=== PATIENT | female | born 1960 | race American Indian/Alaskan Native ===

== ENCOUNTER 2017-03-21 20:40 | Observation (INO) | payer MEDICAID ==
[2017-03-21 20:46] VITALS: BMI 30.7
[2017-03-21] MEDS ORDERED: Sodium Chloride 0.9% 1,000 ML IV STA (21:05)
--- NOTE | 2017-03-21 21:19 | ED PDOC ---
Arrival/HPI - General Chief Complaint: High Blood Sugar Time Seen by Provider: 03/21/17 20:42 Historian: Patient - History of Present Illness Narrative History of Present Illness (Text): 03/21/17 21:13 Tracey Krishnan is a 56 year old female, whose past medical history includes hypertension, diabetes, hyperlipidemia, and anxiety, presents to the emergency department for elevated blood glucose level. Patient had blood work done at 's office yesterday which showed a blood glucose level of 589. Patient was evaluated by again today after the results were available and advised the patient to present to ed for further evaluation. Patient takes Januvia, Metfromin and, Pioglitazone for diabetes, but states she stopped taking Januvia recently due to insurance issues. Denies any fever, chills, headache, dizziness, chest pain, difficulty breathing, nausea, vomiting, diarrhea, abdominal pain, urinary symptoms, or any other complaints at this time. PMD:Dr. Armstrong. Symptom Onset: Gradual Severity Level: Mild Activities at Onset: Light Past Medical History - Provider Review Nursing Documentation Reviewed: Yes - Infectious Disease Hx of Infectious Diseases: None - Tetanus Immunization Tetanus Immunization: Up to Date - Cardiac Hx Hypertension: Yes - Pulmonary Hx Respiratory Disorders: No - Neurological Hx Neurological Disorder: No - HEENT Hx HEENT Disorder: No - Renal Hx Renal Disorder: No - Endocrine/Metabolic Hx Diabetes Mellitus Type 2: Yes Hx Hyperthyroidism: Yes - Hematological/Oncological Hx Blood Disorders: No - Integumentary Hx Dermatological Disorder: No - Musculoskeletal/Rheumatological Hx Musculoskeletal Disorders: No Hx Falls: No - Gastrointestinal Hx Gastroesophageal Reflux: Yes - Genitourinary/Gynecological Hx Genitourinary Disorders: No - Psychiatric Hx Anxiety: Yes Hx Substance Use: No - Past Surgical History Past Surgical History: Non-Contributing - Anesthesia Hx Anesthesia: No - Suicidal Assessment Feels Threatened In Home Enviroment: No Family/Social History - Physician Review Nursing Documentation Reviewed: Yes Family/Social History: No Known Family HX Smoking Status: Former Smoker Hx Alcohol Use: No Hx Substance Use: No Hx Substance Use Treatment: No Allergies/Home Meds Allergies/Adverse Reactions: Allergies Penicillins Allergy (Verified 12/08/16 18:55) RASH Home Medications: Home Meds Medication Instructions Recorded Confirmed RX: Enalapril Maleate 20 mg PO DAILY 08/02/12 03/21/17 RX: Metformin HCl 1,000 mg PO BID 08/02/12 03/21/17 RX: Aspirin [Aspirin EC] 81 mg PO DAILY 11/06/14 03/21/17 RX: Omeprazole [Prilosec] 40 mg PO DAILY 12/10/15 03/21/17 Hctz 25mg 25 mg PO DAILY 12/08/16 03/21/17 Metoprolol Tartrate [Lopressor] 50 mg PO DAILY 12/08/16 03/21/17 Simvastatin [Zocor] 40 mg PO DAILY 12/08/16 03/21/17 amLODIPine [Norvasc] 5 mg PO DAILY 12/08/16 03/21/17 Review of Systems - Physician Review All systems were reviewed & negative as marked: Yes - Review of Systems Constitutional: Other (elevated blood glucose level. ). absent: Fatigue, Fevers Respiratory: Normal. absent: SOB, Cough, Sputum Cardiovascular: Normal. absent: Chest Pain Gastrointestinal: Normal. absent: Abdominal Pain, Diarrhea, Nausea, Vomiting Neurological: Normal. absent: Headache, Dizziness Psychiatric: Normal Physical Exam Vital Signs Reviewed: Yes Vital Signs Temp Pulse Resp BP Pulse Ox 03/22/17 00:36 84 18 113/55 L 98 03/21/17 20:46 98.6 F 88 18 122/70 99 Temperature: Afebrile Blood Pressure: Normal Pulse: Regular Respiratory Rate: Normal Appearance: Positive for: Well-Appearing, Non-Toxic, Comfortable Pain Distress: None Mental Status: Positive for: Alert and Oriented X 3 - Systems Exam Head: Present: Atraumatic, Normocephalic Pupils: Present: PERRL Conjunctiva: Present: Normal Mouth: Present: Moist Mucous Membranes Respiratory/Chest: Present: Clear to Auscultation, Good Air Exchange. No: Respiratory Distress, Accessory Muscle Use Cardiovascular: Present: Regular Rate and Rhythm, Normal S1, S2. No: Murmurs Abdomen: Present: Normal Bowel Sounds. No: Tenderness, Distention, Peritoneal Signs, Rebound, Guarding Upper Extremity: Present: Normal Inspection. No: Cyanosis, Edema Lower Extremity: Present: Normal Inspection. No: Edema Neurological: Present: GCS=15, CN II-XII Intact, Speech Normal, Motor Func Grossly Intact, Normal Sensory Function Skin: Present: Warm, Dry, Normal Color. No: Rashes Psychiatric: Present: Alert, Oriented x 3, Normal Insight, Normal Concentration Medical Decision Making ED Course and Treatment: 03/21/17 21:21 Impression: A 56 year old female sent to emergency department by PMD for evaluation of elevated blood glucose level. Plan: -- Labs -- Chest X-ray -- IV fluids -- Urine culture -- Urinalysis -- Reassess and disposition Progress Notes: 03/22/17 00:21 Case discussed with who is aware and agrees with the plan to observe patient at med/surg for hyperglycemia. Accepts patient under his service. - Lab Interpretations Lab Results: 03/21/17 22:15 03/21/17 22:15 Lab Results 03/21/17 23:59: POC Glucose (mg/dL) 389 H 03/21/17 22:15: Sodium 130 L, Potassium 3.9, Chloride 90 L, Carbon Dioxide 25, Anion Gap 19, BUN 30 H, Creatinine 1.3, Est GFR ( Amer) 52, Est GFR (Non- Af Amer) 43, Random Glucose 501 H* D, Calcium 9.8, Total Bilirubin 1.3, AST 36, ALT 27, Alkaline Phosphatase 78, Total Protein 7.5, Albumin 3.9, Globulin 3.6, Albumin/Globulin Ratio 1.1 03/21/17 22:15: pO2 72 H, VBG pH 7.36, VBG pCO2 50.0, VBG HCO3 28.2 H, VBG O2 Sat (Calc) 97.4 H, VBG Base Excess 1.9 03/21/17 22:15: WBC 7.1, RBC 4.81, Hgb 13.4, Hct 37.5, MCV 78.0 L, MCH 27.9, MCHC 35.7, RDW 13.2, Plt Count 213, MPV 12.2 H, Gran % 70.0 H, Lymph % (Auto) 21.7 L, [place] % (Auto) 7.3 H, Eos % (Auto) 0.7 L, Baso % (Auto) 0.3, Gran # 5.00 , Lymph # 1.6, [place] # 0.5, Eos # 0.1, Baso # 0.02 03/21/17 22:06: Urine Color Yellow, Urine Appearance Clear, Urine pH 6.0, Ur Specific [place] 1.010, Urine Protein Negative, Urine Glucose (UA) >=1000, Urine Ketones Negative, Urine Blood Negative, Urine Nitrate Negative, Urine Bilirubin Negative, Urine Urobilinogen 0.2, Ur Leukocyte Esterase Negative I have reviewed the lab results: Yes - RAD Interpretation Radiology Orders: 03/21/17 21:05 CHEST PORTABLE [RAD] Stat - Medication Orders Current Medication Orders: Discontinued Medications Sodium Chloride (Sodium Chloride 0.9%) 1,000 mls @ 999 mls/hr IV .Q1H1M STA Stop: 03/21/17 22:05 Last Admin: 03/21/17 22:14 Dose: 999 mls/hr Insulin Human Regular (Humulin R) 4 units IV STAT STA Stop: 03/21/17 21:42 Last Admin: 03/21/17 22:43 Dose: 4 units - Scribe Statement The provider has reviewed the documentation as recorded by the Lala Bedolla Provider Attestation: All medical record entries made by the Nusratiblucila were at my direction and personally dictated by me. I have reviewed the chart and agree that the record accurately reflects my personal performance of the history, physical exam, medical decision making, and the department course for this patient. I have also personally directed, reviewed, and agree with the discharge instructions and disposition. Disposition/Present on Arrival - Present on Arrival Any Indicators Present on Arrival: No History of DVT/PE: No History of Uncontrolled Diabetes: No Urinary Catheter: No History of Decub. Ulcer: No History Surgical Site Infection Following: None - Disposition Have Diagnosis and Disposition been Completed?: Yes Diagnosis: Hyperglycemia due to type 2 diabetes mellitus Disposition: HOSPITALIZED Disposition Time: 00:00 Patient Plan: Admission Condition: STABLE
[2017-03-21] MEDS ORDERED: Insulin Regular 1 UNITS/0.01 ML ML IV STA (21:41)
[2017-03-21 22:19] LABS: ADD MANUAL DIFF? NO
[2017-03-21 22:34] LABS: VENOUS BLOOD GAS BASE EXCESS 1.9 mmol/L (0.0-2.0); VENOUS BLOOD PH 7.36 (7.32-7.43)
[2017-03-21 22:43] LABS: BASO # 0.02 K/mm3 (0.0-2.0); BASO % 0.3 % (0.0-3.0); EOS # 0.1 (0.0-0.7); EOS % 0.7 % (1.5-5.0); HEMATOCRIT 37.5 % (36.0-48.0); LYMPH # 1.6 (1.2-3.4); LYMPH % 21.7 % (22.0-35.0); MEAN CORPUSCULAR HEMOGLOBIN 27.9 pg (25.0-35.0); MEAN CORPUSCULAR HGB CONC 35.7 g/dl (31.0-37.0); MEAN PLATELET VOLUME 12.2 fl (7.0-11.0); MONO # 0.5 (0.1-0.6); MONO % 7.3 % (1.0-6.0); PLATELET COUNT 213 10^3/uL (120.0-450.0); RED CELL DISTRIBUTION WIDTH 13.2 % (11.5-14.5); WHITE BLOOD COUNT 7.1 10^3/ul (4.5-11.0)
[2017-03-21 22:47] LABS: ALB/GLOB RATIO 1.1 (1.1-1.8); BILIRUBIN,TOTAL 1.3 mg/dL (0.2-1.3); CALCIUM 9.8 mg/dL (8.4-10.5); POTASSIUM 3.9 mmol/L (3.6-5.0); TOTAL PROTEIN 7.5 g/dL (5.8-8.3)
[2017-03-21 23:25] LABS: URINE BILIRUBIN NEGATIVE (NEGATIVE); URINE BLOOD NEGATIVE (NEGATIVE); URINE GLUCOSE (UA) >=1000 mg/dL (NEGATIVE); URINE KETONE NEGATIVE (NEGATIVE); URINE LEUKOCYTE ESTERASE NEGATIVE Leu/uL (NEGATIVE); URINE PROTEIN NEGATIVE mg/dL (<30 mg/dL); URINE UROBILINOGEN 0.2 E.U./dL (<1 E.U./dL)
[2017-03-21 23:28] LABS: URINE APPEARANCE CLEAR (CLEAR); URINE COLOR YELLOW (YELLOW)
[2017-03-22 04:01] VITALS: RESP 20
[2017-03-22] MEDS ORDERED: Insulin Lispro (humaLOG) LOW Coverage SC SCH (07:30)
[2017-03-22 08:08] LABS: BLOOD UREA NITROGEN 24 mg/dL (7-21); CALCIUM 9.3 mg/dL (8.4-10.5); CARBON DIOXIDE 26 mmol/L (21-33); CHLORIDE 96 mmol/L (98-107); GFR AFRICAN-AMERICAN > 60; POTASSIUM 3.4 mmol/L (3.6-5.0); SODIUM 132 mmol/L (132-148)
[2017-03-22 08:32] LABS: GLUCOSE,RANDOM 436 mg/dL (70-110)
--- NOTE | 2017-03-22 09:23 | RAD ---
HISTORY: r/o infiltrate COMPARISON: 12/08/2016 FINDINGS: LUNGS: No active pulmonary disease. PLEURA: No significant pleural effusion identified, no pneumothorax apparent. CARDIOVASCULAR: Normal. OSSEOUS STRUCTURES: No significant abnormalities. VISUALIZED UPPER ABDOMEN: Normal. OTHER FINDINGS: None. IMPRESSION: No active disease.
[2017-03-22] MEDS: Pantoprazole 40 mg EC Tab PO SCH (09:46)
[2017-03-22] MEDS ORDERED: Insulin Detemir 100 units/ml Vial (Levemir) SC SCH ×3 (10:00→22:00)
[2017-03-22] MEDS: Insulin Lispro (HUMAlog) HIGH Coverage SC SCH ×3 (11:49→22:51)
[2017-03-22] MEDS: Sodium Chloride 0.9% 1,000 ML IV SCH (16:00)
[2017-03-22] MEDS: Insulin Detemir 100 units/ml Vial (Levemir) SC SCH (23:04)
[2017-03-23] MEDS: Insulin Lispro (HUMAlog) HIGH Coverage SC SCH ×3 (08:26→17:26)
[2017-03-23] MEDS ORDERED: Potassium Chloride 10 mEq ER Tab PO SCH (08:45)
[2017-03-23] MEDS: Pantoprazole 40 mg EC Tab PO SCH (09:10)
[2017-03-23] MEDS: Insulin Detemir 100 units/ml Vial (Levemir) SC SCH (09:10)
[2017-03-23 09:40] VITALS: TEMP 98.1; O2SAT 100
[2017-03-23] MEDS: Sodium Chloride 0.9% 1,000 ML IV SCH (12:17)
[2017-03-23 17:27] VITALS: BP 121/65; PULSE 85
--- NOTE | 2017-03-24 09:40 | HP ---
The patient's history and physical was done on 03/19/2017. A 56-year-old female who came in because o f blood sugar 550 and above with uncontrolled diabetes. HISTORY OF PRESENT ILLNESS: This is a 56-year-old female, diabetic, seems noncompliant, came into th e ER because was seen in the office, blood sugar 550. There are no electrolyte abnormalities, but monique vargas has problem controlling her sugar, giving herself insulin and advised to go to the hospital for controlling her high sugar and diabetic education and see how she does. She feels weak, no energy. She is not nauseous. No vomiting, no fever, no dysuria, no cough. The patient otherwise stable. PAST MEDICAL HISTORY: As I mentioned before, she did have a history of diabetes type 2, which has be en taking the medicine for years. She also has a history of a stroke in the past that resolved, hype rtension, hypercholesterolemia. ALLERGIES: PENICILLIN. SOCIAL HISTORY: She has no smoking, no drinking. REVIEW OF SYSTEMS: She does have facial asymmetry. She also has some chronic arthritis, back pain, knee pain on and off. She does feel fatigued. Otherwise negative. PHYSICAL EXAMINATION: VITAL SIGNS: Temperature 98.2, heart rate 74, blood pressure 128/74, respirations 20, saturation 96% . HEAD AND NECK: Normal, except facial asymmetry. No JVD, no thyromegaly. CHEST: Clear, good air entry. CARDIAC: First sound, second sound normal. ABDOMEN: Soft, obese, nontender. EXTREMITIES: No edema. NEUROLOGIC: Normal, except the facial asymmetry. LABORATORY DATA: White count 7.1, hemoglobin 13.4, hematocrit 37.5, platelets 213. Chemistry shows sodium 130, potassium 3.9, chloride 90, BUN 30, creatinine 1.3, blood sugar is 501. Liver enzymes ar e normal. ABG shows pO2 72, pH 7.36, pCO2 50. UA was negative. Also patient did have, when she cam e in, she had a chest x-ray, which shows no active disease. IMPRESSION AND PLAN: This is a 56-year-old female with uncontrolled diabetes, poor compliance. We w ill admit the patient for IV hydration. She does have mild renal insufficiency in the office labs, w hich seems better now. Continue IV fluid, insulin. Going to give 20 units of insulin. Continue hig h scale insulin coverage. Probably, will give Lantus long-acting and follow up the patient clinicall y. Diabetic education. Resume all blood pressure and cholesterol medications. Continue aspirin. F annelow up clinically, see her in the morning. Jose Antonio Armstrong MD cc: [phone] TT: 03/24/2017 09:39:23 en
--- NOTE | 2017-03-24 15:39 | DS ---
A 56-year-old female, came in with uncontrolled diabetes. The patient was given insulin sliding scal e, high scale coverage, which then required long acting insulin, which added insulin, was close to 35 units or 40 units. The patient also seems doing well and no other complaint. No dysuria, no fever. The patient hemodynamically stable and will be discharged home. VITAL SIGNS: Temperature 98, heart rate 57, blood pressure 115/58, respirations 20, saturating 100%. Her UA showed gram-positive cocci on the urine culture. The patient asymptomatic. A chest x-ray, no active disease. The patient will be discharged home. PHYSICAL EXAMINATION: HEAD AND NECK: Normal, except for facial asymmetry. CHEST: Clear, good air entry. CARDIAC: First sound, second sound normal. ABDOMEN: Obese, nontender. EXTREMITIES: No edema. NEUROLOGIC: Normal. DISCHARGE DIAGNOSES: 1. Uncontrolled diabetes. 2. Acute renal insufficiency, resolved. 3. Urinary tract infection, gram-positive cocci, given doxycycline for 7 days. PLAN: Discharge home. We will give the patient Lantus, will go on the low side, 30 units for now be cause patient is new for her sugar and will resume her metformin to 1000 mg b.i.d. Hopefully, betwee n the combination of these drugs, her sugar will improve. I will see her Saturday or Saturday for stalin nuation of therapy. Diet control should be explained to the patient and frequent monitor blood sugar and hypoglycemia. The symptoms of awareness of hypoglycemia has been explained to the patient. Dinah betic education also was recommended to the patient. Continue current therapy. Jose Antonio Armstrong MD cc: [phone] TT: 03/24/2017 15:38:40 en
== END 2017-03-23 19:25 | disposition home or self-care (01) ==
LOC: ED 20:40 → ERH 03-22 → 5RSO 03-22 02:37
PROVIDERS: ADMIT Internal Medicine; ATTEND Internal Medicine
DX: E11.65 Type 2 diabetes mellitus with hyperglycemia (principal); N28.9 Disorder of kidney and ureter, unspecified; N39.0 Urinary tract infection, site not specified; B95.1 Streptococcus, group B, as the cause of diseases classified elsewhere; I10 Essential (primary) hypertension; E78.00 Pure hypercholesterolemia, unspecified; Z88.0 Allergy status to penicillin; Z79.84 Long term (current) use of oral hypoglycemic drugs; Z79.82 Long term (current) use of aspirin; Z86.73 Personal history of transient ischemic attack (TIA), and cerebral infarction without residual deficits; Z91.19 Patient's noncompliance with other medical treatment and regimen
CPT/HCPCS: 36415; 71010; 80048; 80053; 81003; 82803; 82948; 85025; 87086; 87181; 99285; G0378; J7040

== ENCOUNTER 2018-05-21 18:09 | Emergency (ER) | payer MEDICAID, OTHER ==
[2018-05-21 18:33] VITALS: BMI 33.0
[2018-05-21 18:47] VITALS: RESP 18
[2018-05-21 19:29] LABS: BASO # 0.02 K/mm3 (0.0-2.0); BASO % 0.2 % (0.0-3.0); EOS # 0.1 (0.0-0.7); EOS % 1.3 % (1.5-5.0); GRAN # 6.88 (1.4-6.5); GRAN % 67.1 % (50.0-68.0); LYMPH # 2.2 (1.2-3.4); LYMPH % 21.5 % (22.0-35.0); MEAN CELL VOLUME 79.1 fl (80.0-105.0); MEAN CORPUSCULAR HEMOGLOBIN 26.9 pg (25.0-35.0); MEAN CORPUSCULAR HGB CONC 33.9 g/dl (31.0-37.0); MEAN PLATELET VOLUME 10.9 fl (7.0-11.0); MONO % 9.9 % (1.0-6.0); RBC 4.84 10^6/uL (3.5-6.1); RED CELL DISTRIBUTION WIDTH 14.1 % (11.5-14.5); WHITE BLOOD COUNT 10.3 10^3/ul (4.5-11.0)
[2018-05-21 19:35] LABS: ALB/GLOB RATIO 1.1 (1.1-1.8); ALT/SGPT 19 U/L (7-56); AST/SGOT 26 U/L (14-36); BLOOD UREA NITROGEN 19 mg/dL (7-21); CALCIUM 9.2 mg/dL (8.4-10.5); GFR AFRICAN-AMERICAN > 60; GFR NON-AFRICAN AMERICAN 52
[2018-05-21 19:46] LABS: TROPONIN I 0.01 ng/mL
[2018-05-21 20:35] VITALS: BP 143/70; PULSE 65; TEMP 98.4; O2SAT 100
[2018-05-21 20:39] LABS: URINE BILIRUBIN NEGATIVE (NEGATIVE); URINE BLOOD NEGATIVE (NEGATIVE); URINE GLUCOSE (UA) NEGATIVE (NEGATIVE); URINE LEUKOCYTE ESTERASE TRACE Leu/uL (NEGATIVE); URINE PROTEIN NEGATIVE mg/dL (<30 mg/dL); URINE UROBILINOGEN 0.2 E.U./dL (<1 E.U./dL)
[2018-05-21 20:46] LABS: URINE COLOR YELLOW (YELLOW)
[2018-05-21 20:47] LABS: URINE APPEARANCE CLEAR (CLEAR)
--- NOTE | 2018-05-21 20:50 | ED PDOC ---
Arrival/HPI - General Chief Complaint: Shortness Of Breath Time Seen by Provider: 05/21/18 18:37 Past Medical History - Infectious Disease Hx of Infectious Diseases: None - Tetanus Immunization Tetanus Immunization: Up to Date - Reproductive Menopause: Yes - Cardiac Hx Cardiac Disorders: Yes Hx Hypertension: Yes - Pulmonary Hx Respiratory Disorders: Yes Hx Bronchitis: Yes - Neurological Hx Neurological Disorder: Yes Other/Comment: Lovell's Palsy - HEENT Hx HEENT Disorder: No - Renal Hx Renal Disorder: No - Endocrine/Metabolic Hx Endocrine Disorders: Yes Hx Diabetes Mellitus Type 2: Yes Hx Hyperthyroidism: Yes - Hematological/Oncological Hx Blood Disorders: No - Integumentary Hx Dermatological Disorder: No - Musculoskeletal/Rheumatological Hx Musculoskeletal Disorders: No Hx Falls: No - Gastrointestinal Hx Gastrointestinal Disorders: Yes Hx Gastroesophageal Reflux: Yes - Genitourinary/Gynecological Hx Genitourinary Disorders: No - Psychiatric Hx Psychophysiologic Disorder: Yes Hx Anxiety: Yes Hx Substance Use: No - Past Surgical History Past Surgical History: Non-Contributing - Anesthesia Hx Anesthesia: No - Suicidal Assessment Feels Threatened In Home Enviroment: No Family/Social History Smoking Status: Never Smoked Hx Alcohol Use: No Hx Substance Use: No Hx Substance Use Treatment: No Allergies/Home Meds Allergies/Adverse Reactions: Allergies Penicillins Allergy (Verified 05/21/18 18:34) RASH Home Medications: Home Meds Medication Instructions Recorded Confirmed Enalapril Maleate 20 mg PO BID 08/02/12 05/21/18 Aspirin [Aspirin EC] 81 mg PO DAILY 11/06/14 05/21/18 Metoprolol Tartrate [Lopressor] 50 mg PO DAILY 12/08/16 05/21/18 amLODIPine [Norvasc] 5 mg PO DAILY 12/08/16 05/21/18 Simvastatin [Zocor] 40 mg PO DAILY 02/06/18 05/21/18 Famotidine [Pepcid] 40 mg PO DAILY 05/21/18 05/21/18 Physical Exam Vital Signs Temp Pulse Resp BP Pulse Ox 05/21/18 20:33 98.4 F 65 18 143/70 100 05/21/18 18:46 18 96 05/21/18 18:25 98.2 F 73 20 93 L Medical Decision Making ED Course and Treatment: 05/21/18 Patient Seen With Resident: In agreement with resident note which contains more details about the patient. Patient was seen and evaluated with resident. Came up with plan and treatment together. 05/21/18 20:00 Discussed case with , who is aware of the patient. Patient is stable for discharge and will follow-up with him tomorrow. - Lab Interpretations Lab Results: 05/21/18 19:00 05/21/18 19:00 Lab Results 05/21/18 20:20: Urine Color Yellow, Urine Appearance Clear, Urine pH 6.0, Ur Specific [place] 1.015, Urine Protein Negative, Urine Glucose (UA) Negative, Urine Ketones Negative, Urine Blood Negative, Urine Nitrate Negative, Urine Bilirubin Negative, Urine Urobilinogen 0.2, Ur Leukocyte Esterase Trace H, Urine RBC Pending, Urine WBC Pending 05/21/18 19:00: Sodium 140, Potassium 3.4 L, Chloride 104, Carbon Dioxide 23, Anion Gap 16, BUN 19, Creatinine 1.1, Est GFR ( Amer) > 60, Est GFR (Non- Af Amer) 52, Random Glucose 195 H, Calcium 9.2, Magnesium 1.9, Total Bilirubin 0.8, AST 26, ALT 19, Alkaline Phosphatase 84, Lactate Dehydrogenase 493, Total Creatine Kinase 161, Troponin I 0.01, Total Protein 7.5, Albumin 4.0, Globulin 3.5, Albumin/Globulin Ratio 1.1 05/21/18 19:00: WBC 10.3 D, RBC 4.84, Hgb 13.0, Hct 38.3, MCV 79.1 L, MCH 26.9 , MCHC 33.9, RDW 14.1, Plt Count 280, MPV 10.9, Gran % 67.1, Lymph % (Auto) 21.5 L, [place] % (Auto) 9.9 H, Eos % (Auto) 1.3 L, Baso % (Auto) 0.2, Gran # 6.88 H, Lymph # (Auto) 2.2, [place] # (Auto) 1.0 H, Eos # (Auto) 0.1, Baso # (Auto) 0.02 - RAD Interpretation Radiology Orders: 05/21/18 18:43 CHEST PORTABLE [RAD] Stat - Medication Orders Current Medication Orders: Discontinued Medications Aspirin (Aspirin) 325 mg PO STAT STA Stop: 05/21/18 18:42 Last Admin: 05/21/18 18:52 Dose: 325 mg Disposition/Present on Arrival - Present on Arrival History of DVT/PE: No History of Uncontrolled Diabetes: No Urinary Catheter: No History of Decub. Ulcer: No History Surgical Site Infection Following: None - Disposition Diagnosis: Non-cardiac chest pain Disposition: HOME/ ROUTINE Condition: GOOD Discharge Instructions (ExitCare): Chest Pain (ED) Additional Instructions: EHSAN DEJESUS, thank you for letting us take care of you today. The emergency medical care you received today was directed at your acute symptoms. If you were prescribed any medication, please fill it and take as directed. It may take several days for your symptoms to resolve. Return to the Emergency Department if your symptoms worsen, do not improve, or if you have any other problems. Please contact your doctor or call one of the physicians/clinics you have been referred to that are listed on the Patient Visit Information form that is included in your discharge packet. Bring any paperwork you were given at discharge with you along with any medications you are taking to your follow up visit. Our treatment cannot replace ongoing medical care by a primary care provider outside of the emergency department. Thank you for allowing the [facility] team to be part of your care today. Follow up with your primary care doctor in 1-2 days for re-evaluation and further management. Referrals: Jose Antonio Armstrong MD [Primary Care Provider] - Follow up with primary Forms: [facility] ([place]ian)
--- NOTE | 2018-05-21 20:50 | ED PDOC ---
Arrival/HPI - General Historian: Patient - History of Present Illness Time/Duration: 24 hours Symptom Course: Intermittent Activities at Onset: Light Context: Exertion <Ryan Damian - Last Filed: 05/21/18 22:05> <Brigida Ignacio - Last Filed: 05/21/18 22:24> - General Chief Complaint: Shortness Of Breath Time Seen by Provider: 05/21/18 18:37 - History of Present Illness Narrative History of Present Illness (Text): 05/21/18 20:33 This is a 57 year old female with PMH of HT, DM2, stroke and anxiety presenting to the ED for SOB earlier today. Patient states she was exercising this morning by walking around a track for an hour and subsequently felt short of breath. Later in the afternoon she also felt SOB upon returning home from grocery shopping. She has no associated symptoms and currently is asymptomatic. She denies CP, nausea, vomiting, headaches, fevers, chills, abdominal pain, diarrhea , melena, leg swelling, urinary symptoms, recent travel and recent sickness. She had a myocardial stress test done on 02/06/18 which showed normal findings and LVEF of 68%. PCP is Dr. Armstrong (Ryan Damian) Past Medical History - Provider Review Nursing Documentation Reviewed: Yes - Infectious Disease Hx of Infectious Diseases: None - Tetanus Immunization Tetanus Immunization: Up to Date - Reproductive Menopause: Yes - Cardiac Hx Cardiac Disorders: Yes Hx Hypertension: Yes - Pulmonary Hx Respiratory Disorders: Yes Hx Bronchitis: Yes - Neurological Hx Neurological Disorder: Yes Other/Comment: Lovell's Palsy - HEENT Hx HEENT Disorder: No - Renal Hx Renal Disorder: No - Endocrine/Metabolic Hx Endocrine Disorders: Yes Hx Diabetes Mellitus Type 2: Yes Hx Hyperthyroidism: Yes - Hematological/Oncological Hx Blood Disorders: No - Integumentary Hx Dermatological Disorder: No - Musculoskeletal/Rheumatological Hx Musculoskeletal Disorders: No Hx Falls: No - Gastrointestinal Hx Gastrointestinal Disorders: Yes Hx Gastroesophageal Reflux: Yes - Genitourinary/Gynecological Hx Genitourinary Disorders: No - Psychiatric Hx Psychophysiologic Disorder: Yes Hx Anxiety: Yes Hx Substance Use: No - Past Surgical History Past Surgical History: Non-Contributing - Anesthesia Hx Anesthesia: No - Suicidal Assessment Feels Threatened In Home Enviroment: No <Ryan Damian - Last Filed: 05/21/18 22:05> Family/Social History - Physician Review Nursing Documentation Reviewed: Yes Family/Social History: Unknown Family HX Smoking Status: Never Smoked Hx Alcohol Use: No Hx Substance Use: No Hx Substance Use Treatment: No <Ryan Damian - Last Filed: 05/21/18 22:05> Allergies/Home Meds <Ryan Damian - Last Filed: 05/21/18 22:05> <Ignacio Allred DO - Last Filed: 05/21/18 22:24> Allergies/Adverse Reactions: Allergies Penicillins Allergy (Verified 05/21/18 18:34) RASH Home Medications: Home Meds Medication Instructions Recorded Confirmed Enalapril Maleate 20 mg PO BID 08/02/12 05/21/18 Aspirin [Aspirin EC] 81 mg PO DAILY 11/06/14 05/21/18 Metoprolol Tartrate [Lopressor] 50 mg PO DAILY 12/08/16 05/21/18 amLODIPine [Norvasc] 5 mg PO DAILY 12/08/16 05/21/18 Simvastatin [Zocor] 40 mg PO DAILY 02/06/18 05/21/18 Famotidine [Pepcid] 40 mg PO DAILY 05/21/18 05/21/18 Review of Systems - Physician Review All systems were reviewed & negative as marked: Yes - Review of Systems Constitutional: Normal. absent: Fevers Eyes: Normal ENT: Normal Respiratory: SOB. absent: Cough, Wheezing Cardiovascular: Normal. absent: Chest Pain, Palpitations Gastrointestinal: Normal. absent: Abdominal Pain, Nausea, Vomiting Genitourinary Female: Normal. absent: Dysuria, Frequency, Hematuria Musculoskeletal: Normal Skin: Normal Neurological: Normal. absent: Headache Psychiatric: Anxiety <Ryan Damian - Last Filed: 05/21/18 22:05> Physical Exam Vital Signs Reviewed: Yes Temperature: Afebrile Blood Pressure: Normal Pulse: Regular Respiratory Rate: Normal Appearance: Positive for: Well-Appearing, Non-Toxic, Comfortable Pain Distress: None Mental Status: Positive for: Alert and Oriented X 3 - Systems Exam Head: Present: Atraumatic, Normocephalic Pupils: Present: PERRL Extroacular Muscles: Present: EOMI Conjunctiva: Present: Normal Mouth: Present: Moist Mucous Membranes Neck: Present: Normal Range of Motion Respiratory/Chest: Present: Clear to Auscultation, Good Air Exchange. No: Respiratory Distress, Accessory Muscle Use, Wheezes Cardiovascular: Present: Regular Rate and Rhythm, Normal S1, S2. No: Murmurs Abdomen: Present: Normal Bowel Sounds. No: Tenderness, Distention, Peritoneal Signs, Rebound, Guarding, [place]'s [place] Tender Back: Present: Normal Inspection Upper Extremity: Present: Normal Inspection. No: Cyanosis, Edema Lower Extremity: Present: Normal Inspection. No: Edema Neurological: Present: Speech Normal, Motor Func Grossly Intact, Normal Sensory Function Skin: Present: Warm, Dry, Normal Color. 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 Differential not limited to: anxiety vs angina vs dehydration Plan: Blood work ordered. Chest XRAY, troponins, and U/A. Progress: 05/21/18 21:05 Patient is resting comfortably, no acute distress and afebrile, and no complaints at this time. (Ryan Damian) 05/21/18 Patient Seen With Resident: In agreement with resident note which contains more details about the patient. Patient was seen and evaluated with resident. Came up with plan and treatment together. 05/21/18 20:00 Discussed case with , who is aware of the patient. Patient is stable for discharge and will follow-up with him tomorrow. 07/18/18 Chest X-ray shows no acute processes. 05/21/18 EKG shows NSR at 69 BPM with LAFB no change from prior. Interpreted by me. ( Ignacio Allred DO) - Lab Interpretations Lab Results: 05/21/18 19:00 05/21/18 19:00 Lab Results 05/21/18 20:20: Urine Color Yellow, Urine Appearance Clear, Urine pH 6.0, Ur Specific [place] 1.015, Urine Protein Negative, Urine Glucose (UA) Negative, Urine Ketones Negative, Urine Blood Negative, Urine Nitrate Negative, Urine Bilirubin Negative, Urine Urobilinogen 0.2, Ur Leukocyte Esterase Trace H, Urine RBC Negative, Urine WBC 2 - 5, Ur Epithelial Cells 3 - 4, Urine Bacteria Mod 05/21/18 19:00: Sodium 140, Potassium 3.4 L, Chloride 104, Carbon Dioxide 23, Anion Gap 16, BUN 19, Creatinine 1.1, Est GFR ( Amer) > 60, Est GFR (Non- Af Amer) 52, Random Glucose 195 H, Calcium 9.2, Magnesium 1.9, Total Bilirubin 0.8, AST 26, ALT 19, Alkaline Phosphatase 84, Lactate Dehydrogenase 493, Total Creatine Kinase 161, Troponin I 0.01, Total Protein 7.5, Albumin 4.0, Globulin 3.5, Albumin/Globulin Ratio 1.1 05/21/18 19:00: WBC 10.3 D, RBC 4.84, Hgb 13.0, Hct 38.3, MCV 79.1 L, MCH 26.9 , MCHC 33.9, RDW 14.1, Plt Count 280, MPV 10.9, Gran % 67.1, Lymph % (Auto) 21.5 L, Rice % (Auto) 9.9 H, Eos % (Auto) 1.3 L, Baso % (Auto) 0.2, Gran # 6.88 H, Lymph # (Auto) 2.2, Rice # (Auto) 1.0 H, Eos # (Auto) 0.1, Baso # (Auto) 0.02 - RAD Interpretation Radiology Orders: 05/21/18 18:43 CHEST PORTABLE [RAD] Stat - Medication Orders Current Medication Orders: Discontinued Medications Aspirin (Aspirin) 325 mg PO STAT STA Stop: 05/21/18 18:42 Last Admin: 05/21/18 18:52 Dose: 325 mg - PA / CHARTERED ACCOUNTANT / Resident Statement ROSITA has reviewed & agrees with the documentation as recorded. ROSITA has examined the patient and agrees with the treatment plan. <Ryan Damian - Last Filed: 05/21/18 22:05> Disposition/Present on Arrival - Present on Arrival Any Indicators Present on Arrival: No History of DVT/PE: No History of Uncontrolled Diabetes: No Urinary Catheter: No History of Decub. Ulcer: No History Surgical Site Infection Following: None - Disposition Have Diagnosis and Disposition been Completed?: Yes Disposition Time: 21:00 Patient Plan: Discharge <Ryan Damian - Last Filed: 05/21/18 22:05> - Disposition Disposition Time: 20:00 <Ignacio Allred DO - Last Filed: 05/21/18 22:24> - Disposition Diagnosis: Non-cardiac chest pain Disposition: HOME/ ROUTINE Condition: GOOD Discharge Instructions (ExitCare): Chest Pain (ED) Additional Instructions: EHSAN DEJESUS, thank you for letting us take care of you today. The emergency medical care you received today was directed at your acute symptoms. If you were prescribed any medication, please fill it and take as directed. It may take several days for your symptoms to resolve. Return to the Emergency Department if your symptoms worsen, do not improve, or if you have any other problems. Please contact your doctor or call one of the physicians/clinics you have been referred to that are listed on the Patient Visit Information form that is included in your discharge packet. Bring any paperwork you were given at discharge with you along with any medications you are taking to your follow up visit. Our treatment cannot replace ongoing medical care by a primary care provider outside of the emergency department. Thank you for allowing the [facility] team to be part of your care today. Follow up with your primary care doctor in 1-2 days for re-evaluation and further management. Referrals: Jose Antonio Armstrong MD [Primary Care Provider] - Follow up with primary Forms: [employer] ([place]i)
[2018-05-21 20:54] LABS: URINE RBC NEGATIVE /hpf (0-2)
[2018-05-21 20:55] LABS: URINE BACTERIA MOD (NEG)
--- NOTE | 2018-05-22 07:12 | RAD ---
Date of service: 05/21/2018 HISTORY: r/o infiltrate COMPARISON: 03/21/2017 FINDINGS: LUNGS: No active pulmonary disease. PLEURA: No significant pleural effusion identified, no pneumothorax apparent. CARDIOVASCULAR: Normal. OSSEOUS STRUCTURES: No significant abnormalities. VISUALIZED UPPER ABDOMEN: Normal. OTHER FINDINGS: None. IMPRESSION: No active disease.
--- NOTE | 2018-05-22 08:20 | CARD ---
APPROVED REPORT Date of service: 05/21/2018 EKG Measurement Heart [id number] <Conclusion> Normal sinus rhythm Left anterior fascicular block Left ventricular hypertrophy. ST__T Changes. Abnormal ECG
== END 2018-05-21 20:35 | disposition home or self-care (01) ==
LOC: ED 18:09
DX: R07.89 Other chest pain (principal); I10 Essential (primary) hypertension; E11.9 Type 2 diabetes mellitus without complications; Z86.73 Personal history of transient ischemic attack (TIA), and cerebral infarction without residual deficits

== ENCOUNTER 2018-10-15 14:25 | Observation (INO) | payer MEDICAID ==
[2018-10-15 14:34] VITALS: BMI 35.2
--- NOTE | 2018-10-15 15:05 | ED PDOC ---
Arrival/HPI - General Chief Complaint: Chest Pain Time Seen by Provider: 10/15/18 14:30 Historian: Patient - History of Present Illness Narrative History of Present Illness (Text): 10/15/18 14:57 58 year old female, with past medical history of hypertension, diabetes, hyperlipidemia and gastric reflux, presents to the ED complaining of worsening chest pain today. Patient reports chronic chest pain experienced every day, which resolves spontaneously. Patient informs a non-radiating shooting pain to midchest, which did not resolve today, prompting her to present to the ED for medical evaluation. Patient additionally reports chronic left shoulder discomfort since months and does not believe any correlation between the shoulder pain and the chest pain. Patient states similar symptoms in the past for which she was evaluated with no significant findings. Patient informs usual alleviation to symptoms with Tums and warm fluid intake, however states persistent symptoms today. Patient denies any other associated somatic comp laints. Patient denies any fevers, chills, headache, dizziness, shortness of breath, dyspnea on exertion, cough, abdominal pain, nausea, vomiting, diarrhea, back pain, neck pain, or any other complaints. PMD: Dr. Armstrong Radio Aerial Installer: Dr. Cheung Time/Duration: > month Symptom Onset: Gradual Symptom Course: Unchanged Quality: Aching Activities at Onset: Light Context: Home Past Medical History - Provider Review Nursing Documentation Reviewed: Yes - Infectious Disease Hx of Infectious Diseases: None - Tetanus Immunization Tetanus Immunization: Up to Date - Reproductive Menopause: Yes - Cardiac Hx Cardiac Disorders: Yes Hx Hypertension: Yes - Pulmonary Hx Respiratory Disorders: Yes Hx Bronchitis: Yes - Neurological Hx Neurological Disorder: Yes Other/Comment: Lovell's Palsy - HEENT Hx HEENT Disorder: No - Renal Hx Renal Disorder: No - Endocrine/Metabolic Hx Endocrine Disorders: Yes Hx Diabetes Mellitus Type 2: Yes Hx Hyperthyroidism: Yes - Hematological/Oncological Hx Blood Disorders: No - Integumentary Hx Dermatological Disorder: No - Musculoskeletal/Rheumatological Hx Musculoskeletal Disorders: No - Gastrointestinal Hx Gastrointestinal Disorders: Yes Hx Gastroesophageal Reflux: Yes - Genitourinary/Gynecological Hx Genitourinary Disorders: No - Psychiatric Hx Psychophysiologic Disorder: Yes Hx Anxiety: Yes Hx Substance Use: No - Past Surgical History Past Surgical History: Non-Contributing - Anesthesia Hx Anesthesia: No - Suicidal Assessment Feels Threatened In Home Enviroment: No Family/Social History - Physician Review Nursing Documentation Reviewed: Yes Family/Social History: Unknown Family HX Smoking Status: Never Smoked Hx Alcohol Use: No Hx Substance Use: No Hx Substance Use Treatment: No Allergies/Home Meds Allergies/Adverse Reactions: Allergies Penicillins Allergy (Verified 05/21/18 18:34) RASH Home Medications: Home Meds Medication Instructions Recorded Confirmed Enalapril Maleate 20 mg PO BID 08/02/12 05/21/18 Aspirin [Aspirin EC] 81 mg PO DAILY 11/06/14 05/21/18 Metoprolol Tartrate [Lopressor] 50 mg PO DAILY 12/08/16 05/21/18 amLODIPine [Norvasc] 5 mg PO DAILY 12/08/16 05/21/18 Simvastatin [Zocor] 40 mg PO DAILY 02/06/18 05/21/18 Famotidine [Pepcid] 40 mg PO DAILY 05/21/18 05/21/18 Review of Systems - Physician Review All systems were reviewed & negative as marked: Yes - Review of Systems Constitutional: absent: Fevers Respiratory: absent: SOB, Cough Cardiovascular: Chest Pain Gastrointestinal: absent: Abdominal Pain, Diarrhea, Nausea, Vomiting Genitourinary Female: absent: Dysuria, Hematuria Musculoskeletal: absent: Back Pain, Neck Pain Skin: absent: Rash Neurological: absent: Headache, Dizziness Physical Exam Vital Signs Reviewed: Yes Vital Signs Temp Pulse Resp BP Pulse Ox 10/15/18 14:26 98.6 F 68 18 141/69 97 Temperature: Afebrile Blood Pressure: Normal Pulse: Regular Respiratory Rate: Normal Appearance: Positive for: Well-Appearing, Non-Toxic, Comfortable Pain Distress: None Mental Status: Positive for: Alert and Oriented X 3 - Systems Exam Head: Present: Atraumatic, Normocephalic Pupils: Present: PERRL Extroacular Muscles: Present: EOMI Conjunctiva: Present: Normal Mouth: Present: Moist Mucous Membranes Neck: Present: Normal Range of Motion Respiratory/Chest: Present: Clear to Auscultation, Good Air Exchange. No: Respiratory Distress, Accessory Muscle Use Cardiovascular: Present: Regular Rate and Rhythm, Normal S1, S2. No: Murmurs Abdomen: No: Tenderness, Distention, Peritoneal Signs Back: Present: Normal Inspection Upper Extremity: Present: Normal Inspection, Normal ROM, NORMAL PULSES, Te nderness (left shoulder tenderness), Neurovascularly Intact. No: Cyanosis, Edema, Swelling, Erythema Lower Extremity: Present: Normal Inspection, Neurovascularly Intact. No: Edema Neurological: Present: GCS=15, CN II-XII Intact, Speech Normal, Motor Func Grossly Intact, Normal Sensory Function Skin: Present: Warm, Dry, Normal Color. No: Rashes Psychiatric: Present: Alert, Oriented x 3, Normal Insight, Normal Concentration Medical Decision Making ED Course and Treatment: 10/15/18 15:06 Impression: 58 year old female presents to the Emergency department complaining of chest pain. Differential Diagnosis included but are not limited to: Chest pain r/o ACS vs. reflux Plan: -- Labs -- EKG -- Chest X-ray -- Reassess and disposition Prior Visits: Notes and results from previous visits were reviewed. Progress Notes: 10/15/18 15:06 EKG: Ordered, reviewed, and independently interpreted the EKG. Rate : 70 BPM Rhythm : NSR Interpretation : Left anterior fascicular block. Left ventricular hypertrophy with repolarization abnormality. Comparison : Unchanged from EKG performed on 05/21/18. 10/15/18 17:49 Left shoulder xray ordered for chronic shoulder pain. Symptoms improved but still having intermittent nawing discomfort in her mid chest. She has 3 cardiac risk factors and she will be placed on tele obs for Dr. Armstrong. He requests Dr. Edgar for Cardiology. - EKG Interpretation Interpreted by ED Physician: Yes Type: 12 lead EKG - Scribe Statement The provider has reviewed the documentation as recorded by the Scribe Nimisha Pineda. All medical record entries made by the Scribe were at my direction and personally dictated by me. I have reviewed the chart and agree that the record accurately reflects my personal performance of the history, physical exam, medical decision making, and the department course for this patient. I have also personally directed, reviewed, and agree with the discharge instructions and disposition. Disposition/Present on Arrival - Present on Arrival Any Indicators Present on Arrival: No History of DVT/PE: No History of Uncontrolled Diabetes: No Urinary Catheter: No History of Decub. Ulcer: No History Surgical Site Infection Following: None - Disposition Have Diagnosis and Disposition been Completed?: Yes Diagnosis: Chest pain Disposition: HOSPITALIZED Disposition Time: 17:50 Patient Plan: Observation Condition: FAIR Discharge Instructions (ExitCare): Chest Pain (ED) Forms: [employer] ([place])
[2018-10-15] MEDS ORDERED: Famotidine 20mg/50ml 20 MG/50 ML BAG IVPB STA (15:07)
[2018-10-15] MEDS ORDERED: Alum-Mag Hydrox-Simethicone Susp (30 mL) PO STA (15:09)
--- NOTE | 2018-10-15 16:15 | RAD ---
Date of service: 10/15/2018 HISTORY: chest pain COMPARISON: 05/21/2018 FINDINGS: LUNGS: The lungs are well inflated and clear. PLEURA: No pleural effusions or pneumothorax. CARDIOVASCULAR: Persistent moderate cardiomegaly. No aortic atherosclerotic calcification present. OSSEOUS STRUCTURES: Within normal limits for the patient's age. VISUALIZED UPPER ABDOMEN: Normal. OTHER FINDINGS: None. IMPRESSION: No active pulmonary disease.
[2018-10-15 17:10] LABS: BASO # 0.01 K/mm3 (0.0-2.0); BASO % 0.1 % (0.0-3.0); EOS # 0.1 (0.0-0.7); EOS % 0.9 % (1.5-5.0); GRAN # 6.34 (1.4-6.5); GRAN % 72.1 % (50.0-68.0); HEMOGLOBIN 13.3 g/dL (12.0-16.0); LYMPH # 1.9 (1.2-3.4); LYMPH % 21.6 % (22.0-35.0); MEAN CELL VOLUME 81.7 fl (80.0-105.0); MEAN CORPUSCULAR HEMOGLOBIN 27.3 pg (25.0-35.0); MEAN CORPUSCULAR HGB CONC 33.4 g/dl (31.0-37.0); MEAN PLATELET VOLUME 10.8 fl (7.0-11.0); MONO # 0.5 (0.1-0.6); MONO % 5.3 % (1.0-6.0); RBC 4.87 10^6/uL (3.5-6.1); RED CELL DISTRIBUTION WIDTH 13.8 % (11.5-14.5); WHITE BLOOD COUNT 8.8 10^3/uL (4.5-11.0)
[2018-10-15 17:11] LABS: URINE BILIRUBIN NEGATIVE (NEGATIVE); URINE BLOOD NEGATIVE (NEGATIVE); URINE GLUCOSE (UA) NEGATIVE (NEGATIVE); URINE LEUKOCYTE ESTERASE NEGATIVE Leu/uL (NEGATIVE); URINE PROTEIN NEGATIVE mg/dL (<30 mg/dL); URINE UROBILINOGEN 0.2 E.U./dL (<1 E.U./dL)
[2018-10-15 17:15] LABS: URINE APPEARANCE CLEAR (CLEAR); URINE COLOR YELLOW (YELLOW)
[2018-10-15 17:19] LABS: ALBUMIN 3.9 g/dL (3.0-4.8); ALT/SGPT 23 U/L (7-56); AST/SGOT 26 U/L (14-36); BLOOD UREA NITROGEN 16 mg/dL (7-21); CALCIUM 9.3 mg/dL (8.4-10.5); GFR NON-AFRICAN AMERICAN 57
[2018-10-15 17:28] LABS: TROPONIN I 0.02 ng/mL
--- NOTE | 2018-10-15 20:24 | CARD ---
APPROVED REPORT Date of service: 10/15/2018 EKG Measurement Heart [id number] [id number] <Conclusion> Normal sinus rhythm Left anterior fascicular block Left ventricular hypertrophy with repolarization abnormality Prolonged QT Abnormal ECG
--- NOTE | 2018-10-16 07:03 | CP.PCM.PN ---
Subjective - Date & Time of Evaluation Date of Evaluation: 10/16/18 Time of Evaluation: 06:50 - Subjective Subjective: A Objective - Vital Signs/Intake and Output Vital Signs (last 24 hours): Temp Pulse Resp BP Pulse Ox 98.4 F 67 20 137/82 96 10/15/18 22:45 10/16/18 02:00 10/15/18 23:54 10/15/18 22:45 10/15/18 22:45 - Labs Labs: 10/15/18 17:02 10/15/18 17:02
[2018-10-16] MEDS: Insulin Reg-LOW-Coverage SC SCH ×5 (08:31→21:03)
[2018-10-16 09:02] VITALS: RESP 18; O2SAT 100
[2018-10-16] MEDS: Insulin Detemir 100 units/ml Vial (Levemir) SC SCH (09:50)
--- NOTE | 2018-10-16 11:06 | CP.PCM.CON ---
History of Present Illness - History of Present Illness History of Present Illness: Awake, alert, complaining of lower mid chest discomfort, non radiating Reason for consultation: Cardiac evaluation of chronic mid chest pain Brief history of present illness: A 58 year old female obese who came in to the ER due to chronic shooting pain mid chest, non radiating. She claims to experience that everyday but goes away. She usually takes tums and warm fluid and with relief. However this time it did not go away and seems worst thus came to the ER. History of hypertension, diabetes, hyperlipidemia and gastric reflux.Denies shortness of breath. Seen and examined by me and Dr. Cheung Review of Systems - Review of Systems All systems: reviewed and no additional remarkable complaints except Review of Systems: as per HPI Past Patient History - Infectious Disease Hx of Infectious Diseases: None - Tetanus Immunizations Tetanus Immunization: Up to Date - Past Social History Smoking Status: Former Smoker - CARDIAC Hx Cardiac Disorders: Yes Hx Hypercholesterolemia: Yes Hx Hypertension: Yes - PULMONARY Hx Respiratory Disorders: Yes Hx Bronchitis: Yes Hx Pneumonia: Yes - NEUROLOGICAL Hx Neurological Disorder: Yes Hx Dizziness: Yes Hx Migraine: Yes Other/Comment: Lovell's Palsy , memory issues - HEENT Hx HEENT Problems: No - RENAL Hx Chronic Kidney Disease: No - ENDOCRINE/METABOLIC Hx Endocrine Disorders: Yes Hx Diabetes Mellitus Type 2: Yes Hx Hyperthyroidism: Yes (patient not sure) - HEMATOLOGICAL/ONCOLOGICAL Hx Blood Disorders: No - INTEGUMENTARY Hx Dermatological Problems: No - MUSCULOSKELETAL/RHEUMATOLOGICAL Hx Musculoskeletal Disorders: Yes Hx Arthritis: Yes Hx Falls: No - GASTROINTESTINAL Hx Gastrointestinal Disorders: Yes Hx Gastroesophageal Reflux: Yes - GENITOURINARY/GYNECOLOGICAL Hx Genitourinary Disorders: Yes Other/Comment: yeast infections - PSYCHIATRIC Hx Psychophysiologic Disorder: Yes Hx Anxiety: Yes Hx Depression: Yes Hx Substance Use: No - SURGICAL HISTORY Hx Surgeries: Yes Other/Comment: D& C, colonoscopy - ANESTHESIA Hx Anesthesia: No Meds Allergies/Adverse Reactions: Allergies Allergy/AdvReac Type Severity Reaction Status Date / Time Penicillins Allergy RASH Verified 05/21/18 18:34 - Medications Medications: Current Medications Amlodipine Besylate (Norvasc) 5 mg PO DAILY [facility] Last Admin: 10/16/18 09:49 Dose: 5 mg Aspirin (Ecotrin) 81 mg PO DAILY [facility] Last Admin: 10/16/18 09:50 Dose: 81 mg Atorvastatin Calcium (Lipitor) 20 mg PO QOTHERDAY [facility] Last Admin: 10/16/18 09:48 Dose: 20 mg Famotidine (Pepcid) 40 mg PO DAILY [facility] Last Admin: 10/16/18 09:50 Dose: 40 mg Insulin Detemir (Levemir) 30 unit SC DAILY [facility] Last Admin: 10/16/18 09:50 Dose: 30 unit Insulin Human Regular (Humulin R Low) 0 units SC ACHS [facility]; Protocol Last Admin: 10/16/18 08:31 Dose: Not Given Lisinopril (Zestril) 20 mg PO BID [facility] Last Admin: 10/16/18 09:48 Dose: 20 mg Metformin HCl (Glucophage Xr) 1,000 mg PO DAILY [facility] Last Admin: 10/16/18 09:50 Dose: 1,000 mg Metoprolol Tartrate (Lopressor) 50 mg PO DAILY [facility] Last Admin: 10/16/18 09:49 Dose: 50 mg Physical Exam - Constitutional Appears: Non-toxic, No Acute Distress - Head Exam Head Exam: NORMAL INSPECTION, NORMOCEPHALIC - Eye Exam Eye Exam: Normal appearance Pupil Exam: NORMAL ACCOMODATION - ENT Exam ENT Exam: Mucous Membranes Moist, Normal Exam - Respiratory Exam Respiratory Exam: Clear to Auscultation Bilateral, NORMAL BREATHING PATTERN - Cardiovascular Exam Cardiovascular Exam: REGULAR RHYTHM, +S1, +S2 Additional comments: Telemetry NSR 60's shooting mid lower chest pain off and on - GI/Abdominal Exam GI & Abdominal Exam: Normal Bowel Sounds, Soft - Neurological Exam Neurological exam: Alert, Oriented x3 - Psychiatric Exam Psychiatric exam: Normal Affect, Normal Mood - Skin Skin Exam: Dry, Normal Color, Warm Results - Vital Signs Recent Vital Signs: Last Vital Signs Temp 98.1 F 10/16/18 09:01 Pulse 72 10/16/18 09:49 Resp 18 10/16/18 09:01 BP 141/81 10/16/18 09:49 Pulse Ox 100 10/16/18 09:01 - Labs Result Diagrams: 10/15/18 17:02 10/15/18 17:02 Labs: Laboratory Results - last 24 hr 10/15/18 10/15/18 10/15/18 17:02 17:02 17:02 WBC 8.8 RBC 4.87 Hgb 13.3 Hct 39.8 MCV 81.7 MCH 27.3 MCHC 33.4 RDW 13.8 Plt Count 318 MPV 10.8 Gran % 72.1 H Lymph % (Auto) 21.6 L Centre % (Auto) 5.3 Eos % (Auto) 0.9 L Baso % (Auto) 0.1 Gran # 6.34 Lymph # (Auto) 1.9 Centre # (Auto) 0.5 Eos # (Auto) 0.1 Baso # (Auto) 0.01 Sodium 137 Potassium 3.8 Chloride 102 Carbon Dioxide 27 Anion Gap 12 BUN 16 Creatinine 1.0 Est GFR ( Amer) > 60 Est GFR (Non-Af Amer) 57 Random Glucose 148 H Calcium 9.3 Magnesium 2.1 Total Bilirubin 0.5 AST 26 ALT 23 Alkaline Phosphatase 94 Lactate Dehydrogenase 491 Total Creatine Kinase 164 Troponin I 0.02 D Total Protein 7.9 Albumin 3.9 Globulin 4.0 Albumin/Globulin Ratio 1.0 L Urine Color Yellow Urine Appearance Clear Urine pH 6.0 Ur Specific [place] 1.015 Urine Protein Negative Urine Glucose (UA) Negative Urine Ketones Negative Urine Blood Negative Urine Nitrate Negative Urine Bilirubin Negative Urine Urobilinogen 0.2 Ur Leukocyte Esterase Negative 10/16/18 08:15 WBC RBC Hgb Hct MCV MCH MCHC RDW Plt Count MPV Gran % Lymph % (Auto) Centre % (Auto) Eos % (Auto) Baso % (Auto) Gran # Lymph # (Auto) Centre # (Auto) Eos # (Auto) Baso # (Auto) Sodium Potassium Chloride Carbon Dioxide Anion Gap BUN Creatinine Est GFR ( Amer) Est GFR (Non-Af Amer) Random Glucose Calcium Magnesium Total Bilirubin AST ALT Alkaline Phosphatase Lactate Dehydrogenase Total Creatine Kinase Troponin I 0.02 Total Protein Albumin Globulin Albumin/Globulin Ratio Urine Color Urine Appearance Urine pH Ur Specific [place] Urine Protein Urine Glucose (UA) Urine Ketones Urine Blood Urine Nitrate Urine Bilirubin Urine Urobilinogen Ur Leukocyte Esterase Assessment & Plan - Assessment and Plan (Free Text) Assessment: A 58 year old female obese who came in to the ER due to chronic shooting pain mid chest, non radiating. She claims to experience that everyday but goes away. She usually takes tums and warm fluid and with relief. However this time it did not go away and seems worst thus came to the ER. History of hypertension, diabetes, hyperlipidemia and GERD, bronchitis, pneumonia, dizziness, migraine, anxiety, depression, arthritis, urinary yeast infection, D&C, colonoscopy. Denies shortness of breath. Troponin x 2 -0.02. normal. EKG- NSR , no ischemia. Atypical chest pain, some tenderness probably muskuloskeletal, rule out acute myocardial infarction. GERD. Will order echo to evaluate LV function Review [place] cardiac [place] [facility] [place]- Stress test LVEF 68 %, Normal Plan: No distress, lying comfortably, complaints of shooting sharp pain mid chest non radiating, some tenderness Start Naprosyn Heart rate controlled Blood pressure controlled Echo to evaluate LV function Serial troponin so far negative x 2 TSH, Lipid panel and HbgA1C level in AM On Norvasc 5 mg daily,ASa 81 mg daily,Lipitor 40 mg daily, Lisinopril 20 mg BID, Lopressor 50 mg daily Continue current treatment Continue current medications Will follow up Consider GI work up Further recommendation during hospital course Plan and treatment discussed with Dr. Cheung Thank you Dr. Armstrong for the opportunity of taking care of Tracey Krishnan - Date & Time Date: 10/16/18 Time: 07:00
[2018-10-16] MEDS: Naproxen 550 mg Tab PO SCH ×2 (13:28→17:15)
--- NOTE | 2018-10-16 13:58 | RAD ---
Date of service: 10/15/2018 PROCEDURE: Radiographs of the left shoulder joint HISTORY: left shoulder pain COMPARISON: No prior. FINDINGS: BONES: Bone alignment and mineralization are normal. There is no acute displaced fracture or bone destruction. JOINTS: The glenohumeral and acromioclavicular joints are preserved. No significant degenerative osteoarthrosis. SOFT TISSUES: Normal. OTHER FINDINGS: None. IMPRESSION: No acute displaced fracture or dislocation.
--- NOTE | 2018-10-16 18:55 | CARD ---
APPROVED REPORT Date of service: 10/16/2018 EXAM: Two-dimensional and M-mode echocardiogram with Doppler and color Doppler. INDICATION LV Function:SystolicDiastolic 2D DIMENSIONS Left Atrium (2D)3.6 (1.6-4.0cm)IVSd1.9 (0.7-1.1cm) LVDd4.7 (3.9-5.9cm)PWd1.6 (0.7-1.1cm) LVDs3.0 (2.5-4.0cm)FS (%) 36.9 % LVEF (%)66.8 (>50%) M-Mode DIMENSIONS Aortic Root2.80 (2.2-3.7cm)Aortic Cusp Exc.1.80 (1.5-2.0cm) Aortic Valve AoV Peak [id number]/[place] GR.10mmHg Mitral Valve E/A ratio0.0 TDI E/Lateral E'0.0E/Medial E'0.0 Tricuspid Valve TR Peak [id number] [id number] Peak Gr.13mmHg [id number] LEFT VENTRICLE The left ventricle is normal size. There is severe concentric left ventricular hypertrophy. The left ventricular function is normal. The left ventricular ejection fraction is within the normal range. Ej.Fr: 67%. RIGHT VENTRICLE The right ventricle is normal size. The right ventricular systolic function is normal. ATRIA The left atrium size is normal. The right atrium size is normal. AORTIC VALVE The aortic valve is normal in structure. There is trace aortic regurgitation. MITRAL VALVE The mitral valve is normal in structure. Mitral regurgitation is trace. TRICUSPID VALVE The tricuspid valve is normal in structure. There is trace tricuspid regurgitation. PERICARDIAL EFFUSION There is no pericardial effusion. <Conclusion> The left ventricle is normal size. There is severe concentric left ventricular hypertrophy. The left ventricular function is normal. The left ventricular ejection fraction is within the normal range. Ej.Fr: 67%. The right ventricle is normal size. The right ventricular systolic function is normal. The right atrium size is normal. The Left atrium size is normal. The aortic valve is normal in structure. There is trace aortic regurgitation. The mitral valve is normal in structure. Mitral regurgitation is trace. The tricuspid valve is normal in structure. There is trace tricuspid regurgitation. There is no pericardial effusion.
[2018-10-17 00:15] VITALS: TEMP 97.9
--- NOTE | 2018-10-17 07:38 | CP.PCM.PN ---
Subjective - Date & Time of Evaluation Date of Evaluation: 10/17/18 Time of Evaluation: 06:35 - Subjective Subjective: Awake, alert, denies chest pain Reason for consultation: Cardiac evaluation of chronic mid chest pain, History of hypertension, diabetes, hyperlipidemia and gastric reflux Seen and examined by me and Dr. Cheung Objective - Vital Signs/Intake and Output Vital Signs (last 24 hours): Temp Pulse Resp BP Pulse Ox 97.9 F 59 L 18 149/91 H 100 10/17/18 00:00 10/17/18 05:30 10/17/18 00:00 10/17/18 00:00 10/17/18 00:00 Intake and Output: 10/17/18 10/17/18 06:59 18:59 Intake Total 1360 Output Total 2 Balance 1358 - Medications Medications: Current Medications Amlodipine Besylate (Norvasc) 5 mg PO DAILY [facility] Last Admin: 10/16/18 09:49 Dose: 5 mg Aspirin (Ecotrin) 81 mg PO DAILY [facility] Last Admin: 10/16/18 09:50 Dose: 81 mg Atorvastatin Calcium (Lipitor) 20 mg PO QOTHERDAY [facility] Last Admin: 10/16/18 09:48 Dose: 20 mg Famotidine (Pepcid) 40 mg PO DAILY [facility] Last Admin: 10/16/18 09:50 Dose: 40 mg Insulin Detemir (Levemir) 30 unit SC DAILY [facility] Last Admin: 10/16/18 09:50 Dose: 30 unit Insulin Human Regular (Humulin R Low) 0 units SC [facility]; Protocol Last Admin: 10/16/18 21:03 Dose: Not Given Lisinopril (Zestril) 20 mg PO BID [facility] Last Admin: 10/16/18 17:15 Dose: 20 mg Metformin HCl (Glucophage Xr) 1,000 mg PO DAILY [facility] Last Admin: 10/16/18 09:50 Dose: 1,000 mg Metoprolol Tartrate (Lopressor) 50 mg PO DAILY [facility] Last Admin: 10/16/18 09:49 Dose: 50 mg Naproxen (Anaprox Ds) 550 mg PO BID [facility] Last Admin: 10/16/18 17:15 Dose: 550 mg - Labs Labs: 10/15/18 17:02 10/15/18 17:02 - Constitutional Appears: Non-toxic, No Acute Distress - Head Exam Head Exam: NORMAL INSPECTION, NORMOCEPHALIC - Eye Exam Eye Exam: Normal appearance Pupil Exam: NORMAL ACCOMODATION - ENT Exam ENT Exam: Mucous Membranes Moist, Normal Exam - Respiratory Exam Respiratory Exam: Clear to Ausculation Bilateral, NORMAL BREATHING PATTERN - Cardiovascular Exam Cardiovascular Exam: +S1, +S2 - GI/Abdominal Exam GI & Abdominal Exam: Soft, Normal Bowel Sounds - Extremities Exam Extremities Exam: Full ROM, Normal Capillary Refill - Neurological Exam Neurological Exam: Alert, Awake, Oriented x3 - Psychiatric Exam Psychiatric exam: Normal Affect, Normal Mood - Skin Skin Exam: Dry, Normal Color, Warm Assessment and Plan - Assessment and Plan (Free Text) Assessment: A 58 year old female obese who came in to the ER due to chronic shooting pain mid chest, non radiating. She claims to experience that everyday but goes away. She usually takes tums and warm fluid and with relief. However this time it did not go away and seems worst thus came to the ER. History of hypertension, diabetes, hyperlipidemia and GERD, bronchitis, pneumonia, dizziness, migraine, anxiety, depression, arthritis, urinary yeast infection, D&C, colonoscopy. Denies shortness of breath. EKG- NSR , no ischemia. Atypical chest pain, some tenderness probably muskuloskeletal, rule out acute myocardial infarction. GERD. 02/06/18- Stress test LVEF 68 %, Normal result. Echo done.LVEF 67%,trace AR/MR/TR. Denies chest pain today.Troponin x 3 normal. Plan: Echo done. LVEF 67%,trace AR/MR/TR. No distress, denies chest pain Heart rate controlled Blood pressure controlled Serial troponin so far negative x 3 No evidence of myocardial ischemia Echo normal Will discontinue telemetry Started Naprosyn yesterday and seems chest pain relieved. On Norvasc 5 mg daily,ASA 81 mg daily,Lipitor 40 mg daily, Lisinopril 20 mg BID, Lopressor 50 mg daily, Naprosyn 550 mg BID. Continue current treatment Continue current medications Lifestyle modification Weight reduction Will follow up Plan and treatment discussed with Dr. Cheung
[2018-10-17 08:29] LABS: HDL CHOLESTEROL 55 mg/dL (29-60)
[2018-10-17] MEDS: Insulin Reg-LOW-Coverage SC SCH ×2 (08:35→12:54)
[2018-10-17 08:41] LABS: LDL CHOLESTEROL 59 mg/dL (0-129)
[2018-10-17] MEDS: Naproxen 550 mg Tab PO SCH (09:29)
[2018-10-17] MEDS: Insulin Detemir 100 units/ml Vial (Levemir) SC SCH (09:30)
[2018-10-17 09:32] VITALS: BP 129/74; PULSE 62
--- NOTE | 2018-10-17 11:27 | CON ---
DATE: 10/16/2018 LOCATION: The patient is in room 370, bed 1. Detailed consult has been already dictated by Violet Rosenberg. HISTORY OF PRESENT ILLNESS: The patient is known diabetic and hypertensive, admitted with intermittent chest pain, sharp pain, which lasts only few seconds and it is in the midsternal area without any radiation ,no relation to exertion. It lasts only few seconds and it can come in any position, sometime lying down, sometime sitting, sometime when she is upright, and the patient has this pain from many years, but she states it is coming more frequently now. The patient has also slight local tenderness at the site where she is complaining of pain. The patient had a stress test on 02/06/2018, which was normal nuclear stress test with LV ejection fraction of 68%. So my impression is the patient's pain is most likely musculoskeletal, noncardiac and recent stress test was also negative. So, we are going to do an echocardiogram which was last time done on 11/08/2014 and the patient had normal LV size and moderate LV hypertrophy, trace aortic regurgitation, trace mitral regurgitation, trace tricuspid regurgitation, trace pulmonic regurgitation, and I am going to try naproxen b.i.d. to her therapy. She is already on atorvastatin 20, metoprolol 50 daily, amlodipine 5 daily. She is also on insulin along with metformin 1000 mg p.o. daily. Also, she is on lisinopril 20 b.i.d. The patient was also advised to lose weight. She is also on Ecotrin 81 daily. She is already on famotidine 40 mg p.o. daily. We will follow the echo. We will follow with you. Cami Cheung MD
--- NOTE | 2018-10-17 20:03 | HP ---
DATE OF EXAM: 10/16/2018 REASON: chest pain. HISTORY OF PRESENT ILLNESS: A 58-year-old female with history of diabetes, insulin dependent; hypertension; high cholesterol; obesity, came in with left-sided chest pain. The patient has been evaluated in the past for cardiac evaluation by Dr. Cheung. The patient has left side pain with risk factors, left sided shoulder pain. The patient was admitted for observation, to be evaluated by Cardiology. She denied nausea. She denied weakness. No other complaints. PAST MEDICAL HISTORY: As I mentioned, she does have obesity problem, morbid obesity with a BMI of 35.3 obesity, insulin-dependent diabetes, hypercholesterolemia, hypertension. She did have a history of facial . MEDICATIONS AT HOME: She takes Norvasc 5 mg, Levemir 30 units subcu daily, Pepcid 40 mg daily, enalapril 20 b.i.d., aspirin 81, metoprolol 50 mg p.o. daily, and Zocor 40 mg p.o. every day, and metformin 1000 p.o. daily. REVIEW OF SYSTEMS: She is fine. She has negative weakness. She has no chest pain as usual, but she has no dysuria, she has no breathing problem. She does complain of lower back pain, but otherwise negative. She does have facial asymmetry, but otherwise rest of the examination is negative. ALLERGIES: PENICILLIN. PHYSICAL EXAMINATION VITAL SIGNS: When seen on 10/16/2018; her temperature is 98, heart rate is 72, blood pressure 141/81, respiration 18, and saturation 100%. HEAD AND NECK: Normal. No JVD. No thyromegaly. There is a mild facial asymmetry. CARDIAC: First sound and second sound normal. ABDOMEN: Soft, obese, and nontender. EXTREMITIES: No edema. NEUROLOGIC: Normal. LABORATORY DATA: Her EKG, regular sinus rhythm. CBC shows white count 8.8, hemoglobin 16.3, hematocrit 39.8 and platelets are 318. Chemistry showed sodium 137, potassium 3.8, chloride 102, bicarb 27, BUN 16, creatinine 1, blood sugar 148. Liver function test is normal. Urinalysis is negative. The patient also had a shoulder x-ray while in the emergency room which shows no acute displaced fracture or dislocation. She also had chest x-ray which showed cardiomegaly, no active pulmonary disease. IMPRESSION AND PLAN: This is a 58-year-old female with history of insulin-dependent diabetes, hypertension, hypercholesterolemia, morbid obesity, menopause at about 52. We will admit the patient with chest pain, atypical chest pain, possible cardiac. We will admit, get Cardiology consult, Dr. Cheung and we will get cardiac enzymes and troponin and we will follow up his recommendations. We will resume all her medications. We will follow up clinically. Continue insulin coverage and discuss with the as400 developer. Jose Antonio Armstrong MD
--- NOTE | 2018-10-20 08:13 | PN ---
DATE: 10/17/2018 LOCATION: The patient is in room 370, bed 1. The patient was admitted with chest pain, which clinically we have diagnosed, it looks like musculoskeletal pain, so Naprosyn was added to therapy and the patient is feeling much better with addition of Naprosyn. Clinically, cardiac status is stable and no further cardiac workup is needed at this time because the patient had recent stress test, which was negative and we also did echo on this admission, which showed normal ejection fraction, moderate LVH, normal size LV, and trace aortic, mitral, tricuspid, and pulmonic regurgitation. So, the patient was reassured and she will continue antiinflammatory drug for few more days. From cardiac point of view, the patient is stable. We will follow. Cami Cheung MD
== END 2018-10-17 14:09 | disposition home or self-care (01) ==
LOC: ED 14:25 → ERH 19:16 → 3RSO 22:39
PROVIDERS: ADMIT Internal Medicine; ATTEND Internal Medicine
DX: R07.89 Other chest pain (principal); E11.9 Type 2 diabetes mellitus without complications; E78.00 Pure hypercholesterolemia, unspecified; I10 Essential (primary) hypertension; I08.3 Combined rheumatic disorders of mitral, aortic and tricuspid valves; K21.9 Gastro-esophageal reflux disease without esophagitis; I37.1 Nonrheumatic pulmonary valve insufficiency; E66.9 Obesity, unspecified; Z68.35 Body mass index [BMI] 35.0-35.9, adult; Z79.4 Long term (current) use of insulin; Z79.82 Long term (current) use of aspirin; Z87.891 Personal history of nicotine dependence
CPT/HCPCS: 36415; 71045; 73030; 80053; 80061; 81003; 82550; 82948; 83036; 83615; 83735; 84443; 84484; 85025; 93005; 93306; 99284; G0378

== ENCOUNTER 2019-01-04 05:23 | Emergency (ER) | payer MEDICAID ==
[2019-01-04 05:24] VITALS: BMI 35.2
[2019-01-04] MEDS ORDERED: Atrop/Hyosc/Scopal/PB Elixir (120 ml) PO STA (05:38)
[2019-01-04] MEDS ORDERED: Alum-Mag Hydrox-Simethicone Susp (30 mL) PO STA (05:38)
[2019-01-04] MEDS ORDERED: Sodium Chloride 0.9% 1,000 ML IV STA ×2 (05:38→06:55)
--- NOTE | 2019-01-04 05:38 | ED PDOC ---
Arrival/HPI - General Historian: Patient - History of Present Illness Narrative History of Present Illness (Text): 01/04/19 05:37 58 year old female, with past medical history of anxiety, hypertension, hyperlipidemia, type 2 diabetes, gastric reflux, and penicillin allergy, prese nts to emergency department complaining of abdominal pain since 5 pm today with associated nausea, vomiting, diarrhea, chills, and generalized weakness. Patient describes abdominal pain as intermittent and non-radiating and states that it occurred after eating turkey sticks and cheddar crackers. Patient reports bowel movement prior to eating. She also notes taking 40 units of insulin prior to eating. Patient denies any fevers, headache, dizziness, chest pain, shortness of breath, cough, back pain, neck pain, or any other complaints. Patient denies any past surgeries or taking any medications today. Time/Duration: 24 hours (5 pm) Symptom Onset: Gradual Symptom Course: Unchanged Activities at Onset: Light Context: Home <Jones Bond - Last Filed: 01/04/19 06:50> <Castro Crespo - Last Filed: 01/04/19 10:29> - General Chief Complaint: Abdominal Pain Time Seen by Provider: 01/04/19 05:31 Past Medical History - Provider Review Nursing Documentation Reviewed: Yes - Infectious Disease Hx of Infectious Diseases: None - Tetanus Immunization Tetanus Immunization: Up to Date - Cardiac Hx Cardiac Disorders: Yes Hx Hypertension: Yes - Pulmonary Hx Respiratory Disorders: Yes Hx Bronchitis: Yes Hx Pneumonia: Yes - Neurological Hx Neurological Disorder: Yes Hx Dizziness: Yes Hx Migraine: Yes Other/Comment: Lovell's Palsy , memory issues - HEENT Hx HEENT Disorder: No - Renal Hx Renal Disorder: No - Endocrine/Metabolic Hx Endocrine Disorders: Yes Hx Diabetes Mellitus Type 2: Yes Hx Hyperthyroidism: Yes (patient not sure) - Hematological/Oncological Hx Blood Disorders: No - Integumentary Hx Dermatological Disorder: No - Musculoskeletal/Rheumatological Hx Musculoskeletal Disorders: Yes Hx Arthritis: Yes Hx Falls: No - Gastrointestinal Hx Gastrointestinal Disorders: Yes Hx Gastroesophageal Reflux: Yes - Genitourinary/Gynecological Hx Genitourinary Disorders: Yes Other/Comment: yeast infections - Psychiatric Hx Psychophysiologic Disorder: Yes Hx Anxiety: Yes Hx Depression: Yes Hx Substance Use: No - Past Surgical History Past Surgical History: Non-Contributing - Surgical History Other/Comment: D& C, colonoscopy - Anesthesia Hx Anesthesia: No - Suicidal Assessment Feels Threatened In Home Enviroment: No <Jones Bond - Last Filed: 01/04/19 06:50> Family/Social History - Physician Review Nursing Documentation Reviewed: Yes Smoking Status: Former Smoker Hx Alcohol Use: Yes (seldom) Hx Substance Use: No Hx Substance Use Treatment: No <Jones Bond - Last Filed: 01/04/19 06:50> Family/Social History: Unknown Family HX <Mahendra Crespooper - Last Filed: 01/04/19 10:29> Allergies/Home Meds <Jones Bond Last Filed: 01/04/19 06:50> <Castro Crespo - Last Filed: 01/04/19 10:29> Allergies/Adverse Reactions: Allergies Penicillins Allergy (Verified 05/21/18 18:34) RASH Home Medications: Home Meds Medication Instructions Recorded Confirmed Enalapril Maleate 20 mg PO BID 08/02/12 10/16/18 Aspirin [Aspirin EC] 81 mg PO DAILY 11/06/14 10/16/18 Metoprolol Tartrate [Lopressor] 50 mg PO DAILY 12/08/16 10/16/18 amLODIPine [Norvasc] 5 mg PO DAILY 12/08/16 10/16/18 Simvastatin [Zocor] 40 mg PO QOTHERDAY 02/06/18 10/16/18 Famotidine [Pepcid] 40 mg PO DAILY 05/21/18 10/16/18 metFORMIN [glucOPHAGE] 1,000 mg PO DAILY 10/16/18 10/16/18 Review of Systems - Physician Review All systems were reviewed & negative as marked: Yes - Review of Systems Constitutional: Other (chills) Respiratory: absent: SOB, Cough, Wheezing Cardiovascular: absent: Chest Pain Gastrointestinal: Abdominal Pain, Diarrhea, Nausea, Vomiting Genitourinary Female: absent: Frequency, Hematuria, Urine Output Changes Musculoskeletal: absent: Back Pain, Neck Pain Skin: absent: Rash Neurological: absent: Headache, Dizziness <Jones Bond - Last Filed: 01/04/19 06:50> Physical Exam Vital Signs Reviewed: Yes Temperature: Afebrile Blood Pressure: Normal Pulse: Regular Respiratory Rate: Normal Appearance: Positive for: Well-Appearing, Non-Toxic, Comfortable Pain Distress: None Mental Status: Positive for: Alert and Oriented X 3 <Jones Bond - Last Filed: 01/04/19 06:50> Vital Signs Temp Pulse Resp BP Pulse Ox 01/04/19 05:47 98.4 F 91 H 18 141/62 95 <Castro Crespo - Last Filed: 01/04/19 10:29> Medical Decision Making ED Course and Treatment: 01/04/19 05:51 Impression: 58 year old female presents to emergency department for abdominal pain since 5 pm with associated nausea, vomiting, diarrhea, chills, and weakness. Differential Diagnosis included but are not limited to: --Gastritis --SBO --Gastroparesis Plan: -- VBG -- CT Abd/Pelvis -- Labs -- Elixir -- Maalox -- Pepcid -- Reglan -- IV Fluids -- Toradol --Xanax -- Urinalysis -- Reassess and disposition Prior Visits: Notes and results from previous visits were reviewed. Progress Notes: 01/04/19 06:[address] Crespo who will resume the patient's care. - Lab Interpretations Lab Results: 01/04/19 06:10 01/04/19 06:10 Lab Results 01/04/19 06:10: Sodium 138, Potassium 3.8, Chloride 103, Carbon Dioxide 24, Anion Gap 14, BUN 20, Creatinine 1.4 H, Est GFR ( Amer) 47, Est GFR (Non- Af Amer) 39, Random Glucose 221 H, Calcium 9.9, Magnesium 1.9, Total Bilirubin 1.1, AST 34, ALT < 6 L, Alkaline Phosphatase 131 H D, Total Protein 8.5 H, Albumin 4.4, Globulin 4.1, Albumin/Globulin Ratio 1.1, Lipase 280 01/04/19 06:10: PT 12.2, INR 1.08, APTT 23.3 L 01/04/19 06:10: WBC 5.0 D, RBC 5.26, Hgb 14.1, Hct 42.9, MCV 81.6, MCH 26.8, MCHC 32.9, RDW 13.6, Plt Count 233, MPV 11.0, Neut % (Auto) 94.6 H, Lymph % (Auto) 4.6 L, Rowan % (Auto) 0.6 L, Eos % (Auto) 0.2 L, Baso % (Auto) 0.0, Lymph # (Auto) 0.2 L, Rowan # (Auto) 0.0 L, Eos # (Auto) 0.0, Baso # (Auto) 0.00, Absolute Neuts (auto) 4.75, Neutrophils % (Manual) Pending, Lymphocytes % (Manual) Pending, Monocytes % (Manual) Pending I have reviewed the lab results: Yes - EKG Interpretation EKG Interpretation (Text): 01/04/19 06:02 EKG: Ordered, reviewed, and independently interpreted the EKG. Rate : 94 BPM Rhythm : NSR Interpretation : Fusion complexes noted diffusely, prolonged QT interval Interpreted by ED Physician: Yes Type: 12 lead EKG - Medication Orders Current Medication Orders: 01/04/19 06:51 Discontinued Medications Al Hydrox/Mg Hydrox/Simethicone (Maalox Plus 30 Ml) 30 ml PO STAT STA Stop: 01/04/19 05:39 Alprazolam (Xanax) 0.5 mg PO STAT STA; Protocol Stop: 01/04/19 06:31 Belladonna/Phenobarbital ( Elixir) 5 ml PO STAT STA Stop: 01/04/19 05:39 Famotidine (Pepcid) 20 mg IVP STAT STA Stop: 01/04/19 05:39 Sodium Chloride (Sodium Chloride 0.9%) 1,000 mls @ 999 mls/hr IV .Q1H1M STA Stop: 01/04/19 06:38 Ketorolac Tromethamine (Toradol) 30 mg IVP STAT STA Stop: 01/04/19 05:39 <Jones Bond - Last Filed: 01/04/19 06:50> ED Course and Treatment: 01/04/19 07:23 Patient was signed out to me by , waiting for CT scan results. Patient reports that last evening at approximately 5 PM after a meal of turkey cheese and crackers she developed generalized abdominal pain along with nausea vomiting diarrhea generalized weakness and fatigue. She last vomited several hours ago. Her abdomen is soft with mild generalized tenderness. No guarding and no rebound. CT scan is currently pending. 01/04/19 09:55 Symptoms are markedly improved. Her abdominal pain has resolved. Her abdomen is soft and nontender with no guarding and no rebound. Her nausea vomiting and diarrhea have resolved. Her repeat fingerstick is 200. CT scan of the abdomen and pelvis as read by the radiologist shows colitis versus diverticulitis. Radiologist reads the CT scan as diverticulitis being favored. The patient's abdomen is soft and nontender with no fever and no white count. I doubt this is diverticulitis, but rather gastroenteritis. She feels well enough to go home. She will be discharged home accompanied by her friend to follow-up with PMD. - Lab Interpretations Lab Results: PT 12.2 SECONDS (9.4-12.5) 01/04/19 06:10 INR 1.08 01/04/19 06:10 APTT 23.3 Seconds (26.9-38.3) L 01/04/19 06:10 Total Bilirubin 1.1 mg/dL (0.2-1.3) 01/04/19 06:10 AST 34 U/L (14-36) 01/04/19 06:10 ALT < 6 U/L (7-56) L 01/04/19 06:10 Alkaline Phosphatase 131 U/L (38-126) H D 01/04/19 06:10 Total Protein 8.5 g/dL (5.8-8.3) H 01/04/19 06:10 Albumin 4.4 g/dL (3.0-4.8) 01/04/19 06:10 Globulin 4.1 gm/dL 01/04/19 06:10 Albumin/Globulin Ratio 1.1 (1.1-1.8) 01/04/19 06:10 Lipase 280 U/L (23-300) 01/04/19 06:10 - RAD Interpretation Radiology Orders: 01/04/19 06:49 ABD & PELVIS IV CONTRAST ONLY [CT] Stat - Medication Orders Current Medication Orders: Sodium Chloride (Sodium Chloride 0.9%) 1,000 mls @ 999 mls/hr IV .Q1H1M STA Stop: 01/04/19 07:55 Discontinued Medications Al Hydrox/Mg Hydrox/Simethicone (Maalox Plus 30 Ml) 30 ml PO STAT STA Stop: 01/04/19 05:39 Alprazolam (Xanax) 0.5 mg PO STAT STA; Protocol Stop: 01/04/19 06:31 Last Admin: 01/04/19 07:20 Dose: 0.5 mg Belladonna/Phenobarbital ( Elixir) 5 ml PO STAT STA Stop: 01/04/19 05:39 Last Admin: 01/04/19 07:20 Dose: 5 ml Famotidine (Pepcid) 20 mg IVP STAT STA Stop: 01/04/19 05:39 Last Admin: 01/04/19 07:20 Dose: 20 mg IVP Administration Document 01/04/19 07:20 DM (Rec: 01/04/19 07:20 DM [id number]) Charges for Administration # of IVP Administrations 1 Sodium Chloride (Sodium Chloride 0.9%) 1,000 mls @ 999 mls/hr IV .Q1H1M STA Stop: 01/04/19 06:38 Insulin Human Regular (Humulin R) 6 units SC ONCE ONE Stop: 01/04/19 06:57 Ketorolac Tromethamine (Toradol) 30 mg IVP STAT STA Stop: 01/04/19 05:39 Metoclopramide HCl (Reglan) 10 mg IVP STAT STA Stop: 01/04/19 05:39 Last Admin: 01/04/19 07:20 Dose: 10 mg IVP Administration Document 01/04/19 07:20 DM (Rec: 01/04/19 07:20 DM [id number]) Charges for Administration # of IVP Administrations 1 <Castro Crespo - Last Filed: 01/04/19 10:29> - Scribe Statement The provider has reviewed the documentation as recorded by the Scribe Sven Parra All medical record entries made by the Scribe were at my direction and personally dictated by me. I have reviewed the chart and agree that the record accurately reflects my personal performance of the history, physical exam, medical decision making, and the department course for this patient. I have also personally directed, reviewed, and agree with the discharge instructions and disposition. <Jones Bond - Last Filed: 01/04/19 06:50> Disposition/Present on Arrival - Present on Arrival History of DVT/PE: No History of Uncontrolled Diabetes: Yes Urinary Catheter: No History of Decub. Ulcer: No History Surgical Site Infection Following: None <RondaJones - Last Filed: 01/04/19 06:50> - Present on Arrival Any Indicators Present on Arrival: No History of DVT/PE: No History of Uncontrolled Diabetes: Yes Urinary Catheter: No History of Decub. Ulcer: No History Surgical Site Infection Following: None - Disposition Have Diagnosis and Disposition been Completed?: Yes Disposition Time: 09:57 Patient Plan: Discharge <Castro Crespo - Last Filed: 01/04/19 10:29> - Disposition Diagnosis: Abdominal pain, Gastroenteritis, Nausea vomiting and diarrhea, Hyperglycemia Disposition: HOME/ ROUTINE Condition: IMPROVED Discharge Instructions (ExitCare): Diarrhea in Adolescents and Adults, Hyperglycemia, Adult, Acute Abdomen (Belly Pain), Nausea and Vomiting, Adult (DC), Gastritis (DC) Additional Instructions: Clear liquids for today. Monitor your blood sugars. Follow-up with PMD. Follow-up in ER as needed. Prescriptions: Ondansetron ODT [Zofran ODT] 4 mg PO Q6 #20 odt Forms: [facility] (Turkish), WORK NOTE
[2019-01-04 06:38] LABS: ALB/GLOB RATIO 1.1 (1.1-1.8); ALBUMIN 4.4 g/dL (3.0-4.8); AST/SGOT 34 U/L (14-36); BLOOD UREA NITROGEN 20 mg/dL (7-21); CALCIUM 9.9 mg/dL (8.4-10.5); GFR NON-AFRICAN AMERICAN 39; LIPASE 280 U/L (23-300)
[2019-01-04 06:42] LABS: EOS % 0.2 % (1.5-5.0); HEMOGLOBIN 14.1 g/dL (12.0-16.0); LYMPH # 0.2 (1.2-3.4); LYMPH % 4.6 % (22.0-35.0); MEAN CELL VOLUME 81.6 fl (80.0-105.0); MEAN CORPUSCULAR HEMOGLOBIN 26.8 pg (25.0-35.0); MEAN CORPUSCULAR HGB CONC 32.9 g/dl (31.0-37.0); MONO % 0.6 % (1.0-6.0); PLATELET COUNT 233 {null, 10^3/uL} (120.0-450.0); RBC 5.26 {null, 10^6/uL} (3.5-6.1); RED CELL DISTRIBUTION WIDTH 13.6 % (11.5-14.5)
[2019-01-04 06:45] LABS: ALT/SGPT < 6 U/L (7-56); INR 1.08; PARTIAL THROMBOPLASTIN TIME 23.3 Seconds (26.9-38.3); PROTHROMBIN TIME 12.2 SECONDS (9.4-12.5)
[2019-01-04] MEDS ORDERED: Insulin Regular 1 UNITS/0.01 ML ML SC ONE (06:56)
[2019-01-04] MEDS ORDERED: Iohexol 350 MG/100 ML VIAL ONE (07:25)
--- NOTE | 2019-01-04 09:15 | CT ---
Date of service: 01/04/2019 PROCEDURE: CT Abdomen and Pelvis with contrast HISTORY: abdominal pain COMPARISON: None available. TECHNIQUE: Contrast dose: 100 mL Omnipaque 350 IV Radiation dose: Total exam DLP = 1113.94 mGy-cm. This CT exam was performed using one or more of the following dose reduction techniques: Automated exposure control, adjustment of the mA and/or kV according to patient size, and/or use of iterative reconstruction technique. FINDINGS: LOWER THORAX: No visible consolidation, pleural effusion, or pneumothorax. LIVER: Unremarkable. GALLBLADDER AND BILE DUCTS: Unremarkable. PANCREAS: Unremarkable. SPLEEN: Unremarkable. ADRENALS: Unremarkable. KIDNEYS AND URETERS: The kidneys enhance symmetrically. No hydronephrosis or obstructing calculus identified. VASCULATURE: No aortic aneurysm. No atherosclerotic calcification or mural plaque present. BOWEL: Stomach is nondistended. Lack of oral contrast limits evaluation for bowel pathology. Bowel loops appear within normal limits of caliber without evidence of obstruction. Colonic wall thickening with associated the right colon in region of diverticula; correlate clinically for acute diverticulitis versus colitis. APPENDIX: No secondary signs of acute appendicitis. PERITONEUM: No significant free fluid. No definite free air. LYMPH NODES: No bulky adenopathy identified. BLADDER: Unremarkable. REPRODUCTIVE: Unremarkable. BONES: No acute osseous abnormality is detected. OTHER FINDINGS: None. IMPRESSION: Colonic wall thickening with associated the right colon in region of diverticula; correlate clinically for acute diverticulitis (which is favored) versus colitis. Preliminary impression was provided by [employer].
[2019-01-04 09:22] LABS: BAND 6 % (0-2); NEUTROPHIL 86 % (50.0-70.0)
[2019-01-04 09:23] LABS: LYMPHOCYTE 7 % (22.0-35.0); MONOCYTE 1 % (1.0-6.0); PLATELET ESTIMATE NORMAL (NORMAL)
[2019-01-04 10:18] VITALS: BP 129/72; PULSE 85; RESP 17; TEMP 99; O2SAT 99
--- NOTE | 2019-01-04 14:37 | CARD ---
APPROVED REPORT Date of service: 01/04/2019 EKG Measurement Heart [id number] 148P4 [id number] <Conclusion> Sinus rhythm with fusion complexes Left anterior fascicular block Left ventricular hypertrophy with repolarization abnormality Prolonged QT Abnormal ECG
== END 2019-01-04 10:16 | disposition home or self-care (01) ==
LOC: ED 05:23
DX: E11.65 Type 2 diabetes mellitus with hyperglycemia (principal); Z79.4 Long term (current) use of insulin; K52.9 Noninfective gastroenteritis and colitis, unspecified; I10 Essential (primary) hypertension; K21.9 Gastro-esophageal reflux disease without esophagitis; Z87.891 Personal history of nicotine dependence
CPT/HCPCS: 74177; 80053; 82948; 83690; 83735; 85025; 85610; 85730; 93005; 96374; 96375; 99284; J1885; J2765; J7030; Q9967

== ENCOUNTER 2019-01-07 16:13 | Inpatient (IN) | payer MEDICAID ==
[2019-01-07] MEDS ORDERED: Sodium Chloride 0.9% 1,000 ML IV ONE (16:42)
--- NOTE | 2019-01-07 16:46 | ED PDOC ---
Arrival/HPI - General Chief Complaint: Flu-like Symptoms Historian: Patient - History of Present Illness Narrative History of Present Illness (Text): 01/07/19 16:40 58 year old female, with past medical history of anxiety, hypertension, hyperlipidemia, type 2 diabetes, and gastric reflux, presents to the ED for evaluation of chills and generalized weakness since waking up this morning. Patient reports decreased somnolence since past 4 days associated with decreased appetite for which she was evaluated and later discharged from the ED. Patient informs history of diarrhea which reportedly resolved yesterday. Patient denies any other associated somatic complaints. Patient informs dysuria denies any fevers, headache, dizziness, chest pain, shortness of breath, dyspnea on exertion, cough, abdominal pain, nausea, vomiting, diarrhea, back pain, neck pain, or any other complaints. Patient denies any sick contact or recent travel. Patient denies having the flu-shot this season. Time/Duration: < week Symptom Onset: Gradual Symptom Course: Unchanged Activities at Onset: Light Context: Home Past Medical History - Provider Review Nursing Documentation Reviewed: Yes - Infectious Disease Hx of Infectious Diseases: None - Tetanus Immunization Tetanus Immunization: Up to Date - Reproductive Menopause: Yes - Cardiac Hx Cardiac Disorders: Yes Hx Hypertension: Yes - Pulmonary Hx Respiratory Disorders: Yes Hx Bronchitis: Yes Hx Pneumonia: Yes - Neurological Hx Neurological Disorder: Yes Hx Dizziness: Yes Hx Migraine: Yes Other/Comment: Lovell's Palsy , memory issues - HEENT Hx HEENT Disorder: No - Renal Hx Renal Disorder: No - Endocrine/Metabolic Hx Endocrine Disorders: Yes Hx Diabetes Mellitus Type 2: Yes Hx Hyperthyroidism: Yes (patient not sure) - Hematological/Oncological Hx Blood Disorders: No - Integumentary Hx Dermatological Disorder: No - Musculoskeletal/Rheumatological Hx Musculoskeletal Disorders: Yes Hx Arthritis: Yes Hx Falls: No - Gastrointestinal Hx Gastrointestinal Disorders: Yes Hx Gastroesophageal Reflux: Yes - Genitourinary/Gynecological Hx Genitourinary Disorders: Yes Other/Comment: yeast infections - Psychiatric Hx Psychophysiologic Disorder: Yes Hx Anxiety: Yes Hx Depression: Yes Hx Substance Use: No - Past Surgical History Past Surgical History: Non-Contributing - Surgical History Other/Comment: D& C, colonoscopy - Anesthesia Hx Anesthesia: No - Suicidal Assessment Feels Threatened In Home Enviroment: No Family/Social History - Physician Review Nursing Documentation Reviewed: Yes Family/Social History: Unknown Family HX Smoking Status: Former Smoker Hx Alcohol Use: Yes (seldom) Frequency of alcohol use: Socially Hx Substance Use: No Hx Substance Use Treatment: No Allergies/Home Meds Allergies/Adverse Reactions: Allergies Penicillins Allergy (Verified 01/07/19 16:23) RASH Home Medications: Home Meds Medication Instructions Recorded Confirmed Enalapril Maleate 20 mg PO BID 08/02/12 10/16/18 Aspirin [Aspirin EC] 81 mg PO DAILY 11/06/14 10/16/18 Metoprolol Tartrate [Lopressor] 50 mg PO DAILY 12/08/16 10/16/18 amLODIPine [Norvasc] 5 mg PO DAILY 12/08/16 10/16/18 Simvastatin [Zocor] 40 mg PO QOTHERDAY 02/06/18 10/16/18 Famotidine [Pepcid] 40 mg PO DAILY 05/21/18 10/16/18 metFORMIN [glucOPHAGE] 1,000 mg PO DAILY 10/16/18 10/16/18 Review of Systems - Physician Review All systems were reviewed & negative as marked: Yes - Review of Systems Constitutional: Other (Chills). absent: Fevers Respiratory: absent: SOB, Cough Cardiovascular: absent: Chest Pain, [place] Gastrointestinal: absent: Abdominal Pain, Diarrhea, Nausea, Vomiting Genitourinary Female: Dysuria Musculoskeletal: absent: Back Pain, Neck Pain Skin: absent: Rash Neurological: absent: Headache, Dizziness Psychiatric: absent: Anxiety Physical Exam Vital Signs Reviewed: Yes Vital Signs Temp Pulse Resp BP Pulse Ox 01/07/19 16:20 99.5 F 109 H 18 133/82 97 Temperature: Afebrile Blood Pressure: Normal Pulse: Tachycardic Respiratory Rate: Normal Appearance: Positive for: Well-Appearing, Non-Toxic, Comfortable Pain Distress: None Mental Status: Positive for: Alert and Oriented X 3 - Systems Exam Head: Present: Atraumatic, Normocephalic Pupils: Present: PERRL Extroacular Muscles: Present: EOMI Conjunctiva: Present: Normal Mouth: Present: Moist Mucous Membranes Neck: Present: Normal Range of Motion Respiratory/Chest: Present: Clear to Auscultation, Good Air Exchange. No: Respiratory Distress, Accessory Muscle Use Cardiovascular: Present: Regular Rate and Rhythm, Normal S1, S2. No: Murmurs Abdomen: No: Tenderness, Distention, Peritoneal Signs Back: Present: Normal Inspection Upper Extremity: Present: Normal Inspection. No: Cyanosis, Edema Lower Extremity: Present: Normal Inspection. No: Edema Neurological: Present: GCS=15, CN II-XII Intact, Speech Normal Skin: Present: Warm, Dry, Normal Color. No: Rashes Psychiatric: Present: Alert, Oriented x 3, Normal Insight, Normal Concentration Medical Decision Making ED Course and Treatment: 01/07/19 16:42 Impression: 58 year old female presents to the ED for evaluation of chills and generalized weakness since this morning. Plan: -- EKG -- Labs -- CXR -- IV Fluids -- Urine Culture -- Influenza AB -- Urinalysis -- Reassess and disposition Prior Visits: Notes and results from previous visits were reviewed. Progress Notes: 01/07/19 18:[address] Armstrong, who is aware and agrees with ED management plan, accepts patient admission to [facility] under his service. - Scribe Statement The provider has reviewed the documentation as recorded by the Scribe Nimisha Pineda. All medical record entries made by the Scribe were at my direction and personally dictated by me. I have reviewed the chart and agree that the record accurately reflects my personal performance of the history, physical exam, medical decision making, and the department course for this patient. I have also personally directed, reviewed, and agree with the discharge instructions and disposition. Disposition/Present on Arrival - Present on Arrival Any Indicators Present on Arrival: No History of DVT/PE: No History of Uncontrolled Diabetes: Yes Urinary Catheter: No History of Decub. Ulcer: No History Surgical Site Infection Following: None - Disposition Have Diagnosis and Disposition been Completed?: Yes Diagnosis: Acute diverticulitis Disposition: HOSPITALIZED Disposition Time: 18:10 Condition: STABLE
[2019-01-07 17:28] LABS: BASO # 0.02 K/mm3 (0.0-2.0); BASO % 0.1 % (0.0-3.0); EOS % 0.2 % (1.5-5.0); HEMOGLOBIN 12.8 g/dL (12.0-16.0); LYMPH # 0.7 (1.2-3.4); MEAN CELL VOLUME 79.3 fl (80.0-105.0); MEAN CORPUSCULAR HEMOGLOBIN 26.8 pg (25.0-35.0); MEAN CORPUSCULAR HGB CONC 33.8 g/dl (31.0-37.0); MEAN PLATELET VOLUME 11.5 fl (7.0-11.0); MONO # 0.4 (0.1-0.6); MONO % 2.6 % (1.0-6.0); PLATELET COUNT 95 10^3/uL (120.0-450.0); RBC 4.78 10^6/uL (3.5-6.1); RED CELL DISTRIBUTION WIDTH 14.4 % (11.5-14.5); WHITE BLOOD COUNT 13.7 10^3/uL (4.5-11.0)
[2019-01-07 17:42] LABS: TROPONIN I 0.05 ng/mL
[2019-01-07 17:45] LABS: ALB/GLOB RATIO 0.9 (1.1-1.8); ALBUMIN 3.5 g/dL (3.0-4.8)
[2019-01-07 17:48] LABS: BAND 2 % (0-2); LYMPHOCYTE 3 % (22.0-35.0); MONOCYTE 2 % (1.0-6.0); NEUTROPHIL 93 % (50.0-70.0)
[2019-01-07 17:49] LABS: LARGE PLATELETS PRESENT; PLATELET ESTIMATE LOW (NORMAL)
[2019-01-07 18:02] LABS: URINE APPEARANCE CLEAR (CLEAR); URINE BILIRUBIN NEGATIVE (NEGATIVE); URINE BLOOD MODERATE (NEGATIVE); URINE COLOR YELLOW (YELLOW); URINE GLUCOSE (UA) >=1000 mg/dL (NEGATIVE); URINE LEUKOCYTE ESTERASE NEGATIVE Leu/uL (NEGATIVE); URINE PROTEIN 30 mg/dL (<30 mg/dL); URINE UROBILINOGEN 0.2 E.U./dL (<1 E.U./dL)
[2019-01-07 18:07] LABS: URINE EPITHELIAL CELLS 0 - 2 /hpf (0-5)
[2019-01-07] MEDS ORDERED: Ciprofloxacin 400mg/200ml D5W 400 MG/200 ML BAG IVPB STA (18:23)
[2019-01-07] MEDS ORDERED: metroNIDAZOLE IV 500 mg/100 ml 500 MG/100 ML BAG IVPB STA (18:23)
[2019-01-07] MEDS: Insulin Detemir 100 units/ml Vial (Levemir) SC SCH (22:54)
[2019-01-07] MEDS: Insulin Lispro (humaLOG) MEDIUM Coverage SC SCH (22:54)
[2019-01-07] MEDS: MEROPENEM 500 MG in NS 500 MG/50 ML BAG IVPB SCH (22:55)
[2019-01-07] MEDS: Sodium Chloride 0.45% 1,000 ML IV SCH (22:56)
--- NOTE | 2019-01-07 23:10 | CARD ---
APPROVED REPORT Date of service: 01/07/2019 EKG Measurement Heart [id number] MS [id number] [id number] <Conclusion> Sinus tachycardia Left anterior fascicular block Left ventricular hypertrophy with repolarization abnormality Abnormal ECG
[2019-01-07] MEDS ORDERED: DiphenhydrAMINE 50 mg/ml Inj IVP ONE (23:13)
--- NOTE | 2019-01-07 23:16 | CP.PCM.PCO ---
Physician Communication Note - Physician Communication Note Physician Communication Note: Pt requested sleep aid, benadryl given
[2019-01-08] MEDS: metroNIDAZOLE IV 500 mg/100 ml 500 MG/100 ML BAG IVPB SCH ×3 (06:47→22:00)
[2019-01-08] MEDS: MEROPENEM 500 MG in NS 500 MG/50 ML BAG IVPB SCH ×3 (06:47→21:16)
[2019-01-08] MEDS: Insulin Lispro (humaLOG) MEDIUM Coverage SC SCH ×4 (08:00→21:34)
--- NOTE | 2019-01-08 08:09 | RAD ---
Date of service: 01/07/2019 HISTORY: r/o infiltrate COMPARISON: 12/16/2017 FINDINGS: LUNGS: No active pulmonary disease. PLEURA: No significant pleural effusion identified, no pneumothorax apparent. CARDIOVASCULAR: No aortic atherosclerotic calcification present. Mild cardiomegaly no pulmonary vascular congestion. OSSEOUS STRUCTURES: No significant abnormalities. VISUALIZED UPPER ABDOMEN: Normal. OTHER FINDINGS: None. IMPRESSION: No active disease.
[2019-01-08 09:02] VITALS: BMI 34.0
[2019-01-08] MEDS: Sodium Chloride 0.45% 1,000 ML IV SCH (10:45)
[2019-01-08 12:52] LABS: HEMOGLOBIN 12.4 g/dL (12.0-16.0); MEAN CELL VOLUME 78.9 fl (80.0-105.0); MEAN CORPUSCULAR HEMOGLOBIN 26.7 pg (25.0-35.0); MEAN CORPUSCULAR HGB CONC 33.8 g/dl (31.0-37.0); MEAN PLATELET VOLUME 12.5 fl (7.0-11.0); RBC 4.65 10^6/uL (3.5-6.1); RED CELL DISTRIBUTION WIDTH 14.6 % (11.5-14.5); WHITE BLOOD COUNT 19.4 10^3/uL (4.5-11.0)
[2019-01-08 13:07] LABS: ALB/GLOB RATIO 0.8 (1.1-1.8); ALBUMIN 3.4 g/dL (3.0-4.8); CALCIUM 8.8 mg/dL (8.4-10.5)
--- NOTE | 2019-01-08 15:26 | CP.PCM.CON ---
History of Present Illness - History of Present Illness History of Present Illness: Nephrology Consultation Note: Assessment: stable SIRS with acute diverticulitis JAY JAY likely due to pre-renal state ATN contrast exposure Hypokalemia DM, HTN thrombocytopenia and abnormal LFT, hyperbilirubinemia obesity anxiety GERD Plan no need for renal replacement therapy at present Hypertension control with meds as ordered. pt not on RAAS francisco javier, will defer it due to JAY JAY. avoid hypotension Monitor I/O, daily weights and renal function while in hospital continue with IVF but will change to NS supplement lytes as needed hematology eval requested. check haptoglobin in the meantime GI and ID already consulted check urine Na/cr. Dose meds/antibiotics for reduced GFR. Avoid fleets enema/magnesium based laxatives. Avoid nephrotoxins/NSAIDs/ iodinated contrast (unless needed emergently) Glycemic control Further work up for as per primary team. Thanks for allowing me to participate in care of your patient. Will follow with you. Please call if any Qs. had d/w team Dr José Miguel Moss Office: [phone] CC; unable to sleep reason for consult: JAY JAY o HPI: Pt is a 58 F with hx of HTN (years), DM obesity anxiety GERD presented to hospital with complaints of inability to sleep, decreased appetite, feeling cold/chills for last few days. also had diarrhoea and vomitting since sat but last on Saturday and renal consult for JAY JAY management. Denies chest pain, palpitation, no shortness of breath, Denies OTC/herbal meds/NSAIDs Noted recent iodinated contrast exposure. 01/04/19 ROS: denies CP/nausea/vomiting now. no SOB at present. no nausea denies pain abdomen. denies urine complaints rest other negative except as mentioned in HPI. feels sick and tired/fatigue Physical Examination: General Appearance: Comfortable, in no acute respiratory distress, co-operative. obese. Vitals reviewed and noted as below Head; Atraumatic, normocephalic ENT: no ulcers no thrush. Tongue is midline/dry and coated. Oropharynx: no rash or ulcers. EYES: b/l PERRLA. icterus + Neck; supple no lymphadenopathy, no thyromegaly or bruit Lungs: Normal respiratory rate/effort. Breath sounds b/l with equal clear Heart: Normal rate. s1s2 normal. No rub or gallop. Extremities: no edema. No varicose veins. Neurological: Patient is awake alert and follow commands no focal deficit. Skin: dry and warm. Normal turgor. No rash. Palpitation: Normal elasticity for age Abdomen: Abdomen is soft . Bowel sounds +. There is no abdominal tenderness but soreness as per pt, no guarding/rigidity or organomegaly. Psych: normal insight. normal affect/mood MSK: no specific joint tenderness or swelling. Digits and nails normal, no deformity : kidney not palpable. exam limited due to obesity. has umblical hernia Labs/imaging/EKG reviewed. Past medical history, past surgical history, social history, allergy reviewed and noted as below Family hx; no hx of CKD. non contributory renal imaging WNL UA SG 1.010 30 protein 3 + glucose moderate blood but 1-2 RBC/hpf CK 214 Past Patient History - Infectious Disease Hx of Infectious Diseases: None - Tetanus Immunizations Tetanus Immunization: Up to Date - Past Social History Smoking Status: Former Smoker - CARDIAC Hx Cardiac Disorders: Yes Hx Hypertension: Yes - PULMONARY Hx Respiratory Disorders: Yes Hx Bronchitis: Yes Hx Pneumonia: Yes - NEUROLOGICAL Hx Neurological Disorder: Yes Hx Dizziness: Yes Hx Migraine: Yes Other/Comment: Lovell's Palsy , memory issues - HEENT Hx HEENT Problems: No - RENAL Hx Chronic Kidney Disease: No - ENDOCRINE/METABOLIC Hx Endocrine Disorders: Yes Hx Diabetes Mellitus Type 2: Yes Hx Hyperthyroidism: Yes (patient not sure) - HEMATOLOGICAL/ONCOLOGICAL Hx Blood Disorders: No - INTEGUMENTARY Hx Dermatological Problems: No - MUSCULOSKELETAL/RHEUMATOLOGICAL Hx Musculoskeletal Disorders: Yes Hx Arthritis: Yes Hx Falls: No - GASTROINTESTINAL Hx Gastrointestinal Disorders: Yes Hx Gastroesophageal Reflux: Yes - GENITOURINARY/GYNECOLOGICAL Hx Genitourinary Disorders: Yes Other/Comment: yeast infections - PSYCHIATRIC Hx Psychophysiologic Disorder: Yes Hx Anxiety: Yes Hx Depression: Yes Hx Substance Use: No - SURGICAL HISTORY Other/Comment: D& C, colonoscopy - ANESTHESIA Hx Anesthesia: No Meds Allergies/Adverse Reactions: Allergies Allergy/AdvReac Type Severity Reaction Status Date / Time Penicillins Allergy RASH Verified 01/07/19 16:23 - Medications Medications: Current Medications Amlodipine Besylate (Norvasc) 10 mg PO DAILY [facility] Last Admin: 01/08/19 10:38 Dose: 10 mg Aspirin (Aspirin Chewable) 81 mg PO DAILY [facility] Last Admin: 01/08/19 10:37 Dose: 81 mg Atorvastatin Calcium (Lipitor) 20 mg PO DIN LEANDRA Sodium Chloride (Sodium Chloride 0.45%) 1,000 mls @ 125 mls/hr IV .Q8H [facility] Last Admin: 01/08/19 10:45 Dose: 125 mls/hr Meropenem/Sodium Chloride (Merrem Iv 500 Mg/Ns 50 Ml) 500 mg in 50 mls @ 100 mls/hr IVPB Q8 LEANDRA; Protocol Stop: 01/16/19 22:01 Last Admin: 01/08/19 13:01 Dose: 100 mls/hr Metronidazole (Flagyl) 500 mg in 100 mls @ 100 mls/hr IVPB Q8 LEANDRA; Protocol Last Admin: 01/08/19 13:00 Dose: 100 mls/hr Insulin Detemir (Levemir) 15 unit SC HS [facility] Last Admin: 01/07/19 22:54 Dose: Not Given Insulin Human Lispro (Humalog Med) 0 units SC ACHS [facility]; Protocol Last Admin: 01/08/19 12:49 Dose: 3 units Metoprolol Tartrate (Lopressor) 25 mg PO BID [facility] Last Admin: 01/08/19 10:38 Dose: 25 mg Pantoprazole Sodium (Protonix Inj) 40 mg IVP 0600 [facility] Last Admin: 01/08/19 06:47 Dose: 40 mg Results - Vital Signs Recent Vital Signs: Last Vital Signs Temp 98 F 01/08/19 14:00 Pulse 82 01/08/19 14:00 Resp 20 01/08/19 14:00 BP 134/80 01/08/19 14:00 Pulse Ox 97 01/08/19 14:00 - Labs Result Diagrams: 01/08/19 12:27 01/08/19 12:28 Labs: Laboratory Results - last 24 hr 01/07/19 01/07/19 01/07/19 16:50 16:50 16:50 WBC 13.7 H D RBC 4.78 Hgb 12.8 Hct 37.9 MCV 79.3 L MCH 26.8 MCHC 33.8 RDW 14.4 Plt Count 95 L MPV 11.5 H Neut % (Auto) 92.1 H Lymph % (Auto) 5.0 L [place] % (Auto) 2.6 Eos % (Auto) 0.2 L Baso % (Auto) 0.1 Lymph # (Auto) 0.7 L [place] # (Auto) 0.4 Eos # (Auto) 0.0 Baso # (Auto) 0.02 Absolute Neuts (auto) 12.60 H Neutrophils % (Manual) 93 H Band Neutrophils % 2 Lymphocytes % (Manual) 3 L Monocytes % (Manual) 2 Platelet Evaluation Low Large Platelets Present Sodium 136 Potassium 3.6 Chloride 100 Carbon Dioxide 26 Anion Gap 14 BUN 35 H Creatinine 1.7 H Est GFR ( Amer) 38 Est GFR (Non-Af Amer) 31 POC Glucose (mg/dL) Random Glucose 209 H Calcium 9.0 Magnesium 2.5 H Total Bilirubin 1.8 H AST 119 H D ALT 258 H Alkaline Phosphatase 191 H D Lactate Dehydrogenase 677 Total Creatine Kinase 214 Troponin I 0.05 D Total Protein 7.5 Albumin 3.5 Globulin 4.0 Albumin/Globulin Ratio 0.9 L Amylase Lipase Urine Color Urine Appearance Urine pH Ur Specific Brewer Urine Protein Urine Glucose (UA) Urine Ketones Urine Blood Urine Nitrate Urine Bilirubin Urine Urobilinogen Ur Leukocyte Esterase Urine RBC Urine WBC Ur Epithelial Cells Urine Other Influenza Typ A,B (EIA) Negative for flu a/b 01/07/19 01/07/19 01/08/19 17:50 21:09 12:03 WBC RBC Hgb Hct MCV MCH MCHC RDW Plt Count MPV Neut % (Auto) Lymph % (Auto) [place] % (Auto) Eos % (Auto) Baso % (Auto) Lymph # (Auto) [place] # (Auto) Eos # (Auto) Baso # (Auto) Absolute Neuts (auto) Neutrophils % (Manual) Band Neutrophils % Lymphocytes % (Manual) Monocytes % (Manual) Platelet Evaluation Large Platelets Sodium Potassium Chloride Carbon Dioxide Anion Gap BUN Creatinine Est GFR ( Amer) Est GFR (Non-Af Amer) POC Glucose (mg/dL) 154 H 224 H Random Glucose Calcium Magnesium Total Bilirubin AST ALT Alkaline Phosphatase Lactate Dehydrogenase Total Creatine Kinase Troponin I Total Protein Albumin Globulin Albumin/Globulin Ratio Amylase Lipase Urine Color Yellow Urine Appearance Clear Urine pH 6.0 Ur Specific Brewer 1.010 Urine Protein 30 H Urine Glucose (UA) >=1000 Urine Ketones Negative Urine Blood Moderate H Urine Nitrate Negative Urine Bilirubin Negative Urine Urobilinogen 0.2 Ur Leukocyte Esterase Negative Urine RBC 1 - 3 H Urine WBC None Ur Epithelial Cells 0 - 2 Urine Other Utrans Influenza Typ A,B (EIA) 01/08/19 01/08/19 12:27 12:28 WBC 19.4 H D RBC 4.65 Hgb 12.4 Hct 36.7 MCV 78.9 L MCH 26.7 MCHC 33.8 RDW 14.6 H Plt Count 99 L MPV 12.5 H Neut % (Auto) Lymph % (Auto) [place] % (Auto) Eos % (Auto) Baso % (Auto) Lymph # (Auto) [place] # (Auto) Eos # (Auto) Baso # (Auto) Absolute Neuts (auto) Neutrophils % (Manual) Band Neutrophils % Lymphocytes % (Manual) Monocytes % (Manual) Platelet Evaluation Large Platelets Sodium 136 Potassium 3.1 L Chloride 101 Carbon Dioxide 22 Anion Gap 16 BUN 36 H Creatinine 1.6 H Est GFR ( Amer) 40 Est GFR (Non-Af Amer) 33 POC Glucose (mg/dL) Random Glucose 175 H Calcium 8.8 Magnesium Total Bilirubin 2.0 H AST 128 H ALT 234 H Alkaline Phosphatase 205 H Lactate Dehydrogenase Total Creatine Kinase Troponin I Total Protein 7.3 Albumin 3.4 Globulin 4.0 Albumin/Globulin Ratio 0.8 L Amylase 35 Lipase 107 Urine Color Urine Appearance Urine pH Ur Specific Brewer Urine Protein Urine Glucose (UA) Urine Ketones Urine Blood Urine Nitrate Urine Bilirubin Urine Urobilinogen Ur Leukocyte Esterase Urine RBC Urine WBC Ur Epithelial Cells Urine Other Influenza Typ A,B (EIA)
[2019-01-08] MEDS ORDERED: Potassium Chloride 20 mEq ER Tab PO ONE (15:30)
[2019-01-08] MEDS: Sodium Chloride 0.9% 1,000 ML IV SCH (16:18)
--- NOTE | 2019-01-08 19:36 | CON ---
DATE OF CONSULTATION: 01/08/2019 The patient is seen earlier today in room 570. CHIEF COMPLAINT: Chills and abdominal pain times several days. HISTORY OF PRESENT ILLNESS: This is a 58-year-old obese female with a BMI of 34, anxiety, hypertension, hyperlipidemia, diabetes, gastric reflux, bronchitis, migraine, Lovell's palsy, and the dizziness, and was admitted with weakness, poor appetite, and complaining of chills. The patient's abdominal pain is diffuse. No nausea now. Did have some nausea earlier on. No vomiting. REVIEW OF SYSTEMS: Reveals the 12-point review of systems performed. PAST MEDICAL HISTORY: Significant for hypertension, hyperlipemia, diabetes, anxiety, gastric reflux, bronchitis, migraine, and dizziness. PAST SURGICAL HISTORY: Significant for D and C and colonoscopy. ALLERGIES: THE PATIENT IS ALLERGIC TO PENICILLIN, SHE DEVELOPS A RASH. PHYSICAL EXAMINATION: GENERAL: The patient is in bed. VITAL SIGNS: Temperature of 99.7, heart rate of 103, blood pressure is 120/60, respiratory rate of 18. HEENT: Examination of HEENT is unremarkable. NECK: Supple. LUNGS: Have decreased breath sounds. HEART: Normal S1, S2. ABDOMEN: Soft. Minimal tenderness. No rebound. No guarding. No masses. LABORATORY DATA: Laboratory examination reveals a white count of 13,700, hemoglobin of 12, and platelets of 95. Chemistries revealed a BUN of 35, creatinine of 1.7. Urinalysis is noted and serology is noted. Chest x-ray, no active disease. The patient had a CT scan of the abdomen, shows diverticular disease. ASSESSMENT AND PLAN: A 58-year-old female admitted with severe sepsis with acute diverticulitis with acute kidney injury. Creatinine has changed from 1 to 1.4 to 1.7, and THE PATIENT IS ALLERGIC TO PENICILLIN, we will treat the patient with meropenem and we will check on the culture results, and we will make further recommendation upon the availability of response. Campos Riojas MD
[2019-01-08] MEDS: Insulin Detemir 100 units/ml Vial (Levemir) SC SCH (21:34)
--- NOTE | 2019-01-08 22:39 | CON ---
DATE: 01/08/2019 This is [facility] visit on the medical floor. For Dr. Rodrigez. CHIEF COMPLAINT: Diverticulitis and thrombocytopenia. HISTORY OF PRESENT ILLNESS: Patient is a 58-year-old female admitted by the emergency home after originally being discharged home 2 days prior for abdominal pain. At present, the patient has positive findings on her CT scan dated 01/04/2019 for acute diverticulitis versus colitis for which she is now being given antibiotics with good effects. However, her platelet count was noted to be lowered with her white blood cell count increased possibly related to her acute infectious process. At present, she is resting comfortably. Denying any pain of significance at this time. On clear liquid diet which will be modified to a diabetic or carbohydrate restricted diet. Patient also reports that her bed is quite uncomfortable, we willl see if we could change her mattress as the patient was unable to sleep recently she reports. PAST MEDICAL HISTORY: Significant for diabetes mellitus, history of CVA with resultant mild facial asymmetry, was feeling sequelae, hypertension , hyperlipidemia, anxiety, and gastric reflux. ALLERGIES: ALLERGIC TO PENICILLIN. MEDICATIONS AT HOME: Included aspirin, metoprolol, Norvasc, and Protonix. FAMILY HISTORY/SOCIAL HISTORY: Nonsmoker, non-ethanolic, otherwise noncontributory. REVIEW OF SYSTEMS: A 12-point review of systems was done which is negative for questions except what is mentioned in the history of present illness. OBJECTIVE/PHYSICAL EXAMINATION: VITAL SIGNS: Temperature 98, pulse 82, respirations 20, blood pressure 134/80, and pulse ox 97%. HEENT: Unremarkable. NECK: Supple. HEART: Regular rate. LUNGS: Clear. ABDOMEN: Obese, soft with minimal tenderness to the left lower quadrant. EXTREMITIES: Faint 1+ edema. NEUROLOGIC: Awake and alert. SKIN: Warm and dry. LABORATORY DATA: Patient's labs were done. On admission, white blood cell count 13.7 with a white blood cell count today of 19,400, hemoglobin is 12.4, hematocrit of 36.7, and platelet count of 99,000. It should be noted that the patient's platelet count done earlier in the week on 01/04/2019 was 233,000 with a white blood cell count of 5000. Her metabolic panel showed a potassium of 3.1, BUN of 36, creatinine 1.6. Nonfasting glucose of 186 with an ALT today of 234, AST of 128 with a total bili of 2.0. It should be noted that these values were never tested. On 01/07/2019, were within normal range with an AST of 34, ALT of less than 60, bili of 1.1. Her creatinine on that day was 1.4. The patient's testing on admission included a chest x-ray done on 01/07/2019, showing no active disease. Patient also had an EKG done that day showing sinus tachycardia, left anterior fascicular block, left ventricular hypertrophy with repolarization abnormality, abnormal EKG. However, upon finding her previous visits from 01/04/2019, a CT scan of the abdomen and pelvis was done that day which showed colonic wall thickening with associated right colon diverticula correlated clinically with acute diverticulitis which is versus colitis. ASSESSMENT: For this patient is that of acute diverticulitis with thrombocytopenia, abnormal liver function testing, diabetes mellitus, obesity, history of cerebrovascular accident, hyperlipidemia, anxiety, and gastroesophageal reflux disease. PLAN: For this patient, after conversation with Dr. Rodrigez is to continue present medical regimen. We have asked for manual platelet count tomorrow. Monitor clinically. The patient also offered Xanax for her anxiety should it be necessary. Patient also reports suffering from insomnia possibly related to her bed which is quite uncomfortable she reports. We will try to get her a new mattress with Ambien prescribed by her primary doctor. We will continue other medications as indicated. Further testing to be done as indicated. This is a complex patient with comprehensive medically necessary and appropriate visit carried out in excess of 50 minutes with the patient's questions answered to her satisfaction. Jovani Gonsales MD
--- NOTE | 2019-01-09 02:11 | CON ---
DATE: 01/08/2019 REASON FOR CONSULTATION: Abdominal pain, colitis, and sepsis. HISTORY OF PRESENT ILLNESS: This 58-year-old patient with past medical history of diabetes mellitus, status post CVA, hypertension, dyslipidemia, anxiety, usually noticed good onset of , admitted with chills and abdominal pain started on Saturday. The patient was presented to the emergency room the following day. The patient had a CT scan done and the patient was sent home and came back to the emergency room with worsening of the symptoms, weakness, increased abdominal pain and also episode of diarrhea. CT scan done on her initial ER visit on 01/04/2019 was reported as colonic wall thickening associated with right colon in the region of diverticulosis suggestive of possible diverticulitis versus colitis. The patient was found to be having increased white cell count of 13.7 when she came to the emergency room, it went up to 19.4, hemoglobin 12.4, and hematocrit 78.9. The patient did have platelet count which is low 99. The patient was subsequently seen by the mixer [employer]. The patient had LFTs done, which showed significant elevation of the LFTs and total bilirubin is 2 and AST is 128 and ALT is 234. PAST MEDICAL HISTORY: Significant for diabetes mellitus, hypertension, anxiety, and GERD. REVIEW OF SYSTEMS: Positive as above. Other systems reviewed negative. FAMILY HISTORY: Noncontributory. SURGICAL HISTORY: Significant for D and C and colonoscopy done more than [address] Ponce in [facility]. The patient in 09/2018 having had endoscopy done. ALLERGIES: SHE IS ALLERGIC TO PENICILLIN. PHYSICAL EXAMINATION: VITAL SIGNS: Stable. Afebrile, blood pressure 134/80, pulse 82, respirations 20, and O2 saturation 99% on room air. HEENT: Atraumatic and anicteric. NECK: Supple. HEART: S1 and S2 regular. LUNGS: Bilateral air entry present. ABDOMEN: Soft. There is no mass palpable and no tenderness. EXTREMITIES: No edema. No cyanosis. LABORATORY DATA: Hemoglobin 12.4, hematocrit 36.7, WBC count has significantly increased initially on 01/04/2019, it was 5 and 01/07/2019, it was 13.7, now it is 19.4. Platelet count also showed significantly reduced. On 01/04/2019, when the patient came to emergency room initial visit was 233, now it is 99. The patient did have CAT scan done on when she has initial visit which was reviewed and it was reported as colonic wall thickening associated with right colon in the region of diverticulosis diverticulitis versus colitis. IMPRESSION: 1. Sepsis. 2. Right colon diverticulitis versus colitis. 3. Thrombocytopenia. 4. Abnormal liver function tests. RECOMMENDATIONS: We would recommend: 1. Follow up with cultures. 2. Antibiotics as per ID. 3. Hematological followup regarding the thrombocytopenia. 4. Continue the clear liquid diet. Thank you very much for allowing us to participate. I will continue to closely followup care and suggest further recommendation based on the clinical course. Hemalatha Yao MD
[2019-01-09] MEDS: Pantoprazole 40 mg EC Tab PO SCH (05:11)
[2019-01-09] MEDS: MEROPENEM 500 MG in NS 500 MG/50 ML BAG IVPB SCH ×3 (05:11→21:48)
[2019-01-09] MEDS: Sodium Chloride 0.9% 1,000 ML IV SCH ×2 (05:47→18:32)
[2019-01-09] MEDS: metroNIDAZOLE IV 500 mg/100 ml 500 MG/100 ML BAG IVPB SCH (06:23)
[2019-01-09 07:11] LABS: BASO # 0.03 K/mm3 (0.0-2.0); BASO % 0.2 % (0.0-3.0); EOS % 0.2 % (1.5-5.0); HEMOGLOBIN 11.6 g/dL (12.0-16.0); LYMPH # 2.1 (1.2-3.4); LYMPH % 11.9 % (22.0-35.0); MEAN CELL VOLUME 78.1 fl (80.0-105.0); MEAN CORPUSCULAR HEMOGLOBIN 25.9 pg (25.0-35.0); MEAN CORPUSCULAR HGB CONC 33.1 g/dl (31.0-37.0); MEAN PLATELET VOLUME 11.4 fl (7.0-11.0); MONO % 5.9 % (1.0-6.0); RBC 4.48 10^6/uL (3.5-6.1); RED CELL DISTRIBUTION WIDTH 14.5 % (11.5-14.5); WHITE BLOOD COUNT 17.4 10^3/uL (4.5-11.0)
[2019-01-09 08:02] LABS: ALB/GLOB RATIO 0.8 (1.1-1.8); CALCIUM 8.6 mg/dL (8.4-10.5)
[2019-01-09] MEDS: Insulin Lispro (humaLOG) MEDIUM Coverage SC SCH ×4 (08:44→21:41)
[2019-01-09] MEDS: Potassium Chloride 20 mEq ER Tab PO SCH (08:48)
--- NOTE | 2019-01-09 11:08 | US ---
Date of service: 01/09/2019 HISTORY: abnormal lfts COMPARISON: 12/08/2015. TECHNIQUE: Sonographic evaluation of the right upper quadrant of the abdomen. FINDINGS: LIVER: Measures 20.1 cm in length. Patent portal vein. Portal venous flow: Hepatopetal. Unremarkable echogenicity of the liver parenchyma. No mass. No intrahepatic bile duct dilatation. GALLBLADDER: Unremarkable. No gallstones. COMMON BILE DUCT: Measures 5.4 mm. No stones. No dilatation. PANCREAS: Unremarkable as visualized. No mass. No ductal dilatation. RIGHT KIDNEY: Measures 5 x 10.9 cm in length. Normal echogenicity. No calculus, mass, or hydronephrosis.Incidental finding(s): Simple cyst upper pole 1.3 x 1.4 cm AORTA: No aneurysmal dilatation. IVC: Unremarkable. OTHER FINDINGS: None . IMPRESSION: No acute or significant findings related to/ accounting for the clinical presentation. Additional benign and/or incidental findings described above. No significant interval change compared to the prior examination(s).
--- NOTE | 2019-01-09 11:25 | CP.PCM.PN ---
Subjective - Date & Time of Evaluation Date of Evaluation: 01/09/19 Time of Evaluation: 11:23 - Subjective Subjective: Nephrology Consultation Note: Assessment: stable GNR sepsis with acute diverticulitis JAY JAY likely due to pre-renal state ATN contrast exposure, FeNa <1%: IMPROVING Hypokalemia DM, HTN thrombocytopenia and abnormal LFT, hyperbilirubinemia obesity anxiety GERD Plan no need for renal replacement therapy at present Hypertension control with meds as ordered. pt not on RAAS francisco javier, will defer it due to JAY JAY. avoid hypotension Monitor I/O, daily weights and renal function while in hospital continue with IVF as NS supplement lytes as needed hematology GI and ID already following Dose meds/antibiotics for improved GFR. Avoid fleets enema/magnesium based laxatives. Avoid nephrotoxins/NSAIDs/ iodinated contrast (unless needed emergen tly) Glycemic control Further work up for as per primary team. Thanks for allowing me to participate in care of your patient. Will follow with you. Please call if any Qs. had d/w team Dr José Miguel Moss Office: [phone] CC; unable to sleep reason for consult: JAY JAY o HPI: Pt is a 58 F with hx of HTN (years), DM obesity anxiety GERD presented to hospital with complaints of inability to sleep, decreased appetite, feeling cold/chills for last few days. also had diarrhoea and vomitting since sat but last on Saturday and renal consult for JAY JAY management. Denies chest pain, palpitation, no shortness of breath, Denies OTC/herbal meds/NSAIDs Noted recent iodinated contrast exposure. 01/04/19 ROS: denies CP/nausea/vomiting now. no SOB at present. no nausea denies pain abdomen. denies urine complaints rest other negative except as mentioned in HPI. feels sick and tired/fatigue Physical Examination: General Appearance: Comfortable, in no acute respiratory distress, co-operative. obese. Vitals reviewed and noted as below Head; Atraumatic, normocephalic ENT: no ulcers no thrush. Tongue is midline/dry and coated. Oropharynx: no rash or ulcers. EYES: b/l PERRLA. icterus + Neck; supple no lymphadenopathy, no thyromegaly or bruit Lungs: Normal respiratory rate/effort. Breath sounds b/l with equal clear Heart: Normal rate. s1s2 normal. No rub or gallop. Extremities: no edema. No varicose veins. Neurological: Patient is awake alert and follow commands no focal deficit. Skin: dry and warm. Normal turgor. No rash. Palpitation: Normal elasticity for age Abdomen: Abdomen is soft . Bowel sounds +. There is no abdominal tenderness but soreness as per pt, no guarding/rigidity or organomegaly. Psych: normal insight. normal affect/mood MSK: no specific joint tenderness or swelling. Digits and nails normal, no deformity : kidney not palpable. exam limited due to obesity. has umblical hernia Labs/imaging/EKG reviewed. Past medical history, past surgical history, social history, allergy reviewed and noted as below Family hx; no hx of CKD. non contributory renal imaging WNL UA SG 1.010 30 protein 3 + glucose moderate blood but 1-2 RBC/hpf CK 214 Objective - Vital Signs/Intake and Output Vital Signs (last 24 hours): Temp Pulse Resp BP Pulse Ox 98 F 95 H 18 143/82 99 01/09/19 06:00 01/09/19 09:40 01/09/19 06:00 01/09/19 09:40 01/09/19 06:00 Intake and Output: 01/09/19 01/09/19 06:59 18:59 Intake Total 1880 Balance 1880 - Medications Medications: Current Medications Acetaminophen (Tylenol 325mg Tab) 650 mg PO Q6H PRN PRN Reason: Pain, Mild (1-3) Last Admin: 01/09/19 09:37 Dose: 650 mg Alprazolam (Xanax) 0.25 mg PO BID PRN; Protocol PRN Reason: Anxiety Stop: 01/15/19 18:44 Amlodipine Besylate (Norvasc) 10 mg PO DAILY [facility] Last Admin: 01/09/19 09:39 Dose: 10 mg Aspirin (Aspirin Chewable) 81 mg PO DAILY [facility] Last Admin: 01/09/19 09:39 Dose: 81 mg Meropenem/Sodium Chloride (Merrem Iv 500 Mg/Ns 50 Ml) 500 mg in 50 mls @ 100 mls/hr IVPB Q8 [facility]; Protocol Stop: 01/16/19 22:01 Last Admin: 01/09/19 05:11 Dose: 100 mls/hr Sodium Chloride (Sodium Chloride 0.9%) 1,000 mls @ 100 mls/hr IV .Q10H [facility] Last Admin: 01/09/19 05:47 Dose: 100 mls/hr Insulin Detemir (Levemir) 15 unit SC HS [facility] Last Admin: 01/08/19 21:34 Dose: Not Given Insulin Human Lispro (Humalog Med) 0 units SC ACHS [facility]; Protocol Last Admin: 01/09/19 08:44 Dose: 1 units Metoprolol Tartrate (Lopressor) 25 mg PO BID [facility] Last Admin: 01/09/19 09:40 Dose: 25 mg Pantoprazole Sodium (Protonix Ec Tab) 40 mg PO 0600 [facility] Last Admin: 01/09/19 05:11 Dose: 40 mg Potassium Chloride (K-Dur 20 Meq Er Tab) 20 meq PO BRK [facility] Last Admin: 01/09/19 08:48 Dose: 20 meq Zolpidem Tartrate (Ambien) 5 mg PO HS PRN; Protocol PRN Reason: Insomnia Last Admin: 01/08/19 21:15 Dose: 5 mg - Labs Labs: 01/09/19 06:45 01/09/19 06:45
[2019-01-09] MEDS ORDERED: Albuterol-Ipratrop 3 mg / 0.5 (3 ml) UD IH PRN (11:57)
--- NOTE | 2019-01-09 14:58 | CP.PCM.PN ---
<Linden Qiu - Last Filed: 01/09/19 17:54> Subjective - Date & Time of Evaluation Date of Evaluation: 01/09/19 Time of Evaluation: 14:56 - Subjective Subjective: patient is feeling much better today. She has had no episodes of diarrhea today or vomiting. No bleeding, no fevers. Gram-negative rods growing in her blood. She is on IV antibiotics. Objective - Vital Signs/Intake and Output Vital Signs (last 24 hours): Temp Pulse Resp BP Pulse Ox 98 F 95 H 18 143/82 99 01/09/19 06:00 01/09/19 09:40 01/09/19 06:00 01/09/19 09:40 01/09/19 06:00 Intake and Output: 01/09/19 01/09/19 06:59 18:59 Intake Total 1880 600 Balance 1880 600 - Medications Medications: Current Medications Acetaminophen (Tylenol 325mg Tab) 650 mg PO Q6H PRN PRN Reason: Pain, Mild (1-3) Last Admin: 01/09/19 09:37 Dose: 650 mg Albuterol/Ipratropium (Duoneb 3 Mg/0.5 Mg (3 Ml) Ud) 3 ml IH [id number] PRN PRN Reason: Shortness of Breath Alprazolam (Xanax) 0.25 mg PO BID PRN; Protocol PRN Reason: Anxiety Stop: 01/15/19 18:44 Amlodipine Besylate (Norvasc) 10 mg PO DAILY [facility] Last Admin: 01/09/19 09:39 Dose: 10 mg Aspirin (Aspirin Chewable) 81 mg PO DAILY [facility] Last Admin: 01/09/19 09:39 Dose: 81 mg Enoxaparin Sodium (Lovenox) 40 mg SC DAILY [facility]; Protocol Meropenem/Sodium Chloride (Merrem Iv 500 Mg/Ns 50 Ml) 500 mg in 50 mls @ 100 mls/hr IVPB Q8 [facility]; Protocol Stop: 01/16/19 22:01 Last Admin: 01/09/19 14:17 Dose: 100 mls/hr Sodium Chloride (Sodium Chloride 0.9%) 1,000 mls @ 100 mls/hr IV .Q10H [facility] Last Admin: 01/09/19 05:47 Dose: 100 mls/hr Insulin Detemir (Levemir) 15 unit SC HS [facility] Last Admin: 01/08/19 21:34 Dose: Not Given Insulin Human Lispro (Humalog Med) 0 units SC ACHS [facility]; Protocol Last Admin: 01/09/19 11:48 Dose: 1 units Metoprolol Tartrate (Lopressor) 25 mg PO BID [facility] Last Admin: 01/09/19 09:40 Dose: 25 mg Pantoprazole Sodium (Protonix Ec Tab) 40 mg PO 0600 [facility] Last Admin: 01/09/19 05:11 Dose: 40 mg Potassium Chloride (K-Dur 20 Meq Er Tab) 20 meq PO BRK [facility] Last Admin: 01/09/19 08:48 Dose: 20 meq Zolpidem Tartrate (Ambien) 5 mg PO HS PRN; Protocol PRN Reason: Insomnia Last Admin: 01/08/19 21:15 Dose: 5 mg - Labs Labs: 01/09/19 06:45 01/09/19 06:45 - Constitutional Appears: Non-toxic, No Acute Distress - Head Exam Head Exam: ATRAUMATIC, NORMAL INSPECTION - Respiratory Exam Respiratory Exam: Clear to Ausculation Bilateral, NORMAL BREATHING PATTERN - Cardiovascular Exam Cardiovascular Exam: REGULAR RHYTHM, +S1, +S2 - GI/Abdominal Exam GI & Abdominal Exam: Soft, Normal Bowel Sounds. absent: Tenderness - Extremities Exam Extremities Exam: Normal Inspection. absent: Pedal Edema - Neurological Exam Neurological Exam: Alert, Awake, Oriented x3 - Psychiatric Exam Psychiatric exam: Normal Affect, Normal Mood - Skin Skin Exam: Dry, Normal Color Assessment and Plan - Assessment and Plan (Free Text) Assessment: #gastroenteritis, likely bacterial #Gram-negative shaun sepsis #Right-sided colitis #Elevated liver tests #JAY JAY Plan: Continue supportive care Continue to trend liver tests Follow-up microbiology Patient may benefit from colonoscopy in 4-6 weeks as an outpatient for abnormal CT findings of right-sided colitis -clinically improving -DVT prophylaxis Case discussed with Dr. Yao, see attestation <Hemalatha Yao V - Last Filed: 01/09/19 23:27> Objective - Vital Signs/Intake and Output Vital Signs (last 24 hours): Temp Pulse Resp BP Pulse Ox 97.6 F 86 20 134/72 92 L 01/09/19 14:00 01/09/19 17:34 01/09/19 14:00 01/09/19 17:34 01/09/19 14:00 Intake and Output: 01/09/19 01/10/19 18:59 06:59 Intake Total 600 620 Balance 600 620 - Medications Medications: Current Medications Acetaminophen (Tylenol 325mg Tab) 650 mg PO Q6H PRN PRN Reason: Pain, Mild (1-3) Last Admin: 01/09/19 09:37 Dose: 650 mg Albuterol/Ipratropium (Duoneb 3 Mg/0.5 Mg (3 Ml) Ud) 3 ml IH [id number] PRN PRN Reason: Shortness of Breath Alprazolam (Xanax) 0.25 mg PO BID PRN; Protocol PRN Reason: Anxiety Stop: 01/15/19 18:44 Amlodipine Besylate (Norvasc) 10 mg PO DAILY [facility] Last Admin: 01/09/19 09:39 Dose: 10 mg Aspirin (Aspirin Chewable) 81 mg PO DAILY [facility] Last Admin: 01/09/19 09:39 Dose: 81 mg Enoxaparin Sodium (Lovenox) 40 mg SC DAILY [facility]; Protocol Meropenem/Sodium Chloride (Merrem Iv 500 Mg/Ns 50 Ml) 500 mg in 50 mls @ 100 mls/hr IVPB Q8 [facility]; Protocol Stop: 01/16/19 22:01 Last Admin: 01/09/19 21:48 Dose: 100 mls/hr Sodium Chloride (Sodium Chloride 0.9%) 1,000 mls @ 100 mls/hr IV .Q10H [facility] Last Admin: 01/09/19 18:32 Dose: 100 mls/hr Insulin Detemir (Levemir) 15 unit SC HS [facility] Last Admin: 01/09/19 21:49 Dose: 15 units Insulin Human Lispro (Humalog Med) 0 units SC ACHS [facility]; Protocol Last Admin: 01/09/19 21:41 Dose: Not Given Metoprolol Tartrate (Lopressor) 25 mg PO BID [facility] Last Admin: 01/09/19 17:34 Dose: 25 mg Pantoprazole Sodium (Protonix Ec Tab) 40 mg PO 0600 [facility] Last Admin: 01/09/19 05:11 Dose: 40 mg Potassium Chloride (K-Dur 20 Meq Er Tab) 20 meq PO BRK [facility] Last Admin: 01/09/19 08:48 Dose: 20 meq Zolpidem Tartrate (Ambien) 5 mg PO HS PRN; Protocol PRN Reason: Insomnia Last Admin: 01/08/19 21:15 Dose: 5 mg - Labs Labs: 01/09/19 06:45 01/09/19 06:45 Attending/Attestation - Attestation I have personally seen and examined this patient.: Yes I have fully participated in the care of the patient.: Yes I have reviewed all pertinent clinical information, including history, physical exam and plan: Yes Notes (Text): This is an addendum to GI progress report dictated by the GI Fellow. The patient was seen and examined earlier. Medical records, lab studies, imagings were reviewed. Last 24 hours events reviewed. Agreed with the above treatment plan as outlined in GI Fellow 's notes with the addition of the following 01/09/19 23:27
--- NOTE | 2019-01-09 16:59 | PN ---
DATE: 01/09/[address] Rodrigez. SUBJECTIVE: The patient is a 58-year-old female, seen sitting up in bed with the patient reporting that she did not sleep well despite having her room changed, with the patient however appearing being in good sprits with the patient no longer febrile, with her antibiotics continued for her acute diverticulitis. Her thrombocytopenic indices have also significantly improved and the patient is in no acute distress. OBJECTIVE/PHYSICAL EXAMINATION: VITAL SIGNS: Temperature 98, pulse 95, respirations 18, blood pressure 143/82, and pulse ox 99%. HEENT: Unremarkable. NECK: Supple. HEART: Regular rate. LUNGS: Clear. ABDOMEN: Obese, soft with minimal tenderness to the left lower quadrant. EXTREMITIES: +1 edema. SKIN: Warm and dry. NEUROLOGIC: Awake and alert. Questionable facial droop of a chronic nature, history of transient ischemic attack in the past versus cardiovascular accident in the past. LABORATORY DATA: The patient's labs were done. White blood cell count of 17.4, hemoglobin 11.6, hematocrit 35, and platelet count is 150 manual, 127 automated; improved from 99 yesterday. HIV testing was negative. Influenza testing was also negative. The patient had ultrasound of the gallbladder done earlier today. It was read as no acute or significant findings related to or accounting for clinical presentation. No gallstones. With a simple cyst in the upper pole of the right kidney. ASSESSMENT: The assessment for this patient is that of acute diverticulitis with thrombocytopenia, abnormal liver function tests, diabetes mellitus, obesity, history of cerebrovascular accident, hyperlipidemia, anxiety, gastroesophageal reflux disease. PLAN: The plan for this patient, after conversation with Dr. Rodrigez is to continue present medical regimen. We will await further testing as ordered with a potassium value of 3.5 to be corrected as per her primary doctor. We will monitor clinically and with labs, however, thrombocytopenia appears to be resolved at this time. It should be noted that the patient did have positive blood cultures with gram negative rods, which is being treated by Dr. Riojas, Infectious Disease gift consultant with further recommendations as per Dr. Riojas. Jovani Gonsales MD
--- NOTE | 2019-01-09 19:55 | CON ---
DATE: 01/09/2019 PULMONARY CONSULTATION NOTE REFERRING PHYSICIAN: Jose Antonio Armstrong MD REASON FOR CONSULTATION: Sleep apnea. HISTORY OF PRESENT ILLNESS: This is a 58-year-old female with past medical history significant for anxiety, hypertension, hyperlipidemia, diabetes mellitus, gastric reflux who presented to emergency room complaining of chills, generalized weakness. The patient reported having somnolence for about past 4 days associated with decreased appetite. The patient originally was in the emergency room and was discharged 2 days prior. The patient came to the emergency room at that time for complaint of abdominal pain and that time abdominal CT was done which after being reviewed showed colonic wall thickening with associated at the right colon of diverticula correlate clinically for acute diverticulitis versus colitis. At this time, when the patient showed up to emergency room, she reported that diarrhea had reportedly resolved. The patient reports having issues sleeping for years. States that she does have daytime hypersomnia, states that she had home sleep study done, but was never given the results. Reports that she is willing to try CPAP machine while hospitalized. PAST MEDICAL HISTORY: Diabetes mellitus, history of CVA with resulting mild facial asymmetry, hypertension, hyperlipidemia, anxiety and gastric reflux. ALLERGIES: PENICILLIN. FAMILY HISTORY: No significant cardiopulmonary disease reported. SOCIAL HISTORY: The patient reports being a former smoker, quit in 2000. No ETOH abuse. No illicit drug use. MEDICATIONS: Reviewed. Tylenol 650 mg every 6 hours p.r.n., Xanax 0.25 mg twice a day p.r.n., Norvasc 10 mg daily, aspirin 81 mg daily, Levemir 15 units subcutaneously at bedtime, Humalog sliding scale a.c. and at bedtime, meropenem 500 mg every 8 hours, metoprolol tartrate 25 mg twice a day, Protonix 40 mg daily, potassium chloride 20 mEq at breakfast, sodium chloride 1000 mL at 100 mL per hour and Ambien 5 mg p.o. at bedtime p.r.n. REVIEW OF SYSTEMS: No headache, rhinitis, cough, shortness of breath, chest pain, nausea, vomiting, diarrhea, leg pain or leg swelling reported. The patient does report having some abdominal tenderness at this time. PHYSICAL EXAMINATION: GENERAL: In no acute distress. VITAL SIGNS: Blood pressure 143/82, pulse 95, temperature 98, and oxygen saturation 99%. HEENT: Moist mucous membranes. Mallampati score is 4. NECK: Supple. No JVD. RESPIRATORY: Fair airflow bilaterally. CARDIOVASCULAR: S1 and S2. ABDOMEN: Obese, soft and mild tenderness. EXTREMITIES: No bilateral lower extremity edema. NEUROLOGIC: Awake, alert and verbal. Following commands. LABORATORY DATA: Reviewed. WBC 17.4, RBC 4.48, hemoglobin 11.6, hematocrit 35 and platelets 127. Sodium 138, potassium 3.5, chloride 104, carbon dioxide 21, anion gap 16, BUN 29, creatinine 1.3, GFR 51, POC glucose 150, random glucose 168, and calcium 8.6. Total bilirubin 1.6, AST 84, ALT 160, alkaline phosphatase 174, total protein 7.0, albumin 3.0, globulin 3.9, and albumin-globulin ratio 0.9. Influenza type A and B negative. Blood cultures positive Gram-negative rods preliminary. Chest x-ray showed no active disease. EKG shows sinus tachycardia. Gallbladder ultrasound showed no acute or significant findings related to accounting for clinical presentation. ASSESSMENT AND PLAN: Sepsis, acute diverticulitis, diabetes mellitus, obesity, history of cerebrovascular accident, hyperlipidemia, anxiety, gastroesophageal reflux disease, acute kidney injury, obstructive sleep apnea syndrome, and insomnia. The patient states she had a home sleep study done. We will try to get home sleep study results. We will start the patient in the meanwhile on CPAP 7 cm 30% oxygen. Continue Ambien p.r.n. for insomnia. Sleep apnea precaution, head of bed elevated at 45 degrees. Continue gastric prophylaxis. We will add Lovenox for deep venous thrombosis prophylaxis. Continue antibiotic therapy per Infectious Disease. This patient was seen and examined with Dr. Downing. Discussed assessment and plan as described above. This patient was seen and examined by Damian Méndez, nurse practitioner. Discussed assessment and plan as described above. Thank you for this consult, we will follow with you. Damian Méndez APN Cami Downing MD [facility] # [id number]
[2019-01-09] MEDS: Insulin Detemir 100 units/ml Vial (Levemir) SC SCH (21:49)
[2019-01-09 23:03] LABS: URINE BILIRUBIN NEGATIVE (NEGATIVE); URINE BLOOD TRACE-INTACT (NEGATIVE); URINE GLUCOSE (UA) >=1000 mg/dL (NEGATIVE); URINE LEUKOCYTE ESTERASE NEGATIVE Leu/uL (NEGATIVE); URINE PROTEIN TRACE mg/dL (<30 mg/dL)
[2019-01-09 23:04] LABS: URINE APPEARANCE CLEAR (CLEAR); URINE COLOR LIGHT YELLOW (YELLOW)
[2019-01-09 23:08] LABS: URINE EPITHELIAL CELLS 0 - 2 /hpf (0-5); URINE RBC 0 - 2 /hpf (0-2)
--- NOTE | 2019-01-10 00:14 | PN ---
DATE: 01/09/2019 SUBJECTIVE: The patient is in bed in no acute distress, nontoxic. PHYSICAL EXAMINATION: VITAL SIGNS: Temperature is 97, blood pressure is 130/70, respiratory rate of 18. HEENT: Unremarkable. NECK: Supple. LUNGS: Have decreased breath sounds. HEART: Normal S1, S2. ABDOMEN: Soft. LABORATORY DATA: Laboratory examination reveals a white count of 17,400, hemoglobin of 11. Chemistries reveal BUN of 29, creatinine of 1.3. Urinalysis is noted. Serology is noted. Microbiology reveals a gram-negative shaun in the blood. Identification sensitivity is pending. Urine cultures, multiple specimens, probable contamination. The patient had an ultrasound of the gallbladder. No acute findings. . Progress note is reviewed. Dr. Jovani Gonsales's progress note is reviewed. Dr. Moss's note is reviewed. Dr. Yao, ror engineer, consultation notes are reviewed. ASSESSMENT AND PLAN: A 58-year-old female with severe sepsis and acute diverticulitis, acute kidney injury, gram-negative shaun bacteremia, who is allergic to penicillin, currently on meropenem and a CT scan on 01/04/3019 is reviewed. Source of the gram-negative shaun bacteremia, probably GI, should consider reevaluation by GI, and also possible , although urinalysis is unremarkable. May consider repeating the CAT scan of the abdomen and pelvis, and we will repeat the urinalysis and urine culture. The patient is clinically stable as of this morning and waiting for identification sensitivity to gram-negative shaun and concern about the source. GI versus . We will follow with you. Campos Riojas MD
[2019-01-10] MEDS: Sodium Chloride 0.9% 1,000 ML IV SCH (04:24)
[2019-01-10] MEDS: Pantoprazole 40 mg EC Tab PO SCH (05:21)
[2019-01-10] MEDS: MEROPENEM 500 MG in NS 500 MG/50 ML BAG IVPB SCH ×3 (05:21→22:34)
[2019-01-10 07:27] LABS: BASO # 0.04 K/mm3 (0.0-2.0); BASO % 0.2 % (0.0-3.0); EOS % 0.2 % (1.5-5.0); HEMOGLOBIN 12.2 g/dL (12.0-16.0); MEAN CORPUSCULAR HEMOGLOBIN 26.3 pg (25.0-35.0); MEAN CORPUSCULAR HGB CONC 33.7 g/dl (31.0-37.0); MEAN PLATELET VOLUME 11.6 fl (7.0-11.0); MONO % 4.4 % (1.0-6.0); RBC 4.64 10^6/uL (3.5-6.1); RED CELL DISTRIBUTION WIDTH 14.6 % (11.5-14.5); WHITE BLOOD COUNT 21.8 10^3/uL (4.5-11.0)
[2019-01-10 07:55] LABS: ALB/GLOB RATIO 0.8 (1.1-1.8); ALBUMIN 3.1 g/dL (3.0-4.8); ALT/SGPT 120 U/L (7-56); AST/SGOT 60 U/L (14-36); BLOOD UREA NITROGEN 18 mg/dL (7-21); CALCIUM 8.5 mg/dL (8.4-10.5); GFR NON-AFRICAN AMERICAN 51
[2019-01-10 08:03] LABS: LYMPH # 1.8 (1.2-3.4); LYMPH % 8.2 % (22.0-35.0)
[2019-01-10] MEDS: Potassium Chloride 20 mEq ER Tab PO SCH (09:02)
--- NOTE | 2019-01-10 09:44 | PN ---
DATE: 01/10/2019 PULMONARY PROGRESS NOTE REFERRING PHYSICIAN: Jose Antonio Armstrong MD SUBJECTIVE: The patient is seen sitting up in bed. Reports she is not feeling well today. Did not sleep at all last night. Reports she did not request p.r.n. Ambien last night either. No headache, rhinitis, cough, shortness of breath, chest pain, abdominal pain, nausea, vomiting, diarrhea, leg pain, leg swelling reported. OBJECTIVE: GENERAL: No acute distress. VITAL SIGNS: Blood pressure 134/72, pulse 86, temperature 97.6. HEENT: Moist mucous membranes. Mallampati score of 4. NECK: Supple. No JVD. LUNGS: Fair airflow bilaterally. CARDIOVASCULAR: S1 and S2. ABDOMEN: Obese and soft. Nontender. EXTREMITIES: No bilateral lower extremity edema. NEUROLOGIC: Awake, alert, and verbal. Follows commands. MEDICATIONS: Reviewed. Tylenol 650 mg every 6 hours p.r.n. mild pain, DuoNeb 3 mL inhalation every 6 hours p.r.n., Xanax 0.25 mg twice a day p.r.n., Norvasc 10 mg daily, aspirin 81 mg daily, Lovenox 40 mg subcu daily, Levemir 15 units subcu h.s., Humalog sliding scale a.c. and h.s., meropenem 500 mg every 8 hours, metoprolol tartrate 25 mg twice a day, Protonix 40 mg daily, potassium chloride 20 mEq at breakfast, sodium chloride 1000 mL at 100 mL per hour, Ambien 5 mg p.o. h.s. p.r.n. LABORATORY DATA: Reviewed. WBC 21.8, RBC 4.64, hemoglobin 12.2, hematocrit 36.2, platelets 188. Sodium 136, potassium 3.6, chloride 106, carbon dioxide 21, anion gap 13, BUN 18, creatinine 1.1, GFR greater than 60, POC glucose 74, random glucose 78, calcium 8.5, total bilirubin 1, AST 60, ALT 120, alkaline phosphatase 188, total protein 7.3, albumin 3.1, globulin 4.1, albumin globulin ratio 0.8. IMPRESSION AND PLAN: Severe sepsis, acute diverticulitis, acute kidney injury, bacteremia, leukocytosis. Continue antibiotics as per Infectious Disease. We will order followup CBC in the morning. The patient did not wear continuous positive airway pressure machine last night, it was not brought to the patient's room last night. We will encourage continuous positive airway pressure use at bedtime. Sleep apnea precaution, head of bed elevated at 45 degrees. Gastric prophylaxis, deep venous thrombosis prophylaxis. We will need to follow up with the patient's home sleep study as outpatient. This patient was seen and examined with Dr. Downing. Discussed assessment and plan as described above. This patient was seen and examined with Damian Méndez, nurse practitioner. Discussed assessment and plan as described above. Thank you for this consult. We will follow with you. Damian Méndez APN Cami Downing MD
--- NOTE | 2019-01-10 09:51 | PN ---
DATE: 01/10/2019 SUBJECTIVE: The patient is seen earlier this morning in 566, no acute distress, nontoxic. States her abdominal pain is improved. She has no urinary symptoms she states and no burning, no dysuria. However, she does have frequency. PHYSICAL EXAMINATION VITAL SIGNS: On exam, temperature is 97, blood pressure is 130/70 and respiratory of 18. HEENT: Unremarkable. NECK: Supple. LUNGS: Have decreased breath sounds. HEART: Normal S1 and S2. ABDOMEN: Soft, and nontender. No rebound. No guarding. Relatively benign abdominal exam. LABORATORY EXAMINATION: Reveals the patient's white count is up to 21,000 and hemoglobin of 12. BUN of 18 and creatinine of 1.1. LFTs are elevated. Alk phos is elevated. Urinalysis is noted. Serology is noted. The patient has Gram-negative rods in the blood rather in the urine culture as noted. ASSESSMENT AND PLAN: This is a 58-year-old female with severe sepsis with acute diverticulitis, acute kidney injury, Gram-negative shaun bacteremia, , currently on meropenem. I will order a stat HIDA scan with Gram-negative shaun bacteremia and gallbladder as the source with elevated alk phos Gastroenterology for reevaluation and would call surgical consultation, continue the meropenem. Waiting for identification and sensitivity of Gram-negative shaun. We will order a stat HIDA scan and we will follow with you. The patient's white count is improved but is increased and at this point, the patient's alk phos is also elevated, I believe this to be biliary in origin, need a Gastroenterology reevaluation and Surgical evaluation today. Campos Riojas MD
[2019-01-10] MEDS: Insulin Lispro (humaLOG) MEDIUM Coverage SC SCH ×3 (10:02→17:16)
[2019-01-10] MEDS: Enoxaparin 40 mg Syringe SC SCH (10:03)
--- NOTE | 2019-01-10 10:38 | CP.PCM.PN ---
<Valeriano Benitezmitra - Last Filed: 01/10/19 13:01> Subjective - Date & Time of Evaluation Date of Evaluation: 01/10/19 Time of Evaluation: 09:15 - Subjective Subjective: PGY4 GI fellow progress note Patient was lying in bed when seen this morning. She states she is not doing so well because she has been having a hard time sleeping. She also reports at least 5 loose bowel movements over the last 24 hours. No signs of bleeding. five-point review of systems negative other than stated above Objective - Vital Signs/Intake and Output Vital Signs (last 24 hours): Temp Pulse Resp BP Pulse Ox 97.6 F 88 20 141/77 92 L 01/09/19 14:00 01/10/19 10:03 01/09/19 14:00 01/10/19 10:03 01/09/19 14:00 Intake and Output: 01/10/19 01/10/19 06:59 18:59 Intake Total 620 Balance 620 - Medications Medications: Current Medications Acetaminophen (Tylenol 325mg Tab) 650 mg PO Q6H PRN PRN Reason: Pain, Mild (1-3) Last Admin: 01/09/19 09:37 Dose: 650 mg Albuterol/Ipratropium (Duoneb 3 Mg/0.5 Mg (3 Ml) Ud) 3 ml IH [id number] PRN PRN Reason: Shortness of Breath Alprazolam (Xanax) 0.25 mg PO BID PRN; Protocol PRN Reason: Anxiety Stop: 01/15/19 18:44 Amlodipine Besylate (Norvasc) 10 mg PO DAILY [facility] Last Admin: 01/10/19 10:03 Dose: 10 mg Aspirin (Aspirin Chewable) 81 mg PO DAILY [facility] Last Admin: 01/10/19 10:03 Dose: 81 mg Enoxaparin Sodium (Lovenox) 40 mg SC DAILY [facility]; Protocol Last Admin: 01/10/19 10:03 Dose: 40 mg Meropenem/Sodium Chloride (Merrem Iv 500 Mg/Ns 50 Ml) 500 mg in 50 mls @ 100 mls/hr IVPB Q8 [facility]; Protocol Stop: 01/16/19 22:01 Last Admin: 01/10/19 05:21 Dose: 100 mls/hr Sodium Chloride (Sodium Chloride 0.9%) 1,000 mls @ 100 mls/hr IV .Q10H [facility] Last Admin: 01/10/19 04:24 Dose: 100 mls/hr Insulin Detemir (Levemir) 15 unit SC HS [facility] Last Admin: 01/09/19 21:49 Dose: 15 units Insulin Human Lispro (Humalog Med) 0 units SC ACHS [facility]; Protocol Last Admin: 01/10/19 10:02 Dose: Not Given Metoprolol Tartrate (Lopressor) 25 mg PO BID [facility] Last Admin: 01/10/19 10:03 Dose: 25 mg Pantoprazole Sodium (Protonix Ec Tab) 40 mg PO 0600 [facility] Last Admin: 01/10/19 05:21 Dose: 40 mg Potassium Chloride (K-Dur 20 Meq Er Tab) 20 meq PO BRK [facility] Last Admin: 01/10/19 09:02 Dose: 20 meq Zolpidem Tartrate (Ambien) 5 mg PO HS PRN; Protocol PRN Reason: Insomnia Last Admin: 01/08/19 21:15 Dose: 5 mg - Labs Labs: 01/10/19 06:45 01/10/19 06:45 - Constitutional Appears: Non-toxic, No Acute Distress, Other (tired) - Head Exam Head Exam: ATRAUMATIC, NORMAL INSPECTION - Eye Exam Eye Exam: EOMI. absent: Scleral icterus - ENT Exam ENT Exam: Mucous Membranes Moist. absent: Mucous Membranes Dry - Respiratory Exam Respiratory Exam: NORMAL BREATHING PATTERN. absent: Accessory Muscle Use, Respiratory Distress - GI/Abdominal Exam GI & Abdominal Exam: Soft, Tenderness (mildly tender to palpation on right side without guarding.), Normal Bowel Sounds. absent: Bruit, Distended, Firm, Guar ding, Rigid, Mass, Organomegaly Assessment and Plan - Assessment and Plan (Free Text) Assessment: #gastroenteritis, likely bacterial #Gram-negative shaun sepsis #Right-sided colitis #Elevated liver tests #JAY JAY Plan: -Given worsening leukocytosis, obtain CT Abd+Pelvis with PO constrast to evaluate worse colitis complication Continue supportive care Continue to trend liver tests Follow-up microbiology -Check C diff given increased white count and persistent diarrhea Patient may benefit from colonoscopy in 4-6 weeks as an outpatient for abnormal CT findings of right-sided colitis -DVT prophylaxis Case discussed with Dr. Yao, see attestation <Hemalatha Yao V - Last Filed: 01/10/19 22:10> Objective - Vital Signs/Intake and Output Vital Signs (last 24 hours): Temp Pulse Resp BP Pulse Ox 98.6 F 84 20 141/84 100 01/10/19 14:00 01/10/19 17:22 01/10/19 14:00 01/10/19 17:22 01/10/19 14:00 Intake and Output: 01/10/19 01/11/19 18:59 07:59 Intake Total 540 Balance 540 - Medications Medications: Current Medications Acetaminophen (Tylenol 325mg Tab) 650 mg PO Q6H PRN PRN Reason: Pain, Mild (1-3) Last Admin: 01/09/19 09:37 Dose: 650 mg Albuterol/Ipratropium (Duoneb 3 Mg/0.5 Mg (3 Ml) Ud) 3 ml IH [id number] PRN PRN Reason: Shortness of Breath Alprazolam (Xanax) 0.25 mg PO BID PRN; Protocol PRN Reason: Anxiety Stop: 01/15/19 18:44 Amlodipine Besylate (Norvasc) 10 mg PO DAILY [facility] Last Admin: 01/10/19 10:03 Dose: 10 mg Aspirin (Aspirin Chewable) 81 mg PO DAILY [facility] Last Admin: 01/10/19 10:03 Dose: 81 mg Enoxaparin Sodium (Lovenox) 40 mg SC DAILY [facility]; Protocol Last Admin: 01/10/19 10:03 Dose: 40 mg Meropenem/Sodium Chloride (Merrem Iv 500 Mg/Ns 50 Ml) 500 mg in 50 mls @ 100 mls/hr IVPB Q8 [facility]; Protocol Stop: 01/16/19 22:01 Last Admin: 01/10/19 14:30 Dose: 100 mls/hr Sodium Chloride (Sodium Chloride 0.9%) 1,000 mls @ 100 mls/hr IV .Q10H [facility] Last Admin: 01/10/19 04:24 Dose: 100 mls/hr Insulin Detemir (Levemir) 15 unit SC HS [facility] Last Admin: 01/09/19 21:49 Dose: 15 units Insulin Human Lispro (Humalog Med) 0 units SC ACHS [facility]; Protocol Last Admin: 01/10/19 17:16 Dose: Not Given Metoprolol Tartrate (Lopressor) 25 mg PO BID [facility] Last Admin: 01/10/19 17:22 Dose: 25 mg Pantoprazole Sodium (Protonix Ec Tab) 40 mg PO 0600 [facility] Last Admin: 01/10/19 05:21 Dose: 40 mg Potassium Chloride (K-Dur 20 Meq Er Tab) 20 meq PO BRK [facility] Last Admin: 01/10/19 09:02 Dose: 20 meq Zolpidem Tartrate (Ambien) 5 mg PO HS PRN; Protocol PRN Reason: Insomnia Last Admin: 01/08/19 21:15 Dose: 5 mg - Labs Labs: 01/10/19 06:45 01/10/19 06:45 Attending/Attestation - Attestation I have personally seen and examined this patient.: Yes I have fully participated in the care of the patient.: Yes I have reviewed all pertinent clinical information, including history, physical exam and plan: Yes Notes (Text): This is an addendum to GI progress report dictated by the GI Fellow.The patient was seen and examined earlier. Medical records, lab studies, imagings were reviewed. Last 24 hours events reviewed. Agreed with the above treatment plan as outlined in GI Fellow 's notes with the addition of the following 01/10/19 22:10
[2019-01-10] MEDS ORDERED: Iohexol 240 (50 ml) ONE (16:08)
--- NOTE | 2019-01-10 18:04 | NM ---
Date of service: 01/10/2019 PROCEDURE: Nuclear Medicine Hepatobiliary Scan HISTORY: gb ds COMPARISON: Limited abdomen ultrasound 01/09/2019. TECHNIQUE: 0.3 mCi of technetium 99m Mebrofenin was administered intravenously. Planar images of the abdomen were obtained at 5 min intervals to 60 mins. Delayed images were also obtained. FINDINGS: LIVER: Timely and homogenous uptake. COMMON BILE DUCT: identified at 5 mins. GALLBLADDER: identified at 30 mins. SMALL BOWEL: Identified at 15 mins. IMPRESSION: No nuclear evidence of cystic or common bile duct obstruction.
[2019-01-10] MEDS: Insulin Detemir 100 units/ml Vial (Levemir) SC SCH (22:35)
[2019-01-11] MEDS: Pantoprazole 40 mg EC Tab PO SCH (06:21)
[2019-01-11] MEDS: Insulin Lispro (humaLOG) MEDIUM Coverage SC SCH ×5 (08:01→22:31)
[2019-01-11] MEDS: MEROPENEM 500 MG in NS 500 MG/50 ML BAG IVPB SCH ×3 (08:02→22:31)
[2019-01-11] MEDS: Enoxaparin 40 mg Syringe SC SCH (08:59)
[2019-01-11] MEDS: Potassium Chloride 20 mEq ER Tab PO SCH (08:59)
[2019-01-11 10:19] LABS: BASO # 0.04 K/mm3 (0.0-2.0); BASO % 0.2 % (0.0-3.0); EOS # 0.1 (0.0-0.7); EOS % 0.3 % (1.5-5.0); HEMOGLOBIN 11.7 g/dL (12.0-16.0); LYMPH # 2.9 (1.2-3.4); LYMPH % 13.1 % (22.0-35.0); MEAN CORPUSCULAR HEMOGLOBIN 26.7 pg (25.0-35.0); MEAN CORPUSCULAR HGB CONC 33.7 g/dl (31.0-37.0); MEAN PLATELET VOLUME 11.5 fl (7.0-11.0); MONO # 0.7 (0.1-0.6); MONO % 3.3 % (1.0-6.0); RBC 4.39 10^6/uL (3.5-6.1); RED CELL DISTRIBUTION WIDTH 14.6 % (11.5-14.5); WHITE BLOOD COUNT 22.4 10^3/uL (4.5-11.0)
--- NOTE | 2019-01-11 10:39 | CP.PCM.PN ---
<Valeriano Benitezmitra - Last Filed: 01/11/19 13:37> Subjective - Date & Time of Evaluation Date of Evaluation: 01/11/19 Time of Evaluation: 10:05 - Subjective Subjective: PGYfor GI fellow progress note Patient was sitting in bedside chair when seen this a.m. She states she is feeling in general better since getting a better night's sleep. She reports ongoing diarrhea "too many to count." She reports she is tolerating a liquid diet without issues. Five-point review of systems negative other than stated above Objective - Vital Signs/Intake and Output Vital Signs (last 24 hours): Temp Pulse Resp BP Pulse Ox 98 F 90 18 138/77 100 01/11/19 06:00 01/11/19 09:00 01/11/19 06:00 01/11/19 09:00 01/11/19 06:00 Intake and Output: 01/11/19 01/11/19 06:59 18:59 Intake Total Balance - Medications Medications: Current Medications Acetaminophen (Tylenol 325mg Tab) 650 mg PO Q6H PRN PRN Reason: Pain, Mild (1-3) Last Admin: 01/09/19 09:37 Dose: 650 mg Albuterol/Ipratropium (Duoneb 3 Mg/0.5 Mg (3 Ml) Ud) 3 ml IH [id number] PRN PRN Reason: Shortness of Breath Alprazolam (Xanax) 0.25 mg PO BID PRN; Protocol PRN Reason: Anxiety Stop: 01/15/19 18:44 Last Admin: 01/10/19 22:34 Dose: 0.25 mg Amlodipine Besylate (Norvasc) 10 mg PO DAILY [facility] Last Admin: 01/11/19 09:00 Dose: 10 mg Aspirin (Aspirin Chewable) 81 mg PO DAILY [facility] Last Admin: 01/11/19 08:59 Dose: 81 mg Enoxaparin Sodium (Lovenox) 40 mg SC DAILY [facility]; Protocol Last Admin: 01/11/19 08:59 Dose: 40 mg Meropenem/Sodium Chloride (Merrem Iv 500 Mg/Ns 50 Ml) 500 mg in 50 mls @ 100 mls/hr IVPB Q8 [facility]; Protocol Stop: 01/16/19 22:01 Last Admin: 01/11/19 08:02 Dose: 100 mls/hr Sodium Chloride (Sodium Chloride 0.9%) 1,000 mls @ 100 mls/hr IV .Q10H [facility] Last Admin: 01/10/19 04:24 Dose: 100 mls/hr Insulin Detemir (Levemir) 15 unit SC HS [facility] Last Admin: 01/10/19 22:35 Dose: 15 units Insulin Human Lispro (Humalog Med) 0 units SC ACHS [facility]; Protocol Last Admin: 01/11/19 08:01 Dose: Not Given Metoprolol Tartrate (Lopressor) 25 mg PO BID [facility] Last Admin: 01/11/19 09:00 Dose: 25 mg Pantoprazole Sodium (Protonix Ec Tab) 40 mg PO 0600 [facility] Last Admin: 01/11/19 06:21 Dose: 40 mg Potassium Chloride (K-Dur 20 Meq Er Tab) 20 meq PO BRK [facility] Last Admin: 01/11/19 08:59 Dose: 20 meq Zolpidem Tartrate (Ambien) 5 mg PO HS PRN; Protocol PRN Reason: Insomnia Last Admin: 01/11/19 00:48 Dose: 5 mg - Labs Labs: 01/11/19 10:00 01/10/19 06:45 - Constitutional Appears: Well, No Acute Distress - Head Exam Head Exam: ATRAUMATIC, NORMAL INSPECTION - Eye Exam Eye Exam: EOMI. absent: Scleral icterus - ENT Exam ENT Exam: Mucous Membranes Moist. absent: Mucous Membranes Dry - Respiratory Exam Respiratory Exam: NORMAL BREATHING PATTERN. absent: Accessory Muscle Use - GI/Abdominal Exam GI & Abdominal Exam: Distended (mildly), Soft, Normal Bowel Sounds. absent: Bruit, Firm, Guarding, Rigid, Tenderness, Mass Additional comments: exam limited due to body habitus Assessment and Plan - Assessment and Plan (Free Text) Assessment: #Gastroenteritis, likely bacterial #Gram-negative shaun sepsis with Bacteroides fragilis #Right-sided colitis #Elevated liver tests #JAY JAY Plan: CT with persistent colitis without signs of complication -Await Cdiff Continue supportive care Continue to trend liver tests Follow-up microbiology Patient may benefit from colonoscopy in 4-6 weeks as an outpatient for abnormal CT findings of right-sided colitis -DVT prophylaxis Case discussed with Dr. Yao, see attestation <Hemalatha Yao V - Last Filed: 01/11/19 23:26> Objective - Vital Signs/Intake and Output Vital Signs (last 24 hours): Temp Pulse Resp BP Pulse Ox 97.7 F 85 20 137/80 100 01/11/19 14:00 01/11/19 17:11 01/11/19 14:00 01/11/19 17:11 01/11/19 14:00 Intake and Output: 01/11/19 01/12/19 18:59 06:59 Intake Total 620 Output Total 3 Balance 617 - Medications Medications: Current Medications Acetaminophen (Tylenol 325mg Tab) 650 mg PO Q6H PRN PRN Reason: Pain, Mild (1-3) Last Admin: 01/09/19 09:37 Dose: 650 mg Albuterol/Ipratropium (Duoneb 3 Mg/0.5 Mg (3 Ml) Ud) 3 ml IH [id number] PRN PRN Reason: Shortness of Breath Alprazolam (Xanax) 0.25 mg PO BID PRN; Protocol PRN Reason: Anxiety Stop: 01/15/19 18:44 Last Admin: 01/10/19 22:34 Dose: 0.25 mg Amlodipine Besylate (Norvasc) 10 mg PO DAILY [facility] Last Admin: 01/11/19 09:00 Dose: 10 mg Aspirin (Aspirin Chewable) 81 mg PO DAILY [facility] Last Admin: 01/11/19 08:59 Dose: 81 mg Enoxaparin Sodium (Lovenox) 40 mg SC DAILY [facility]; Protocol Last Admin: 01/11/19 08:59 Dose: 40 mg Meropenem/Sodium Chloride (Merrem Iv 500 Mg/Ns 50 Ml) 500 mg in 50 mls @ 100 mls/hr IVPB Q8 [facility]; Protocol Stop: 01/16/19 22:01 Last Admin: 01/11/19 22:31 Dose: 100 mls/hr Sodium Chloride (Sodium Chloride 0.9%) 1,000 mls @ 100 mls/hr IV .Q10H [facility] Last Admin: 01/11/19 19:54 Dose: 100 mls/hr Insulin Detemir (Levemir) 15 unit SC HS [facility] Last Admin: 01/11/19 22:32 Dose: 15 units Insulin Human Lispro (Humalog Med) 0 units SC ACHS [facility]; Protocol Last Admin: 01/11/19 22:31 Dose: Not Given Metoprolol Tartrate (Lopressor) 25 mg PO BID [facility] Last Admin: 01/11/19 17:11 Dose: 25 mg Pantoprazole Sodium (Protonix Ec Tab) 40 mg PO 0600 [facility] Last Admin: 01/11/19 06:21 Dose: 40 mg Potassium Chloride (K-Dur 20 Meq Er Tab) 20 meq PO BRK [facility] Last Admin: 01/11/19 08:59 Dose: 20 meq Zolpidem Tartrate (Ambien) 5 mg PO HS PRN; Protocol PRN Reason: Insomnia Last Admin: 01/11/19 00:48 Dose: 5 mg - Labs Labs: 01/11/19 10:00 01/10/19 06:45 Attending/Attestation - Attestation I have personally seen and examined this patient.: Yes I have fully participated in the care of the patient.: Yes I have reviewed all pertinent clinical information, including history, physical exam and plan: Yes Notes (Text): This is an addendum to GI progress report dictated by the GI Fellow. The patient was seen and examined earlier. Medical records, lab studies, imagings were reviewed. Last 24 hours events reviewed. Agreed with the above treatment plan as outlined in GI Fellow 's notes with the addition of the [id number] 23:26
--- NOTE | 2019-01-11 15:23 | PN ---
DATE: 01/11/2019 SUBJECTIVE: The patient is in bed in no acute distress, nontoxic. PHYSICAL EXAMINATION VITAL SIGNS: On exam, temperature is 98, blood pressure is 130/70 and respiratory rate of 18. HEENT: Unremarkable. NECK: Supple. LUNGS: Have decreased breath sounds. HEART: Normal S1 and S2. ABDOMEN: Soft and nontender. No organomegaly. No rebound or guarding or masses. LABORATORY EXAMINATION: Reveals the patient's white count is up to 22,000 and hemoglobin of 11. Chemistries are noted. LFTs are elevated. Alk phos is elevated. Urinalysis is noted and HIV is negative. Influenza is negative. Microbiology reveals bacteroides fragilis in the blood. The patient is on meropenem which is adequate bacteroides fragilis coverage. The patient for repeat CAT scan of the abdomen and pelvis. The patient had a HIDA scan last night which was negative. The patient's repeat CAT scan results are pending. progress note is appreciated. ASSESSMENT AND PLAN: This is a 58-year-old female with severe sepsis, acute diverticulitis, acute kidney injuries with bacteroides fragilis bacteremia and this organism with bacteremia is commonly because of GI perforation and leaks with persistent and increasing leukocytosis. We will check on the repeat CAT scan of the abdomen. We will discuss with Gastroenterology, should have surgical evaluation also. Continue present course. The antibiotic coverage is more than adequate. The patient is clinically nontoxic and the abdominal exam as of this morning is entirely soft. We will follow with you. Campos Riojas MD
--- NOTE | 2019-01-11 16:07 | PN ---
DATE: 01/11/2019 PULMONARY PROGRESS NOTE REFERRING PHYSICIAN: Jose Antonio Armstrong MD SUBJECTIVE: The patient is seen sitting up in bed. No acute distress. Reports feeling much better this morning. States she got Ambien for sleep and slept well. Received CPAP around 1 o'clock this morning and used CPAP machine, which she tolerated well. No headache, rhinitis, cough, shortness of breath, chest pain, nausea, vomiting, diarrhea, leg pain or leg swelling reported. Reports that she has some mild tenderness to abdomen. PHYSICAL EXAMINATION: GENERAL: No acute distress. VITAL SIGNS: Blood pressure 138/77, pulse 90, temperature 98, oxygen saturation 100% nasal cannula. HEENT: Moist mucous membranes. Mallampati score of 4. NECK: Supple. No JVD. LUNGS: Fair air flow bilaterally. CARDIOVASCULAR: S1 and S2. ABDOMEN: Obese. Soft. Mild tenderness. EXTREMITIES: No bilateral lower extremity edema. NEUROLOGICAL: Awake, alert and verbal. Follows commands. MEDICATIONS: Reviewed. Tylenol 650 mg every 6 hours p.r.n. mild pain, DuoNeb 3 mL inhalation every 6 hours p.r.n., Xanax 0.25 mg twice a day p.r.n., Norvasc 10 mg daily, aspirin 81 mg daily, Lovenox 20 mg daily, Levemir 15 units subcu h.s., Humalog sliding scale a.c. and h.s., meropenem 500 mg every 8 hours, metoprolol tartrate 25 mg twice a day, Protonix 40 mg daily, potassium chloride 20 mEq at breakfast, sodium chloride 1000 mL at 100 mL per hour, Ambien 5 mg h.s. p.r.n. LABORATORY DATA: Reviewed. WBC 32.4, RBC 4.39, hemoglobin 11.7, hematocrit 34.7, and platelets 244. POC glucose 82. Urine culture final no growth. Biliary scan showed no nuclear evidence of cystic or common bile duct obstruction. IMPRESSION AND PLAN: Severe sepsis, acute diverticulitis, acute kidney injury, bacteremia, leukocytosis. The patient wore a continuous positive airway pressure machine last night and tolerated it well. Continued to encourage continuous positive airway pressure use at bedtime. Sleep apnea precaution, head of bed elevated at 45 degrees. Gastric prophylaxis, deep venous thrombosis prophylaxis. Continue antibiotics per Infectious Disease. We recommend the patient have sleep study as outpatient. This patient was seen and examined with Dr. Downing. Discussed assessment and plan as described above. This patient was seen and examined with Damian Méndez, nurse practitioner. Discussed assessment and plan as described above. Thank you for this consult. We will follow with you. Damian Méndez APN Cami Downing MD [facility]
--- NOTE | 2019-01-11 16:08 | CT ---
Date of service: 01/10/2019 PROCEDURE: CT Abdomen and Pelvis with contrast HISTORY: r/o colitis complication, worsening WBCs COMPARISON: Abdomen pelvis CT with contrast 01/04/2019. TECHNIQUE: Helical CT of the abdomen and pelvis was performed following oral contrast administration only. Intravenous contrast was not administered as per referring physician request. Coronal and sagittal reformats were generated. Radiation dose: Total exam DLP = 1184.53 mGy-cm. This CT exam was performed using one or more of the following dose reduction techniques: Automated exposure control, adjustment of the mA and/or kV according to patient size, and/or use of iterative reconstruction technique. FINDINGS: LOWER THORAX: Unremarkable. LIVER: Unremarkable. No gross lesion or ductal dilatation. GALLBLADDER AND BILE DUCTS: Unremarkable. PANCREAS: Unremarkable. No gross lesion or ductal dilatation. SPLEEN: Unremarkable. ADRENALS: Unremarkable. No mass. KIDNEYS AND URETERS: Unremarkable. No hydronephrosis. No solid mass. VASCULATURE: Unremarkable. No aortic aneurysm. No aortic atherosclerotic calcification or mural plaque present. BOWEL: Proximal ascending, almost cecal diverticulitis changes are diminishing rather than increasing if not nearly resolved. No definite new pattern of colitis is appreciated with small bowel appearing grossly nonfocal. Asymmetric retained fecal material is seen at the mid and distal rectum. The stomach is largely decompressed and limited in evaluation. APPENDIX: Normal appendix. PERITONEUM: Unremarkable. No free fluid. No free air. LYMPH NODES: Unremarkable. No enlarged lymph nodes. BLADDER: Unremarkable. REPRODUCTIVE: Unremarkable. BONES: No acute fracture. OTHER FINDINGS: None. IMPRESSION: Improved if not resolved right colonic diverticulitis at the proximal ascending colon/distal cecum. No interval pattern of segmental enteritis or colitis appreciated otherwise. No ascites, free air or abscess identified in this noncontrast CT exam. The gallbladder is collapsed and unremarkable appearing. No obstructive uropathy or interval new perinephric reaction pattern appreciable. Nonspecific perinephric changes are stable.
[2019-01-11] MEDS: Sodium Chloride 0.9% 1,000 ML IV SCH (19:54)
[2019-01-11] MEDS: Insulin Detemir 100 units/ml Vial (Levemir) SC SCH (22:32)
[2019-01-12] MEDS: MEROPENEM 500 MG in NS 500 MG/50 ML BAG IVPB SCH ×3 (05:50→22:12)
[2019-01-12] MEDS: Pantoprazole 40 mg EC Tab PO SCH (05:50)
[2019-01-12] MEDS: Potassium Chloride 20 mEq ER Tab PO SCH (08:43)
[2019-01-12] MEDS: Insulin Lispro (humaLOG) MEDIUM Coverage SC SCH ×4 (08:46→22:09)
[2019-01-12] MEDS: Enoxaparin 40 mg Syringe SC SCH (09:05)
--- NOTE | 2019-01-12 09:56 | CP.PCM.PN ---
<Ck Cortes - Last Filed: 01/12/19 14:25> Subjective - Date & Time of Evaluation Date of Evaluation: 01/12/19 Time of Evaluation: 09:55 - Subjective Subjective: Ck Cortes PGY2 GI Progress Note for Dr. Yao Patient was seen and examined at bedside. She complains of persistent diarrhea but cannot describe if it's bloody or brown or oily. She states that her pain has improved and she is tolerating her diet well. Objective - Vital Signs/Intake and Output Vital Signs (last 24 hours): Temp Pulse Resp BP Pulse Ox 0 F L 95 H 0 L 138/77 0 L 01/12/19 06:00 01/12/19 09:06 01/12/19 06:00 01/12/19 09:06 01/12/19 06:00 Intake and Output: 01/12/19 01/12/19 06:59 18:59 Intake Total 620 Output Total 3 Balance 617 - Medications Medications: Current Medications Acetaminophen (Tylenol 325mg Tab) 650 mg PO Q6H PRN PRN Reason: Pain, Mild (1-3) Last Admin: 01/09/19 09:37 Dose: 650 mg Albuterol/Ipratropium (Duoneb 3 Mg/0.5 Mg (3 Ml) Ud) 3 ml IH [id number] PRN PRN Reason: Shortness of Breath Alprazolam (Xanax) 0.25 mg PO BID PRN; Protocol PRN Reason: Anxiety Stop: 01/15/19 18:44 Last Admin: 01/12/19 00:09 Dose: 0.25 mg Amlodipine Besylate (Norvasc) 10 mg PO DAILY [facility] Last Admin: 01/12/19 09:06 Dose: 10 mg Aspirin (Aspirin Chewable) 81 mg PO DAILY [facility] Last Admin: 01/12/19 09:06 Dose: 81 mg Enoxaparin Sodium (Lovenox) 40 mg SC DAILY [facility]; Protocol Last Admin: 01/12/19 09:05 Dose: 40 mg Meropenem/Sodium Chloride (Merrem Iv 500 Mg/Ns 50 Ml) 500 mg in 50 mls @ 100 mls/hr IVPB Q8 [facility]; Protocol Stop: 01/16/19 22:01 Last Admin: 01/12/19 05:50 Dose: 100 mls/hr Sodium Chloride (Sodium Chloride 0.9%) 1,000 mls @ 100 mls/hr IV .Q10H [facility] Last Admin: 01/11/19 19:54 Dose: 100 mls/hr Insulin Detemir (Levemir) 15 unit SC HS [facility] Last Admin: 01/11/19 22:32 Dose: 15 units Insulin Human Lispro (Humalog Med) 0 units SC ACHS [facility]; Protocol Last Admin: 01/12/19 08:46 Dose: Not Given Metoprolol Tartrate (Lopressor) 25 mg PO BID [facility] Last Admin: 01/12/19 09:06 Dose: 25 mg Pantoprazole Sodium (Protonix Ec Tab) 40 mg PO 0600 [facility] Last Admin: 01/12/19 05:50 Dose: 40 mg Potassium Chloride (K-Dur 20 Meq Er Tab) 20 meq PO BRK [facility] Last Admin: 01/12/19 08:43 Dose: 20 meq Zolpidem Tartrate (Ambien) 5 mg PO HS PRN; Protocol PRN Reason: Insomnia Last Admin: 01/12/19 03:03 Dose: 5 mg - Labs Labs: 01/11/19 10:00 01/10/19 06:45 - Constitutional Appears: Well, Non-toxic, No Acute Distress - Head Exam Head Exam: ATRAUMATIC, NORMAL INSPECTION, NORMOCEPHALIC - Eye Exam Eye Exam: EOMI, Normal appearance, PERRL Pupil Exam: NORMAL ACCOMODATION, PERRL - ENT Exam ENT Exam: Mucous Membranes Moist, Normal Exam - Neck Exam Neck Exam: Full ROM, Normal Inspection. absent: Lymphadenopathy - Respiratory Exam Respiratory Exam: Clear to Ausculation Bilateral, NORMAL BREATHING PATTERN - Cardiovascular Exam Cardiovascular Exam: REGULAR RHYTHM, +S1, +S2. absent: Murmur - GI/Abdominal Exam GI & Abdominal Exam: Soft, Normal Bowel Sounds. absent: Distended, Guarding, Tenderness - Extremities Exam Extremities Exam: Full ROM, Normal Capillary Refill, Normal Inspection. absent: Joint Swelling, Pedal Edema - Back Exam Back Exam: NORMAL INSPECTION - Neurological Exam Neurological Exam: Alert, Awake, CN II-XII Intact, Normal Gait, Oriented x3 - Psychiatric Exam Psychiatric exam: Normal Affect, Normal Mood - Skin Skin Exam: Dry, Intact, Normal Color, Warm Assessment and Plan - Assessment and Plan (Free Text) Assessment: 58 F with hx of HTN (years), DM2, obesity, anxiety, and GERD who is admitted for gastroenteritis. Patient had recent CT which showed right sided colitis, which has improved. Upon presentation, patient met SIRS criteria, and source of sepsis is gram negative bacteremia (Bacteroides fragilis). C.diff is negative. Plan: - Continue supportive care - Continue to trend liver tests - Follow-up microbiology - Patient may benefit from colonoscopy in 4-6 weeks as an outpatient for abnormal CT findings of right-sided colitis - PPI ppx - advance diet as tolerated This note is not finalized until signed <Hemalatha Yao V - Last Filed: 01/12/19 23:50> Objective - Vital Signs/Intake and Output Vital Signs (last 24 hours): Temp Pulse Resp BP Pulse Ox 0 F L 86 0 L 139/72 0 L 01/12/19 06:00 01/12/19 17:49 01/12/19 06:00 01/12/19 17:49 01/12/19 06:00 - Medications Medications: Current Medications Acetaminophen (Tylenol 325mg Tab) 650 mg PO Q6H PRN PRN Reason: Pain, Mild (1-3) Last Admin: 01/09/19 09:37 Dose: 650 mg Albuterol/Ipratropium (Duoneb 3 Mg/0.5 Mg (3 Ml) Ud) 3 ml IH [id number] PRN PRN Reason: Shortness of Breath Alprazolam (Xanax) 0.25 mg PO BID PRN; Protocol PRN Reason: Anxiety Stop: 01/15/19 18:44 Last Admin: 01/12/19 00:09 Dose: 0.25 mg Amlodipine Besylate (Norvasc) 10 mg PO DAILY [facility] Last Admin: 01/12/19 09:06 Dose: 10 mg Aspirin (Aspirin Chewable) 81 mg PO DAILY [facility] Last Admin: 01/12/19 09:06 Dose: 81 mg Enoxaparin Sodium (Lovenox) 40 mg SC DAILY [facility]; Protocol Last Admin: 01/12/19 09:05 Dose: 40 mg Meropenem/Sodium Chloride (Merrem Iv 500 Mg/Ns 50 Ml) 500 mg in 50 mls @ 100 mls/hr IVPB Q8 [facility]; Protocol Stop: 01/16/19 22:01 Last Admin: 01/12/19 22:12 Dose: 100 mls/hr Sodium Chloride (Sodium Chloride 0.9%) 1,000 mls @ 100 mls/hr IV .Q10H [facility] Last Admin: 01/12/19 20:32 Dose: 100 mls/hr Insulin Detemir (Levemir) 15 unit SC HS [facility] Last Admin: 01/12/19 22:12 Dose: 15 units Insulin Human Lispro (Humalog Med) 0 units SC ACHS [facility]; Protocol Last Admin: 01/12/19 22:09 Dose: Not Given Metoprolol Tartrate (Lopressor) 25 mg PO BID [facility] Last Admin: 01/12/19 17:49 Dose: 25 mg Pantoprazole Sodium (Protonix Ec Tab) 40 mg PO 0600 [facility] Last Admin: 01/12/19 05:50 Dose: 40 mg Potassium Chloride (K-Dur 20 Meq Er Tab) 20 meq PO BRK [facility] Last Admin: 01/12/19 08:43 Dose: 20 meq Zolpidem Tartrate (Ambien) 5 mg PO HS PRN; Protocol PRN Reason: Insomnia Last Admin: 01/12/19 03:03 Dose: 5 mg - Labs Labs: 01/12/19 13:30 01/10/19 06:45 Attending/Attestation - Attestation I have personally seen and examined this patient.: Yes I have fully participated in the care of the patient.: Yes I have reviewed all pertinent clinical information, including history, physical exam and plan: Yes Notes (Text): This is an addendum to GI progress report dictated by the resident. The patient was seen and examined earlier. Medical records, lab studies, imagings were reviewed. Last 24 hours events reviewed. Agreed with the above treatment plan as outlined in resident 's notes with the addition of the following Clinically doing better WBC count shows downward trend Elevated LFTs probably secondary to sepsis and drug-induced HIDA scan was negative, sonogram showed no gallstones Follow-up LFTs Continue liquid diet Repeat CT was reviewed Discussed with ID 01/12/19 23:47
--- NOTE | 2019-01-12 13:25 | PN ---
DATE: 01/11/2019 SUBJECTIVE: The patient is a 58-year-old female seen on 01/11/2019. The patient is stable. She is still on IV antibiotic. No chest pain. No short of breath. PHYSICAL EXAMINATION: Noted for, VITAL SIGNS: Temperature is 98, heart rate 85, blood pressure 137/80, respirations 20, saturation 100% on room air. HEAD AND NECK: Normal, no JVD, no thyromegaly. CHEST: Clear bilateral. CARDIAC: First sound and second sound normal. No murmur, rub or gallop. ABDOMEN: Soft, mild tender in the upper abdomen. Otherwise normal. EXTREMITIES: No edema. NEUROLOGIC: Normal. LABORATORY STUDY: White count is still going up 22.4, hemoglobin 11.7, hematocrit 34.7 and platelets 244. Chemistry, blood sugar running 140, sodium 136, potassium 3.6, chloride 106, bicarb 21, BUN 18, creatinine 1.1. Liver enzymes shows bilirubin is normal, AST 60, ALT 120, alkaline phosphatase 188. IMPRESSION AND PLAN: 1. Gram-negative sepsis secondary to colitis. Continue intravenous antibiotics. The patient is getting intravenous Merrem 500 mg every 8 hours. 2. Hypertension, stable. Continue amlodipine 10 mg daily plus metoprolol 25 b.i.d. 3. Chronic insomnia. The patient is stable on Ambien, improving. 4. Morbid obesity, chronic obstructive pulmonary disease. Continue inhaled bronchodilators. Continue gastrointestinal and deep vein thrombosis prophylaxis. She is currently on Protonix 40 and Lovenox 40 subcutaneous daily. 5. For diabetes, the patient is getting her insulin regimen Levemir 15 units subcutaneous at bedtime plus insulin coverage low algorithm. Continue current therapy. Follow up clinically. We will discuss further with Infectious Disease. Jose Antonio Armstrong MD
--- NOTE | 2019-01-12 14:02 | PN ---
DATE: 01/12/2019 PULMONARY PROGRESS NOTE REFERRING PHYSICIAN: Jose Antonio Armstrong MD SUBJECTIVE: The patient is seen sitting in armchair in room. Family at bedside. No acute distress. Reports feeling well this morning. Reports getting sleep last night. She took p.r.n. Ambien and was able to sleep. Says she did not use CPAP machine last night, but feels well tonight. No headache, rhinitis, cough, shortness of breath, chest pain, abdominal pain, nausea, vomiting, diarrhea, leg pain or leg swelling reported. PHYSICAL EXAMINATION: GENERAL: No acute distress. VITAL SIGNS: Blood pressure 138/77, pulse 95, oxygen saturation 100 on room, temperature 97.7. HEENT: Moist mucous membranes. Mallampati score 4. NECK: Supple. No JVD. LUNGS: Fair airflow bilaterally. CARDIOVASCULAR: S1 and S2. ABDOMEN: Obese, soft. No distention. EXTREMITIES: No bilateral lower extremity edema. NEUROLOGICAL: Awake, alert and verbal. Follows commands. MEDICATIONS: Reviewed. Tylenol 650 mg every 6 hours p.r.n. mild pain, DuoNeb 3 mL inhalation every 6 hours p.r.n., Xanax 0.25 mg twice a day p.r.n., Norvasc 10 mg daily, aspirin 81 mg daily, Lovenox 40 mg daily, Levemir 15 units subcu at bedtime, Humalog sliding scale a.c. and at bedtime., meropenem 500 mg every 8 hours, Lopressor 25 mg twice a day, Protonix 40 mg daily, potassium chloride 20 mEq at breakfast, sodium chloride 1000 mL at 100 mL per hour, Ambien 5 mg at bedtime p.r.n. LABORATORY DATA: Reviewed. POC glucose 146, stool for Clostridium difficile negative. IMPRESSION AND PLAN: Severe sepsis, acute diverticulitis, acute kidney injury, bacteremia, leukocytosis. Continue to encourage continuous positive airway pressure use at bedtime,,sleep apnea precaution, head of bed elevated at 45 degrees. Gastric prophylaxis, deep venous thrombosis prophylaxis. Continue antibiotics per Infectious Disease. Discussed with the patient in depth sleep apnea and need for sleep study as outpatient. The patient verbalized understanding. We will recommend the patient to have sleep study as outpatient. This patient was seen and examined with Dr. Downing. Discussed assessment and plan as described above. This patient was seen and examined with Damian Méndez, nurse practitioner. Discussed assessment and plan as described above. Thank you for this consult. We will follow with you. Damian Méndez APN Cami Downing MD
--- NOTE | 2019-01-12 14:03 | CP.PCM.PN ---
Subjective - Date & Time of Evaluation Date of Evaluation: 01/12/19 Time of Evaluation: 14:01 - Subjective Subjective: Nephrology Consultation Note: Assessment: stable GNR sepsis with acute diverticulitis JAY JAY likely due to pre-renal state ATN contrast exposure, FeNa <1%: IMPROVING Hypokalemia DM, HTN thrombocytopenia and abnormal LFT, hyperbilirubinemia obesity anxiety GERD Plan no need for renal replacement therapy at present Hypertension control with meds as ordered. pt not on RAAS francisco javier, will defer it due to JAY JAY. avoid hypotension Monitor I/O, daily weights and renal function while in hospital continue with IVF as NS while has limited oral intake supplement lytes as needed repeat BMP in AM hematology GI and ID already following Dose meds/antibiotics for improved GFR. Avoid fleets enema/magnesium based laxatives. Avoid nephrotoxins/NSAIDs/ iodinated contrast (unless needed emergently) Glycemic control Further work up for as per primary team. Thanks for allowing me to participate in care of your patient. Will follow with you. Please call if any Qs. had d/w team Dr José Miguel Moss Office: [phone] CC; unable to sleep reason for consult: JAY JAY o HPI: Pt is a 58 F with hx of HTN (years), DM obesity anxiety GERD presented to hospital with complaints of inability to sleep, decreased appetite, feeling cold/chills for last few days. also had diarrhoea and vomitting since sat but last on Saturday and renal consult for JAY JAY management. Denies chest pain, palpitation, no shortness of breath, Denies OTC/herbal meds/NSAIDs Noted recent iodinated contrast exposure. 01/04/19 and 01/10/19 ROS: denies CP/nausea/vomiting now. no SOB at present. no nausea denies pain abdomen. denies urine complaints rest other negative except as mentioned in HPI. feels better today as had sleep last night Physical Examination: General Appearance: Comfortable, in no acute respiratory distress, co-operative. obese. Vitals reviewed and noted as below Head; Atraumatic, normocephalic ENT: no ulcers no thrush. Tongue is midline/dry and coated. Oropharynx: no rash or ulcers. EYES: b/l PERRLA. icterus + Neck; supple no lymphadenopathy, no thyromegaly or bruit Lungs: Normal respiratory rate/effort. Breath sounds b/l with equal clear Heart: Normal rate. s1s2 normal. No rub or gallop. Extremities: no edema. No varicose veins. Neurological: Patient is awake alert and follow commands no focal deficit. Skin: dry and warm. Normal turgor. No rash. Palpitation: Normal elasticity for age Abdomen: Abdomen is soft . Bowel sounds +. There is no abdominal tenderness no guarding/rigidity or organomegaly. Psych: normal insight. normal affect/mood MSK: no specific joint tenderness or swelling. Digits and nails normal, no deformity : kidney not palpable. exam limited due to obesity. has umblical hernia Labs/imaging/EKG reviewed. Past medical history, past surgical history, social history, allergy reviewed and noted as below Family hx; no hx of CKD. non contributory renal imaging WNL UA SG 1.010 30 protein 3 + glucose moderate blood but 1-2 RBC/hpf CK 214 Objective - Vital Signs/Intake and Output Vital Signs (last 24 hours): Temp Pulse Resp BP Pulse Ox 0 F L 95 H 0 L 138/77 0 L 01/12/19 06:00 01/12/19 09:06 01/12/19 06:00 01/12/19 09:06 01/12/19 06:00 Intake and Output: 01/12/19 01/12/19 06:59 18:59 Intake Total 620 Output Total 3 Balance 617 - Medications Medications: Current Medications Acetaminophen (Tylenol 325mg Tab) 650 mg PO Q6H PRN PRN Reason: Pain, Mild (1-3) Last Admin: 01/09/19 09:37 Dose: 650 mg Albuterol/Ipratropium (Duoneb 3 Mg/0.5 Mg (3 Ml) Ud) 3 ml IH [id number] PRN PRN Reason: Shortness of Breath Alprazolam (Xanax) 0.25 mg PO BID PRN; Protocol PRN Reason: Anxiety Stop: 01/15/19 18:44 Last Admin: 01/12/19 00:09 Dose: 0.25 mg Amlodipine Besylate (Norvasc) 10 mg PO DAILY [facility] Last Admin: 01/12/19 09:06 Dose: 10 mg Aspirin (Aspirin Chewable) 81 mg PO DAILY [facility] Last Admin: 01/12/19 09:06 Dose: 81 mg Enoxaparin Sodium (Lovenox) 40 mg SC DAILY [facility]; Protocol Last Admin: 01/12/19 09:05 Dose: 40 mg Meropenem/Sodium Chloride (Merrem Iv 500 Mg/Ns 50 Ml) 500 mg in 50 mls @ 100 mls/hr IVPB Q8 [facility]; Protocol Stop: 01/16/19 22:01 Last Admin: 01/12/19 13:57 Dose: 100 mls/hr Sodium Chloride (Sodium Chloride 0.9%) 1,000 mls @ 100 mls/hr IV .Q10H [facility] Last Admin: 01/11/19 19:54 Dose: 100 mls/hr Insulin Detemir (Levemir) 15 unit SC HS [facility] Last Admin: 01/11/19 22:32 Dose: 15 units Insulin Human Lispro (Humalog Med) 0 units SC ACHS [facility]; Protocol Last Admin: 01/12/19 13:02 Dose: Not Given Metoprolol Tartrate (Lopressor) 25 mg PO BID [facility] Last Admin: 01/12/19 09:06 Dose: 25 mg Pantoprazole Sodium (Protonix Ec Tab) 40 mg PO 0600 [facility] Last Admin: 01/12/19 05:50 Dose: 40 mg Potassium Chloride (K-Dur 20 Meq Er Tab) 20 meq PO BRK [facility] Last Admin: 01/12/19 08:43 Dose: 20 meq Zolpidem Tartrate (Ambien) 5 mg PO HS PRN; Protocol PRN Reason: Insomnia Last Admin: 01/12/19 03:03 Dose: 5 mg - Labs Labs: 01/11/19 10:00 01/10/19 06:45
[2019-01-12 14:08] LABS: BASO # 0.02 K/mm3 (0.0-2.0); BASO % 0.1 % (0.0-3.0); EOS # 0.1 (0.0-0.7); EOS % 0.4 % (1.5-5.0); HEMOGLOBIN 10.2 g/dL (12.0-16.0); LYMPH # 1.5 (1.2-3.4); LYMPH % 8.4 % (22.0-35.0); MEAN CELL VOLUME 78.5 fl (80.0-105.0); MEAN CORPUSCULAR HEMOGLOBIN 26.4 pg (25.0-35.0); MEAN CORPUSCULAR HGB CONC 33.7 g/dl (31.0-37.0); MEAN PLATELET VOLUME 10.8 fl (7.0-11.0); MONO # 1.3 (0.1-0.6); MONO % 7.4 % (1.0-6.0); RBC 3.86 10^6/uL (3.5-6.1); RED CELL DISTRIBUTION WIDTH 14.8 % (11.5-14.5); WHITE BLOOD COUNT 17.5 10^3/uL (4.5-11.0)
--- NOTE | 2019-01-12 14:54 | PN ---
DATE: 01/10/2019 SUBJECTIVE: She is comfortable in no distress, intermittent abdominal pain is less, tolerating liquid diet. No other complaints, seen by specialist. PHYSICAL EXAMINATION: VITAL SIGNS: On 01/09/2019, temperature 98, heart rate 95, blood pressure 143/82, respiration 20, saturating 99% on 2 liters. HEAD AND NECK: Normal. No JVD, no thyromegaly. CHEST: Clear bilateral. CARDIAC: First sound, second sound normal. No murmur, rub or gallop. ABDOMEN: Soft, tender in the right side and whole abdomen, mainly right side. EXTREMITIES: No edema. NEUROLOGIC: . LABORATORY DATA: On 01/09/2019, white count is high 21.000 . Also blood culture is showing gram-negative sepsis bacteremia. ASSESSMENT AND PLAN: 1. sepsis grame negative , continue merrem iv 500mg q8h __. 2. diverticulitis.acute renal failure improved, continue intravenous hydration, renal function improved. 3. Hypertension stable, continue low dose. 4. Chronic obstructive pulmonary disease, electrolyte abnormalities, diabetes type 2, continue Levemir, continue replacement potassium and continue DuoNeb. The patient seems to be doing well. We will monitor results to her internet consultant. Jose Antonio Armstrong MD MTDD
--- NOTE | 2019-01-12 14:55 | PN ---
DATE: 01/10/2019 SUBJECTIVE: The patient looks comfortable, lying supine, in no distress, tolerating diet. She was not sleeping last night but otherwise she feels better. The patient reports no nausea or vomiting. PHYSICAL EXAMINATION: VITAL SIGNS: Temperature 98, heart rate 88, blood pressure 129/84, respirations 16, and O2 saturation 100%. HEAD AND NECK: Normal. No JVD. No thyromegaly. CHEST: Clear bilaterally. CARDIAC: Normal. No murmur, rub or gallop. ABDOMEN: Soft, obese, and nontender. Bowel sounds intact. EXTREMITIES: No edema. LABORATORY STUDIES: Sodium 136, potassium 3.6, chloride 106, bicarb 21, BUN 18, creatinine 1.1. The patient has AST 60, ALT 120, alk phos 188. CBC shows white count 21.8, hemoglobin 12.2, hematocrit 36.2, platelets 188. IMPRESSION AND PLAN: 1. Gram-negative sepsis secondary to colitis. Continue intravenous antibiotic Merrem 500 mg every 8 hours. Follow up with infectious disease and gastroenterology consults. 2. Thrombocytopenia, most likely as per Dr. Rodrigez due to sepsis. Continue intravenous antibiotics. 3. Abnormal liver functions tests, possibly related to sepsis of gram-negative infections or due to medications. was negative. Continue intravenous antibiotics. 4. Diabetes. Continue insulin coverage. 5. Hypertension, stable. Continue . Continue current treatment. Follow up clinically. 6. The patient anxiety, on Xanax . We will continue current therapy. Jose Antonio Armstrong MD
[2019-01-12] MEDS: Sodium Chloride 0.9% 1,000 ML IV SCH (20:32)
[2019-01-12] MEDS: Insulin Detemir 100 units/ml Vial (Levemir) SC SCH (22:12)
--- NOTE | 2019-01-12 23:48 | PN ---
DATE: 01/12/2019 SUBJECTIVE: The patient is in bed, in no acute distress, nontoxic. The patient was seen early this morning. PHYSICAL EXAMINATION: VITAL SIGNS: Temperature is 97, blood pressure is 130/70, respiratory rate of 18, heart rate of 95. HEENT: Unremarkable. NECK: Supple. LUNGS: Have decreased breath sounds. HEART: Normal S1 and S2. ABDOMEN: Soft. LABORATORY DATA: Laboratory examination reveals a white count of 17,500, hemoglobin of 10, and BUN of 18, creatinine of 1.1. LFTs are noted. Urinalysis is noted. HIV is negative. Influenza is negative. Microbiology reveals the Bacteroides fragilis in the blood culture. Review of orders reveals the patient is on meropenem, and the patient had a CAT scan of the abdomen and pelvis on the 01/10/[address] Armstrong's note is reviewed from today. ASSESSMENT AND PLAN: A 58-year-old female with severe sepsis, acute diverticulitis, acute kidney injury. The patient has Bacteroides fragilis bacteremia, most likely small gastrointestinal perforation and leak from the gastrointestinal tract was found to have Bacteroides bacteremia. Leukocytosis is persistent. Possible abscess formation not picked up on the CAT scan. I discussed the case with Gastroenterology, Dr. Hemalatha Yao. Perhaps, we need to repeat the CAT scan. Last CAT scan was on the 01/10/2019. We will continue the meropenem. Follow the WBC count, and we will repeat the blood cultures to see if we have cleared the Bacteroides bacteremia, most likely a leak associated from the gastrointestinal tract, possible abscess formation which is not being picked up on CAT scan. Campos Riojas MD
[2019-01-13] MEDS: Pantoprazole 40 mg EC Tab PO SCH (05:33)
[2019-01-13] MEDS: Sodium Chloride 0.9% 1,000 ML IV SCH ×2 (05:42→11:00)
--- NOTE | 2019-01-13 07:03 | CP.PCM.PN ---
<Ck Cortes - Last Filed: 01/13/19 10:56> Subjective - Date & Time of Evaluation Date of Evaluation: 01/13/19 Time of Evaluation: 07:55 - Subjective Subjective: Ck Cortes PGY2 GI Progress Note for Dr. Yao Patient was seen and examined at bedside. She states she had 1 BM that was formed yesterday, otherwise she is doing well and denies any abdominal pain, n/v/d, fevers/chills. Objective - Vital Signs/Intake and Output Vital Signs (last 24 hours): Temp Pulse Resp BP Pulse Ox 0 F L 86 0 L 139/72 0 L 01/12/19 06:00 01/12/19 17:49 01/12/19 06:00 01/12/19 17:49 01/12/19 06:00 - Medications Medications: Current Medications Acetaminophen (Tylenol 325mg Tab) 650 mg PO Q6H PRN PRN Reason: Pain, Mild (1-3) Last Admin: 01/09/19 09:37 Dose: 650 mg Albuterol/Ipratropium (Duoneb 3 Mg/0.5 Mg (3 Ml) Ud) 3 ml IH [id number] PRN PRN Reason: Shortness of Breath Alprazolam (Xanax) 0.25 mg PO BID PRN; Protocol PRN Reason: Anxiety Stop: 01/15/19 18:44 Last Admin: 01/12/19 23:51 Dose: 0.25 mg Amlodipine Besylate (Norvasc) 10 mg PO DAILY [facility] Last Admin: 01/12/19 09:06 Dose: 10 mg Aspirin (Aspirin Chewable) 81 mg PO DAILY [facility] Last Admin: 01/12/19 09:06 Dose: 81 mg Enoxaparin Sodium (Lovenox) 40 mg SC DAILY [facility]; Protocol Last Admin: 01/12/19 09:05 Dose: 40 mg Meropenem/Sodium Chloride (Merrem Iv 500 Mg/Ns 50 Ml) 500 mg in 50 mls @ 100 mls/hr IVPB Q8 [facility]; Protocol Stop: 01/16/19 22:01 Last Admin: 01/12/19 22:12 Dose: 100 mls/hr Sodium Chloride (Sodium Chloride 0.9%) 1,000 mls @ 100 mls/hr IV .Q10H [facility] Last Admin: 01/13/19 05:42 Dose: 100 mls/hr Insulin Detemir (Levemir) 15 unit SC HS [facility] Last Admin: 01/12/19 22:12 Dose: 15 units Insulin Human Lispro (Humalog Med) 0 units SC ACHS [facility]; Protocol Last Admin: 01/12/19 22:09 Dose: Not Given Metoprolol Tartrate (Lopressor) 25 mg PO BID [facility] Last Admin: 01/12/19 17:49 Dose: 25 mg Pantoprazole Sodium (Protonix Ec Tab) 40 mg PO 0600 [facility] Last Admin: 01/13/19 05:33 Dose: 40 mg Potassium Chloride (K-Dur 20 Meq Er Tab) 20 meq PO BRK [facility] Last Admin: 01/12/19 08:43 Dose: 20 meq Zolpidem Tartrate (Ambien) 5 mg PO HS PRN; Protocol PRN Reason: Insomnia Last Admin: 01/13/19 02:00 Dose: 5 mg - Labs Labs: 01/12/19 13:30 01/10/19 06:45 - Constitutional Appears: Well, Non-toxic, No Acute Distress - Head Exam Head Exam: ATRAUMATIC, NORMAL INSPECTION, NORMOCEPHALIC - Eye Exam Eye Exam: EOMI, Normal appearance, PERRL Pupil Exam: NORMAL ACCOMODATION, PERRL - ENT Exam ENT Exam: Mucous Membranes Moist, Normal Exam - Neck Exam Neck Exam: Full ROM, Normal Inspection. absent: Lymphadenopathy - Respiratory Exam Respiratory Exam: Clear to Ausculation Bilateral, NORMAL BREATHING PATTERN - Cardiovascular Exam Cardiovascular Exam: REGULAR RHYTHM, +S1, +S2. absent: Murmur - GI/Abdominal Exam GI & Abdominal Exam: Soft, Normal Bowel Sounds. absent: Distended, Guarding, Tenderness - Extremities Exam Extremities Exam: Full ROM, Normal Capillary Refill, Normal Inspection. absent: Joint Swelling, Pedal Edema - Back Exam Back Exam: NORMAL INSPECTION - Neurological Exam Neurological Exam: Alert, Awake, CN II-XII Intact, Normal Gait, Oriented x3 - Psychiatric Exam Psychiatric exam: Normal Affect, Normal Mood - Skin Skin Exam: Dry, Intact, Normal Color, Warm Assessment and Plan - Assessment and Plan (Free Text) Assessment: 58 F with hx of HTN (years), DM2, obesity, anxiety, and GERD who is admitted for gastroenteritis. Patient had recent CT which showed right sided colitis, which has improved. Upon presentation, patient met SIRS criteria, and source of sepsis is gram negative bacteremia (Bacteroides fragilis). C.diff is negative. Per ID, source of bacteremia could be a possible abscess missed by CT. Plan: - Continue supportive care - Abx per ID - Follow-up microbiology; repeat blood cultures sent yesterday - repeat CT when symptoms resolve - Patient may benefit from colonoscopy in 4-6 weeks as an outpatient for abnormal CT findings of right-sided colitis - PPI for GI ppx - would maintain FLD at this time Case was reviewed and discussed with attending, Dr. Yao <Hemalatha Yao V - Last Filed: 01/14/19 00:04> Objective - Vital Signs/Intake and Output Vital Signs (last 24 hours): Temp Pulse Resp BP Pulse Ox 98.4 F 83 20 149/81 92 L 01/13/19 22:38 01/13/19 22:38 01/13/19 22:38 01/13/19 22:38 01/13/19 22:38 - Medications Medications: Current Medications Acetaminophen (Tylenol 325mg Tab) 650 mg PO Q6H PRN PRN Reason: Pain, Mild (1-3) Last Admin: 01/09/19 09:37 Dose: 650 mg Albuterol/Ipratropium (Duoneb 3 Mg/0.5 Mg (3 Ml) Ud) 3 ml IH [id number] PRN PRN Reason: Shortness of Breath Alprazolam (Xanax) 0.25 mg PO BID PRN; Protocol PRN Reason: Anxiety Stop: 01/15/19 18:44 Last Admin: 01/12/19 23:51 Dose: 0.25 mg Amlodipine Besylate (Norvasc) 10 mg PO DAILY [facility] Last Admin: 01/13/19 10:50 Dose: 10 mg Aspirin (Aspirin Chewable) 81 mg PO DAILY [facility] Last Admin: 01/13/19 10:50 Dose: 81 mg Enoxaparin Sodium (Lovenox) 40 mg SC DAILY [facility]; Protocol Last Admin: 01/13/19 10:50 Dose: 40 mg Sodium Chloride (Sodium Chloride 0.9%) 1,000 mls @ 50 mls/hr IV .Q20H [facility] Stop: 01/14/19 15:31 Last Admin: 01/13/19 11:00 Dose: 50 mls/hr Meropenem (Merrem Iv 1 Gm Premix) 1 gm in 50 mls @ 100 mls/hr IVPB Q8 [facility]; Protocol Stop: 01/22/19 22:01 Last Admin: 01/13/19 22:32 Dose: 100 mls/hr Insulin Detemir (Levemir) 15 unit SC HS [facility] Last Admin: 01/13/19 21:55 Dose: Not Given Insulin Human Lispro (Humalog Med) 0 units SC ACHS [facility]; Protocol Last Admin: 01/13/19 21:54 Dose: Not Given Metoprolol Tartrate (Lopressor) 25 mg PO BID [facility] Last Admin: 01/13/19 18:34 Dose: 25 mg Pantoprazole Sodium (Protonix Ec Tab) 40 mg PO 0600 [facility] Last Admin: 01/13/19 05:33 Dose: 40 mg Potassium Chloride (K-Dur 20 Meq Er Tab) 20 meq PO BRK [facility] Last Admin: 01/13/19 10:49 Dose: 20 meq Zolpidem Tartrate (Ambien) 5 mg PO HS PRN; Protocol PRN Reason: Insomnia Last Admin: 01/13/19 02:00 Dose: 5 mg - Labs Labs: 01/13/19 07:04 01/13/19 07:30 Attending/Attestation - Attestation I have personally seen and examined this patient.: Yes I have fully participated in the care of the patient.: Yes I have reviewed all pertinent clinical information, including history, physical exam and plan: Yes Notes (Text): This is an addendum to GI progress report dictated by the medical record technician. The patient was seen and examined earlier. Medical records, lab studies, imagings were reviewed. Last 24 hours events reviewed. Agreed with the above treatment plan as outlined in resident 's notes with the addition of the following 01/14/19 00:03
[2019-01-13] MEDS: MEROPENEM 500 MG in NS 500 MG/50 ML BAG IVPB SCH ×2 (07:42→18:23)
[2019-01-13] MEDS: Insulin Lispro (humaLOG) MEDIUM Coverage SC SCH ×4 (08:00→21:54)
[2019-01-13 08:09] LABS: BLOOD UREA NITROGEN 6 mg/dL (7-21); CALCIUM 8.2 mg/dL (8.4-10.5); GFR NON-AFRICAN AMERICAN > 60
[2019-01-13 08:36] LABS: BASO # 0.02 K/mm3 (0.0-2.0); BASO % 0.1 % (0.0-3.0); EOS # 0.1 (0.0-0.7); EOS % 0.6 % (1.5-5.0); LYMPH # 1.6 (1.2-3.4); LYMPH % 11.3 % (22.0-35.0); MEAN CELL VOLUME 78.7 fl (80.0-105.0); MEAN CORPUSCULAR HEMOGLOBIN 26.3 pg (25.0-35.0); MEAN CORPUSCULAR HGB CONC 33.4 g/dl (31.0-37.0); MEAN PLATELET VOLUME 10.6 fl (7.0-11.0); MONO # 0.8 (0.1-0.6); MONO % 5.6 % (1.0-6.0); RBC 3.8 10^6/uL (3.5-6.1); RED CELL DISTRIBUTION WIDTH 14.9 % (11.5-14.5); WHITE BLOOD COUNT 14.1 10^3/uL (4.5-11.0)
[2019-01-13] MEDS ORDERED: Potassium Chloride 20 mEq ER Tab PO ONE (09:57)
[2019-01-13] MEDS: Potassium Chloride 20 mEq ER Tab PO SCH (10:49)
[2019-01-13] MEDS: Enoxaparin 40 mg Syringe SC SCH (10:50)
--- NOTE | 2019-01-13 12:15 | PN ---
DATE: 01/13/2019 PULMONARY PROGRESS NOTE REFERRING PHYSICIAN: Jose Antonio Armstrong MD SUBJECTIVE: The patient is seen sitting in armchair in room. No acute distress. Reports she did not use CPAP machine last night. Slept for about 4 hours last night. No headache, rhinitis, cough, shortness of breath, chest pain, nausea, vomiting, diarrhea, leg pain or leg swelling reported. The patient states that she has mild abdominal pain. OBJECTIVE: GENERAL: No acute distress. VITAL SIGNS: Blood pressure 140/82, pulse 90, temperature 98.2 and oxygen saturation 99% on room air. HEENT: Moist mucous membranes. Mallampati score of 4. NECK: Supple. No JVD. LUNGS: Fair air flow bilaterally. CARDIOVASCULAR: S1 and S2. ABDOMEN: Obese. Soft. No distention. Mild tenderness in upper quadrant. EXTREMITIES: No bilateral lower extremity edema. NEUROLOGICAL: Awake, alert and verbal. Follows commands. MEDICATIONS: Reviewed. Tylenol 650 mg every 6 hours p.r.n. mild pain, DuoNeb 3 mL inhalation every 12 hours p.r.n., Xanax 0.25 mg twice a day p.r.n., Norvasc 10 mg daily, aspirin 81 mg daily, Lovenox 40 mg subcutaneously daily, Levemir 15 units subcutaneously at bedtime, Humalog sliding scale a.c. and at bedtime, meropenem 500 mg every 8 hours, metoprolol tartrate 25 mg twice a day, Protonix 40 mg daily, potassium chloride 20 mEq daily, Ambien 5 mg at bedtime p.r.n., and sodium chloride 0.9% a 1000 mL at 50 mL per hour. LABORATORY DATA: Reviewed. WBC 14.1, RBC 3.8, hemoglobin 10, hematocrit 29.9, and platelets 389. Sodium 140, potassium 3.4, chloride 110, carbon dioxide 24, anion gap 10, BUN 6, creatinine 0.8, and GFR greater than 60. POC glucose 101. Random glucose 101. Calcium 8.2. IMPRESSION AND PLAN: Severe sepsis, acute diverticulitis, acute kidney injury, bacteremia, leukocytosis, suspected sleep apnea syndrome, continue to encourage continuous positive airway pressure use at bedtime. Sleep apnea precaution, head of bed elevated at 45 degrees. Deep venous thrombosis prophylaxis and gastric prophylaxis. Continue antibiotics per Infectious Disease. We recommend this patient have sleep study as outpatient. This patient was seen and examined with Dr. Downing. Discussed assessment and plan as described above. This patient was seen and examined with Damian Méndez, nurse practitioner. Discussed assessment and plan as described above. Thank you for this consult. We will follow with you. Damian Méndez APN Cami Downing MD
--- NOTE | 2019-01-13 12:35 | CP.PCM.PN ---
Subjective - Date & Time of Evaluation Date of Evaluation: 01/13/19 Time of Evaluation: 12:33 - Subjective Subjective: Nephrology Consultation Note: Assessment: stable GNR sepsis with acute diverticulitis JAY JAY likely due to pre-renal state ATN contrast exposure, FeNa <1%: IMPROVED Hypokalemia DM, HTN thrombocytopenia and abnormal LFT, hyperbilirubinemia obesity anxiety GERD Plan no need for renal replacement therapy at present Hypertension control with meds as ordered. pt not on RAAS francisco javier, can resume if BP high Monitor I/O, daily weights and renal function while in hospital lower IVF and hope to stop by tomorrow supplement lytes as needed hematology GI and ID already following Dose meds/antibiotics for improved GFR Glycemic control Further work up for as per primary team. Thanks for allowing me to participate in care of your patient. Please call if any Qs. had d/w team Dr José Miguel Moss Office: [phone] CC; unable to sleep reason for consult: JAY JAY HPI: Pt is a 58 F with hx of HTN (years), DM obesity anxiety GERD presented to hospital with complaints of inability to sleep, decreased appetite, feeling cold/chills for last few days. also had diarrhoea and vomitting since sat but last on Saturday and renal consult for JAY JAY management. Denies chest pain, palpitation, no shortness of breath, Denies OTC/herbal meds/NSAIDs Noted recent iodinated contrast exposure. 01/04/19 and 01/10/19 ROS: denies CP/nausea/vomiting now. no SOB at present. no nausea denies pain abdomen. denies urine complaints rest other negative except as mentioned in HPI. feels better today as had sleep last night Physical Examination: General Appearance: Comfortable, in no acute respiratory distress, co-operative. obese. Vitals reviewed and noted as below Head; Atraumatic, normocephalic ENT: no ulcers no thrush. Tongue is midline/dry and coated. Oropharynx: no rash or ulcers. EYES: b/l PERRLA. icterus + Neck; supple no lymphadenopathy, no thyromegaly or bruit Lungs: Normal respiratory rate/effort. Breath sounds b/l with equal clear Heart: Normal rate. s1s2 normal. No rub or gallop. Extremities: no edema. No varicose veins. Neurological: Patient is awake alert and follow commands no focal deficit. Skin: dry and warm. Normal turgor. No rash. Palpitation: Normal elasticity for age Abdomen: Abdomen is soft . Bowel sounds +. There is no abdominal tenderness no guarding/rigidity or organomegaly. Psych: normal insight. normal affect/mood MSK: no specific joint tenderness or swelling. Digits and nails normal, no defor mity : kidney not palpable. exam limited due to obesity. has umblical hernia Labs/imaging/EKG reviewed. Past medical history, past surgical history, social history, allergy reviewed and noted as below Family hx; no hx of CKD. non contributory renal imaging WNL UA SG 1.010 30 protein 3 + glucose moderate blood but 1-2 RBC/hpf CK 214 Objective - Vital Signs/Intake and Output Vital Signs (last 24 hours): Temp Pulse Resp BP Pulse Ox 98.2 F 90 20 126/65 99 01/13/19 06:00 01/13/19 06:00 01/13/19 06:00 01/13/19 10:50 01/13/19 06:00 - Medications Medications: Current Medications Acetaminophen (Tylenol 325mg Tab) 650 mg PO Q6H PRN PRN Reason: Pain, Mild (1-3) Last Admin: 01/09/19 09:37 Dose: 650 mg Albuterol/Ipratropium (Duoneb 3 Mg/0.5 Mg (3 Ml) Ud) 3 ml IH [id number] PRN PRN Reason: Shortness of Breath Alprazolam (Xanax) 0.25 mg PO BID PRN; Protocol PRN Reason: Anxiety Stop: 01/15/19 18:44 Last Admin: 01/12/19 23:51 Dose: 0.25 mg Amlodipine Besylate (Norvasc) 10 mg PO DAILY [facility] Last Admin: 01/13/19 10:50 Dose: 10 mg Aspirin (Aspirin Chewable) 81 mg PO DAILY [facility] Last Admin: 01/13/19 10:50 Dose: 81 mg Enoxaparin Sodium (Lovenox) 40 mg SC DAILY [facility]; Protocol Last Admin: 01/13/19 10:50 Dose: 40 mg Meropenem/Sodium Chloride (Merrem Iv 500 Mg/Ns 50 Ml) 500 mg in 50 mls @ 100 mls/hr IVPB Q8 [facility]; Protocol Stop: 01/16/19 22:01 Last Admin: 01/13/19 07:42 Dose: 100 mls/hr Sodium Chloride (Sodium Chloride 0.9%) 1,000 mls @ 50 mls/hr IV .Q20H [facility] Stop: 01/14/19 15:31 Insulin Detemir (Levemir) 15 unit SC HS [facility] Last Admin: 01/12/19 22:12 Dose: 15 units Insulin Human Lispro (Humalog Med) 0 units SC [facility]; Protocol Last Admin: 01/13/19 08:00 Dose: Not Given Metoprolol Tartrate (Lopressor) 25 mg PO BID [facility] Last Admin: 01/13/19 10:50 Dose: 25 mg Pantoprazole Sodium (Protonix Ec Tab) 40 mg PO 0600 [facility] Last Admin: 01/13/19 05:33 Dose: 40 mg Potassium Chloride (K-Dur 20 Meq Er Tab) 20 meq PO BRK [facility] Last Admin: 01/13/19 10:49 Dose: 20 meq Zolpidem Tartrate (Ambien) 5 mg PO HS PRN; Protocol PRN Reason: Insomnia Last Admin: 01/13/19 02:00 Dose: 5 mg - Labs Labs: 01/13/19 07:04 01/13/19 07:30
--- NOTE | 2019-01-13 13:04 | PN ---
DATE: 01/12/2019 SUBJECTIVE: The patient seen today, on 01/12/2019, comfortable, no distress, on IV antibiotic, getting PICC line put in. She has no other complaints. PHYSICAL EXAMINATION: VITAL SIGNS: Temperature 98.6, heart rate 90, blood pressure 140/82, respirations 20, saturation 99% on room air. HEAD AND NECK: Normal. No JVD, no thyromegaly. CHEST: Clear bilateral. CARDIAC: First sound and second sound normal. No murmur, rub, or gallop. ABDOMEN: Soft, nontender. EXTREMITIES: No edema. NEUROLOGIC: Normal. LABORATORY STUDY: On 01/12/2019, white count 17.5, hemoglobin 10.2, hematocrit 30.3, platelets 325. Chemistry, blood sugar running 140 to 100 range. CURRENT MEDICATIONS: Ambien, aspirin, DuoNeb, insulin, potassium 20, Levemir 15 units subcutaneous at bedtime, Lopressor 25 b.i.d., Lovenox 40 subcu, Merrem 500 IV every 8 hours, Norvasc 10, Protonix 40, Tylenol, and Xanax 0.25 mg b.i.d. IMPRESSION AND PLAN: 1. Gram-negative sepsis with positive blood culture for Escherichia coli. Continue intravenous Merrem, intravenous access has been put in. Continue current therapy. 2. Colitis with right-sided diverticulitis. The patient seems improving. White count is coming down. Continue current therapy. 3. Diabetes, insulin-dependent. Continue Humalog coverage, low algorithm. Continue Levemir 15 units subcutaneous at bedtime. 4. Hypertension, stable. Continue Norvasc 10 mg daily. 5. Insomnia. She is stable on Ambien 5 mg as needed. 6. Chronic obstructive pulmonary disease, stable. Continue DuoNeb. Continue current therapy. Jose Antonio Armstrong MD
[2019-01-13] MEDS: Insulin Detemir 100 units/ml Vial (Levemir) SC SCH (21:55)
[2019-01-13] MEDS: Meropenem IV 1 gm in NS 1 GM/50 ML BAG IVPB SCH (22:32)
--- NOTE | 2019-01-14 00:05 | PN ---
DATE: 01/13/2019 SUBJECTIVE: The patient is in bed, in no acute distress, nontoxic. She is doing better. PHYSICAL EXAMINATION: VITAL SIGNS: Temperature is 98, blood pressure is 120/70, respiratory rate 16. HEENT: Unremarkable. NECK: Supple. LUNGS: Decreased breath sounds. HEART: Normal S1 and S2. ABDOMEN: Soft, nontender. LABORATORY DATA: Laboratory examination reveals a white count of 14,000, hemoglobin of 10. Chemistries are noted. Serology is reviewed. Microbiology reveals repeat blood cultures are negative. Stool for C. difficile antigen and toxin also negative. Review of orders reveals the patient to be on meropenem. The patient's renal function is improved. ALLERGIES: THE PATIENT IS ALLERGIC TO PENICILLIN. ASSESSMENT AND PLAN: This is a 58-year-old female who was admitted with severe sepsis, acute diverticulitis, acute kidney injury with Bacteroides fragilis bacteremia, most likely gastrointestinal perforation and leaks which probably . She appears to be doing well clinically. Her abdomen is completely soft. We will follow the white blood cell counts. We will increase the meropenem now to a full dose since the renal function is improved. We will follow closely with you. Campos Riojas MD
[2019-01-14] MEDS: Meropenem IV 1 gm in NS 1 GM/50 ML BAG IVPB SCH ×3 (05:13→21:54)
[2019-01-14] MEDS: Pantoprazole 40 mg EC Tab PO SCH (05:14)
[2019-01-14] MEDS: Sodium Chloride 0.9% 1,000 ML IV SCH ×2 (05:16→22:27)
[2019-01-14] MEDS ORDERED: Potassium Chloride 20 mEq ER Tab PO ONE (09:41)
[2019-01-14] MEDS: Insulin Lispro (humaLOG) MEDIUM Coverage SC SCH ×4 (09:47→21:57)
[2019-01-14] MEDS: Enoxaparin 40 mg Syringe SC SCH (09:48)
[2019-01-14 11:01] LABS: BASO # 0.02 K/mm3 (0.0-2.0); BASO % 0.2 % (0.0-3.0); EOS # 0.1 (0.0-0.7); EOS % 0.8 % (1.5-5.0); LYMPH # 1.6 (1.2-3.4); LYMPH % 13.7 % (22.0-35.0); MEAN CELL VOLUME 79.1 fl (80.0-105.0); MEAN CORPUSCULAR HEMOGLOBIN 26.1 pg (25.0-35.0); MONO # 0.5 (0.1-0.6); MONO % 4.4 % (1.0-6.0); RBC 3.83 10^6/uL (3.5-6.1); RED CELL DISTRIBUTION WIDTH 14.8 % (11.5-14.5); WHITE BLOOD COUNT 11.7 10^3/uL (4.5-11.0)
[2019-01-14 11:19] LABS: ALB/GLOB RATIO 0.7 (1.1-1.8); ALBUMIN 2.8 g/dL (3.0-4.8); ALT/SGPT 49 U/L (7-56); AST/SGOT 37 U/L (14-36); BLOOD UREA NITROGEN 4 mg/dL (7-21); CALCIUM 8.5 mg/dL (8.4-10.5); GFR NON-AFRICAN AMERICAN > 60
[2019-01-14] MEDS: Potassium Chloride 20 mEq ER Tab PO SCH (12:22)
--- NOTE | 2019-01-14 12:37 | PN ---
DATE: 01/13/2019 SUBJECTIVE: The patient is comfortable, in no distress. Afebrile. Tolerating soft diet. PHYSICAL EXAMINATION: VITAL SIGNS: Temperature 98.4, heart rate 89, blood pressure 123/77, respirations 20, saturating 100%. HEAD AND NECK: Normal. No JVD. No thyromegaly. CHEST: Clear bilateral. CARDIAC: First sound and second sound normal. No murmur, rub, or gallop. ABDOMEN: Soft, nontender. EXTREMITIES: No edema. NEUROLOGIC: The patient has normal exam. She walks around with no problem, with no focal deficits. LABORATORY DATA: White count 14.1, hemoglobin 10, hematocrit 29.9, platelets 389. Chemistry; sodium 140, potassium 3.4, chloride 110, bicarb 24, BUN 6, creatinine 0.8. Calcium level 8.2, blood sugar 101. IMPRESSION AND PLAN: 1. Acute diverticulitis, gram-negative bacteremia; continue intravenous antibiotics. She is still getting Merrem intravenous as per Infectious Disease consult. 2. Chronic anxiety, insomnia. The patient seems to be doing okay with Ambien at night and she seems stable on Xanax twice a day as needed on 0.25 mg. 3. Diabetes, insulin dependent. Continue Levemir every night at bedtime and continue insulin coverage, low algorithm. 4. Hypertension. The patient is stable on metoprolol 25 mg once a day and Norvasc 10 mg once a day. Continue current therapy. 5. The patient does have morbid obesity. She does have also obstructive sleep apnea. Continue continuous positive airway pressure. Continue inhaled bronchodilators. The patient otherwise is stable. For her gram-negative bacteremia, we will continue intravenous antibiotics as recommended by Infectious Disease, Dr. Riojas and we will continue treatment as recommended by Gastroenterology consultation. I will discuss further with him about the recommendation and length of treatment. Jose Antonio Armstrong MD
--- NOTE | 2019-01-14 14:41 | CP.PCM.PN ---
<Linden Qiu - Last Filed: 01/14/19 18:21> Subjective - Date & Time of Evaluation Date of Evaluation: 01/14/19 Time of Evaluation: 14:38 - Subjective Subjective: no acute overnight events. She had one bowel movement that was loose but its small output. Overall improving. Denies fever, abdominal pain, bleeding. Objective - Vital Signs/Intake and Output Vital Signs (last 24 hours): Temp Pulse Resp BP Pulse Ox 98 F 93 H 20 128/87 100 01/14/19 14:00 01/14/19 14:00 01/14/19 14:00 01/14/19 14:00 01/14/19 14:00 Intake and Output: 01/14/19 01/14/19 06:59 18:59 Intake Total 600 Balance 600 - Medications Medications: Current Medications Acetaminophen (Tylenol 325mg Tab) 650 mg PO Q6H PRN PRN Reason: Pain, Mild (1-3) Last Admin: 01/09/19 09:37 Dose: 650 mg Albuterol/Ipratropium (Duoneb 3 Mg/0.5 Mg (3 Ml) Ud) 3 ml IH [id number] PRN PRN Reason: Shortness of Breath Alprazolam (Xanax) 0.25 mg PO BID PRN; Protocol PRN Reason: Anxiety Stop: 01/15/19 18:44 Last Admin: 01/14/19 00:09 Dose: 0.25 mg Amlodipine Besylate (Norvasc) 10 mg PO DAILY [facility] Last Admin: 01/14/19 09:49 Dose: 10 mg Aspirin (Aspirin Chewable) 81 mg PO DAILY [facility] Last Admin: 01/14/19 12:21 Dose: 81 mg Enoxaparin Sodium (Lovenox) 40 mg SC DAILY [facility]; Protocol Last Admin: 01/14/19 09:48 Dose: 40 mg Sodium Chloride (Sodium Chloride 0.9%) 1,000 mls @ 50 mls/hr IV .Q20H [facility] Stop: 01/14/19 15:31 Last Admin: 01/14/19 05:16 Dose: 50 mls/hr Meropenem (Merrem Iv 1 Gm Premix) 1 gm in 50 mls @ 100 mls/hr IVPB Q8 [facility]; Protocol Stop: 01/22/19 22:01 Last Admin: 01/14/19 13:28 Dose: 100 mls/hr Insulin Detemir (Levemir) 15 unit SC HS [facility] Last Admin: 01/13/19 21:55 Dose: Not Given Insulin Human Lispro (Humalog Med) 0 units SC ACHS [facility]; Protocol Last Admin: 01/14/19 12:21 Dose: Not Given Metoprolol Tartrate (Lopressor) 25 mg PO BID [facility] Last Admin: 01/14/19 09:49 Dose: 25 mg Pantoprazole Sodium (Protonix Ec Tab) 40 mg PO 0600 [facility] Last Admin: 01/14/19 05:14 Dose: 40 mg Potassium Chloride (K-Dur 20 Meq Er Tab) 20 meq PO BRK [facility] Last Admin: 01/14/19 12:22 Dose: 20 meq Zolpidem Tartrate (Ambien) 5 mg PO HS PRN; Protocol PRN Reason: Insomnia Last Admin: 01/14/19 02:48 Dose: 5 mg - Labs Labs: 01/14/19 10:10 01/14/19 10:30 - Constitutional Appears: Non-toxic, No Acute Distress - Head Exam Head Exam: ATRAUMATIC, NORMAL INSPECTION - Eye Exam Eye Exam: EOMI, Normal appearance - ENT Exam ENT Exam: Mucous Membranes Moist, Normal Exam - Respiratory Exam Respiratory Exam: Clear to Ausculation Bilateral, NORMAL BREATHING PATTERN - Cardiovascular Exam Cardiovascular Exam: REGULAR RHYTHM, +S1, +S2 - GI/Abdominal Exam GI & Abdominal Exam: Soft, Normal Bowel Sounds. absent: Tenderness - Extremities Exam Extremities Exam: Normal Inspection. absent: Pedal Edema - Neurological Exam Neurological Exam: Alert, Awake, Oriented x3 - Psychiatric Exam Psychiatric exam: Normal Affect, Normal Mood Assessment and Plan - Assessment and Plan (Free Text) Assessment: 58 F with hx of HTN (years), DM2, obesity, anxiety, and GERD who is admitted for gastroenteritis. Patient had recent CT which showed right sided colitis, which has improved. Upon presentation, patient met SIRS criteria, and source of sepsis is gram negative bacteremia (Bacteroides fragilis). C.diff is negative. Per ID, source of bacteremia could be a possible abscess missed by CT. Plan: - white blood cells continue to decline appropriately - Continue supportive care - Abx per ID - Follow-up microbiology; repeat blood cultures sent yesterday - Patient would benefit from colonoscopy in 4-6 weeks as an outpatient for abnormal CT findings of right-sided colitis - PPI for GI ppx - would maintain FLD at this time - C. difficile negative Case was reviewed and discussed with attending, Dr. Yao <Hemalatha Yao V - Last Filed: 01/15/19 00:03> Objective - Vital Signs/Intake and Output Vital Signs (last 24 hours): Temp Pulse Resp BP Pulse Ox 97.5 F L 86 18 148/72 97 01/14/19 23:14 01/14/19 23:14 01/14/19 23:14 01/14/19 23:14 01/14/19 23:14 Intake and Output: 01/14/19 01/15/19 18:59 06:59 Intake Total 720 600 Balance 720 600 - Medications Medications: Current Medications Acetaminophen (Tylenol 325mg Tab) 650 mg PO Q6H PRN PRN Reason: Pain, Mild (1-3) Last Admin: 01/09/19 09:37 Dose: 650 mg Albuterol/Ipratropium (Duoneb 3 Mg/0.5 Mg (3 Ml) Ud) 3 ml IH [id number] PRN PRN Reason: Shortness of Breath Alprazolam (Xanax) 0.25 mg PO BID PRN; Protocol PRN Reason: Anxiety Stop: 01/15/19 18:44 Last Admin: 01/14/19 00:09 Dose: 0.25 mg Amlodipine Besylate (Norvasc) 10 mg PO DAILY [facility] Last Admin: 01/14/19 09:49 Dose: 10 mg Aspirin (Aspirin Chewable) 81 mg PO DAILY [facility] Last Admin: 01/14/19 12:21 Dose: 81 mg Enoxaparin Sodium (Lovenox) 40 mg SC DAILY [facility]; Protocol Last Admin: 01/14/19 09:48 Dose: 40 mg Meropenem (Merrem Iv 1 Gm Premix) 1 gm in 50 mls @ 100 mls/hr IVPB Q8 [facility]; Protocol Stop: 01/22/19 22:01 Last Admin: 01/14/19 21:54 Dose: 100 mls/hr Insulin Detemir (Levemir) 15 unit SC HS [facility] Last Admin: 01/14/19 21:53 Dose: 15 units Insulin Human Lispro (Humalog Med) 0 units SC ACHS [facility]; Protocol Last Admin: 01/14/19 21:57 Dose: Not Given Metoprolol Tartrate (Lopressor) 25 mg PO BID [facility] Last Admin: 01/14/19 17:07 Dose: 25 mg Pantoprazole Sodium (Protonix Ec Tab) 40 mg PO 0600 [facility] Last Admin: 01/14/19 05:14 Dose: 40 mg Potassium Chloride (K-Dur 20 Meq Er Tab) 20 meq PO BRK [facility] Last Admin: 01/14/19 12:22 Dose: 20 meq Zolpidem Tartrate (Ambien) 5 mg PO HS PRN; Protocol PRN Reason: Insomnia Last Admin: 01/14/19 02:48 Dose: 5 mg - Labs Labs: 01/14/19 10:10 01/14/19 10:30 Attending/Attestation - Attestation I have personally seen and examined this patient.: Yes I have fully participated in the care of the patient.: Yes I have reviewed all pertinent clinical information, including history, physical exam and plan: Yes Notes (Text): This is an addendum to GI progress report dictated by the GI Fellow. The patient was seen and examined earlier. Medical records, lab studies, imagings were reviewed. Last 24 hours events reviewed. Agreed with the above treatment plan as outlined in GI Fellow 's notes with the addition of the following Patient was doing much better Tolerating diet Has episodes of loose bowel movements Episodes of loose bowel movements probably related to antibiotics Continue antibiotics as per ID Elective colonoscopy 01/14/19 23:59
--- NOTE | 2019-01-14 15:31 | CP.PCM.PN ---
Subjective - Date & Time of Evaluation Date of Evaluation: 01/14/19 Time of Evaluation: 15:31 - Subjective Subjective: Nephrology Consultation Note: Assessment: stable GNR sepsis with acute diverticulitis JAY JAY likely due to pre-renal state ATN contrast exposure, FeNa <1%: IMPROVED Hypokalemia DM, HTN thrombocytopenia and abnormal LFT, hyperbilirubinemia obesity anxiety GERD Plan no need for renal replacement therapy at present Hypertension control with meds as ordered. pt not on RAAS francisco javier, can resume if BP high Monitor I/O, daily weights and renal function while in hospital d/c ivf today supplement lytes as needed hematology GI and ID already following Dose meds/antibiotics for improved GFR Glycemic control Further work up for as per primary team. Thanks for allowing me to participate in care of your patient. Please call if any Qs. had d/w team Dr José Miguel Moss Office: [phone] CC; unable to sleep reason for consult: JAY JAY HPI: Pt is a 58 F with hx of HTN (years), DM obesity anxiety GERD presented to hospital with complaints of inability to sleep, decreased appetite, feeling cold/chills for last few days. also had diarrhoea and vomitting since sat but last on Saturday and renal consult for JAY JAY management. Denies chest pain, palpitation, no shortness of breath, Denies OTC/herbal meds/NSAIDs Noted recent iodinated contrast exposure. 01/04/19 and 01/10/19 ROS: denies CP/nausea/vomiting now. no SOB at present. no nausea denies pain abdomen. denies urine complaints rest other negative except as mentioned in HPI. has low appetite Physical Examination: General Appearance: Comfortable, in no acute respiratory distress, co-operative. obese. Vitals reviewed and noted as below Head; Atraumatic, normocephalic ENT: no ulcers no thrush. Tongue is midline/dry and coated. Oropharynx: no rash or ulcers. EYES: b/l PERRLA. icterus + Neck; supple no lymphadenopathy, no thyromegaly or bruit Lungs: Normal respiratory rate/effort. Breath sounds b/l with equal clear Heart: Normal rate. s1s2 normal. No rub or gallop. Extremities: no edema. No varicose veins. Neurological: Patient is awake alert and follow commands no focal deficit. Skin: dry and warm. Normal turgor. No rash. Palpitation: Normal elasticity for age Abdomen: Abdomen is soft . Bowel sounds +. There is no abdominal tenderness no guarding/rigidity or organomegaly. Psych: normal insight. normal affect/mood MSK: no specific joint tenderness or swelling. Digits and nails normal, no deformity : kidney not palpable. exam limited due to obesity. has umblical hernia Labs/imaging/EKG reviewed. Past medical history, past surgical history, social history, allergy reviewed and noted as below Family hx; no hx of CKD. non contributory renal imaging WNL UA SG 1.010 30 protein 3 + glucose moderate blood but 1-2 RBC/hpf CK 214 Objective - Vital Signs/Intake and Output Vital Signs (last 24 hours): Temp Pulse Resp BP Pulse Ox 98 F 93 H 20 128/87 100 01/14/19 14:00 01/14/19 14:00 01/14/19 14:00 01/14/19 14:00 01/14/19 14:00 Intake and Output: 01/14/19 01/14/19 06:59 18:59 Intake Total 600 720 Balance 600 720 - Medications Medications: Current Medications Acetaminophen (Tylenol 325mg Tab) 650 mg PO Q6H PRN PRN Reason: Pain, Mild (1-3) Last Admin: 01/09/19 09:37 Dose: 650 mg Albuterol/Ipratropium (Duoneb 3 Mg/0.5 Mg (3 Ml) Ud) 3 ml IH [id number] PRN PRN Reason: Shortness of Breath Alprazolam (Xanax) 0.25 mg PO BID PRN; Protocol PRN Reason: Anxiety Stop: 01/15/19 18:44 Last Admin: 01/14/19 00:09 Dose: 0.25 mg Amlodipine Besylate (Norvasc) 10 mg PO DAILY [facility] Last Admin: 01/14/19 09:49 Dose: 10 mg Aspirin (Aspirin Chewable) 81 mg PO DAILY [facility] Last Admin: 01/14/19 12:21 Dose: 81 mg Enoxaparin Sodium (Lovenox) 40 mg SC DAILY [facility]; Protocol Last Admin: 01/14/19 09:48 Dose: 40 mg Sodium Chloride (Sodium Chloride 0.9%) 1,000 mls @ 50 mls/hr IV .Q20H [facility] Stop: 01/14/19 15:31 Last Admin: 01/14/19 05:16 Dose: 50 mls/hr Meropenem (Merrem Iv 1 Gm Premix) 1 gm in 50 mls @ 100 mls/hr IVPB Q8 [facility]; Protocol Stop: 01/22/19 22:01 Last Admin: 01/14/19 13:28 Dose: 100 mls/hr Insulin Detemir (Levemir) 15 unit SC HS [facility] Last Admin: 01/13/19 21:55 Dose: Not Given Insulin Human Lispro (Humalog Med) 0 units SC ACHS [facility]; Protocol Last Admin: 01/14/19 12:21 Dose: Not Given Metoprolol Tartrate (Lopressor) 25 mg PO BID [facility] Last Admin: 01/14/19 09:49 Dose: 25 mg Pantoprazole Sodium (Protonix Ec Tab) 40 mg PO 0600 [facility] Last Admin: 01/14/19 05:14 Dose: 40 mg Potassium Chloride (K-Dur 20 Meq Er Tab) 20 meq PO BRK [facility] Last Admin: 01/14/19 12:22 Dose: 20 meq Zolpidem Tartrate (Ambien) 5 mg PO HS PRN; Protocol PRN Reason: Insomnia Last Admin: 01/14/19 02:48 Dose: 5 mg - Labs Labs: 01/14/19 10:10 01/14/19 10:30
--- NOTE | 2019-01-14 16:10 | PN ---
DATE: 01/14/2019 PULMONARY PROGRESS NOTE REFERRING PHYSICIAN: Jose Antonio Armstrong MD SUBJECTIVE: The patient is seen sitting in armchair in room. No acute distress. No overnight events reported. Did not wear CPAP machine last night. The patient reports feeling well today. No headache, rhinitis, cough, shortness of breath, chest pain, abdominal pain, nausea, vomiting, diarrhea, leg pain or leg swelling reported. OBJECTIVE: GENERAL: No acute distress. VITAL SIGNS: Blood pressure 138/74, pulse of 89, temperature 97.9, and oxygen saturation 98% on room air. HEENT: Moist mucous membranes. Mallampati score of 4. NECK: Supple. No JVD. LUNGS: Fair air flow bilaterally. CARDIOVASCULAR: S1 and S2. ABDOMEN: Obese and soft. No distention. Nontender. EXTREMITIES: No bilateral lower extremity edema. NEUROLOGIC: Awake, alert, verbal, and follows commands. MEDICATIONS: Reviewed. Tylenol 650 mg every 6 hours p.r.n. for mild pain, DuoNeb 3 mL inhalation every 6 hours p.r.n., Xanax 0.25 mg twice a day p.r.n., Norvasc 10 mg daily, aspirin 81 mg daily, Lovenox 40 mg subcutaneously daily, Levemir 15 units subcutaneously at bedtime, Humalog sliding scale a.c. and at bedtime, meropenem 1 g every 8 hours, metoprolol tartrate 25 mg twice a day, Protonix 40 mg daily, potassium chloride 20 mEq at breakfast, sodium chloride 0.9% a 1000 mL at 50 mL per hour, and Ambien 5 mg at bedtime p.r.n. LABORATORY DATA: Reviewed. WBC 11.7, RBC 3.83, hemoglobin 10, hematocrit 30, and platelets 434. Sodium 137, potassium 4.0, chloride 108, carbon dioxide 23, anion gap 10, BUN 4, creatinine 0.8, and GFR greater than 60, POC glucose 175, random glucose 215, calcium 8.5, total bilirubin 0.6, AST 37, ALT 49, alkaline phosphatase 116, total protein 6.9, albumin 2.8, globulin 4.1, and albumin-globulin ratio 0.7. Blood cultures preliminary, no growth after 24 hours. IMPRESSION AND PLAN: Severe sepsis, acute diverticulitis, acute kidney injury, bacteremia, leukocytosis, and suspected sleep apnea syndrome. The patient with current blood culture showing no growth after 24 hours, we will continue to monitor that. Continue continuous positive airway pressure use at bedtime, sleep apnea precaution, antibiotics per Infectious Disease, deep venous thrombosis prophylaxis, and gastric prophylaxis. The patient has been refusing continuous positive airway pressure use at bedtime. We will continue to educate and encourage the patient. We recommend this patient have sleep study as outpatient. This patient was seen and examined with Dr. Downing. Discussed assessment and plan as described above. This patient was seen and examined with Damian Méndez, nurse practitioner. Discussed assessment and plan as described above. Thank you for this consult. We will follow with you. Damian Méndez APN Cami Downing MD
[2019-01-14] MEDS: Insulin Detemir 100 units/ml Vial (Levemir) SC SCH (21:53)
--- NOTE | 2019-01-14 23:49 | PN ---
DATE: 01/14/2019 SUBJECTIVE: The patient seen early this morning on 566, bed 1. She is doing much better. No fevers. No chills. No nausea. No vomiting. Her abdominal pain is resolved. ALLERGIES: THE PATIENT IS ALLERGIC TO PENICILLIN. PHYSICAL EXAMINATION VITAL SIGNS: Temperature is 98, blood pressure is 128/80, respiratory rate 20, heart rate of 93. HEENT: Unremarkable. NECK: Supple. LUNGS: Decreased breath sounds. HEART: Normal S1 and S2. ABDOMEN: Soft, nontender. No rebound or guarding. LABORATORY EXAMINATION: Reveals white count of 11,000, hemoglobin of 10, platelets of 434. Chemistries reveals BUN of 84, creatinine of 0.8. Urinalysis is noted. Serology is negative. Microbiology reveals repeat blood cultures are negative. Review of orders reveals to be patient on meropenem. Review of EKG reveals the patient's QTc of 461. ASSESSMENT AND PLAN: A 58 year old female was admitted with severe sepsis, acute diverticulitis, acute kidney injury, bacteroides, fragilis bacteremia, most likely gastrointestinal perforation leak, which is sealed off, appears to be improving. If the white count is normal tomorrow morning, we will repeat a CBC. If WBC count is normal, may use p.o. Flagyl and p.o. Cipro to complete therapy, Flagyl 500 mg p.o. every 8 hours and Cipro 500 mg p.o. b.i.d. for 10 days if the white count is normal. Campos Riojas MD
[2019-01-15] MEDS: Pantoprazole 40 mg EC Tab PO SCH (05:52)
[2019-01-15] MEDS: Meropenem IV 1 gm in NS 1 GM/50 ML BAG IVPB SCH ×3 (05:53→21:42)
--- NOTE | 2019-01-15 08:02 | CP.PCM.PN ---
<Ck Cortes - Last Filed: 01/15/19 11:42> Subjective - Date & Time of Evaluation Date of Evaluation: 01/15/19 Time of Evaluation: 06:41 - Subjective Subjective: Ck Cortes PGY2 GI Progress Note for Dr. Yao Patient was seen and examined at bedside. She states she had 1 BM that was not loose yesterday, and nothing overnight. she is doing well and denies any abdominal pain, n/v/d, fevers/chills. Objective - Vital Signs/Intake and Output Vital Signs (last 24 hours): Temp Pulse Resp BP Pulse Ox 97.5 F L 86 18 148/72 97 01/14/19 23:14 01/14/19 23:14 01/14/19 23:14 01/14/19 23:14 01/14/19 23:14 Intake and Output: 01/15/19 01/15/19 06:59 18:59 Intake Total 600 Balance 600 - Medications Medications: Current Medications Acetaminophen (Tylenol 325mg Tab) 650 mg PO Q6H PRN PRN Reason: Pain, Mild (1-3) Last Admin: 01/09/19 09:37 Dose: 650 mg Albuterol/Ipratropium (Duoneb 3 Mg/0.5 Mg (3 Ml) Ud) 3 ml IH [id number] PRN PRN Reason: Shortness of Breath Alprazolam (Xanax) 0.25 mg PO BID PRN; Protocol PRN Reason: Anxiety Stop: 01/15/19 18:44 Last Admin: 01/14/19 00:09 Dose: 0.25 mg Amlodipine Besylate (Norvasc) 10 mg PO DAILY [facility] Last Admin: 01/14/19 09:49 Dose: 10 mg Aspirin (Aspirin Chewable) 81 mg PO DAILY [facility] Last Admin: 01/14/19 12:21 Dose: 81 mg Enoxaparin Sodium (Lovenox) 40 mg SC DAILY [facility]; Protocol Last Admin: 01/14/19 09:48 Dose: 40 mg Meropenem (Merrem Iv 1 Gm Premix) 1 gm in 50 mls @ 100 mls/hr IVPB Q8 [facility]; Protocol Stop: 01/22/19 22:01 Last Admin: 01/15/19 05:53 Dose: 100 mls/hr Insulin Detemir (Levemir) 15 unit SC HS [facility] Last Admin: 01/14/19 21:53 Dose: 15 units Insulin Human Lispro (Humalog Med) 0 units SC ACHS [facility]; Protocol Last Admin: 01/14/19 21:57 Dose: Not Given Metoprolol Tartrate (Lopressor) 25 mg PO BID [facility] Last Admin: 01/14/19 17:07 Dose: 25 mg Pantoprazole Sodium (Protonix Ec Tab) 40 mg PO 0600 [facility] Last Admin: 01/15/19 05:52 Dose: 40 mg Potassium Chloride (K-Dur 20 Meq Er Tab) 20 meq PO BRK [facility] Last Admin: 01/14/19 12:22 Dose: 20 meq Zolpidem Tartrate (Ambien) 5 mg PO HS PRN; Protocol PRN Reason: Insomnia Last Admin: 01/14/19 02:48 Dose: 5 mg - Labs Labs: 01/14/19 10:10 01/14/19 10:30 - Constitutional Appears: Well, Non-toxic, No Acute Distress - Head Exam Head Exam: ATRAUMATIC, NORMAL INSPECTION, NORMOCEPHALIC - Eye Exam Eye Exam: EOMI, Normal appearance, PERRL Pupil Exam: NORMAL ACCOMODATION, PERRL - ENT Exam ENT Exam: Mucous Membranes Moist, Normal Exam - Neck Exam Neck Exam: Full ROM, Normal Inspection. absent: Lymphadenopathy - Respiratory Exam Respiratory Exam: Clear to Ausculation Bilateral, NORMAL BREATHING PATTERN - Cardiovascular Exam Cardiovascular Exam: REGULAR RHYTHM, +S1, +S2. absent: Murmur - GI/Abdominal Exam GI & Abdominal Exam: Soft, Normal Bowel Sounds. absent: Distended, Guarding, Tenderness - Extremities Exam Extremities Exam: Full ROM, Normal Capillary Refill, Normal Inspection. absent: Joint Swelling, Pedal Edema - Back Exam Back Exam: NORMAL INSPECTION - Neurological Exam Neurological Exam: Alert, Awake, CN II-XII Intact, Normal Gait, Oriented x3 - Psychiatric Exam Psychiatric exam: Normal Affect, Normal Mood - Skin Skin Exam: Dry, Intact, Normal Color, Warm Assessment and Plan - Assessment and Plan (Free Text) Assessment: 58 F with hx of HTN (years), DM2, obesity, anxiety, and GERD who is admitted for gastroenteritis. Patient had recent CT which showed right sided colitis, which has improved. Upon presentation, patient met SIRS criteria, and source of sepsis is gram negative bacteremia (Bacteroides fragilis). C.diff is negative. Per ID, source of bacteremia could be of GI source. Clinically, she is improving. Plan: - diet advanced to low fiber; should continue such diet for at least 4 weeks until colitis resolved - Continue supportive care - Abx per ID - Repeat blood cultures showing 1 vial of gram negative rods - repeat CT when symptoms resolve - Patient may benefit from colonoscopy in 3-4 weeks as an outpatient for abnormal CT findings of right-sided colitis - PPI for GI ppx - further recs per Dr. Yao Case was reviewed and discussed with attending, Dr. Yao <Hemalatha Yao V - Last Filed: 01/15/19 22:22> Objective - Vital Signs/Intake and Output Vital Signs (last 24 hours): Temp Pulse Resp BP Pulse Ox 97.6 F 82 18 119/75 100 01/15/19 21:16 01/15/19 21:16 01/15/19 21:16 01/15/19 21:16 01/15/19 21:16 Intake and Output: 01/15/19 01/16/19 18:59 06:59 Intake Total 1560 Balance 1560 - Medications Medications: Current Medications Acetaminophen (Tylenol 325mg Tab) 650 mg PO Q6H PRN PRN Reason: Pain, Mild (1-3) Last Admin: 01/09/19 09:37 Dose: 650 mg Albuterol/Ipratropium (Duoneb 3 Mg/0.5 Mg (3 Ml) Ud) 3 ml IH [id number] PRN PRN Reason: Shortness of Breath Amlodipine Besylate (Norvasc) 10 mg PO DAILY [facility] Last Admin: 01/15/19 09:15 Dose: 10 mg Aspirin (Aspirin Chewable) 81 mg PO DAILY [facility] Last Admin: 01/15/19 09:15 Dose: 81 mg Enoxaparin Sodium (Lovenox) 40 mg SC DAILY [facility]; Protocol Last Admin: 01/15/19 09:16 Dose: 40 mg Metronidazole (Flagyl) 500 mg in 100 mls @ 100 mls/hr IVPB Q8 [facility]; Protocol Stop: 01/23/19 14:01 Last Admin: 01/15/19 21:41 Dose: 100 mls/hr Meropenem (Merrem Iv 1 Gm Premix) 1 gm in 50 mls @ 100 mls/hr IVPB Q8 [facility]; Protocol Stop: 01/24/19 14:01 Last Admin: 01/15/19 21:42 Dose: 100 mls/hr Insulin Detemir (Levemir) 15 unit SC HS [facility] Last Admin: 01/15/19 21:42 Dose: 15 units Insulin Human Lispro (Humalog Med) 0 units SC ACHS [facility]; Protocol Last Admin: 01/15/19 21:43 Dose: Not Given Metoprolol Tartrate (Lopressor) 25 mg PO BID [facility] Last Admin: 01/15/19 17:17 Dose: 25 mg Pantoprazole Sodium (Protonix Ec Tab) 40 mg PO 0600 [facility] Last Admin: 01/15/19 05:52 Dose: 40 mg Potassium Chloride (K-Dur 20 Meq Er Tab) 20 meq PO BRK [facility] Last Admin: 01/15/19 08:26 Dose: 20 meq Zolpidem Tartrate (Ambien) 5 mg PO HS PRN; Protocol PRN Reason: Insomnia Last Admin: 01/14/19 02:48 Dose: 5 mg - Labs Labs: 01/14/19 10:10 01/14/19 10:30 Attending/Attestation - Attestation I have personally seen and examined this patient.: Yes I have fully participated in the care of the patient.: Yes I have reviewed all pertinent clinical information, including history, physical exam and plan: Yes Notes (Text): This is an addendum to GI progress report dictated by the medical office professional instructor. The patient was seen and examined earlier. Medical records, lab studies, imagings were reviewed. Last 24 hours events reviewed. Agreed with the above treatment plan as outlined in resident's notes with the addition of the following Patient is doing better Abdominal tenderness has nearly resolved Continue antibiotics as per ID Advance the diet to low residual soft diet Elective colonoscopy in 3-4 weeks time 01/15/19 22:21
[2019-01-15] MEDS: Insulin Lispro (humaLOG) MEDIUM Coverage SC SCH ×4 (08:20→21:43)
[2019-01-15] MEDS: Potassium Chloride 20 mEq ER Tab PO SCH (08:26)
[2019-01-15] MEDS: Enoxaparin 40 mg Syringe SC SCH (09:16)
--- NOTE | 2019-01-15 12:25 | PN ---
DATE: 01/14/2019 SUBJECTIVE: The patient is comfortable. Getting IV antibiotic. No chest pain. No short of breath. She is working, ambulating, and no other complaints. PHYSICAL EXAMINATION: VITAL SIGNS: Temperature 97.5, heart rate 86, blood pressure 148/72, respirations 18, saturation 97%. HEENT: Head and neck exam normal. No JVD. No thyromegaly. CHEST: Clear bilateral. Good air entry. CARDIAC: First sound and second sound normal. No murmur, rub, or gallop. ABDOMEN: Obese, nontender. EXTREMITIES: No edema. NEUROLOGICAL: Normal. LABORATORY STUDY: White count 11.7, hemoglobin 10, hematocrit 30.3, platelets 434. Chemistry; sodium 137, potassium 4, chloride 108, bicarb 23, BUN 4, creatinine 0.8, blood glucose 215, calcium 8.5, total bilirubin 0.6. AST 37 elevated, ALT 49 normal, alk phos 116 normal. IMPRESSION AND PLAN: 1. Gram-negative bacteremia, sepsis. Continue Merrem intravenous as recommended by Infectious Disease consult. Duration of intravenous antibiotics will be determined by Infectious Disease, but at least the patient will need at least 10 days of intravenous and about 2 weeks' course at least and continuation of more antibiotic for minimum three weeks. We will continue current therapy. We will follow up with the specialist. 2. Colitis. Currently, the Infectious Disease will switch antibiotic to p.o. Flagyl and Cipro once her white count become normal, so still waiting for white count to be normalized. 3. Diabetes, insulin-dependent. Continue insulin therapy and insulin coverage. 4. Morbid obesity. 5. Hypertension. 6. Chronic anxiety. 7. Chronic obstructive pulmonary disease. 8. Insomnia. Continue current therapy. Ambien, aspirin, DuoNeb, Lopressor 25 mg b.i.d., Norvasc 10 mg, Protonix 40 mg, Xanax 0.25 mg b.i.d. p.r.n. Continue current therapy. Jose Antonio Armstrong MD
--- NOTE | 2019-01-15 12:28 | PN ---
DATE: 01/15/2019 PULMONARY PROGRESS NOTE REFERRING PHYSICIAN: Jose Antonio Armstrong MD SUBJECTIVE: The patient is seen in room. No acute distress. No overnight events reported. Did not wear CPAP machine last night. No headache, rhinitis, cough, shortness of breath, chest pain, abdominal pain, nausea, vomiting, diarrhea, leg pain or leg swelling reported. OBJECTIVE: GENERAL: No acute distress. VITAL SIGNS: Blood pressure 147/80, pulse of 84, temperature 98.6 and oxygen saturation 98% on room air. HEENT: Moist mucous membranes. Mallampati score of 4. NECK: Supple. No JVD. LUNGS: Fair air flow bilaterally. CARDIOVASCULAR: S1 and S2. ABDOMEN: Obese and soft. No distention. EXTREMITIES: No bilateral lower extremity edema. NEUROLOGIC: Awake, alert and verbal. Follows commands. MEDICATIONS: Reviewed. Tylenol 650 mg every 6 hours p.r.n. for mild pain, DuoNeb 3 mL inhalation every 6 hours p.r.n., Xanax 0.25 mg twice a day p.r.n., Norvasc 10 mg daily, aspirin 81 mg daily, Lovenox 40 mg subcutaneously daily, Levemir 15 units subcutaneously at bedtime, Humalog sliding scale a.c. and at bedtime, meropenem 1 g every 8 hours, metoprolol tartrate 25 mg twice a day, Protonix 40 mg daily, potassium chloride 20 mEq at breakfast and Ambien 5 mg at bedtime p.r.n. LABORATORY DATA: Reviewed. POC glucose 167. Blood culture one preliminary shows Gram-negative shaun. IMPRESSION AND PLAN: Severe sepsis, acute diverticulitis, acute kidney injury, suspected sleep apnea syndrome, bacteremia and leukocytosis. The patient is refusing continuous positive airway pressure machine at this time. Continue to encourage continuous positive airway pressure use at bedtime, sleep apnea precaution, head of bed elevated at 45 degrees, antibiotics per Infectious Disease. Continue gastric prophylaxis and deep venous thrombosis prophylaxis. We recommend this patient have sleep study as outpatient. This patient was seen and examined with Dr. Downing. Discussed assessment and plan as described above. This patient was seen and examined with Damian Méndez, nurse practitioner. Discussed assessment and plan as described above. Thank you for this consult. We will follow with you. Damian Méndez APN Cami Downing MD [facility] # [id number]
[2019-01-15] MEDS ORDERED: Barium Sulfate Susp 2.1% w/v, 2.0% w/w 450 mL Bottle PO ONE (12:33)
--- NOTE | 2019-01-15 14:21 | PN ---
DATE: 01/15/2019 SUBJECTIVE: The patient is seen this morning. She still feels weak and no fevers. Abdominal pain has resolved. PHYSICAL EXAMINATION: VITAL SIGNS: Temperature is 98, blood pressure is 140/70, respiratory rate of 20. HEENT: Unremarkable. NECK: Supple. LUNGS: Have decreased breath sounds. HEART: Normal S1, S2. ABDOMEN: Soft, nontender. LABORATORY EXAMINATION: Reveals a white count is 11,700, hemoglobin of 10, platelets of 434. Chemistries reveals a BUN of 4, creatinine of 0.8. Urinalysis is noted. Serology is negative. Laboratory examination reveals the repeat blood cultures from the 01/12/2019 Gram-negative shaun reported and DrGeorgi progress note is reviewed. ASSESSMENT AND PLAN: This is a 58-year-old female with obesity and who is admitted with severe sepsis, acute diverticulitis, acute kidney injury, colitis, admitted with bacteroides fragilis bacteremia with most likely gastrointestinal perforation leak which now has a repeat blood cultures as per the Gram-negative shaun bacteremia. We will switch to meropenem. Requesting Gastroenterology for reevaluation and surgery for reevaluation. We will request an echocardiogram to rule out endocarditis and we will repeat a CAT scan of the abdomen and pelvis to rule out a leak. We will continue with IV Flagyl and IV meropenem, pending GI reevaluation and surgery reevaluation. We will follow with you and we will make further recommendations upon reevaluation of GI and surgery and meropenem and Flagyl. CTA abdomen and echo to rule out underlying Gram-negative endocarditis. Campos Riojas MD
--- NOTE | 2019-01-15 15:00 | CP.PCM.PN ---
Subjective - Date & Time of Evaluation Date of Evaluation: 01/15/19 Time of Evaluation: 15:00 - Subjective Subjective: Nephrology Consultation Note: Assessment: stable GNR sepsis with acute diverticulitis JAY JAY likely due to pre-renal state ATN contrast exposure, FeNa <1%: IMPROVED Hypokalemia DM, HTN thrombocytopenia and abnormal LFT, hyperbilirubinemia obesity anxiety GERD Plan no need for renal replacement therapy at present Hypertension control with meds as ordered. pt not on RAAS francisco javier, can resume if BP high Monitor I/O, daily weights and renal function while in hospital supplement lytes as needed hematology GI and ID already following Dose meds/antibiotics for improved GFR Glycemic control Further work up for as per primary team. Thanks for allowing me to participate in care of your patient. Please call if any Qs. had d/w team and family Dr José Miguel Moss Office: [phone] CC; unable to sleep reason for consult: JAY JAY HPI: Pt is a 58 F with hx of HTN (years), DM obesity anxiety GERD presented to hospital with complaints of inability to sleep, decreased appetite, feeling cold/chills for last few days. also had diarrhoea and vomitting since sat but last on Saturday and renal consult for JAY JAY management. Denies chest pain, palpitation, no shortness of breath, Denies OTC/herbal meds/NSAIDs Noted recent iodinated contrast exposure. 01/04/19 and 01/10/19 ROS: denies CP/nausea/vomiting now. no SOB at present. no nausea denies pain abdomen. denies urine complaints rest other negative except as mentioned in HPI. has low appetite planned for further work up as remains bacteremic Physical Examination: General Appearance: Comfortable, in no acute respiratory distress, co-operative. obese. Vitals reviewed and noted as below Head; Atraumatic, normocephalic ENT: no ulcers no thrush. Tongue is midline/dry and coated. Oropharynx: no rash or ulcers. EYES: b/l PERRLA. icterus + Neck; supple no lymphadenopathy, no thyromegaly or bruit Lungs: Normal respiratory rate/effort. Breath sounds b/l with equal clear Heart: Normal rate. s1s2 normal. No rub or gallop. Extremities: 1+ edema. No varicose veins. Neurological: Patient is awake alert and follow commands no focal deficit. Skin: dry and warm. Normal turgor. No rash. Palpitation: Normal elasticity for age Abdomen: Abdomen is soft . Bowel sounds +. There is no abdominal tenderness no guarding/rigidity or organomegaly. Psych: normal insight. normal affect/mood MSK: no specific joint tenderness or swelling. Digits and nails normal, no deformity : kidney not palpable. exam limited due to obesity. has umblical hernia Labs/imaging/EKG reviewed. Past medical history, past surgical history, social history, allergy reviewed and noted as below Family hx; no hx of CKD. non contributory renal imaging WNL UA SG 1.010 30 protein 3 + glucose moderate blood but 1-2 RBC/hpf CK 214 Objective - Vital Signs/Intake and Output Vital Signs (last 24 hours): Temp Pulse Resp BP Pulse Ox 98.2 F 79 20 143/82 100 01/15/19 14:00 01/15/19 14:00 01/15/19 14:00 01/15/19 14:00 01/15/19 14:00 Intake and Output: 01/15/19 01/15/19 06:59 18:59 Intake Total 600 Balance 600 - Medications Medications: Current Medications Acetaminophen (Tylenol 325mg Tab) 650 mg PO Q6H PRN PRN Reason: Pain, Mild (1-3) Last Admin: 01/09/19 09:37 Dose: 650 mg Albuterol/Ipratropium (Duoneb 3 Mg/0.5 Mg (3 Ml) Ud) 3 ml IH [id number] PRN PRN Reason: Shortness of Breath Alprazolam (Xanax) 0.25 mg PO BID PRN; Protocol PRN Reason: Anxiety Stop: 01/15/19 18:44 Last Admin: 01/14/19 00:09 Dose: 0.25 mg Amlodipine Besylate (Norvasc) 10 mg PO DAILY [facility] Last Admin: 01/15/19 09:15 Dose: 10 mg Aspirin (Aspirin Chewable) 81 mg PO DAILY [facility] Last Admin: 01/15/19 09:15 Dose: 81 mg Enoxaparin Sodium (Lovenox) 40 mg SC DAILY [facility]; Protocol Last Admin: 01/15/19 09:16 Dose: 40 mg Metronidazole (Flagyl) 500 mg in 100 mls @ 100 mls/hr IVPB Q8 [facility]; Protocol Stop: 01/23/19 14:01 Meropenem (Merrem Iv 1 Gm Premix) 1 gm in 50 mls @ 100 mls/hr IVPB Q8 [facility]; Protocol Stop: 01/24/19 14:01 Last Admin: 01/15/19 14:29 Dose: 100 mls/hr Insulin Detemir (Levemir) 15 unit SC HS [facility] Last Admin: 01/14/19 21:53 Dose: 15 units Insulin Human Lispro (Humalog Med) 0 units SC ACHS [facility]; Protocol Last Admin: 01/15/19 12:09 Dose: 1 units Metoprolol Tartrate (Lopressor) 25 mg PO BID [facility] Last Admin: 01/15/19 09:15 Dose: 25 mg Pantoprazole Sodium (Protonix Ec Tab) 40 mg PO 0600 [facility] Last Admin: 01/15/19 05:52 Dose: 40 mg Potassium Chloride (K-Dur 20 Meq Er Tab) 20 meq PO BRK [facility] Last Admin: 01/15/19 08:26 Dose: 20 meq Zolpidem Tartrate (Ambien) 5 mg PO HS PRN; Protocol PRN Reason: Insomnia Last Admin: 01/14/19 02:48 Dose: 5 mg - Labs Labs: 01/14/19 10:10 01/14/19 10:30
--- NOTE | 2019-01-15 15:00 | CP.PCM.PN ---
Subjective - Date & Time of Evaluation Date of Evaluation: 01/15/19 Time of Evaluation: 14:59 - Subjective Subjective: Triny Hart PGY1 Consult note for Dr. Duarte Patient is a 58yo F with PMH of HTN, DM2, obesity, anxiety, and GERD admitted f or gastroenteritis. Surgery consulted for gram negative bacteremia. Pt reports feeling fever, chills, nausea, vomiting and diarrhea last week upon admission. Symptoms have since resolved. Pt reports continuation of diarrhea which is improving and more formed today. Pt denies current fever, chills, abdominal pain, nausea, or vomiting. SxH: D&C 2000 SocH: Objective - Vital Signs/Intake and Output Vital Signs (last 24 hours): Temp Pulse Resp BP Pulse Ox 98.2 F 79 20 143/82 100 01/15/19 14:00 01/15/19 14:00 01/15/19 14:00 01/15/19 14:00 01/15/19 14:00 Intake and Output: 01/15/19 01/15/19 06:59 18:59 Intake Total 600 Balance 600 - Medications Medications: Current Medications Acetaminophen (Tylenol 325mg Tab) 650 mg PO Q6H PRN PRN Reason: Pain, Mild (1-3) Last Admin: 01/09/19 09:37 Dose: 650 mg Albuterol/Ipratropium (Duoneb 3 Mg/0.5 Mg (3 Ml) Ud) 3 ml IH [id number] PRN PRN Reason: Shortness of Breath Alprazolam (Xanax) 0.25 mg PO BID PRN; Protocol PRN Reason: Anxiety Stop: 01/15/19 18:44 Last Admin: 01/14/19 00:09 Dose: 0.25 mg Amlodipine Besylate (Norvasc) 10 mg PO DAILY [facility] Last Admin: 01/15/19 09:15 Dose: 10 mg Aspirin (Aspirin Chewable) 81 mg PO DAILY [facility] Last Admin: 01/15/19 09:15 Dose: 81 mg Enoxaparin Sodium (Lovenox) 40 mg SC DAILY [facility]; Protocol Last Admin: 01/15/19 09:16 Dose: 40 mg Metronidazole (Flagyl) 500 mg in 100 mls @ 100 mls/hr IVPB Q8 [facility]; Protocol Stop: 01/23/19 14:01 Meropenem (Merrem Iv 1 Gm Premix) 1 gm in 50 mls @ 100 mls/hr IVPB Q8 [facility]; Protocol Stop: 01/24/19 14:01 Last Admin: 01/15/19 14:29 Dose: 100 mls/hr Insulin Detemir (Levemir) 15 unit SC HS [facility] Last Admin: 01/14/19 21:53 Dose: 15 units Insulin Human Lispro (Humalog Med) 0 units SC ACHS [facility]; Protocol Last Admin: 01/15/19 12:09 Dose: 1 units Metoprolol Tartrate (Lopressor) 25 mg PO BID [facility] Last Admin: 01/15/19 09:15 Dose: 25 mg Pantoprazole Sodium (Protonix Ec Tab) 40 mg PO 0600 [facility] Last Admin: 01/15/19 05:52 Dose: 40 mg Potassium Chloride (K-Dur 20 Meq Er Tab) 20 meq PO BRK [facility] Last Admin: 01/15/19 08:26 Dose: 20 meq Zolpidem Tartrate (Ambien) 5 mg PO HS PRN; Protocol PRN Reason: Insomnia Last Admin: 01/14/19 02:48 Dose: 5 mg - Labs Labs: 01/14/19 10:10 01/14/19 10:30
--- NOTE | 2019-01-15 15:07 | CP.PCM.CON ---
History of Present Illness - History of Present Illness History of Present Illness: Triny Hart PGY1 Consult note for Dr. Duarte Patient is a 58yo F with PMH of HTN, DM2, obesity, anxiety, and GERD admitted for gastroenteritis. Surgery consulted for gram negative bacteremia. Pt reports feeling fever, chills, nausea, vomiting and diarrhea last week upon admission. Symptoms have since resolved. Pt reports continuation of diarrhea which is improving and more formed today. Pt denies current fever, chills, abdominal pain, nausea, or vomiting. SxH: D&C 2000 SocH: former tobacco use. occasional etoh. denies recreational drug use FamH: mom- lung CA. dad- HTN Allergies: PCN Review of Systems - Review of Systems Review of Systems: as per HPI - Constitutional Constitutional: absent: Fatigue, Fever - EENT Eyes: absent: Blurred Vision - Cardiovascular Cardiovascular: absent: Chest Pain - Respiratory Respiratory: absent: Dyspnea - Gastrointestinal Gastrointestinal: Diarrhea. absent: Abdominal Pain, Nausea, Vomiting - Genitourinary Genitourinary: absent: Dysuria Past Patient History - Infectious Disease Hx of Infectious Diseases: None - Tetanus Immunizations Tetanus Immunization: Up to Date - Past Social History Smoking Status: Former Smoker - CARDIAC Hx Pacemaker: No - PULMONARY Hx Respiratory Disorders: Yes Hx Bronchitis: Yes Hx Pneumonia: Yes - NEUROLOGICAL Hx Neurological Disorder: Yes Hx Dizziness: Yes Hx Migraine: Yes Other/Comment: Lovell's Palsy , memory issues - HEENT Hx HEENT Problems: No - RENAL Hx Chronic Kidney Disease: No - ENDOCRINE/METABOLIC Hx Endocrine Disorders: Yes Hx Diabetes Mellitus Type 2: Yes Hx Hyperthyroidism: Yes (patient not sure) - HEMATOLOGICAL/ONCOLOGICAL Hx Cancer: No - INTEGUMENTARY Hx Dermatological Problems: No - MUSCULOSKELETAL/RHEUMATOLOGICAL Hx Musculoskeletal Disorders: Yes Hx Arthritis: Yes Hx Falls: No - GASTROINTESTINAL Hx Gastrointestinal Disorders: Yes Hx Gastroesophageal Reflux: Yes - GENITOURINARY/GYNECOLOGICAL Hx Genitourinary Disorders: Yes Other/Comment: yeast infections - PSYCHIATRIC Hx Psychophysiologic Disorder: Yes Hx Anxiety: Yes Hx Depression: Yes Hx Substance Use: No - SURGICAL HISTORY Hx Mastectomy: No - ANESTHESIA Hx Anesthesia: No Meds Allergies/Adverse Reactions: Allergies Allergy/AdvReac Type Severity Reaction Status Date / Time Penicillins Allergy RASH Verified 01/07/19 16:23 - Medications Medications: Current Medications Acetaminophen (Tylenol 325mg Tab) 650 mg PO Q6H PRN PRN Reason: Pain, Mild (1-3) Last Admin: 01/09/19 09:37 Dose: 650 mg Albuterol/Ipratropium (Duoneb 3 Mg/0.5 Mg (3 Ml) Ud) 3 ml IH [id number] PRN PRN Reason: Shortness of Breath Alprazolam (Xanax) 0.25 mg PO BID PRN; Protocol PRN Reason: Anxiety Stop: 01/15/19 18:44 Last Admin: 01/14/19 00:09 Dose: 0.25 mg Amlodipine Besylate (Norvasc) 10 mg PO DAILY [facility] Last Admin: 01/15/19 09:15 Dose: 10 mg Aspirin (Aspirin Chewable) 81 mg PO DAILY [facility] Last Admin: 01/15/19 09:15 Dose: 81 mg Enoxaparin Sodium (Lovenox) 40 mg SC DAILY [facility]; Protocol Last Admin: 01/15/19 09:16 Dose: 40 mg Metronidazole (Flagyl) 500 mg in 100 mls @ 100 mls/hr IVPB Q8 [facility]; Protocol Stop: 01/23/19 14:01 Meropenem (Merrem Iv 1 Gm Premix) 1 gm in 50 mls @ 100 mls/hr IVPB Q8 [facility]; Protocol Stop: 01/24/19 14:01 Last Admin: 01/15/19 14:29 Dose: 100 mls/hr Insulin Detemir (Levemir) 15 unit SC HS [facility] Last Admin: 01/14/19 21:53 Dose: 15 units Insulin Human Lispro (Humalog Med) 0 units SC ACHS [facility]; Protocol Last Admin: 01/15/19 12:09 Dose: 1 units Metoprolol Tartrate (Lopressor) 25 mg PO BID [facility] Last Admin: 01/15/19 09:15 Dose: 25 mg Pantoprazole Sodium (Protonix Ec Tab) 40 mg PO 0600 [facility] Last Admin: 01/15/19 05:52 Dose: 40 mg Potassium Chloride (K-Dur 20 Meq Er Tab) 20 meq PO BRK [facility] Last Admin: 01/15/19 08:26 Dose: 20 meq Zolpidem Tartrate (Ambien) 5 mg PO HS PRN; Protocol PRN Reason: Insomnia Last Admin: 01/14/19 02:48 Dose: 5 mg Physical Exam - Constitutional Appears: Well, No Acute Distress - Head Exam Head Exam: ATRAUMATIC, NORMOCEPHALIC - Eye Exam Eye Exam: EOMI, Normal appearance, PERRL - ENT Exam ENT Exam: Mucous Membranes Moist - Neck Exam Neck exam: Positive for: Normal Inspection - Respiratory Exam Respiratory Exam: Clear to Auscultation Bilateral, NORMAL BREATHING PATTERN. absent: Rales, Rhonchi, Wheezes - Cardiovascular Exam Cardiovascular Exam: REGULAR RHYTHM, +S1, +S2. absent: Gallop, Rubs, Systolic Murmur - GI/Abdominal Exam GI & Abdominal Exam: Normal Bowel Sounds, Soft. absent: Distended, Guarding, Rebound, Tenderness - Extremities Exam Extremities exam: Positive for: normal inspection. Negative for: pedal edema - Neurological Exam Neurological exam: Alert, CN II-XII Intact, Oriented x3 - Psychiatric Exam Psychiatric exam: Normal Affect, Normal Mood - Skin Skin Exam: Normal Color Results - Vital Signs Recent Vital Signs: Last Vital Signs Temp 98.2 F 01/15/19 14:00 Pulse 79 01/15/19 14:00 Resp 20 01/15/19 14:00 BP 143/82 01/15/19 14:00 Pulse Ox 100 01/15/19 14:00 - Labs Result Diagrams: 01/14/19 10:10 01/14/19 10:30 Labs: Laboratory Results - last 24 hr 01/14/19 01/14/19 01/15/19 16:11 21:09 06:36 POC Glucose (mg/dL) 219 H 162 H 113 H 01/15/19 10:53 POC Glucose (mg/dL) 167 H Assessment & Plan - Assessment and Plan (Free Text) Assessment: Patient is a 58yo F with PMH of HTN, DM2, obesity, anxiety, and GERD admitted for gastroenteritis. Surgery consulted for gram negative bacteremia. Plan: - CT showing r sided colitis - f/u rpt CT abd/pel - continue IV abx as per primary team - f/u GI recs for outpatient colonoscopy Further recs as per Dr. Duarte.
[2019-01-15] MEDS: metroNIDAZOLE IV 500 mg/100 ml 500 MG/100 ML BAG IVPB SCH ×2 (15:49→21:41)
[2019-01-15 17:46] LABS: URINE APPEARANCE CLEAR (CLEAR); URINE BILIRUBIN NEGATIVE (NEGATIVE); URINE BLOOD NEGATIVE (NEGATIVE); URINE COLOR YELLOW (YELLOW); URINE GLUCOSE (UA) NEGATIVE (NEGATIVE); URINE LEUKOCYTE ESTERASE NEGATIVE Leu/uL (NEGATIVE); URINE PROTEIN NEGATIVE mg/dL (<30 mg/dL); URINE UROBILINOGEN 0.2 E.U./dL (<1 E.U./dL)
--- NOTE | 2019-01-15 18:15 | CT ---
Date of service: 01/15/2019 PROCEDURE: CT Abdomen and Pelvis with contrast HISTORY: r/o leak COMPARISON: 01/09/2019 abdominal ultrasound. 01/10/2019 radionuclide scan/assessment of gallbladder. 01/10/2019 CT abdomen and pelvis. Summary of findings on the comparison examination: Improved if not resolved right colonic diverticulitis at the proximal ascending colon/distal cecum. TECHNIQUE: Oral contrast only. Radiation dose: Total exam DLP = 1144.19 mGy-cm. This CT exam was performed using one or more of the following dose reduction techniques: Automated exposure control, adjustment of the mA and/or kV according to patient size, and/or use of iterative reconstruction technique. FINDINGS: LOWER THORAX: Unremarkable. LIVER: Unremarkable. No gross lesion or ductal dilatation. GALLBLADDER AND BILE DUCTS: Unremarkable. PANCREAS: Unremarkable. No gross lesion or ductal dilatation. SPLEEN: Unremarkable. ADRENALS: Unremarkable. No mass. KIDNEYS AND URETERS: Unremarkable. No hydronephrosis. No solid mass. VASCULATURE: Unremarkable. No aortic aneurysm. No atherosclerotic calcification or mural plaque present. BOWEL: Right lower quadrant inflammatory changes centered about the ascending colon/ileocecal valve and terminal ileum. Sparing of the appendix. Trace fluid about the affected portions of the ascending colon. No significant interval change compared to the prior study. The APPENDIX: Appendix which is of normal caliber is filled with contrast and is unremarkable. PERITONEUM: Trace fluid right lower quadrant and pelvis. No drainable collection no free air. LYMPH NODES: Unremarkable. No enlarged lymph nodes. BLADDER: Unremarkable. REPRODUCTIVE: Unremarkable. BONES: No acute fracture. OTHER FINDINGS: None. IMPRESSION: Stable right lower quadrant phlegm a mary changes. No new/acute findings not seen previously.
[2019-01-15] MEDS: Insulin Detemir 100 units/ml Vial (Levemir) SC SCH (21:42)
--- NOTE | 2019-01-16 00:19 | PN ---
DATE: 01/15/2019 SUBJECTIVE: A 58-year-old female who came into the hospital with abdominal pain, found to have Gram-negative bacteriemia. The patient is on IV Merrem. The patient was planned to be evaluated for a discharge plan; however, repeat blood culture shows persistent bacteremia. The patient was kept for further elevation and treatment. Clinically, she felt better. She is stable. She has no chest pain, no abdominal pain, tolerating diet. No nausea, no vomiting. She is on liquid diet. PHYSICAL EXAMINATION: VITAL SIGNS: Today, temperature 97.6, heart rate 82, blood pressure 119/75, respirations 18, saturation 100% on room air. HEENT: Head and neck exam is normal. No JVD. No thyromegaly. CHEST: Clear bilateral. CARDIAC: First sound and second sound normal. No murmurs, rubs, or gallops. ABDOMEN: Soft, nontender, and obese. EXTREMITIES: There is edema bilateral. NEUROLOGIC: Normal. LABORATORY DATA: Noted for blood sugar is in 150 to 200 range. Blood culture shows gram-negative bacteremia. IMPRESSION AND PLAN: 1. Right-sided colitis with gram-negative bacteremia. We will repeat blood cultures. We will continue IV Merrem for now. Repeat CT scan to rule out any abscess or any collections. Other etiology of persistent bacteremia, endovascular infections, and colitis. We will continue to monitor the case and also urine culture has been ordered. 2. Insulin-dependent diabetes. Continue insulin regimen as prescribed. 3. Bilateral leg edema. She is on Lovenox 40 mg subcutaneous daily. . 4. Insomnia. Continue Ambien. 5. Hypertension. Continue Norvasc, Lopressor as prescribed. She is currently on Lopressor 25 daily, Norvasc 10 mg p.o. daily. 6. Continue IV Protonix. Followup clinically. Discussed with president ceo & founder and the patient, and we will consult Surgery for further evaluation. Jose Antonio Armstrong MD
[2019-01-16] MEDS: metroNIDAZOLE IV 500 mg/100 ml 500 MG/100 ML BAG IVPB SCH ×3 (05:45→21:47)
[2019-01-16] MEDS: Pantoprazole 40 mg EC Tab PO SCH (05:45)
[2019-01-16] MEDS: Meropenem IV 1 gm in NS 1 GM/50 ML BAG IVPB SCH ×3 (05:46→21:48)
--- NOTE | 2019-01-16 06:57 | CP.PCM.PN ---
Subjective - Date & Time of Evaluation Date of Evaluation: 01/16/19 Time of Evaluation: 06:54 - Subjective Subjective: Triny Hart PGY1 Progress note for Dr. Duarte Pt was examined at bedside this morning. She denies fever, chills, abdominal p ain, nausea, or vomiting. She reports diarrhea upon drinking the contrast yesterday for her study. She has no other complaints. Objective - Vital Signs/Intake and Output Vital Signs (last 24 hours): Temp Pulse Resp BP Pulse Ox 97.6 F 82 18 119/75 100 01/15/19 21:16 01/15/19 21:16 01/15/19 21:16 01/15/19 21:16 01/15/19 21:16 Intake and Output: 01/15/19 01/16/19 18:59 06:59 Intake Total 2220 Balance 2220 - Medications Medications: Current Medications Acetaminophen (Tylenol 325mg Tab) 650 mg PO Q6H PRN PRN Reason: Pain, Mild (1-3) Last Admin: 01/09/19 09:37 Dose: 650 mg Albuterol/Ipratropium (Duoneb 3 Mg/0.5 Mg (3 Ml) Ud) 3 ml IH [id number] PRN PRN Reason: Shortness of Breath Amlodipine Besylate (Norvasc) 10 mg PO DAILY [facility] Last Admin: 01/15/19 09:15 Dose: 10 mg Aspirin (Aspirin Chewable) 81 mg PO DAILY [facility] Last Admin: 01/15/19 09:15 Dose: 81 mg Enoxaparin Sodium (Lovenox) 40 mg SC DAILY [facility]; Protocol Last Admin: 01/15/19 09:16 Dose: 40 mg Metronidazole (Flagyl) 500 mg in 100 mls @ 100 mls/hr IVPB Q8 [facility]; Protocol Stop: 01/23/19 14:01 Last Admin: 01/16/19 05:45 Dose: 100 mls/hr Meropenem (Merrem Iv 1 Gm Premix) 1 gm in 50 mls @ 100 mls/hr IVPB Q8 [facility]; Protocol Stop: 01/24/19 14:01 Last Admin: 01/16/19 05:46 Dose: 100 mls/hr Insulin Detemir (Levemir) 15 unit SC HS [facility] Last Admin: 01/15/19 21:42 Dose: 15 units Insulin Human Lispro (Humalog Med) 0 units SC ACHS [facility]; Protocol Last Admin: 01/15/19 21:43 Dose: Not Given Metoprolol Tartrate (Lopressor) 25 mg PO BID [facility] Last Admin: 01/15/19 17:17 Dose: 25 mg Pantoprazole Sodium (Protonix Ec Tab) 40 mg PO 0600 [facility] Last Admin: 01/16/19 05:45 Dose: 40 mg Potassium Chloride (K-Dur 20 Meq Er Tab) 20 meq PO BRK [facility] Last Admin: 01/15/19 08:26 Dose: 20 meq Zolpidem Tartrate (Ambien) 5 mg PO HS PRN; Protocol PRN Reason: Insomnia Last Admin: 01/14/19 02:48 Dose: 5 mg - Labs Labs: 01/14/19 10:10 01/14/19 10:30 - Constitutional Appears: Well, No Acute Distress - Head Exam Head Exam: ATRAUMATIC, NORMOCEPHALIC - Eye Exam Eye Exam: EOMI, Normal appearance Pupil Exam: NORMAL ACCOMODATION - ENT Exam ENT Exam: Normal Exam - Respiratory Exam Respiratory Exam: Clear to Ausculation Bilateral, NORMAL BREATHING PATTERN. absent: Rales, Rhonchi, Wheezes - Cardiovascular Exam Cardiovascular Exam: REGULAR RHYTHM, +S1, +S2. absent: Gallop, Rubs, Murmur - GI/Abdominal Exam GI & Abdominal Exam: Soft, Normal Bowel Sounds. absent: Distended, Tenderness - Extremities Exam Extremities Exam: Normal Inspection. absent: Pedal Edema - Neurological Exam Neurological Exam: Alert, Awake, Oriented x3 - Psychiatric Exam Psychiatric exam: Normal Affect, Normal Mood - Skin Skin Exam: Normal Color Assessment and Plan - Assessment and Plan (Free Text) Assessment: Patient is a 58yo F with PMH of HTN, DM2, obesity, anxiety, and GERD admitted for gastroenteritis. Surgery consulted for gram negative bacteremia. Plan: - rpt CT showing R sided colitis, stable from prior CT - afebrile, leukocytosis downtrending - continue IV abx as per primary team - f/u GI recs for outpatient colonoscopy Further recs as per Dr. Duarte.
[2019-01-16] MEDS: Insulin Lispro (humaLOG) MEDIUM Coverage SC SCH ×4 (09:03→21:45)
[2019-01-16] MEDS: Enoxaparin 40 mg Syringe SC SCH (10:26)
[2019-01-16] MEDS: Potassium Chloride 20 mEq ER Tab PO SCH (10:45)
[2019-01-16 11:34] LABS: BASO # 0.02 K/mm3 (0.0-2.0); BASO % 0.2 % (0.0-3.0); EOS # 0.1 (0.0-0.7); EOS % 0.9 % (1.5-5.0); HEMOGLOBIN 10.7 g/dL (12.0-16.0); LYMPH # 1.4 (1.2-3.4); LYMPH % 14.8 % (22.0-35.0); MEAN CELL VOLUME 80.2 fl (80.0-105.0); MEAN CORPUSCULAR HEMOGLOBIN 26.4 pg (25.0-35.0); MEAN CORPUSCULAR HGB CONC 32.9 g/dl (31.0-37.0); MONO # 0.5 (0.1-0.6); MONO % 4.9 % (1.0-6.0); RBC 4.05 10^6/uL (3.5-6.1); WHITE BLOOD COUNT 9.6 10^3/uL (4.5-11.0)
[2019-01-16 11:49] LABS: ALB/GLOB RATIO 0.7 (1.1-1.8); ALT/SGPT 45 U/L (7-56); AST/SGOT 49 U/L (14-36); BLOOD UREA NITROGEN 3 mg/dL (7-21); CALCIUM 8.7 mg/dL (8.4-10.5); GFR NON-AFRICAN AMERICAN > 60
--- NOTE | 2019-01-16 12:07 | PN ---
DATE: 01/16/2019 PULMONARY PROGRESS NOTE REFERRING PHYSICIAN: Jose Antonio Armstrong MD SUBJECTIVE: The patient is seen sitting in arm chair in room. No acute distress. No overnight events reported. Reports feeling well today. Did not wear CPAP machine last night. No headache, rhinitis, cough, shortness of breath, chest pain, abdominal pain, nausea, vomiting, diarrhea, leg pain or leg swelling reported. OBJECTIVE: GENERAL: No acute distress. VITAL SIGNS: Blood pressure 129/76, pulse of 83, temperature 98.5 and oxygen saturation 100%. HEENT: Moist mucous membranes. Mallampati score of 4. NECK: Supple. No JVD. LUNGS: Fair air flow bilaterally. CARDIOVASCULAR: S1 and S2. ABDOMEN: Obese and soft. No distention. Nontender. EXTREMITIES: Trace bilateral lower extremity edema. NEUROLOGIC: Awake, alert and verbal. Follows commands. MEDICATIONS: Reviewed. Tylenol 650 mg every 6 hours p.r.n., DuoNeb 3 mL inhalation every 6 hours p.r.n., Norvasc 10 mg daily, aspirin 81 mg daily, Lovenox 40 mg subcutaneously daily, Levemir 15 units subcutaneously at bedtime, Humalog sliding scale a.c. and at bedtime, meropenem 1 g every 8 hours, metoprolol tartrate 25 mg twice a day, Flagyl 500 mg every 8 hours, Protonix 40 mg daily, potassium chloride 20 mEq at breakfast and Ambien 5 mg at bedtime p.r.n. LABORATORY DATA: Reviewed. POC glucose 100. Blood culture preliminary Gram-negative rods. Echocardiogram report pending. Abdomen and pelvis CT shows stable right lower quadrant inflammatory changes. No new acute findings since seen previously. IMPRESSION AND PLAN: Sepsis, acute diverticulitis, colitis, bacteremia, acute kidney injury, suspected sleep apnea syndrome, insomnia and hypertension. Echocardiogram done today. We will followup when report is available. The patient continues to refuse continuous positive airway pressure use at bedtime, sleep apnea precaution, head of bed elevated at 45 degrees. Education provided to the patient regarding continuous positive airway pressure use and sleep apnea and the risk of cardiopulmonary disease associated with sleep apnea. The patient verbalizes and understanding. Continue to encourage continuous positive airway pressure use at bedtime. Continue gastric prophylaxis, and deep venous thrombosis prophylaxis. We recommend this patient have sleep study as outpatient. Continue followup with Infectious Disease. Continue followup with Gastroenterology. This patient was seen and examined with Dr. Downing. Discussed assessment and plan as described above. This patient was seen and examined with Damian Méndez, nurse practitioner. Discussed assessment and plan as described above. Thank you for this consult. We will follow with you. Damian Méndez APN Cami Downing MD
--- NOTE | 2019-01-16 13:59 | CP.PCM.PN ---
Subjective - Date & Time of Evaluation Date of Evaluation: 01/16/19 Time of Evaluation: 13:58 - Subjective Subjective: Nephrology Consultation Note: Assessment: stable GNR/bacteroides sepsis with acute diverticulitis JAY JAY likely due to pre-renal state ATN contrast exposure, FeNa <1%: IMPROVED Hypokalemia DM, HTN thrombocytopenia and abnormal LFT, hyperbilirubinemia obesity anxiety GERD Plan no need for renal replacement therapy at present Hypertension control with meds as ordered. pt not on RAAS francisco javier, can resume if BP high Monitor I/O, daily weights and renal function while in hospital supplement lytes as needed can give lasix prn hematology GI and ID already following Dose meds/antibiotics for improved GFR >60 Glycemic control Further work up for as per primary team. Thanks for allowing me to participate in care of your patient. Please call if any Qs. had d/w team and family will sign off and follow up further on prn basis Dr José Miguel Moss Office: [phone] CC; unable to sleep reason for consult: JAY JAY HPI: Pt is a 58 F with hx of HTN (years), DM obesity anxiety GERD presented to hospital with complaints of inability to sleep, decreased appetite, feeling cold/chills for last few days. also had diarrhoea and vomitting since sat but last on Saturday and renal consult for JAY JAY management. Denies chest pain, palpitation, no shortness of breath, Denies OTC/herbal meds/NSAIDs Noted recent iodinated contrast exposure. 01/04/19 and 01/10/19 ROS: denies CP/nausea/vomiting now. no SOB at present. no nausea denies pain abdomen. denies urine complaints rest other negative except as mentioned in HPI. has low appetite planned for further work up as remains bacteremic Physical Examination: General Appearance: Comfortable, in no acute respiratory distress, co-operative. obese. Vitals reviewed and noted as below Head; Atraumatic, normocephalic ENT: no ulcers no thrush. Tongue is midline/dry and coated. Oropharynx: no rash or ulcers. EYES: b/l PERRLA. anicteric Neck; supple no lymphadenopathy, no thyromegaly or bruit Lungs: Normal respiratory rate/effort. Breath sounds b/l with equal clear Heart: Normal rate. s1s2 normal. No rub or gallop. Extremities: 1+ edema. No varicose veins. Neurological: Patient is awake alert and follow commands no focal deficit. Skin: dry and warm. Normal turgor. No rash. Palpitation: Normal elasticity for age Abdomen: Abdomen is soft . Bowel sounds +. There is no abdominal tenderness no guarding/rigidity or organomegaly. Psych: normal insight. normal affect/mood MSK: no specific joint tenderness or swelling. Digits and nails normal, no deformity : kidney not palpable. exam limited due to obesity. has umblical hernia Labs/imaging/EKG reviewed. Past medical history, past surgical history, social history, allergy reviewed and noted as below Family hx; no hx of CKD. non contributory renal imaging WNL UA SG 1.010 30 protein 3 + glucose moderate blood but 1-2 RBC/hpf CK 214 Objective - Vital Signs/Intake and Output Vital Signs (last 24 hours): Temp Pulse Resp BP Pulse Ox 98.5 F 92 H 18 127/75 100 01/16/19 06:00 01/16/19 10:22 01/16/19 06:00 01/16/19 10:27 01/16/19 06:00 Intake and Output: 01/16/19 01/16/19 06:59 18:59 Intake Total 2220 Balance 2220 - Medications Medications: Current Medications Acetaminophen (Tylenol 325mg Tab) 650 mg PO Q6H PRN PRN Reason: Pain, Mild (1-3) Last Admin: 01/09/19 09:37 Dose: 650 mg Albuterol/Ipratropium (Duoneb 3 Mg/0.5 Mg (3 Ml) Ud) 3 ml IH [id number] PRN PRN Reason: Shortness of Breath Amlodipine Besylate (Norvasc) 10 mg PO DAILY [facility] Last Admin: 01/16/19 10:27 Dose: 10 mg Aspirin (Aspirin Chewable) 81 mg PO DAILY [facility] Last Admin: 01/16/19 10:21 Dose: 81 mg Enoxaparin Sodium (Lovenox) 40 mg SC DAILY [facility]; Protocol Last Admin: 01/16/19 10:26 Dose: 40 mg Metronidazole (Flagyl) 500 mg in 100 mls @ 100 mls/hr IVPB Q8 [facility]; Protocol Stop: 01/23/19 14:01 Last Admin: 01/16/19 13:23 Dose: 100 mls/hr Meropenem (Merrem Iv 1 Gm Premix) 1 gm in 50 mls @ 100 mls/hr IVPB Q8 [facility]; Protocol Stop: 01/24/19 14:01 Last Admin: 01/16/19 13:22 Dose: 100 mls/hr Insulin Detemir (Levemir) 15 unit SC HS [facility] Last Admin: 01/15/19 21:42 Dose: 15 units Insulin Human Lispro (Humalog Med) 0 units SC ACHS [facility]; Protocol Last Admin: 01/16/19 12:06 Dose: 3 units Metoprolol Tartrate (Lopressor) 25 mg PO BID [facility] Last Admin: 01/16/19 10:22 Dose: 25 mg Pantoprazole Sodium (Protonix Ec Tab) 40 mg PO 0600 [facility] Last Admin: 01/16/19 05:45 Dose: 40 mg Potassium Chloride (K-Dur 20 Meq Er Tab) 20 meq PO BRK [facility] Last Admin: 01/16/19 10:45 Dose: 20 meq Zolpidem Tartrate (Ambien) 5 mg PO HS PRN; Protocol PRN Reason: Insomnia Last Admin: 01/14/19 02:48 Dose: 5 mg - Labs Labs: 01/16/19 11:25 01/16/19 11:25
--- NOTE | 2019-01-16 15:40 | US ---
HISTORY: Leg pain and swelling. Evaluate for DVT PHYSICIAN(S): Héctor Hardy MD. TECHNIQUE: Duplex sonography and color-flow Doppler with graded compression were used to evaluate the deep venous systems of both lower extremities. I am is limited by body habitus and edema FINDINGS: The visualized deep venous systems of both lower extremities are sonographically normal and compressible. Normal wave forms and augmentation are seen. There is no sonographic evidence for deep venous thrombosis in the visualized segments of both lower extremities. IMPRESSION: No sonographic evidence for deep venous thrombosis in the visualized segments of both lower extremities. Limited study
--- NOTE | 2019-01-16 16:04 | HP ---
DATE OF EXAM: 01/08/2019 HISTORY OF PRESENT ILLNESS: . PAST SURGICAL HISTORY: She had D and C and she had colonoscopy by Dr. Ponce in [place]. MEDICATIONS: baby aspirin PHYSICAL EXAMINATION: GENERAL: , comfortably in no distress. VITAL SIGNS: Temperature 98, heart rate 82, blood pressure . HEENT: . NECK: . No JVD. CHEST: Clear bilaterally. CARDIAC: First sound and second sound normal. ABDOMEN: . EXTREMITIES: No edema. NEUROLOGIC: Awake, alert, LABORATORY DATA: Shows white count 15.2, hemoglobin 13 . IMPRESSION: 1. history of colitis. CT scan findings . Dr. Riojas. 2. Abnormal liver function test. We will repeat liver function test tomorrow. We will get ultrasound. Consult her with GI specialist. We will get also haptoglobin . 3. Hematology consult, Dr. Rodrigez. 4. Acute renal failure, we will get Dr. José Miguel Moss for evaluation. Continue IV fluids. Repeat labs in the morning. For low platelets and abnormal liver function test, , Dr. Rodrigez, Oncology will see the patient. Continue current therapy. The patient is walking to the bathroom. She is active. We will give her CPAP . We will get Pulmonary consult for possible obstructive sleep apnea. She is obese and we will continue CPAP for now. Jose Antonio Armstrong MD
--- NOTE | 2019-01-16 17:55 | CP.PCM.PN ---
<Ck Cortes - Last Filed: 01/16/19 17:55> Subjective - Date & Time of Evaluation Date of Evaluation: 01/16/19 Time of Evaluation: 16:54 - Subjective Subjective: Ck Cortes PGY2 GI Progress Note for Dr. Yao Patient was seen and examined at bedside. She states that she has not had a bowel movement in the last 24hrs, and her abdominal discomfort has resolved. She is also tolerating her diet without n/v, fevers/chills. Objective - Vital Signs/Intake and Output Vital Signs (last 24 hours): Temp Pulse Resp BP Pulse Ox 98.2 F 82 18 120/82 100 01/16/19 15:28 01/16/19 17:33 01/16/19 15:28 01/16/19 17:33 01/16/19 15:28 Intake and Output: 01/16/19 01/16/19 06:59 18:59 Intake Total 2220 Balance 2220 - Medications Medications: Current Medications Acetaminophen (Tylenol 325mg Tab) 650 mg PO Q6H PRN PRN Reason: Pain, Mild (1-3) Last Admin: 01/09/19 09:37 Dose: 650 mg Albuterol/Ipratropium (Duoneb 3 Mg/0.5 Mg (3 Ml) Ud) 3 ml IH [id number] PRN PRN Reason: Shortness of Breath Amlodipine Besylate (Norvasc) 10 mg PO DAILY [facility] Last Admin: 01/16/19 10:27 Dose: 10 mg Aspirin (Aspirin Chewable) 81 mg PO DAILY [facility] Last Admin: 01/16/19 10:21 Dose: 81 mg Enoxaparin Sodium (Lovenox) 40 mg SC DAILY [facility]; Protocol Last Admin: 01/16/19 10:26 Dose: 40 mg Metronidazole (Flagyl) 500 mg in 100 mls @ 100 mls/hr IVPB Q8 [facility]; Protocol Stop: 01/23/19 14:01 Last Admin: 01/16/19 13:23 Dose: 100 mls/hr Meropenem (Merrem Iv 1 Gm Premix) 1 gm in 50 mls @ 100 mls/hr IVPB Q8 [facility]; Protocol Stop: 01/24/19 14:01 Last Admin: 01/16/19 13:22 Dose: 100 mls/hr Insulin Detemir (Levemir) 15 unit SC HS [facility] Last Admin: 01/15/19 21:42 Dose: 15 units Insulin Human Lispro (Humalog Med) 0 units SC ACHS [facility]; Protocol Last Admin: 01/16/19 12:06 Dose: 3 units Metoprolol Tartrate (Lopressor) 25 mg PO BID [facility] Last Admin: 01/16/19 17:33 Dose: 25 mg Pantoprazole Sodium (Protonix Ec Tab) 40 mg PO 0600 [facility] Last Admin: 01/16/19 05:45 Dose: 40 mg Potassium Chloride (K-Dur 20 Meq Er Tab) 20 meq PO BRK [facility] Last Admin: 01/16/19 10:45 Dose: 20 meq Zolpidem Tartrate (Ambien) 5 mg PO HS PRN; Protocol PRN Reason: Insomnia Last Admin: 01/14/19 02:48 Dose: 5 mg - Labs Labs: 01/16/19 11:25 01/16/19 11:25 - Constitutional Appears: Well, Non-toxic, No Acute Distress - Head Exam Head Exam: ATRAUMATIC, NORMAL INSPECTION, NORMOCEPHALIC - Eye Exam Eye Exam: EOMI, Normal appearance, PERRL Pupil Exam: NORMAL ACCOMODATION, PERRL - ENT Exam ENT Exam: Mucous Membranes Moist, Normal Exam - Neck Exam Neck Exam: Full ROM, Normal Inspection. absent: Lymphadenopathy - Respiratory Exam Respiratory Exam: Clear to Ausculation Bilateral, NORMAL BREATHING PATTERN - Cardiovascular Exam Cardiovascular Exam: REGULAR RHYTHM, +S1, +S2. absent: Murmur - GI/Abdominal Exam GI & Abdominal Exam: Soft, Normal Bowel Sounds. absent: Distended, Guarding, Tenderness - Extremities Exam Extremities Exam: Full ROM, Normal Capillary Refill, Normal Inspection. absent: Joint Swelling, Pedal Edema - Back Exam Back Exam: NORMAL INSPECTION - Neurological Exam Neurological Exam: Alert, Awake, CN II-XII Intact, Normal Gait, Oriented x3 - Psychiatric Exam Psychiatric exam: Normal Affect, Normal Mood - Skin Skin Exam: Dry, Intact, Normal Color, Warm Assessment and Plan - Assessment and Plan (Free Text) Assessment: 58 F with hx of HTN (years), DM2, obesity, anxiety, and GERD who is admitted for gastroenteritis. Patient had recent CT which showed right sided colitis, which has improved. Upon presentation, patient met SIRS criteria, and source of sepsis is gram negative bacteremia (Bacteroides fragilis). C.diff is negative. Per ID, source of bacteremia could be of GI source. Clinically, she is improving. Plan: - patient tolerating soft low fiber diet; should continue such diet for at least 4 weeks until colitis resolved - Continue supportive care - Abx per ID - Echo done to r/o endocarditis - Repeat blood cultures showing 1 vial of gram negative rods - repeat CT when symptoms resolve - Patient may benefit from colonoscopy in 3-4 weeks as an outpatient for abnormal CT findings of right-sided colitis - PPI for GI ppx - further recs per Dr. Yao Case was reviewed and discussed with attending, Dr. Yao <Hemalatha Yao V - Last Filed: 01/16/19 20:00> Objective - Vital Signs/Intake and Output Vital Signs (last 24 hours): Temp Pulse Resp BP Pulse Ox 98.2 F 82 18 120/82 100 01/16/19 15:28 01/16/19 17:33 01/16/19 15:28 01/16/19 17:33 01/16/19 15:28 Intake and Output: 01/16/19 01/17/19 18:59 06:59 Intake Total 360 Balance 360 - Medications Medications: Current Medications Acetaminophen (Tylenol 325mg Tab) 650 mg PO Q6H PRN PRN Reason: Pain, Mild (1-3) Last Admin: 01/09/19 09:37 Dose: 650 mg Albuterol/Ipratropium (Duoneb 3 Mg/0.5 Mg (3 Ml) Ud) 3 ml IH [id number] PRN PRN Reason: Shortness of Breath Amlodipine Besylate (Norvasc) 10 mg PO DAILY [facility] Last Admin: 01/16/19 10:27 Dose: 10 mg Aspirin (Aspirin Chewable) 81 mg PO DAILY [facility] Last Admin: 01/16/19 10:21 Dose: 81 mg Enoxaparin Sodium (Lovenox) 40 mg SC DAILY [facility]; Protocol Last Admin: 01/16/19 10:26 Dose: 40 mg Metronidazole (Flagyl) 500 mg in 100 mls @ 100 mls/hr IVPB Q8 [facility]; Protocol Stop: 01/23/19 14:01 Last Admin: 01/16/19 13:23 Dose: 100 mls/hr Meropenem (Merrem Iv 1 Gm Premix) 1 gm in 50 mls @ 100 mls/hr IVPB Q8 [facility]; Protocol Stop: 01/24/19 14:01 Last Admin: 01/16/19 13:22 Dose: 100 mls/hr Insulin Detemir (Levemir) 15 unit SC HS [facility] Last Admin: 01/15/19 21:42 Dose: 15 units Insulin Human Lispro (Humalog Med) 0 units SC ACHS [facility]; Protocol Last Admin: 01/16/19 18:01 Dose: Not Given Metoprolol Tartrate (Lopressor) 25 mg PO BID [facility] Last Admin: 01/16/19 17:33 Dose: 25 mg Pantoprazole Sodium (Protonix Ec Tab) 40 mg PO 0600 [facility] Last Admin: 01/16/19 05:45 Dose: 40 mg Potassium Chloride (K-Dur 20 Meq Er Tab) 20 meq PO BRK [facility] Last Admin: 01/16/19 10:45 Dose: 20 meq Zolpidem Tartrate (Ambien) 5 mg PO HS PRN; Protocol PRN Reason: Insomnia Last Admin: 01/14/19 02:48 Dose: 5 mg - Labs Labs: 01/16/19 11:25 01/16/19 11:25 Attending/Attestation - Attestation I have personally seen and examined this patient.: Yes I have fully participated in the care of the patient.: Yes I have reviewed all pertinent clinical information, including history, physical exam and plan: Yes Notes (Text): This patient was seen and evaluated along with the resident. Imaging studies were reviewed Repeat blood culture positive for gram-negative rods echo to rule out endocarditis requested Continue the antibiotics as per ID Elective colonoscopy Patient tolerating diet 01/16/19 19:58
--- NOTE | 2019-01-16 19:26 | CARD ---
APPROVED REPORT Date of service: 01/16/2019 EXAM: Two-dimensional and M-mode echocardiogram with Doppler and color Doppler. INDICATION Infection:Rule out subacute bacterial endocarditis 2D DIMENSIONS Left Atrium (2D)4.3 (1.6-4.0cm)IVSd1.6 (0.7-1.1cm) LVDd4.8 (3.9-5.9cm)PWd1.3 (0.7-1.1cm) LVDs2.9 (2.5-4.0cm)FS (%) 40.1 % LVEF (%)70.7 (>50%) M-Mode DIMENSIONS Aortic Root3.30 (2.2-3.7cm)Aortic Cusp Exc.2.00 (1.5-2.0cm) Aortic Valve AoV Peak Ioeixxch470.0cm/[place] Peak GR.10mmHgLVOT Peak Ovxivszc069.0cm/s LVOT VTI27.70cm Mitral Valve MV E Huighbfr512.0cm/sMV A Pnbtkjss70.7cm/sE/A ratio1.1 TDI Lateral E' Peak V9.36cm/sMedial E' Peak V4.68cm/sE/Lateral E'11.3 E/Medial E'22.6 Pulmonary Valve PV Peak Awhuydzw920.0cm/sPV Peak Grad.5mmHg Tricuspid Valve TR Peak Qconkpfe570wj/sRAP [id number] Peak Gr.17mmHg [id number] LEFT VENTRICLE The left ventricle cavity is small. There is moderate concentric left ventricular hypertrophy. The left ventricular function is normal. The left ventricular ejection fraction is within the normal range. There is normal LV segmental wall motion. RIGHT VENTRICLE The right ventricle is normal size. The right ventricular systolic function is normal. ATRIA The left atrium is mildly dilated. The right atrium size is normal. The interatrial septum is intact with no evidence for an atrial septal defect. AORTIC VALVE The aortic valve is normal in structure. No aortic regurgitation is present. There is no aortic valvular stenosis. MITRAL VALVE The mitral valve is normal in structure. Mitral regurgitation is trace. TRICUSPID VALVE The tricuspid valve is normal in structure. There is mild tricuspid regurgitation. PULMONIC VALVE The pulmonary valve is normal in structure. GREAT VESSELS The aortic root is normal in size. The IVC is normal in size and collapses >50% with inspiration. PERICARDIAL EFFUSION There is no pleural effusion. There is no pericardial effusion. <Conclusion> Dilated LA. Moderate to severe concentric LVH. Small LV cavity size. Normal LV systolic function. Mild TR. No vegetations seen, but if clinical suspicion for endocarditis is high, consider RAFI imaging.
[2019-01-16] MEDS: Insulin Detemir 100 units/ml Vial (Levemir) SC SCH (21:46)
--- NOTE | 2019-01-17 01:08 | PN ---
DATE: 01/16/2019 SUBJECTIVE: The patient is in bed, in no acute distress, nontoxic. OBJECTIVE: VITAL SIGNS: On exam, temperature is 98, blood pressure is 117/70, respiratory rate of 18, heart rate of 79. HEENT: Unremarkable. NECK: Supple. LUNGS: Have decreased breath sounds. HEART: Normal S1, S2. ABDOMEN: Soft. LABORATORY EXAMINATION: Reveals the patient's white count is 9.6. Chemistries are noted. Repeat urinalysis is negative. Influenza and HIV are negative. Microbiology reveals a gram-negative shaun. The repeat blood cultures from 01/12/2019 and repeated blood cultures today. ASSESSMENT AND PLAN: This is a 58-year-old female with obesity, admitted with severe sepsis, acute diverticulitis, acute kidney injury, colitis and bacteroides fragilis bacteremia from a gastrointestinal source, probable leak. We will repeat blood cultures of gram-negative shaun. Repeat CAT scan is noted. I spoke to Dr. Armstrong today regarding re-involvement of the Gastroenterology and Surgery. Dr. Yao's note is reviewed. Surgery's note is reviewed. We will follow with you. Campos Riojas MD
[2019-01-17] MEDS: metroNIDAZOLE IV 500 mg/100 ml 500 MG/100 ML BAG IVPB SCH ×3 (05:33→22:18)
[2019-01-17] MEDS: Pantoprazole 40 mg EC Tab PO SCH (05:33)
[2019-01-17] MEDS: Meropenem IV 1 gm in NS 1 GM/50 ML BAG IVPB SCH ×2 (05:34→13:03)
[2019-01-17 08:08] LABS: BASO # 0.02 K/mm3 (0.0-2.0); BASO % 0.3 % (0.0-3.0); EOS # 0.1 (0.0-0.7); HEMOGLOBIN 9.8 g/dL (12.0-16.0); LYMPH # 1.7 (1.2-3.4); LYMPH % 22.8 % (22.0-35.0); MEAN CELL VOLUME 79.9 fl (80.0-105.0); MEAN CORPUSCULAR HEMOGLOBIN 26.2 pg (25.0-35.0); MEAN CORPUSCULAR HGB CONC 32.8 g/dl (31.0-37.0); MONO # 0.5 (0.1-0.6); MONO % 6.5 % (1.0-6.0); RBC 3.74 10^6/uL (3.5-6.1); WHITE BLOOD COUNT 7.4 10^3/uL (4.5-11.0)
[2019-01-17 08:20] LABS: ALB/GLOB RATIO 0.6 (1.1-1.8); ALBUMIN 2.5 g/dL (3.0-4.8); ALT/SGPT 38 U/L (7-56); AST/SGOT 44 U/L (14-36); BLOOD UREA NITROGEN 3 mg/dL (7-21); CALCIUM 8.6 mg/dL (8.4-10.5); GFR NON-AFRICAN AMERICAN > 60
[2019-01-17] MEDS: Insulin Lispro (humaLOG) MEDIUM Coverage SC SCH ×4 (08:22→22:00)
[2019-01-17] MEDS: Potassium Chloride 20 mEq ER Tab PO SCH (08:30)
--- NOTE | 2019-01-17 09:58 | CP.PCM.PN ---
Subjective - Date & Time of Evaluation Date of Evaluation: 01/17/19 Time of Evaluation: 07:15 - Subjective Subjective: General Surgery progress note for Dr. Duarte Patient seen and examined this AM. Toleraitng regular diet. No complaints at this time. Otherwise denies BRYANT, SOB, CP, abdominal pain, NV and f/c. Objective - Vital Signs/Intake and Output Vital Signs (last 24 hours): Temp Pulse Resp BP Pulse Ox 98 F 85 18 136/78 97 01/17/19 06:00 01/17/19 06:00 01/17/19 06:00 01/17/19 06:00 01/17/19 06:00 Intake and Output: 01/17/19 01/17/19 06:59 18:59 Intake Total 540 Balance 540 - Medications Medications: Current Medications Acetaminophen (Tylenol 325mg Tab) 650 mg PO Q6H PRN PRN Reason: Pain, Mild (1-3) Last Admin: 01/09/19 09:37 Dose: 650 mg Albuterol/Ipratropium (Duoneb 3 Mg/0.5 Mg (3 Ml) Ud) 3 ml IH [id number] PRN PRN Reason: Shortness of Breath Amlodipine Besylate (Norvasc) 10 mg PO DAILY [facility] Last Admin: 01/16/19 10:27 Dose: 10 mg Aspirin (Aspirin Chewable) 81 mg PO DAILY [facility] Last Admin: 01/16/19 10:21 Dose: 81 mg Enoxaparin Sodium (Lovenox) 40 mg SC DAILY [facility]; Protocol Last Admin: 01/16/19 10:26 Dose: 40 mg Metronidazole (Flagyl) 500 mg in 100 mls @ 100 mls/hr IVPB Q8 [facility]; Protocol Stop: 01/23/19 14:01 Last Admin: 01/17/19 05:33 Dose: 100 mls/hr Meropenem (Merrem Iv 1 Gm Premix) 1 gm in 50 mls @ 100 mls/hr IVPB Q8 [facility]; Protocol Stop: 01/24/19 14:01 Last Admin: 01/17/19 05:34 Dose: 100 mls/hr Insulin Detemir (Levemir) 15 unit SC HS [facility] Last Admin: 01/16/19 21:46 Dose: 15 units Insulin Human Lispro (Humalog Med) 0 units SC ACHS [facility]; Protocol Last Admin: 01/17/19 08:22 Dose: Not Given Metoprolol Tartrate (Lopressor) 25 mg PO BID [facility] Last Admin: 01/16/19 17:33 Dose: 25 mg Pantoprazole Sodium (Protonix Ec Tab) 40 mg PO 0600 [facility] Last Admin: 01/17/19 05:33 Dose: 40 mg Potassium Chloride (K-Dur 20 Meq Er Tab) 20 meq PO BRK [facility] Last Admin: 01/16/19 10:45 Dose: 20 meq Zolpidem Tartrate (Ambien) 5 mg PO HS PRN; Protocol PRN Reason: Insomnia Last Admin: 01/14/19 02:48 Dose: 5 mg - Labs Labs: 01/17/19 07:30 01/17/19 07:30 - Constitutional Appears: Well, Non-toxic, No Acute Distress - Head Exam Head Exam: ATRAUMATIC - Eye Exam Eye Exam: EOMI - ENT Exam ENT Exam: Mucous Membranes Moist - Respiratory Exam Respiratory Exam: NORMAL BREATHING PATTERN - Cardiovascular Exam Cardiovascular Exam: REGULAR RHYTHM - GI/Abdominal Exam GI & Abdominal Exam: Soft. absent: Guarding, Tenderness - Extremities Exam Extremities Exam: absent: Calf Tenderness - Neurological Exam Neurological Exam: Alert, Awake, Oriented x3 - Psychiatric Exam Psychiatric exam: Normal Affect, Normal Mood - Skin Skin Exam: Dry, Intact, Normal Color, Warm Assessment and Plan - Assessment and Plan (Free Text) Assessment: Patient is a 58yo F with PMH of HTN, DM2, obesity, anxiety, and GERD admitted for gastroenteritis. Surgery consulted for gram negative bacteremia. Plan: - rpt CT showing R sided colitis, stable from prior CT - afebrile, leukocytosis downtrending, tolerating diet - continue IV abx as per primary team - f/u GI recs for outpatient colonoscopy - no further surgical intervention needed at this time, please reconsult as necessary Further recs as per Dr. Duarte. Paz Landry, PGY 1
[2019-01-17] MEDS: Enoxaparin 40 mg Syringe SC SCH (10:09)
--- NOTE | 2019-01-17 11:59 | CP.PCM.PN ---
<AdwoaalicekimLinden - Last Filed: 01/17/19 11:56> Subjective - Date & Time of Evaluation Date of Evaluation: 01/17/19 Time of Evaluation: 11:56 - Subjective Subjective: Patient is clinically the same. No complaints of abdominal pain. She is tolerating her diet well. Objective - Vital Signs/Intake and Output Vital Signs (last 24 hours): Temp Pulse Resp BP Pulse Ox 98 F 88 18 120/77 97 01/17/19 06:00 01/17/19 10:08 01/17/19 06:00 01/17/19 10:09 01/17/19 06:00 Intake and Output: 01/17/19 01/17/19 06:59 18:59 Intake Total 540 Balance 540 - Medications Medications: Current Medications Acetaminophen (Tylenol 325mg Tab) 650 mg PO Q6H PRN PRN Reason: Pain, Mild (1-3) Last Admin: 01/09/19 09:37 Dose: 650 mg Albuterol/Ipratropium (Duoneb 3 Mg/0.5 Mg (3 Ml) Ud) 3 ml IH [id number] PRN PRN Reason: Shortness of Breath Amlodipine Besylate (Norvasc) 10 mg PO DAILY [facility] Last Admin: 01/17/19 10:09 Dose: 10 mg Aspirin (Aspirin Chewable) 81 mg PO DAILY [facility] Last Admin: 01/17/19 10:08 Dose: 81 mg Enoxaparin Sodium (Lovenox) 40 mg SC DAILY [facility]; Protocol Last Admin: 01/17/19 10:09 Dose: 40 mg Metronidazole (Flagyl) 500 mg in 100 mls @ 100 mls/hr IVPB Q8 [facility]; Protocol Stop: 01/23/19 14:01 Last Admin: 01/17/19 05:33 Dose: 100 mls/hr Meropenem (Merrem Iv 1 Gm Premix) 1 gm in 50 mls @ 100 mls/hr IVPB Q8 [facility]; Protocol Stop: 01/24/19 14:01 Last Admin: 01/17/19 05:34 Dose: 100 mls/hr Insulin Detemir (Levemir) 15 unit SC HS [facility] Last Admin: 01/16/19 21:46 Dose: 15 units Insulin Human Lispro (Humalog Med) 0 units SC ACHS [facility]; Protocol Last Admin: 01/17/19 08:22 Dose: Not Given Metoprolol Tartrate (Lopressor) 25 mg PO BID [facility] Last Admin: 01/17/19 10:08 Dose: 25 mg Pantoprazole Sodium (Protonix Ec Tab) 40 mg PO 0600 [facility] Last Admin: 01/17/19 05:33 Dose: 40 mg Potassium Chloride (K-Dur 20 Meq Er Tab) 20 meq PO BRK [facility] Last Admin: 01/17/19 08:30 Dose: 20 meq Zolpidem Tartrate (Ambien) 5 mg PO HS PRN; Protocol PRN Reason: Insomnia Last Admin: 01/14/19 02:48 Dose: 5 mg - Labs Labs: 01/17/19 07:30 01/17/19 07:30 - Constitutional Appears: Non-toxic, No Acute Distress - Head Exam Head Exam: ATRAUMATIC, NORMAL INSPECTION - Eye Exam Eye Exam: EOMI, Normal appearance - Respiratory Exam Respiratory Exam: Clear to Ausculation Bilateral, NORMAL BREATHING PATTERN - Cardiovascular Exam Cardiovascular Exam: REGULAR RHYTHM, +S1, +S2 - GI/Abdominal Exam GI & Abdominal Exam: Soft, Normal Bowel Sounds. absent: Tenderness - Extremities Exam Extremities Exam: Normal Inspection. absent: Pedal Edema - Neurological Exam Neurological Exam: Alert, Awake, Oriented x3 - Psychiatric Exam Psychiatric exam: Normal Affect, Normal Mood - Skin Skin Exam: Normal Color, Warm Assessment and Plan - Assessment and Plan (Free Text) Assessment: 58 F with hx of HTN (years), DM2, obesity, anxiety, and GERD who is admitted for gastroenteritis. Patient had recent CT which showed right sided colitis, which has improved. Upon presentation, patient met SIRS criteria, and source of sepsis is gram negative bacteremia (Bacteroides fragilis). C.diff is negative. Per ID, source of bacteremia could be of GI source. Clinically, she is improving. Plan: - patient tolerating soft low fiber diet; should continue such diet for at least February 11 until colitis resolved - Continue supportive care - Abx per ID - TTE done to r/o endocarditis, no obvious vegetations however agree with further studies with RAFI. - Repeat blood cultures showing 1 vial of gram negative rods - Patient would benefit from colonoscopy in late February as an outpatient for abn ormal CT findings of right-sided colitis - PPI for GI ppx - further recs per Dr. Yao Case was reviewed and discussed with attending, Dr. Yao. See attestation <Hemalatha Yao V - Last Filed: 01/17/19 16:48> Objective - Vital Signs/Intake and Output Vital Signs (last 24 hours): Temp Pulse Resp BP Pulse Ox 98.3 F 87 18 127/75 100 01/17/19 14:00 01/17/19 14:00 01/17/19 14:00 01/17/19 14:00 01/17/19 14:00 Intake and Output: 01/17/19 01/17/19 06:59 18:59 Intake Total 540 Balance 540 - Medications Medications: Current Medications Acetaminophen (Tylenol 325mg Tab) 650 mg PO Q6H PRN PRN Reason: Pain, Mild (1-3) Last Admin: 01/09/19 09:37 Dose: 650 mg Albuterol/Ipratropium (Duoneb 3 Mg/0.5 Mg (3 Ml) Ud) 3 ml IH [id number] PRN PRN Reason: Shortness of Breath Amlodipine Besylate (Norvasc) 10 mg PO DAILY [facility] Last Admin: 01/17/19 10:09 Dose: 10 mg Aspirin (Aspirin Chewable) 81 mg PO DAILY [facility] Last Admin: 01/17/19 10:08 Dose: 81 mg Enoxaparin Sodium (Lovenox) 40 mg SC DAILY [facility]; Protocol Last Admin: 01/17/19 10:09 Dose: 40 mg Metronidazole (Flagyl) 500 mg in 100 mls @ 100 mls/hr IVPB Q8 [facility]; Protocol Stop: 01/23/19 14:01 Last Admin: 01/17/19 14:04 Dose: 100 mls/hr Meropenem (Merrem Iv 1 Gm Premix) 1 gm in 50 mls @ 100 mls/hr IVPB Q8 [facility]; Protocol Stop: 01/24/19 14:01 Last Admin: 01/17/19 13:03 Dose: 100 mls/hr Insulin Detemir (Levemir) 15 unit SC HS [facility] Last Admin: 01/16/19 21:46 Dose: 15 units Insulin Human Lispro (Humalog Med) 0 units SC ACHS [facility]; Protocol Last Admin: 01/17/19 12:18 Dose: 1 units Metoprolol Tartrate (Lopressor) 25 mg PO BID [facility] Last Admin: 01/17/19 10:08 Dose: 25 mg Pantoprazole Sodium (Protonix Ec Tab) 40 mg PO 0600 [facility] Last Admin: 01/17/19 05:33 Dose: 40 mg Potassium Chloride (K-Dur 20 Meq Er Tab) 20 meq PO BRK [facility] Last Admin: 01/17/19 08:30 Dose: 20 meq Zolpidem Tartrate (Ambien) 5 mg PO HS PRN; Protocol PRN Reason: Insomnia Last Admin: 01/14/19 02:48 Dose: 5 mg - Labs Labs: 01/17/19 07:30 01/17/19 07:30 Attending/Attestation - Attestation I have personally seen and examined this patient.: Yes I have fully participated in the care of the patient.: Yes I have reviewed all pertinent clinical information, including history, physical exam and plan: Yes Notes (Text): This is in addition to progress note dictated by GI fellow. Patient was seen and evaluated and reviewed earlier. Patient is clinically improving Tolerating diet Continue antibiotics as per ID In view of significant inflammatory changes in the ascending colon AND the possibility of microperforation,we would not contemplate colonoscopy at this time. We will wait for 3-4 weeks. Patient did have 3 CT scans done as follow- ups and they were reviewed 01/17/19 16:45
--- NOTE | 2019-01-17 19:22 | PN ---
DATE: 01/17/2019 This is [facility]'s hospital visit on the medical floor. For Dr. Rodrigez. SUBJECTIVE: The patient is a 58-year-old female, seen sitting up in bed, now being treated for positive blood cultures with IV antibiotics as per Dr. Riojas for her severe sepsis and acute diverticulitis. She was initially consulted due to significant thrombocytopenia, which has since corrected with lab tests to be monitored. She is otherwise reporting her diet was advanced and at this time denies any pain. OBJECTIVE: VITAL SIGNS: Temperature 98, pulse 88, respirations 18, blood pressure 120/77, and pulse ox 97%. HEENT: Unremarkable. NECK: Supple. HEART: Regular rate. LUNGS: Clear. ABDOMEN: Obese, soft, and nontender. EXTREMITIES: Faint +1 edema bilaterally. NEUROLOGIC: Awake, alert, and oriented. SKIN: Warm and dry. LABORATORY DATA: The patient's labs were done. White blood cell count of 7.4, hemoglobin of 9.8, hematocrit of 29.9, platelet count of 510,000 with a metabolic panel showing non-fasting glucose of 196. Urinalysis two days prior was essentially negative. However, her blood cultures from 01/12/2019 showed gram-negative rods along with a urine showing gram-positive cocci on 01/15/2019. Repeat blood cultures on 01/16/2019, which was yesterday, showed no growth after 24 hours, however, she remains on antibiotics. ASSESSMENT: Assessment for this patient is that of gram-negative bacteremia/sepsis, status post diverticulitis, diabetes mellitus, hypertension, reactive thrombocythemia, acute kidney injury, history of cerebrovascular accident, obesity, gastroesophageal reflux disease, and hyperlipidemia. PLAN: Plan for this patient is to continue present medical regimen with further workup as per Dr. Armstrong and Dr. Yao with continuation of antibiotics as per Dr. Riojas. We will monitor clinically. Jovani Gonsales MD
--- NOTE | 2019-01-17 21:36 | PN ---
DATE: 01/17/2019 PULMONARY PROGRESS NOTE REFERRING PHYSICIAN: Jose Antonio Armstrong MD SUBJECTIVE: The patient is sitting at the side of the bed. Night was unremarkable. Not very compliant with the CPAP. No headaches overnight, dizziness, or nausea. Bowel movement is improving. No leg pain, no leg swelling. OBJECTIVE: GENERAL: No acute distress. VITAL SIGNS: Temp is 98, heart rate is 87, respiratory rate is 18, blood pressure 127/75, pulse ox 100% on room air. HEENT: Moist mucous membranes. no ulcer or thrust noted. NECK: Supple. No JVD. LUNGS: Have fair airflow with rhonchi. HEART: S1 and S2. ABDOMEN: Soft and nontender. No organomegaly. EXTREMITIES: No edema. NEUROLOGIC: Awake and follows simple command. MEDICATIONS: She is on Ambien 5 mg at bedtime p.r.n., aspirin 81 mg daily, albuterol and Atrovent nebulizer every 6 hours p.r.n., Flagyl 500 mg every 8 hours, potassium 20 mEq daily, Levemir 15 units subQ at bedtime, metoprolol tartrate 25 mg twice a day, ReVia 50 mg subQ daily, meropenem 1 g IV every 8 hours, Norvasc 10 mg daily, Protonix 40 mg daily, Tylenol p.r.n. basis. LABORATORY DATA: Shows hemoglobin 9.3, hematocrit 29.9, WBC 7.4, platelet count is 510. Sodium 139, potassium 2.7, chloride 106, bicarbonate is 29, BUN 3, creatinine 0.9, glucose 196. Calcium is 8.6. AST 44, ALT 38, alkaline phosphatase is 98. Albumin is 2.5. Microbiology; last urine culture has grown positive cocci. Last blood culture 1 out of 2 has negative rods, and the list has a feedback culture on 01/16/2019, so far there is no growth. ASSESSMENT AND PLAN: Bacteremia, diverticulitis, suspected sleep apnea syndrome, insomnia, hypertension. Her echocardiogram done yesterday showing no left ventricular systolic function, mild tricuspid regurgitation. No vegetation seen. Pulmonary point of view, continue encourage continuous positive airway pressure use. Keep head of bed elevated at 45 degrees. Continue antibiotics as per Infectious Diseases. Gastric and deep venous thrombosis prophylaxis. Thank you and we will follow with you. Cami Downing MD [facility] # [id number]
[2019-01-17] MEDS: Insulin Detemir 100 units/ml Vial (Levemir) SC SCH (22:18)
--- NOTE | 2019-01-17 23:56 | PN ---
DATE: 01/17/2019 SUBJECTIVE: The patient was seen early this morning. She is doing well. No nausea, no vomiting, no diarrhea or constipation. PHYSICAL EXAMINATION: VITAL SIGNS: Temperature is 98, blood pressure is 130/70, respiratory rate is 16. HEENT: Unremarkable. NECK: Supple. LUNGS: Decreased breath sounds. HEART: Normal S1 and S2. ABDOMEN: Soft and nontender. LABORATORY EXAMINATION: Reveals a white count of 7.4, hemoglobin of 9, platelets of 510. Chemistry is noted. Urinalysis is noted. Serology is noted. MICROBIOLOGY: The repeat blood cultures are no growth from yesterday at 24 hours. The cultures from 01/15/2019 are gram-negative shaun, identification is still pending. Gram-positive cocci in the urine. ASSESSMENT AND PLAN: A 58-year-old female with obesity, admitted with severe sepsis; acute diverticulitis; acute kidney injury; colitis; Bacteroides fragilis bacteremia, gastrointestinal source, probable leak. Repeat cultures with gram-negative shaun. Currently on meropenem and Flagyl. Discussed with Dr. Armstrong. Gastroenterology and Surgery are following the patient. Repeat cultures are negative. We will follow with you. Campos Riojas MD
[2019-01-18] MEDS: Meropenem IV 1 gm in NS 1 GM/50 ML BAG IVPB SCH ×4 (00:32→22:15)
[2019-01-18] MEDS: metroNIDAZOLE IV 500 mg/100 ml 500 MG/100 ML BAG IVPB SCH ×3 (05:35→22:16)
[2019-01-18] MEDS: Pantoprazole 40 mg EC Tab PO SCH (05:35)
[2019-01-18 07:19] LABS: ALB/GLOB RATIO 0.6 (1.1-1.8); ALBUMIN 2.6 g/dL (3.0-4.8); ALT/SGPT 37 U/L (7-56); AST/SGOT 52 U/L (14-36); BASO # 0.02 K/mm3 (0.0-2.0); BASO % 0.3 % (0.0-3.0); BLOOD UREA NITROGEN 4 mg/dL (7-21); CALCIUM 8.7 mg/dL (8.4-10.5); EOS # 0.1 (0.0-0.7); EOS % 1.1 % (1.5-5.0); GFR NON-AFRICAN AMERICAN > 60; HEMOGLOBIN 10.1 g/dL (12.0-16.0); LYMPH # 1.8 (1.2-3.4); LYMPH % 24.1 % (22.0-35.0); MEAN CELL VOLUME 80.6 fl (80.0-105.0); MEAN CORPUSCULAR HEMOGLOBIN 26.2 pg (25.0-35.0); MEAN CORPUSCULAR HGB CONC 32.5 g/dl (31.0-37.0); MEAN PLATELET VOLUME 9.9 fl (7.0-11.0); MONO # 0.5 (0.1-0.6); MONO % 6.2 % (1.0-6.0); RBC 3.86 10^6/uL (3.5-6.1); RED CELL DISTRIBUTION WIDTH 15.3 % (11.5-14.5); WHITE BLOOD COUNT 7.4 10^3/uL (4.5-11.0)
--- NOTE | 2019-01-18 09:25 | PN ---
DATE: 01/18/2019 PULMONARY PROGRESS NOTE REFERRING PHYSICIAN: Jose Antonio Armstrong MD SUBJECTIVE: The patient is seen sitting up in bed, in no acute distress. No overnight events recorded. Did not wear CPAP machine last night. No headache, rhinitis, cough, shortness of breath, chest pain, abdominal pain, leg pain, or leg swelling reported. OBJECTIVE: VITAL SIGNS: Blood pressure 127/74, pulse 85, temperature 98.3, and oxygen saturation 99% on room air. GENERAL: No acute distress. HEENT: Moist mucous membranes. NECK: Supple. No JVD. LUNGS: Fair air flow bilaterally. CARDIOVASCULAR: S1 and S2. ABDOMEN: Soft and nontender. No distention. No organomegaly. EXTREMITIES: Bilateral lower extremities edema. NEUROLOGIC: Awake, alert, and verbal. Follows commands. MEDICATIONS: Reviewed. Tylenol 650 mg every 6 hours p.r.n., DuoNeb 3 mL inhalation every 6 hours p.r.n., Norvasc 10 mg daily, aspirin 81 mg daily, Lovenox 40 mg subcutaneously daily, Levemir 15 units subcutaneously at bedtime, Humalog sliding scale before meals and at bedtime, meropenem 1 g every 8 hours, Lopressor 25 mg twice a day, Flagyl 500 mg every 8 hours, Protonix 40 mg daily, potassium chloride 20 mEq at breakfast, and Ambien 5 mg at bedtime p.r.n. LABORATORY DATA: Reviewed. WBC 7.4, RBC 3.86, hemoglobin 10.1, hematocrit 31.1, platelets 526. Sodium 148, potassium 4, chloride 106, carbon dioxide 29, anion gap 9, BUN 4, creatinine 0.9, GFR greater than 60, random glucose 117, calcium 8.7, total bilirubin 0.4, AST 52, ALT 37, alkaline phosphatase 101, total protein 6.8, albumin 2.6, globulin 4.2, albumin globulin ratio 0.6. Blood cultures, preliminary, no growth after 24 hours. IMPRESSION AND PLAN: Bacteremia, diverticulitis, suspected sleep apnea syndrome, insomnia, hypertension. Continue to encourage continuous positive airway pressure use at bedtime. Sleep apnea precaution. Head of bed elevated at 45 degrees. Continue antibiotics as per Infectious Disease. Gastric prophylaxis and deep venous thrombosis prophylaxis. It is recommended that the patient has sleep study as outpatient. This patient was seen and examined with Dr. Downing. Discussed assessment and plan as described above. The patient was seen and examined with Damian Méndez, nurse practitioner. Discussed assessment and plan as described above. Thank you for this consult. We will follow with you. Damian Méndez APN Cami Downing MD
[2019-01-18] MEDS: Potassium Chloride 20 mEq ER Tab PO SCH (09:34)
[2019-01-18] MEDS: Enoxaparin 40 mg Syringe SC SCH (09:34)
[2019-01-18] MEDS: Insulin Lispro (humaLOG) MEDIUM Coverage SC SCH ×4 (09:35→21:43)
--- NOTE | 2019-01-18 14:50 | PN ---
DATE: 01/18/2019 SUBJECTIVE: The patient is in bed in no acute distress, nontoxic. PHYSICAL EXAMINATION VITAL SIGNS: On exam, temperature is 98, blood pressure is 150/80, respiratory rate of 20 and heart rate of 94. HEENT: Unremarkable. NECK: Supple. LUNGS: Have decreased breath sounds. HEART: Normal S1 and S2. ABDOMEN: Soft. LABORATORY EXAMINATION: Reveals a white count of 7.4 and hemoglobin of 10. BUN of 4 and creatinine of 0.9. Urinalysis is noted. Serology is reviewed. Microbiology is noted. The Gram-negative shaun in blood is pending. The repeat blood cultures are negative and surgeries note is reviewed. GI note is reviewed. ASSESSMENT AND PLAN: This is a 58-year-old female with obesity, admitted with severe sepsis, acute diverticulitis, acute kidney injury and colitis with Bacteroides fragilis bacteremia, most likely GI source, probable leak that is healed off. Currently on meropenem and Flagyl. The white count is normalized. Would treat with antibiotics as outpatient if the patient is to be discharged and limited options since THE PATIENT IS ALLERGIC TO PENICILLIN, maybe able to treat with p.o. Flagyl and p.o. Cipro. We will check on the identification of Gram-negative shaun that was in the repeat cultures probably Bacteroides fragilis again. Would continue the antibiotics for at least 10 to 14 days, perhaps longer until the colonoscopy is done in a few weeks. Case discussed with the patient at length this morning.. Review of the QTc on the EKG, shows a QTc to be 461. We will follow with you. Maybe he will discharge on p.o. Cipro and p.o. Flagyl at least 14 days with close followup with GI and surgery as outpatient. Campos Riojas MD
--- NOTE | 2019-01-18 17:29 | PN ---
DATE: 01/18/2019 This is [facility]'s special care hospital visit on the medical floor. For Dr. Rodrigez. SUBJECTIVE: The patient is a 58-year-old female, seen sitting up in a chair. Continues with IV antibiotics as per Dr. Riojas, Infectious Disease [employer] sales consultant, for her severe sepsis status post acute diverticulitis with bacteroides fragilis bacteremia with the patient now improving with repeat blood cultures done two days prior, and negative on two specimens tested. She continues on meropenem and Flagyl with eventual change to oral antibiotics as per Dr. Riojas as indicated. She is in no acute distress during this visit. Her thrombocytopenic indices have since corrected with reactive thrombocytosis at this point being noted. She remains anemic, but asymptomatic. PHYSICAL EXAMINATION: VITAL SIGNS: Temperature 98.4, pulse 94, respirations 20, blood pressure 152/80, and pulse ox 97%. HEENT: Mild facial droop on the left. History of CVA. NECK: Supple. HEART: Regular rate. LUNGS: Clear. ABDOMEN: Obese, soft, and nontender. EXTREMITIES: Faint +1 edema bilaterally. NEUROLOGIC: Awake and alert. SKIN: Warm and dry. LABORATORY DATA: The patient's labs were done. White blood cell count is 7.4, hemoglobin of 10.1, hematocrit of 31.1, and platelet count of 526,000 with a metabolic panel showing AST of 52, and non-fasting glucose of 267. As mentioned above, her blood cultures from two days prior showed no growth after 24 hours. ASSESSMENT: The assessment for this patient is that of severe sepsis, acute diverticulitis status post treatment, bacteroides fragilis bacteremia, anemia, diabetes mellitus, hypertension, reactive thrombocythemia, acute kidney injury, history of cerebrovascular accident, obesity, gastroesophageal reflux disease, and hyperlipidemia. PLAN: The plan for this patient after consultation with Dr. Rodrigez is to continue present medical regimen with iron studies to be done with for anemic workup with discharge plan as per primary doctor and followup with Dr. Rodrigez as indicated. This is a complex patient with a comprehensive medically necessary and appropriate visit carried out in excess of 15 minutes with the patient's questions answered to her satisfaction. Jovani Gonsales MD [facility] # [id number]
[2019-01-18] MEDS: Insulin Detemir 100 units/ml Vial (Levemir) SC SCH (22:15)
[2019-01-18 22:28] VITALS: RESP 18
--- NOTE | 2019-01-19 01:03 | PN ---
DATE: 01/16/2019 SUBJECTIVE: The patient is a 58-year-old female. The patient seems comfortable. No distress. Repeat CT shows no change. Still have positive blood culture. The patient is clinically stable. PHYSICAL EXAMINATION: VITAL SIGNS: Temperature 98.2, heart rate 79, blood pressure 111/76, respiration 18, and saturating 100%. HEAD AND NECK: Normal. No JVD, no thyromegaly. CHEST: Clear bilaterally. CARDIAC: First sound and second sound normal. ABDOMEN: Soft, obese and nontender. EXTREMITIES: No edema. NEUROLOGIC: Normal. LABORATORY DATA: White count 9.6, hemoglobin 10.7, hematocrit 32.5 and platelets 534. Chemistry; sodium 139, potassium 3.9, chloride 106, bicarb 26, BUN 3, creatinine 0.9, and blood sugar 230. Total bilirubin 0.6, AST 49 and elevated, and ALT and alk phos are normal. CURRENT MEDICATIONS: Ambien 10 mg, aspirin, DuoNeb, Flagyl, insulin coverage, K-Dur 20 mEq daily, Levemir 15 units subcu daily, Lopressor 25 mg b.i.d., Lovenox, Merrem 1 g IV every 8 hours, Norvasc 10 mg, Protonix 40 mg daily, and Tylenol. ASSESSMENT AND PLAN: 1. Colitis, bacteroides fragilis from the blood cultures, continue Merrem and no obvious collections. Surgical team to see the patient, no intervention. At this time, continue IV antibiotics. 2. Diabetes, insulin-dependent. Continue current insulin regimen. 3. Hypertension, stable. Continue Norvasc 10 mg daily. Continue current therapy. Jose Antonio Armstrong MD
--- NOTE | 2019-01-19 01:07 | PN ---
DATE: 01/18/2019 SUBJECTIVE: The patient is fine, has no new complaints. She has no nausea, no fever and no abdominal pain. PHYSICAL EXAMINATION: No change. VITAL SIGNS: Temperature 98.4, heart rate 94, blood pressure 152/80, respirations 20, and saturation 97% on room air. HEAD AND NECK: Normal. No JVD. No thyromegaly. CHEST: Clear bilaterally. CARDIAC: First sound and second sound normal. No murmurs, rubs, or gallops. ABDOMEN: Soft, obese and nontender. EXTREMITIES: No edema. NEUROLOGIC: Normal. LABORATORY DATA: Sodium 140, potassium 4, chloride 106, bicarb 29, BUN 4, creatinine 0.9, blood sugar 117, and calcium 8.7. Liver function test is normal except AST is slightly elevated at 52. Her CBC shows white count 7.4, hemoglobin 10.1, hematocrit 31.1, and platelets 526. IMPRESSION AND PLAN: 1. Colitis with bacteroides fragilis positive blood cultures. Continue current therapy. Flagyl plus Merrem IV. Dr. Héctor Hardy will evaluate the patient in the morning. 2. Insulin-dependent diabetes. Continue insulin regimen. 3. Hypertension, stable. Continue Norvasc and metoprolol. PLAN: Continue current therapy. Continue GI and DVT prophylaxis. Jose Antonio Armstrong MD
[2019-01-19] MEDS: Meropenem IV 1 gm in NS 1 GM/50 ML BAG IVPB SCH ×3 (05:52→21:19)
[2019-01-19 07:30] LABS: BASO # 0.02 K/mm3 (0.0-2.0); BASO % 0.3 % (0.0-3.0); EOS # 0.1 (0.0-0.7); EOS % 1.1 % (1.5-5.0); HEMOGLOBIN 9.9 g/dL (12.0-16.0); LYMPH # 1.7 (1.2-3.4); LYMPH % 24.5 % (22.0-35.0); MEAN CELL VOLUME 80.6 fl (80.0-105.0); MEAN CORPUSCULAR HEMOGLOBIN 26.3 pg (25.0-35.0); MEAN CORPUSCULAR HGB CONC 32.6 g/dl (31.0-37.0); MEAN PLATELET VOLUME 9.4 fl (7.0-11.0); MONO # 0.4 (0.1-0.6); MONO % 6.1 % (1.0-6.0); RBC 3.77 10^6/uL (3.5-6.1); RED CELL DISTRIBUTION WIDTH 15.4 % (11.5-14.5)
[2019-01-19 07:45] LABS: IRON 52 ug/dL (45-180)
[2019-01-19 07:54] LABS: % IRON SATURATION 24 % (20-55); TOTAL IRON BINDING CAPACITY 220 ug/dL (265-497)
[2019-01-19 08:05] LABS: ALB/GLOB RATIO 0.6 (1.1-1.8); ALBUMIN 2.7 g/dL (3.0-4.8); ALT/SGPT 33 U/L (7-56); AST/SGOT 62 U/L (14-36); BLOOD UREA NITROGEN 5 mg/dL (7-21); CALCIUM 8.8 mg/dL (8.4-10.5); GFR NON-AFRICAN AMERICAN > 60
--- NOTE | 2019-01-19 08:29 | PN ---
DATE: 01/17/2019 SUBJECTIVE: The patient is comfortable. No distress. On IV Merrem. No chest pain. No short of breath. She is tolerating diet. No diarrhea. No nausea. No vomiting. PHYSICAL EXAMINATION: VITAL SIGNS: As follows: Temperature is 98, heart rate 85, blood pressure 126/70, respirations 18, oxygen saturation 97% on room air. HEENT: Head and neck exam normal. No JVD. No thyromegaly. CHEST: Clear bilateral. CARDIAC: First sound and second sound normal. ABDOMEN: Soft, obese, and nontender. EXTREMITIES: No edema. NEUROLOGIC: Normal. LABORATORY DATA: Sodium 139, potassium 3.7, chloride 106, bicarbonate 29, BUN 3, creatinine 0.9. Blood sugar 112. Liver function test is normal except AFP 44. IMPRESSION: 1. Colitis with Bacteroides fragilis bacteremia. Continue Flagyl and Merrem IV. I will get Dr. Héctor Hardy's consultation to look at the CAT scan or to comment any radiological evaluation of the colitis, may be an MRI of the colon or the abdomen will be helpful, we will leave that to him. 2. Insulin dependent diabetes, continue insulin regimen. 3. Hypertension, stable. Continue Norvasc and metoprolol. PLAN: Continue current therapy. Follow up clinically. The patient's current medications: Ambien, aspirin, DuoNeb, Flagyl, Merrem, insulin, K-Dur 20, Lopressor 25 b.i.d., Lovenox 40 subcutaneously daily, Norvasc 10, Protonix 40, Tylenol p.r.n. Jose Antonio Armstrong MD
[2019-01-19] MEDS: Insulin Lispro (humaLOG) MEDIUM Coverage SC SCH ×4 (10:09→21:16)
[2019-01-19] MEDS: Potassium Chloride 20 mEq ER Tab PO SCH (10:14)
[2019-01-19] MEDS: Enoxaparin 40 mg Syringe SC SCH (10:15)
[2019-01-19] MEDS: metroNIDAZOLE IV 500 mg/100 ml 500 MG/100 ML BAG IVPB SCH (13:13)
--- NOTE | 2019-01-19 20:22 | PN ---
DATE: 01/19/2019 SUBJECTIVE: The patient is in bed in no acute distress, nontoxic. PHYSICAL EXAMINATION VITAL SIGNS: On exam, temperature is 98, blood pressure is 140/90, respiratory rate of 18. HEENT: Unremarkable. NECK: Supple. LUNGS: Have decreased breath sounds. HEART: Normal S1 and S2. ABDOMEN: Soft. LABORATORY DATA: Reveals a BUN of 5 and creatinine of 0.9 and microbiology is noted. The repeat blood cultures are negative and white count is 7 and HIV is negative. Urinalysis is noted. Review of orders is noted. Dr. Armstrong's note is reviewed. Surgery's note is reviewed. GI note is reviewed. ASSESSMENT AND PLAN: This is a 58-year-old admitted with severe sepsis, acute diverticulitis, acute kidney injury and colitis with Bacteroides fragilis bacteremia and now is healed off and would continue 10 to 14 days of antibiotics, may be able switch to p.o. Flagyl and p.o. Cipro for 10 to 14 days with GI and Surgery on the case to follow closely. We will change the Flagyl to p.o. at this point and in the next 24 hours, we will change the meropenem to Cipro. Campos Riojas MD
[2019-01-19] MEDS: Insulin Detemir 100 units/ml Vial (Levemir) SC SCH (21:18)
[2019-01-20] MEDS: Pantoprazole 40 mg EC Tab PO SCH (05:45)
[2019-01-20] MEDS: Meropenem IV 1 gm in NS 1 GM/50 ML BAG IVPB SCH (05:46)
--- NOTE | 2019-01-20 08:03 | CP.PCM.PN ---
<Ck Cortes - Last Filed: 01/20/19 13:25> Subjective - Date & Time of Evaluation Date of Evaluation: 01/20/19 Time of Evaluation: 07:03 - Subjective Subjective: Ck Cortes PGY2 GI Progress Note for Dr. Yao Patient was seen and examined at bedside. She is having firm stools now, and has no abdominal pain. She denies any fever/chills. Ms. Krishnan is requesting for the GI team to speak with her daughter Danna to update her. The caption writer called Ms. Clay ([phone]) to inform her of the patient's progress during the hospital stay and expected course. She is instructed that that patient is to continue on a low fiber/low fat soft diet for 4 more weeks to allow for bowel rest and for the colitis to heal, at which point, the patient would be able to safely tolerate a colonoscopy. ID is also considering continuing abx till that time; patient is now on PO abx. Danna understands, b ut worries that the patient lives at home alone and would not be able to take care of herself. Objective - Vital Signs/Intake and Output Vital Signs (last 24 hours): Temp Pulse Resp BP Pulse Ox 98.1 F 73 18 135/85 100 01/19/19 14:00 01/19/19 17:29 01/19/19 14:00 01/19/19 17:29 01/19/19 14:00 Intake and Output: 01/20/19 01/20/19 06:59 18:59 Intake Total 1020 Balance 1020 - Medications Medications: Current Medications Acetaminophen (Tylenol 325mg Tab) 650 mg PO Q6H PRN PRN Reason: Pain, Mild (1-3) Last Admin: 01/09/19 09:37 Dose: 650 mg Albuterol/Ipratropium (Duoneb 3 Mg/0.5 Mg (3 Ml) Ud) 3 ml IH [id number] PRN PRN Reason: Shortness of Breath Amlodipine Besylate (Norvasc) 10 mg PO DAILY [facility] Last Admin: 01/19/19 10:15 Dose: 10 mg Aspirin (Aspirin Chewable) 81 mg PO DAILY [facility] Last Admin: 01/19/19 10:13 Dose: 81 mg Enoxaparin Sodium (Lovenox) 40 mg SC DAILY [facility]; Protocol Last Admin: 01/19/19 10:15 Dose: 40 mg Meropenem (Merrem Iv 1 Gm Premix) 1 gm in 50 mls @ 100 mls/hr IVPB Q8 [facility]; Protocol Stop: 01/24/19 14:01 Last Admin: 01/20/19 05:46 Dose: 100 mls/hr Insulin Detemir (Levemir) 15 unit SC HS [facility] Last Admin: 01/19/19 21:18 Dose: Not Given Insulin Human Lispro (Humalog Med) 0 units SC ACHS [facility]; Protocol Last Admin: 01/19/19 21:16 Dose: Not Given Metoprolol Tartrate (Lopressor) 25 mg PO BID [facility] Last Admin: 01/19/19 17:29 Dose: 25 mg Metronidazole (Flagyl) 500 mg PO Q8 [facility]; Protocol Stop: 02/02/19 22:01 Last Admin: 01/20/19 05:45 Dose: 500 mg Pantoprazole Sodium (Protonix Ec Tab) 40 mg PO 0600 [facility] Last Admin: 01/20/19 05:45 Dose: 40 mg Potassium Chloride (K-Dur 20 Meq Er Tab) 20 meq PO BRK [facility] Last Admin: 01/19/19 10:14 Dose: 20 meq Zolpidem Tartrate (Ambien) 5 mg PO HS PRN; Protocol PRN Reason: Insomnia Last Admin: 01/14/19 02:48 Dose: 5 mg - Labs Labs: 01/19/19 07:00 01/19/19 07:00 - Constitutional Appears: Well, Non-toxic, No Acute Distress - Head Exam Head Exam: ATRAUMATIC, NORMAL INSPECTION, NORMOCEPHALIC - Eye Exam Eye Exam: EOMI, Normal appearance, PERRL Pupil Exam: NORMAL ACCOMODATION, PERRL - ENT Exam ENT Exam: Mucous Membranes Moist, Normal Exam - Neck Exam Neck Exam: Full ROM, Normal Inspection. absent: Lymphadenopathy - Respiratory Exam Respiratory Exam: Clear to Ausculation Bilateral, NORMAL BREATHING PATTERN - Cardiovascular Exam Cardiovascular Exam: REGULAR RHYTHM, +S1, +S2. absent: Murmur - GI/Abdominal Exam GI & Abdominal Exam: Soft, Normal Bowel Sounds. absent: Distended, Guarding, Tenderness - Extremities Exam Extremities Exam: Full ROM, Normal Capillary Refill, Normal Inspection. absent: Joint Swelling, Pedal Edema - Back Exam Back Exam: NORMAL INSPECTION - Neurological Exam Neurological Exam: Alert, Awake, CN II-XII Intact, Normal Gait, Oriented x3 - Psychiatric Exam Psychiatric exam: Normal Affect, Normal Mood - Skin Skin Exam: Dry, Intact, Normal Color, Warm Assessment and Plan - Assessment and Plan (Free Text) Assessment: 58 F with hx of HTN (years), DM2, obesity, anxiety, and GERD who is admitted for gastroenteritis. Patient had recent CT which showed right sided colitis, which has symptomatically improved. Upon presentation, patient met SIRS criteria, and source of sepsis is gram negative bacteremia (Bacteroides fragilis). C.diff is negative. Per ID, source of bacteremia could be of GI source given the bacteria. Clinically, she is improving and symptoms have resolved. Plan: - patient tolerating soft low fiber diet; should continue such diet for at least 4 weeks until colitis resolved - Continue supportive care - Abx per ID - Repeat blood cultures showing no bacterial growth x72hrs - Patient may benefit from colonoscopy in 3-4 weeks as an outpatient for abnormal CT findings of right-sided colitis - PPI for GI ppx - further recs per Dr. Yao Case was reviewed and discussed with attending, Dr. Yao <Hemalatha Yao V - Last Filed: 01/20/19 22:02> Objective - Vital Signs/Intake and Output Vital Signs (last 24 hours): Temp Pulse Resp BP Pulse Ox 98.2 F 81 18 144/77 97 01/20/19 14:00 01/20/19 14:00 01/20/19 14:00 01/20/19 17:52 01/20/19 14:00 Intake and Output: 01/20/19 01/21/19 18:59 06:59 Intake Total 720 Balance 720 - Labs Labs: 01/19/19 07:00 01/19/19 07:00 Attending/Attestation - Attestation I have personally seen and examined this patient.: Yes I have fully participated in the care of the patient.: Yes I have reviewed all pertinent clinical information, including history, physical exam and plan: Yes Notes (Text): The patient was seen and evaluated with the product manager medical device here earlier today. This is an addendum to the GI progress report dictated by the resident Patient is tolerating the diet no complaints of any abdominal pain Patient did have bacteiodes positive blood culture Will need elective colonoscopy Avoid constipation Advised the patient follow-up in our office and follow-up with the primary physician post discharge Completed the antibiotic course as per ID 01/20/19 22:00
[2019-01-20] MEDS: Potassium Chloride 20 mEq ER Tab PO SCH (10:21)
[2019-01-20] MEDS: Insulin Lispro (humaLOG) MEDIUM Coverage SC SCH ×3 (10:22→17:50)
[2019-01-20] MEDS: Enoxaparin 40 mg Syringe SC SCH (10:23)
--- NOTE | 2019-01-20 11:49 | PN ---
DATE: 01/20/2019 PULMONARY PROGRESS NOTE REFERRING PHYSICIAN: Jose Antonio Armstrong MD SUBJECTIVE: The patient is seen sitting up in bed, in no acute distress. No overnight events reported. Did not wear CPAP machine last night. No headache, rhinitis, cough, shortness of breath, chest pain, abdominal pain, nausea, vomiting, diarrhea, leg pain, or leg swelling reported. OBJECTIVE: VITAL SIGNS: Blood pressure 143/76, pulse 85, temperature 98, and oxygen saturation 98% on room air. GENERAL: No acute distress. HEENT: Moist mucous membranes. NECK: Supple. No JVD. LUNGS: Fair air flow bilaterally. CARDIOVASCULAR: S1 and S2. ABDOMEN: Soft and nontender. No distention. No organomegaly. EXTREMITIES: Trace bilateral lower extremity edema. NEUROLOGIC: Awake, alert, and verbal. Follows commands. MEDICATIONS: Reviewed. Tylenol 650 mg every 6 hours p.r.n. for mild pain, DuoNeb 3 mL inhalation every 6 hours p.r.n., Norvasc 10 mg daily, aspirin 81 mg daily, Lovenox 40 mg subcutaneously daily, Levemir 15 units subcutaneously at bedtime, Humalog sliding a.c. and at bedtime, meropenem 1 g every 8 hours, metoprolol tartrate 25 mg twice a day, Flagyl 500 mg every 8 hours, Protonix 40 mg daily, potassium chloride 20 mEq at breakfast, and Ambien 5 mg p.o. at bedtime p.r.n. LABORATORY DATA: Reviewed. POC glucose 153. Transferrin 152.25 and ferritin 135. Blood cultures preliminary no growth after 3 days. IMPRESSION AND PLAN: Bacteremia, diverticulitis, suspected sleep apnea syndrome, insomnia and hypertension. The patient presently has been refusing continuous positive airway pressure use at bedtime, continue to encourage continuous positive airway pressure use at bedtime, sleep apnea precaution, head of bed elevated at 45 degrees. Continue antibiotics as per Infectious Disease, gastric prophylaxis and deep venous thrombosis prophylaxis. We recommend this patient have sleep study to assess for obstructive sleep apnea as outpatient. To avoid sedation and fall precaution. This patient was seen and examined with Dr. Downing. Discussed assessment and plan as described above. This patient was seen and examined with Damian Méndez, nurse practitioner. Discussed assessment and plan as described above. Thank you for this consult. We will follow with you. Damian Méndez APN Cami Downing MD [facility] # [id number]
--- NOTE | 2019-01-20 12:26 | PN ---
DATE: 01/19/2019 SUBJECTIVE: The patient is stable. No complaints. No nausea, no vomiting. Still on IV antibiotics. The patient had no fever. PHYSICAL EXAMINATION: VITAL SIGNS: Temperature 98, heart rate 72, blood pressure 131/85, respirations 18, and saturation 99%. HEAD AND NECK: Normal. No JVD. No thyromegaly. CHEST: Clear bilaterally. CARDIAC: First sound and second sound normal. No murmurs, rubs, or gallops. ABDOMEN: Soft, obese and nontender. EXTREMITIES: No edema. NEUROLOGIC: Normal. LABORATORY DATA: Blood culture repeated was negative x2. IMPRESSION: 1. Right-sided diverticulitis, colitis. The patient has CT. There are inflammatory changes around the right colon. Repeat blood culture now negative. Infectious Disease planning to switch to p.o. Cipro and Flagyl for 10 to 15 days. We will continue followup. 2. Diabetes, insulin dependent. Stable. Continue insulin coverage. 3. Hypertension. The patient is doing well. 4. The patient has anemia, chronic. She had a colonoscopy. She may need to follow up on the anemia. At this time continue current therapy. Humalog, Levemir, Lopressor for blood pressure 25 b.i.d. Continue Merrem IV, Lovenox, Norvasc, Topamax 40 IV daily, Tylenol as needed, metronidazole p.o., DuoNeb, aspirin and Ambien. Jose Antonio Armstrong MD
[2019-01-20 14:29] VITALS: PULSE 81; TEMP 98.2; O2SAT 97
--- NOTE | 2019-01-20 15:04 | PN ---
DATE: 01/20/2019 SUBJECTIVE: The patient is in bed in no acute distress, nontoxic. No fevers. The patient is doing much better. PHYSICAL EXAMINATION: VITAL SIGNS: Temperature is 98, blood pressure is 140/70, respiratory rate of 18. HEENT: Unremarkable. NECK: Supple. LUNGS: Have decreased breath sounds. HEART: Normal S1, S2. ABDOMEN: Soft. LABORATORY EXAMINATION: Reveals the patient's white count is 7.0. Chemistries are noted. Urinalysis is noted. HIV is negative. Microbiology is reviewed. ASSESSMENT AND PLAN: This is a 58-year-old female who was admitted with severe sepsis, acute diverticulitis, acute kidney injury and colitis with bacteroides fragilis bacteremia, most likely GI leak which is off. We continue treating with p.o. antibiotics and p.o. Flagyl and Cipro. Follow up with Gastroenterology. The patient is at high risk of developing sepsis again currently doing well, was allergic to penicillin. We may complete with p.o. Cipro and p.o. Flagyl times 14 days. We will discontinue the meropenem. Cipro 500 mg p.o. twice a day and times 14 days and p.o. Flagyl 500 mg p.o. every 8 hours times also 14 days with close follow up with PMD, surgery, and Gastroenterology. Campos Riojas MD
[2019-01-20 17:54] VITALS: BP 144/77
--- NOTE | 2019-01-21 22:18 | DS ---
HISTORY OF PRESENT ILLNESS: The patient was admitted with abdominal pain. CT scan shows right-sided colitis. She was given IV antibiotics Merrem, Flagyl, and clear liquid diet. The patient is doing okay; however, repeat blood culture showed Gram-negative, which extended her antibiotic stay IV. The patient . She is tolerating soft diet very well. No nausea, no vomiting, no diarrhea, and no fever. Her repeat culture finally came back negative and the patient was okay to be discharge on p.o. antibiotics. She has no chest pain. No short of breath. She is hemodynamically stable. PHYSICAL EXAMINATION: VITAL SIGNS: On discharge; temperature 98, heart rate 81, blood pressure 117/77, respirations 18, and saturation 97% on room air. HEAD AND NECK: Normal. No JVD. No thyromegaly. CHEST: Clear bilaterally. CARDIAC: First sound and second sound normal. No murmurs, rubs, or gallops. ABDOMEN: Soft, obese, and nontender. EXTREMITIES: No edema. NEUROLOGIC: Normal. LABORATORY DATA: White count 7, hemoglobin 9.9, hematocrit 30.4, and platelets 528. Chemistry noted for blood sugar in 200 range and 150 range. Sodium 140, potassium 4.1, chloride 107, bicarbonate 28, BUN 5, and creatinine 0.9, The patient had liver function test within normal range except AST was 62. The patient also had CT abdomen and pelvis, there is no collection, but there was inflammatory changes in the right side of the colon. The patient also had an HIV test which is nonreactive. Influenza A and B, which was negative. DISCHARGE DIAGNOSES: 1. Right-sided diverticulitis. Plan to give p.o. Flagyl and Cipro for 10 days. We will see the patient in a week. 2. Hypertension. Continue blood pressure medications. She has been on enalapril 20 mg b.i.d., metoprolol 50 mg p.o. b.i.d., and she seems to be doing well with that. 3. Insulin-dependent diabetes. Continue insulin regimen. Continue Levemir. Continue metformin. We will follow up as outpatient. 4. Morbid obesity. Hypercholesterolemia. Continue Zocor 40 mg at bedtime. Diet, low carbohydrate diet. Continue vitamin D, trazodone 50 at bedtime, and continue Steglatro 15 mg p.o. daily. Jose Antonio Armstrong MD
== END 2019-01-20 20:37 | disposition home or self-care (01) | DRG 584 ==
LOC: ED 16:13 → ERH 18:23 → 5RSO 20:29 → 5RNO 01-09 00:25
PROVIDERS: ADMIT Internal Medicine; ATTEND Internal Medicine
PROC: 5A09357 Assistance with Respiratory Ventilation, Less than 24 Consecutive Hours, Continuous Positive Airway Pressure (ICD-10-PCS; principal; 2019-01-11)
DX: A41.4 Sepsis due to anaerobes (principal); N17.0 Acute kidney failure with tubular necrosis; K52.9 Noninfective gastroenteritis and colitis, unspecified; K57.32 Diverticulitis of large intestine without perforation or abscess without bleeding; J44.9 Chronic obstructive pulmonary disease, unspecified; E87.6 Hypokalemia; D69.6 Thrombocytopenia, unspecified; R65.20 Severe sepsis without septic shock; N14.1 Nephropathy induced by other drugs, medicaments and biological substances; T50.8X5A Adverse effect of diagnostic agents, initial encounter; E11.9 Type 2 diabetes mellitus without complications; I10 Essential (primary) hypertension; K21.9 Gastro-esophageal reflux disease without esophagitis; G47.33 Obstructive sleep apnea (adult) (pediatric); G51.0 Bell's palsy; E66.01 Morbid (severe) obesity due to excess calories; F51.04 Psychophysiologic insomnia; F41.9 Anxiety disorder, unspecified; D64.9 Anemia, unspecified; G43.909 Migraine, unspecified, not intractable, without status migrainosus; E78.5 Hyperlipidemia, unspecified; R17 Unspecified jaundice; Z68.34 Body mass index [BMI] 34.0-34.9, adult; Z86.73 Personal history of transient ischemic attack (TIA), and cerebral infarction without residual deficits; Z79.4 Long term (current) use of insulin; Z79.82 Long term (current) use of aspirin; Z79.899 Other long term (current) drug therapy; Z87.891 Personal history of nicotine dependence; Z88.0 Allergy status to penicillin

== ENCOUNTER 2019-02-27 20:35 | Inpatient (IN) | payer MEDICAID ==
[2019-02-27 20:53] VITALS: BMI 33.0
[2019-02-27] MEDS ORDERED: Sodium Chloride 0.9% 1,000 ML IV STA (21:05)
[2019-02-27 21:45] LABS: BASO # 0.03 K/mm3 (0.0-2.0); BASO % 0.4 % (0.0-3.0); EOS # 0.2 (0.0-0.7); EOS % 2.1 % (1.5-5.0); HEMOGLOBIN 13.6 g/dL (12.0-16.0); LYMPH % 13.2 % (22.0-35.0); MEAN CELL VOLUME 81.8 fl (80.0-105.0); MEAN CORPUSCULAR HEMOGLOBIN 27.5 pg (25.0-35.0); MEAN CORPUSCULAR HGB CONC 33.7 g/dl (31.0-37.0); MEAN PLATELET VOLUME 10.3 fl (7.0-11.0); MONO # 0.9 (0.1-0.6); MONO % 12.3 % (1.0-6.0); RBC 4.94 10^6/uL (3.5-6.1); RED CELL DISTRIBUTION WIDTH 15.2 % (11.5-14.5); WHITE BLOOD COUNT 7.6 10^3/uL (4.5-11.0)
[2019-02-27 21:57] LABS: ALB/GLOB RATIO 1.1 (1.1-1.8); ALBUMIN 4.2 g/dL (3.0-4.8); CALCIUM 9.5 mg/dL (8.4-10.5)
[2019-02-27 21:58] LABS: VENOUS BLOOD GAS BASE EXCESS 4.4 mmol/L (0.0-2.0); VENOUS BLOOD GAS PO2 51 mm/Hg (30-55); VENOUS BLOOD PH 7.44 (7.32-7.43)
[2019-02-27] MEDS ORDERED: Potassium Chloride 20 mEq ER Tab PO STA (22:01)
[2019-02-27 22:02] LABS: INFLUENZA A B NEGATIVE FOR FLU A/B (NEGATIVE)
[2019-02-27 22:08] LABS: TROPONIN I 0.03 ng/mL
--- NOTE | 2019-02-27 22:18 | ED PDOC ---
Arrival/HPI <AgaSalbador - Last Filed: 02/27/19 22:49> - General Historian: Patient - History of Present Illness Narrative History of Present Illness (Text): 02/27/19 23:52 58 y/o female with PMH of HTN, HLD, DM, diverticulitis presents to the ED c/o chills x 3 days. Associated productive cough and right sided abdominal pain. Has not taken any medication for her symptoms. Pt was recently admitted to the hospital for right sided diverticulitis. Denies nausea, vomiting, diarrhea, back pain, urinary symptoms, vaginal bleeding/discharge, chest pain, SOB, or any other associated symptoms. <Isatu Ruiz - Last Filed: 02/28/19 01:05> - General Chief Complaint: Cough, Cold, Congestion Time Seen by Provider: 02/27/19 20:37 Past Medical History - Provider Review Nursing Documentation Reviewed: Yes - Infectious Disease Hx of Infectious Diseases: None - Tetanus Immunization Tetanus Immunization: Up to Date - Cardiac Hx Pacemaker: No - Pulmonary Hx Respiratory Disorders: Yes Hx Bronchitis: Yes Hx Pneumonia: Yes - Neurological Hx Neurological Disorder: Yes Hx Dizziness: Yes Hx Migraine: Yes Other/Comment: Lovell's Palsy , memory issues - HEENT Hx HEENT Disorder: No - Renal Hx Renal Disorder: No - Endocrine/Metabolic Hx Endocrine Disorders: Yes Hx Diabetes Mellitus Type 2: Yes Hx Hyperthyroidism: Yes (patient not sure) - Hematological/Oncological Hx Cancer: No - Integumentary Hx Dermatological Disorder: No - Musculoskeletal/Rheumatological Hx Musculoskeletal Disorders: Yes Hx Arthritis: Yes Hx Falls: No - Gastrointestinal Hx Gastrointestinal Disorders: Yes Hx Gastroesophageal Reflux: Yes - Genitourinary/Gynecological Hx Genitourinary Disorders: Yes Other/Comment: yeast infections - Psychiatric Hx Psychophysiologic Disorder: Yes Hx Anxiety: Yes Hx Depression: Yes Hx Substance Use: No - Past Surgical History Past Surgical History: Non-Contributing - Surgical History Hx Mastectomy: No - Anesthesia Hx Anesthesia: No - Suicidal Assessment Feels Threatened In Home Enviroment: No <Isatu Ruiz - Last Filed: 02/28/19 01:05> Family/Social History - Physician Review Nursing Documentation Reviewed: Yes Family/Social History: No Known Family HX Smoking Status: Former Smoker Hx Alcohol Use: Yes (infrequent, social occasions) Hx Substance Use: No Hx Substance Use Treatment: No <Isatu Ruiz - Last Filed: 02/28/19 01:05> Allergies/Home Meds <Salbador Yung - Last Filed: 02/27/19 22:49> <Isatu Ruiz - Last Filed: 02/28/19 01:05> Allergies/Adverse Reactions: Allergies Penicillins Allergy (Verified 02/27/19 20:53) RASH Home Medications: Home Meds Medication Instructions Recorded Confirmed Enalapril Maleate 20 mg PO BID 08/02/12 01/08/19 Aspirin [Aspirin EC] 81 mg PO DAILY 11/06/14 01/08/19 Metoprolol Tartrate [Lopressor] 50 mg PO DAILY 12/08/16 01/08/19 amLODIPine [Norvasc] 10 mg PO DAILY 12/08/16 01/08/19 Simvastatin [Zocor] 40 mg PO QOTHERDAY 02/06/18 01/08/19 Famotidine [Pepcid] 40 mg PO DAILY 05/21/18 01/08/19 metFORMIN [glucOPHAGE] 1,000 mg PO DAILY 10/16/18 01/08/19 Ergocalciferol (Vitamin D2) 50,000 unit PO SUN 01/08/19 01/08/19 [Vitamin D2] Ertugliflozin Pidolate [Steglatro] 15 mg PO DAILY 01/08/19 01/08/19 Hydrochlorothiazide 25 mg PO DAILY 01/08/19 01/08/19 Trazodone HCl 50 mg PO DAILY 01/08/19 01/08/19 Review of Systems - Review of Systems Constitutional: Fevers (and chills) Eyes: Normal. absent: Vision Changes ENT: Normal. absent: Sore Throat, Sinus Congestion Respiratory: Cough, Sputum. absent: SOB Cardiovascular: Normal. absent: Chest Pain, Palpitations, Syncope Gastrointestinal: Abdominal Pain. absent: Stool Changes, Constipation, Diar nga, Nausea, Vomiting, Appetite Changes Genitourinary Female: Normal. absent: Dysuria, Frequency Musculoskeletal: Normal. absent: Back Pain, Neck Pain Skin: Normal. absent: Rash Neurological: Normal. absent: Headache, Dizziness Endocrine: Normal Hemo/Lymphatic: Normal Psychiatric: Normal <Isatu Ruiz - Last Filed: 02/28/19 01:05> Physical Exam Vital Signs Temp Pulse Resp BP Pulse Ox 02/27/19 20:58 101.4 F H 85 18 134/84 99 <AgaSalbador - Last Filed: 02/27/19 22:49> Vital Signs Temp Pulse Resp BP Pulse Ox 02/27/19 20:58 101.4 F H 85 18 134/84 99 Temperature: Febrile Blood Pressure: Normal Pulse: Regular Respiratory Rate: Normal Appearance: Positive for: Well-Appearing, Non-Toxic, Comfortable Pain Distress: None Mental Status: Positive for: Alert and Oriented X 3 - Systems Exam Head: Present: Atraumatic, Normocephalic Pupils: Present: PERRL Extroacular Muscles: Present: EOMI Conjunctiva: Present: Normal Mouth: Present: Moist Mucous Membranes Neck: Present: Normal Range of Motion Respiratory/Chest: Present: Clear to Auscultation, Good Air Exchange. No: Respiratory Distress, Accessory Muscle Use, Rhonchi Cardiovascular: Present: Regular Rate and Rhythm, Normal S1, S2, Peripheal Pulses Present Abdomen: Present: Tenderness (right flank, RLQ), Normal Bowel Sounds. No: Distention, Peritoneal Signs Back: Present: Normal Inspection. No: CVA Tenderness Upper Extremity: Present: Normal Inspection, Normal ROM, NORMAL PULSES, Neurovascularly Intact, Capillary Refill < 2s. No: Cyanosis, Edema, Temperature Abnormalties Lower Extremity: Present: Normal Inspection, NORMAL PULSES, Normal ROM, Neurovascularly Intact, Capillary Refill < 2 s. No: Edema, Temperature Abnormalties Neurological: Present: GCS=15, CN II-XII Intact, Speech Normal, Motor Func Grossly Intact, Normal Sensory Function, Gait Normal Skin: Present: Warm, Dry, Normal Color. No: Rashes Psychiatric: Present: Alert, Oriented x 3, Normal Insight, Normal Concentration, Normal Affect, Normal Mood <Isatu Ruiz - Last Filed: 02/28/19 01:05> Medical Decision Making - Lab Interpretations Lab Results: pO2 51 mm/Hg (30-55) 02/27/19 21:33 VBG pH 7.44 (7.32-7.43) H 02/27/19 21:33 VBG pCO2 43.0 (40-60) 02/27/19 21:33 VBG HCO3 29.2 mmol/l (21-28) H 02/27/19 21:33 VBG Total CO2 30.5 mmol.L (22-28) H 02/27/19 21:33 VBG O2 Sat (Calc) 90.1 % (40-65) H 02/27/19 21:33 VBG Base Excess 4.4 mmol/L (0.0-2.0) H 02/27/19 21:33 VBG Potassium 3.3 mmol/L (3.6-5.2) L 02/27/19 21:33 Sodium 137.0 mmol/L (132-148) 02/27/19 21:33 Chloride 98.0 mmol/L (98-107) 02/27/19 21:33 Glucose 147 mg/dl (65-105) H 02/27/19 21:33 Lactate 1.4 mmol/L (0.7-2.1) 02/27/19 21:33 FiO2 21.0 % 02/27/19 21:33 PT 12.5 SECONDS (9.4-12.5) 02/27/19 22:28 INR 1.13 02/27/19 22:28 APTT 28.7 Seconds (26.9-38.3) 02/27/19 22:28 Troponin I 0.03 ng/mL D 02/27/19 21:33 Total Bilirubin 0.7 mg/dL (0.2-1.3) 02/27/19 21:33 AST 64 U/L (14-36) H 02/27/19 21:33 ALT 62 U/L (7-56) H 02/27/19 21:33 Alkaline Phosphatase 101 U/L (38-126) 02/27/19 21:33 Total Protein 8.0 g/dL (5.8-8.3) 02/27/19 21:33 Albumin 4.2 g/dL (3.0-4.8) 02/27/19 21:33 Globulin 3.8 gm/dL 02/27/19 21:33 Albumin/Globulin Ratio 1.1 (1.1-1.8) 02/27/19 21:33 Lipase 192 U/L (23-300) 02/27/19 21:33 - RAD Interpretation Radiology Orders: 02/27/19 21:02 CHEST PORTABLE [RAD] Stat 02/27/19 22:15 ABD & PELVIS W/O PO OR IV CONT [CT] Stat - Medication Orders Current Medication Orders: Potassium Chloride (Potassium Chloride 20 Meq/100 Ml) 20 meq in 100 mls @ 50 mls/hr IVPB ONCE ONE Stop: 02/28/19 00:00 Last Admin: 02/27/19 22:34 Dose: 50 mls/hr eMAR Start Stop Document 02/27/19 22:34 AD (Rec: 02/27/19 22:34 AD [facility] [place]-ER-20) Intravenous Solution Start Date 02/27/19 Start Time 22:34 Discontinued Medications Acetaminophen (Tylenol 325mg Tab) 975 mg PO STAT STA Stop: 02/27/19 21:04 Last Admin: 02/27/19 21:38 Dose: 975 mg Sodium Chloride (Sodium Chloride 0.9%) 1,000 mls @ 999 mls/hr IV .Q1H1M STA Stop: 02/27/19 22:05 Last Admin: 02/27/19 21:38 Dose: 999 mls/hr eMAR Start Stop Document 02/27/19 21:38 AD (Rec: 02/27/19 21:38 AD [facility] [place]-ER-20) Intravenous Solution Start Date 02/27/19 Start Time 21:38 Potassium Chloride (K-Dur 20 Meq Er Tab) 40 meq PO STAT STA Stop: 02/27/19 22:02 Last Admin: 02/27/19 22:25 Dose: 40 meq <Salbador Yung - Last Filed: 02/27/19 22:49> ED Course and Treatment: Initial Plan: * CBC, CMP * Coags * Lipase * UA * Troponin * CXR * EKG * CT Abd/Pelvis 22:18 CT called about elevated creatinine. Spoke with ED attending Dr. Yung who advises NO IV contrast. 23:45 CT shows left sided pneumonia and mesenteritis. 00:[address] PM[address] Armstrong 00:[address] Armstrong who accepted patient for inpatient admission to remote telemetry floor with diagnosis of pneumonia and mesenteric inflammation. - Lab Interpretations Lab Results: pO2 51 mm/Hg (30-55) 02/27/19 21:33 VBG pH 7.44 (7.32-7.43) H 02/27/19 21:33 VBG pCO2 43.0 (40-60) 02/27/19 21:33 VBG HCO3 29.2 mmol/l (21-28) H 02/27/19 21:33 VBG Total CO2 30.5 mmol.L (22-28) H 02/27/19 21:33 VBG O2 Sat (Calc) 90.1 % (40-65) H 02/27/19 21:33 VBG Base Excess 4.4 mmol/L (0.0-2.0) H 02/27/19 21:33 VBG Potassium 3.3 mmol/L (3.6-5.2) L 02/27/19 21:33 Sodium 137.0 mmol/L (132-148) 02/27/19 21:33 Chloride 98.0 mmol/L (98-107) 02/27/19 21:33 Glucose 147 mg/dl (65-105) H 02/27/19 21:33 Lactate 1.4 mmol/L (0.7-2.1) 02/27/19 21:33 FiO2 21.0 % 02/27/19 21:33 Troponin I 0.03 ng/mL D 02/27/19 21:33 Total Bilirubin 0.7 mg/dL (0.2-1.3) 02/27/19 21:33 AST 64 U/L (14-36) H 02/27/19 21:33 ALT 62 U/L (7-56) H 02/27/19 21:33 Alkaline Phosphatase 101 U/L (38-126) 02/27/19 21:33 Total Protein 8.0 g/dL (5.8-8.3) 02/27/19 21:33 Albumin 4.2 g/dL (3.0-4.8) 02/27/19 21:33 Globulin 3.8 gm/dL 02/27/19 21:33 Albumin/Globulin Ratio 1.1 (1.1-1.8) 02/27/19 21:33 Lipase 192 U/L (23-300) 02/27/19 21:33 02/27/19 21:33 02/27/19 21:33 Lab Results 02/27/19 22:28: PT 12.5, INR 1.13, APTT 28.7 02/27/19 21:33: Sodium 136, Chloride 97 L, Potassium 3.2 L, Carbon Dioxide 28, A nion Gap 14, BUN 15, Creatinine 1.3 H, Est GFR ( Amer) 51, Est GFR (Non- Af Amer) 42, Random Glucose 145 H, Calcium 9.5, Phosphorus 3.4, Magnesium 1.8, Total Bilirubin 0.7, AST 64 H, ALT 62 H, Alkaline Phosphatase 101, Troponin I 0.03 D, Total Protein 8.0, Albumin 4.2, Globulin 3.8, Albumin/Globulin Ratio 1.1, Lipase 192 02/27/19 21:33: pO2 51, VBG pH 7.44 H, VBG pCO2 43.0, VBG HCO3 29.2 H, VBG Total CO2 30.5 H, VBG O2 Sat (Calc) 90.1 H, VBG Base Excess 4.4 H, VBG Potassium 3.3 L, Sodium 137.0, Chloride 98.0, Glucose 147 H, Lactate 1.4, FiO2 21.0, Venous Blood Potassium 3.3 L 02/27/19 21:33: Influenza Typ A,B (EIA) Negative for flu a/b, Grp A Beta Strep Ag Negative 02/27/19 21:33: WBC 7.6, RBC 4.94, Hgb 13.6 D, Hct 40.4, MCV 81.8, MCH 27.5, MCHC 33.7, RDW 15.2 H, Plt Count 283, MPV 10.3, Neut % (Auto) 72.0 H, Lymph % (Auto) 13.2 L, [place] % (Auto) 12.3 H, Eos % (Auto) 2.1, Baso % (Auto) 0.4, Lymph # (Auto) 1.0 L, [place] # (Auto) 0.9 H, Eos # (Auto) 0.2, Baso # (Auto) 0.03, Absolute Neuts (auto) 5.43 I have reviewed the lab results: Yes - RAD Interpretation Narrative RAD Interpretations (Text): 02/28/19 00:00 CT Abd/Pelvis without contrast: FINDINGS: LUNG BASES: There is posterior left lower lobe pneumonic consolidation identified. No pleural effusions are seen. LIVER: Unremarkable. GALLBLADDER AND BILE DUCTS: The gallbladder appears within normal limits. No radioopaque gallstones are seen. No biliary ductal dilatation is evident. PANCREAS: Unremarkable. SPLEEN: Unremarkable. ADRENAL GLANDS: Unremarkable. KIDNEYS, URETERS, AND BLADDER: The kidneys appear within normal limits. There is no hydronephrosis or hydrour eter. No urinary calculi are seen. The urinary bladder appeared normal in size and configuration. STOMACH AND BOWEL: Unremarkable appearance of the stomach and bowel. No evidence of bowel obstruction. No evidence suggesting enteritis or colitis. APPENDIX: No evidence of acute appendicitis on CT examination. PERITONEUM: No free fluid. No free air. There is haziness in the mesenteric fat of the right lower quadrant thought compatible with localized mesenteritis. LYMPH NODES: No lymphadenopathy is evident. REPRODUCTIVE: Unremarkable as visualized. VASCULATURE: No evidence of abdominal aortic aneurysm. BONES: No aggressive appearing osseous lesion. No acute osseous pathology evident. IMPRESSION: 1. Posterior left lower lobe pneumonic consolidation. 2. Evidence of localized right lower quadrant mesenteritis. 3. Consider follow up with CT performed with IV and oral contrast. Electronically signed on Feb 27, 2019 11:28:22 PM EDT by: Ignacio Lopez M.D., M.B.A., Certified By [employer] Trained MRI and CT Specialist Radiology Orders: 02/27/19 21:02 CHEST PORTABLE [RAD] Stat 02/27/19 21:04 ABD & PELVIS IV CONTRAST ONLY [CT] Stat - EKG Interpretation EKG Interpretation (Text): 02/28/19 00:08 Rate 84; NSR with PACs, Left axis deviation, No STEMI, nonspecific ST/T wave changes Interpreted by ED Physician: Yes Type: 12 lead EKG - Medication Orders Current Medication Orders: Potassium Chloride (Potassium Chloride 20 Meq/100 Ml) 20 meq in 100 mls @ 50 mls/hr IVPB ONCE ONE Stop: 02/28/19 00:00 Discontinued Medications Acetaminophen (Tylenol 325mg Tab) 975 mg PO STAT STA Stop: 02/27/19 21:04 Last Admin: 02/27/19 21:38 Dose: 975 mg Sodium Chloride (Sodium Chloride 0.9%) 1,000 mls @ 999 mls/hr IV .Q1H1M STA Stop: 02/27/19 22:05 Last Admin: 02/27/19 21:38 Dose: 999 mls/hr eMAR Start Stop Document 02/27/19 21:38 AD (Rec: 02/27/19 21:38 AD [facility] [place]-ER-20) Intravenous Solution Start Date 02/27/19 Start Time 21:38 Potassium Chloride (K-Dur 20 Meq Er Tab) 40 meq PO STAT STA Stop: 02/27/19 22:02 <Isatu Ruiz - Last Filed: 02/28/19 01:05> - PA / CHEMICAL DEPENDENCY ATTENDANT / Resident Statement / has reviewed & agrees with the documentation as recorded. / has examined the patient and agrees with the treatment plan. <Salbador Yung - Last Filed: 02/27/19 22:49> Disposition/Present on Arrival <Salbador Yung - Last Filed: 02/27/19 22:49> - Present on Arrival Any Indicators Present on Arrival: No History of DVT/PE: No History of Uncontrolled Diabetes: No Urinary Catheter: No History of Decub. Ulcer: No History Surgical Site Infection Following: None - Disposition Have Diagnosis and Disposition been Completed?: Yes Disposition Time: 23:59 Patient Plan: Admission <Isatu Ruiz - Last Filed: 02/28/19 01:05> - Disposition Diagnosis: Pneumonia, Mesenteric adenitis Disposition: HOSPITALIZED Patient Problems: Current Active Problems Problem Status Onset Pneumonia Acute Mesenteric adenitis Acute Condition: STABLE
[2019-02-27 22:43] LABS: INR 1.13; PARTIAL THROMBOPLASTIN TIME 28.7 Seconds (26.9-38.3); PROTHROMBIN TIME 12.5 SECONDS (9.4-12.5)
[2019-02-27 23:55] LABS: PH,URINE 6.5 (4.7-8.0); URINE BILIRUBIN NEGATIVE (NEGATIVE); URINE BLOOD NEGATIVE (NEGATIVE); URINE GLUCOSE (UA) >=1000 mg/dL (NEGATIVE); URINE LEUKOCYTE ESTERASE TRACE Leu/uL (NEGATIVE); URINE PROTEIN TRACE mg/dL (<30 mg/dL); URINE UROBILINOGEN 0.2 E.U./dL (<1 E.U./dL)
[2019-02-28] MEDS ORDERED: levoFLOXacin 750 mg in D5W 150 ML BAG IVPB STA (00:06)
[2019-02-28] MEDS ORDERED: Vancomycin 1gm in NS 250ml 1 GM/250 ML BAG IVPB STA (00:06)
[2019-02-28 00:09] LABS: URINE APPEARANCE CLEAR (CLEAR); URINE COLOR LIGHT YELLOW (YELLOW)
[2019-02-28] MEDS: Sodium Chloride 0.9% 1,000 ML IV SCH ×2 (00:30→14:54)
[2019-02-28 01:09] LABS: URINE EPITHELIAL CELLS 0 - 2 /hpf (0-5); URINE RBC 0 - 2 /hpf (0-2)
[2019-02-28 01:10] LABS: URINE BACTERIA OCC /hpf
[2019-02-28] MEDS: Insulin Reg-LOW-Coverage SC SCH ×4 (08:43→21:30)
--- NOTE | 2019-02-28 09:28 | RAD ---
Date of service: 02/27/2019 HISTORY: cough COMPARISON: Chest radiograph dated 01/07/2019. TECHNIQUE: 1 view obtained. FINDINGS: LUNGS: No active pulmonary disease. PLEURA: No significant pleural effusion identified, no pneumothorax apparent. CARDIOVASCULAR: No aortic atherosclerotic calcification present. Normal cardiac size. No pulmonary vascular congestion. OSSEOUS STRUCTURES: No significant abnormalities. VISUALIZED UPPER ABDOMEN: Normal. OTHER FINDINGS: None. IMPRESSION: No active disease.
--- NOTE | 2019-02-28 11:52 | CT ---
Date of service: 02/27/2019 PROCEDURE: CT Abdomen and Pelvis without intravenous contrast HISTORY: right sided pain, elevated creatinine COMPARISON: CT scan of the abdomen pelvis dated 01/15/2019. TECHNIQUE: Contiguous images were obtained from the domes of the diaphragms to the upper thighs without the administration of intravenous contrast. Oral contrast was not administered. Radiation dose: Total exam DLP = 1238.63 mGy-cm. This CT exam was performed using one or more of the following dose reduction techniques: Automated exposure control, adjustment of the mA and/or kV according to patient size, and/or use of iterative reconstruction technique. FINDINGS: LOWER THORAX: Patchy left lower lobe infiltrates. LIVER: Unremarkable. No gross lesion or ductal dilatation. GALLBLADDER AND BILE DUCTS: Unremarkable. PANCREAS: Unremarkable. No gross lesion or ductal dilatation. SPLEEN: Unremarkable. ADRENALS: Unremarkable. No mass. KIDNEYS AND URETERS: Unremarkable. No hydronephrosis. No solid mass. VASCULATURE: Unremarkable. No aortic aneurysm. No aortic atherosclerotic calcification or mural plaque present. BOWEL: Unremarkable. No obstruction. No gross mural thickening. APPENDIX: Unremarkable. Normal appendix. PERITONEUM: Unremarkable. No free fluid. No free air. LYMPH NODES: Unremarkable. No enlarged lymph nodes. BLADDER: Unremarkable. REPRODUCTIVE: Unremarkable. BONES: Grade 1 anterolisthesis of L4 on L5. No acute fracture. OTHER FINDINGS: None. IMPRESSION: No urolithiasis or evidence of recently passed genitourinary calculus.
[2019-02-28] MEDS: Meropenem IV 1 gm in NS 1 GM/50 ML BAG IVPB SCH ×2 (14:00→21:28)
[2019-02-28] MEDS: Vancomycin 750mg 750 MG/250 ML BAG IVPB SCH (14:30)
--- NOTE | 2019-02-28 15:04 | CARD ---
APPROVED REPORT Date of service: 02/27/2019 EKG Measurement Heart [id number] <Conclusion> Poor data quality, interpretation may be adversely affected Sinus rhythm with premature atrial complexes with aberrant conduction Left axis deviation Pulmonary disease pattern Abnormal ECG
[2019-02-28] MEDS: Arformoterol 15 mcg/2 ml Inh Sol IH SCH (20:08)
[2019-02-28] MEDS: Budesonide 0.5 mg/2 ml Inhal Susp UD IH SCH (20:09)
--- NOTE | 2019-03-01 00:37 | CON ---
DATE: 02/28/2019 The patient was seen in room 266, bed 1. CHIEF COMPLAINT: Chills times several days. HISTORY OF PRESENT ILLNESS: This is a 58-year-old female with anxiety, hypertension, hyperlipidemia, diabetes, GERD, bronchitis, migraines, Lovell's palsy, arthritis, was recently diagnosed with right-sided diverticulitis, who was admitted through the emergency room complaining of chills with three days' duration associated with cough, right-sided pleuritic chest pain, and questionable abdominal pain. Denies any nausea or vomiting. REVIEW OF SYSTEMS: Reveals a 12-point review of systems is performed. PAST MEDICAL HISTORY: Significant for anxiety, hypertension, hyperlipidemia, diabetes, GERD, bronchitis, migraine, Lovell's palsy, and arthritis. PAST SURGICAL HISTORY: Significant for D&C and a colonoscopy. ALLERGIES: THE PATIENT IS ALLERGIC TO PENICILLIN; TYPE OF ALLERGY IS NOT ENTIRELY CLEAR, QUESTIONABLE RASH, NOT TYPE ONE. MEDICATIONS: Glucophage, Norvasc, trazodone, insulin, Pepcid, and the patient's home medications include Cipro and Flagyl. PHYSICAL EXAMINATION: GENERAL: The patient is in bed, in no acute distress. VITAL SIGNS: Seen earlier with a temperature of 101.4, blood pressure is 130/70, respiratory rate of 18, heart rate of 94. HEENT: Unremarkable. NECK: Supple. LUNGS: Decreased breath sounds. HEART: Normal S1, S2. ABDOMEN: Soft, nontender. LABORATORY EXAMINATION: Reveals a white count of 7.6, hemoglobin of 13, platelets of 283, and the chemistries reveal a BUN of 15, creatinine of 1.5. Urinalysis is noted. Serology is reviewed. Microbiology is pending. The patient had a CAT scan of the abdomen and pelvis, which revealed no urolithiasis or evidence of recently passed . However, a left lower lobe infiltrate was then picked up on a CAT scan of the abdomen. The patient has also had a chest x-ray, which was reported to be no active disease. The patient's EKG shows a QTc of 433. ASSESSMENT AND PLAN: This is a 58-year-old female with anxiety, hypertension, hyperlipidemia, diabetes, gastroesophageal reflux disease, migraine, Lovell's palsy, arthritis, with chills, fever, and tachycardia with an increase in the creatinine, her last creatinine was 0.9. 1. Severe sepsis with a left-sided left lower lobe healthcare-associated pneumonia with mesenteritis and acute kidney injury. Creatinine has changed from 0.9 to 1.3. We will treat with vancomycin, meropenem, and Levaquin pending blood culture, urine culture, sputum culture, MRSA screen, urine Legionella antigen, procalcitonin, and we will adjust the medications based on the renal insufficiency and we will follow closely with you. Campos Riojas MD
[2019-03-01] MEDS: Vancomycin 750mg 750 MG/250 ML BAG IVPB SCH (02:17)
--- NOTE | 2019-03-01 05:45 | CP.PCM.PN ---
Subjective - Date & Time of Evaluation Date of Evaluation: 03/01/19 Time of Evaluation: 05:45 - Subjective Subjective: See my note that was transcribed later today. Objective - Vital Signs/Intake and Output Vital Signs (last 24 hours): Temp Pulse Resp BP Pulse Ox 99.6 F 106 H 18 140/78 97 02/28/19 23:35 02/28/19 23:35 02/28/19 23:35 02/28/19 23:35 02/28/19 23:35 Intake and Output: 02/28/19 03/01/19 18:59 06:59 Intake Total 956 Balance 956 - Medications Medications: Current Medications Amlodipine Besylate (Norvasc) 10 mg PO DAILY [facility] Arformoterol Tartrate (Brovana) 15 mcg IH [id number] [facility] Last Admin: 02/28/19 20:08 Dose: 15 mcg Aspirin (Ecotrin) 81 mg PO DAILY [facility] Budesonide (Pulmicort Respules) 0.5 mg IH [id number] [facility] Last Admin: 02/28/19 20:09 Dose: 0.5 mg Docusate Sodium (Colace) 100 mg PO BID [facility] Last Admin: 02/28/19 18:18 Dose: 100 mg Ergocalciferol (Drisdol 50,000 Intl Units Cap) 1 cap PO SUN [facility] Famotidine (Pepcid) 40 mg PO DAILY [facility] Sodium Chloride (Sodium Chloride 0.9%) 1,000 mls @ 100 mls/hr IV .Q10H [facility] Last Admin: 02/28/19 14:54 Dose: 100 mls/hr Meropenem (Merrem Iv 1 Gm Premix) 1 gm in 50 mls @ 100 mls/hr IVPB Q8 [facility]; Protocol Stop: 03/09/19 14:01 Last Admin: 02/28/19 21:28 Dose: 100 mls/hr Levofloxacin/Dextrose (Levaquin 500mg) 500 mg in 100 mls @ 100 mls/hr IVPB DAILY [facility]; Protocol Stop: 03/09/19 10:01 Vancomycin HCl (Vancomycin 750 Mg In Ns) 750 mg in 250 mls @ 167 mls/hr IVPB Q12H [facility]; Protocol Stop: 03/08/19 13:46 Last Admin: 03/01/19 02:17 Dose: 167 mls/hr Insulin Detemir (Levemir) 30 unit SC DAILY [facility] Insulin Human Regular (Humulin R Low) 0 units SC [facility]; Protocol Last Admin: 02/28/19 21:30 Dose: Not Given Metformin HCl (Glucophage) 1,000 mg PO DAILY [facility] Metoprolol Tartrate (Lopressor) 50 mg PO DAILY [facility] Trazodone HCl (Desyrel) 50 mg PO DAILY [facility] - Labs Labs: 02/27/19 21:33 02/27/19 21:33 PT 12.5 SECONDS (9.4-12.5) 02/27/19 22:28 INR 1.13 02/27/19 22:28 APTT 28.7 Seconds (26.9-38.3) 02/27/19 22:28
[2019-03-01] MEDS: Meropenem IV 1 gm in NS 1 GM/50 ML BAG IVPB SCH ×3 (06:44→22:24)
[2019-03-01] MEDS: Sodium Chloride 0.9% 1,000 ML IV SCH ×3 (06:45→17:52)
[2019-03-01] MEDS: Insulin Reg-LOW-Coverage SC SCH ×4 (07:35→22:19)
[2019-03-01] MEDS: Arformoterol 15 mcg/2 ml Inh Sol IH SCH ×2 (08:29→19:45)
[2019-03-01] MEDS: Budesonide 0.5 mg/2 ml Inhal Susp UD IH SCH ×2 (08:29→19:46)
[2019-03-01] MEDS ORDERED: Ergocalciferol 50,000 Intl Units Cap PO SCH (10:00)
[2019-03-01] MEDS ORDERED: levoFLOXacin 500 mg in D5W 500 MG/100 ML BAG IVPB SCH (10:00)
[2019-03-01] MEDS: Insulin Detemir 100 units/ml Vial (Levemir) SC SCH (10:00)
--- NOTE | 2019-03-01 10:19 | PN ---
DATE: 03/01/2019 SUBJECTIVE: The patient is in bed, in no acute distress, was seen earlier today. She states she is week. Her temperature is down. Overall, she is feeling much better. PHYSICAL EXAMINATION: VITAL SIGNS: Temperature is 99.4, 2 days ago she had a temperature of 101.4, and heart rate of 106, blood pressure is 143/80, respiratory to 20. HEENT: Unremarkable. NECK: Supple. LUNGS: Have decreased breath sounds. HEART: Normal S1, S2. ABDOMEN: Soft, nontender. LABORATORY DATA: Laboratory examination reveals a white count of 7.6, hemoglobin of 13, platelets of 283 and creatinine is 1.3. Review of orders reveals the patient to be on Levaquin, meropenem and vancomycin. Microbiology reveals the blood cultures are negative. The sputum culture is pending. The patient had a CAT scan of the abdomen and pelvis which is reviewed. Patchy left lower lobe infiltrate. ASSESSMENT AND PLAN: This is a 58-year-old female, anxiety, hypertension, hyperlipidemia, diabetes, gastroesophageal reflux disease, bronchitis, migraine, Lovell's palsy, arthritis, recently diagnosed with right-sided diverticulitis who was admitted with fevers and chills and right-sided pleuritic chest pain and questionable abdominal pain. Severe sepsis with a left-sided healthcare associated pneumonia, mesenteritis and acute kidney injury and vancomycin, meropenem and Levaquin. We will discontinue the vancomycin since the blood cultures are negative and discontinue the Levaquin. The patient is doing better and continue the meropenem for now and add doxycycline, pending sputum culture, final blood cultures, MRSA screen and urine culture and the patient's urine Legionella antigen is negative and procalcitonin is also negative. The patient continues to do well. We pending pancultures may be able to complete the antibiotic therapy with p.o. doxycycline alone next 24 to 48 hours.. The patient's initial chest x-ray was reported to be no active pulmonary disease, however, the left infiltrate was picked up on the CAT scan of the abdomen. Campos Riojas MD
[2019-03-01] MEDS ORDERED: Potassium Chloride 20 mEq ER Tab PO ONE (12:10)
--- NOTE | 2019-03-01 12:14 | CP.PCM.CON ---
History of Present Illness - History of Present Illness History of Present Illness: PGY4 GI fellow consult note 58-year-old black female with a history of right-sided diverticulitis, GERD, anxiety, CVA, diabetes, hypertension, hyperlipidemia who presented with chills and right-sided abdominal pain. She states for the last 3 days she has had intermittent right-sided sharp abdominal pain associated with cough. She states she has also felt some chills and subjective fevers but was ultimately noted to have a temperature of 101.4 in the ED. She denied any weight loss, dysphagia, melena, hematochezia. She states her last bowel movement was earlier today and was formed brown stool. She had a bout of diverticulitis in the last several weeks with plans to follow up with a GI doctor for eventual colonoscopy on March 07. She reportedly had a colonoscopy more than 5 years ago [facility] with unknown results, EGD in September 2018 unclear results. 12 point review of systems negative other than stated above Medical history: See above Surgical history: D&C Medications: Reviewed in chart Family history: Denied GI problems Social history: Denied 3 Allergies: Penicillin Past Patient History - Infectious Disease Hx of Infectious Diseases: None - Tetanus Immunizations Tetanus Immunization: Up to Date - Past Social History Smoking Status: Unknown If Ever Smoked - CARDIAC Hx Pacemaker: No - PULMONARY Hx Respiratory Disorders: Yes Hx Bronchitis: Yes Hx Pneumonia: Yes - NEUROLOGICAL Hx Neurological Disorder: Yes Hx Dizziness: Yes Hx Migraine: Yes Other/Comment: Lovell's Palsy , memory issues - HEENT Hx HEENT Problems: No - RENAL Hx Chronic Kidney Disease: No - ENDOCRINE/METABOLIC Hx Endocrine Disorders: Yes Hx Diabetes Mellitus Type 2: Yes Hx Hyperthyroidism: Yes (patient not sure) - HEMATOLOGICAL/ONCOLOGICAL Hx Cancer: No - INTEGUMENTARY Hx Dermatological Problems: No - MUSCULOSKELETAL/RHEUMATOLOGICAL Hx Musculoskeletal Disorders: Yes Hx Arthritis: Yes Hx Falls: No - GASTROINTESTINAL Hx Gastrointestinal Disorders: Yes Hx Gastroesophageal Reflux: Yes - GENITOURINARY/GYNECOLOGICAL Hx Genitourinary Disorders: Yes Other/Comment: yeast infections - PSYCHIATRIC Hx Psychophysiologic Disorder: Yes Hx Anxiety: Yes Hx Depression: Yes - SURGICAL HISTORY Hx Mastectomy: No - ANESTHESIA Hx Anesthesia: No Meds Allergies/Adverse Reactions: Allergies Allergy/AdvReac Type Severity Reaction Status Date / Time Penicillins Allergy RASH Verified 02/27/19 20:53 - Medications Medications: Current Medications Amlodipine Besylate (Norvasc) 10 mg PO DAILY [facility] Last Admin: 03/01/19 10:02 Dose: 10 mg Arformoterol Tartrate (Brovana) 15 mcg IH [id number] [facility] Last Admin: 03/01/19 08:29 Dose: 15 mcg Aspirin (Ecotrin) 81 mg PO DAILY [facility] Last Admin: 03/01/19 10:02 Dose: 81 mg Budesonide (Pulmicort Respules) 0.5 mg IH [id number] [facility] Last Admin: 03/01/19 08:29 Dose: 0.5 mg Docusate Sodium (Colace) 100 mg PO BID [facility] Last Admin: 03/01/19 10:01 Dose: 100 mg Doxycycline Hyclate (Doryx) 100 mg PO Q12 [facility]; Protocol Stop: 03/06/19 10:01 Last Admin: 03/01/19 10:02 Dose: 100 mg Ergocalciferol (Drisdol 50,000 Intl Units Cap) 1 cap PO SUN [facility] Last Admin: 03/01/19 10:02 Dose: 1 cap Famotidine (Pepcid) 40 mg PO DAILY [facility] Last Admin: 03/01/19 10:02 Dose: 40 mg Sodium Chloride (Sodium Chloride 0.9%) 1,000 mls @ 100 mls/hr IV .Q10H [facility] Last Admin: 03/01/19 06:48 Dose: Not Given Meropenem (Merrem Iv 1 Gm Premix) 1 gm in 50 mls @ 100 mls/hr IVPB Q8 [facility]; Protocol Stop: 03/09/19 14:01 Last Admin: 03/01/19 06:44 Dose: 100 mls/hr Insulin Detemir (Levemir) 30 unit SC DAILY [facility] Last Admin: 03/01/19 10:00 Dose: 30 units Insulin Human Regular (Humulin R Low) 0 units SC ACHS [facility]; Protocol Last Admin: 03/01/19 12:03 Dose: Not Given Metformin HCl (Glucophage) 1,000 mg PO DAILY [facility] Last Admin: 03/01/19 10:01 Dose: 1,000 mg Metoprolol Tartrate (Lopressor) 50 mg PO DAILY [facility] Last Admin: 03/01/19 10:01 Dose: 50 mg Trazodone HCl (Desyrel) 50 mg PO DAILY [facility] Last Admin: 03/01/19 10:02 Dose: 50 mg Physical Exam - Constitutional Appears: Well, No Acute Distress - Head Exam Head Exam: ATRAUMATIC, NORMAL INSPECTION - Eye Exam Eye Exam: EOMI. absent: Scleral icterus - ENT Exam ENT Exam: Mucous Membranes Moist. absent: Mucous Membranes Dry - Respiratory Exam Respiratory Exam: NORMAL BREATHING PATTERN. absent: Accessory Muscle Use - Cardiovascular Exam Cardiovascular Exam: REGULAR RHYTHM, RRR - GI/Abdominal Exam GI & Abdominal Exam: Normal Bowel Sounds, Soft. absent: Bruit, Diminished Bowel Sounds, Distended, Firm, Guarding, Hernia, Mass, Organomegaly, Pulsatile Mass, Rebound, Tenderness - Rectal Exam Rectal Exam: Deferred - Extremities Exam Extremities exam: Positive for: normal inspection. Negative for: pedal edema - Neurological Exam Neurological exam: Alert, Oriented x3 - Psychiatric Exam Psychiatric exam: Anxious, Normal Affect - Skin Skin Exam: Normal Color, Warm Results - Vital Signs Recent Vital Signs: Last Vital Signs Temp 99.4 F 03/01/19 06:00 Pulse 93 H 03/01/19 06:00 Resp 20 03/01/19 06:00 BP 143/81 03/01/19 10:02 Pulse Ox 97 03/01/19 06:00 - Labs Result Diagrams: 02/27/19 21:33 02/27/19 21:33 Labs: Laboratory Results - last 24 hr 02/28/19 02/28/19 02/28/19 01:20 11:39 16:20 POC Glucose (mg/dL) 172 H Procalcitonin 0.08 L Ur L.pneumophila Ag Negative 02/28/19 02/28/19 03/01/19 16:40 21:17 07:16 POC Glucose (mg/dL) 133 H 148 H 145 H Procalcitonin Ur L.pneumophila Ag 03/01/19 11:37 POC Glucose (mg/dL) 127 H Procalcitonin Ur L.pneumophila Ag Assessment & Plan - Assessment and Plan (Free Text) Assessment: 56-year-old black female with a history of diverticulitis, GERD, anxiety, diabetes presenting with chills and abdominal pain. #Abdominal pain: Improved already since admission. Given history of right-sided diverticulitis and objective fever, concern for underlying colitis or perhaps bacteremia as patient had history of Bacteroides in the past. Patient had plans to get follow-up colonoscopy but appointment was not until early March. Plan: CT scan from prior admissions reviewed, compared to admission CT no acute findings though was a totally noncontrasted study We will consider by mouth contrasted CT scan tomorrow pending review of labs IV fluid hydration Clear liquid diet Antibiotics per ID/primary, follow-up cultures Will benefit from repeat colonoscopy but likely as outpatient pending resolution of acute illness Patient seen and examined with Dr. Yao. Please see attestation for further recommendations/changes
--- NOTE | 2019-03-01 17:18 | CP.PCM.CON ---
Past Patient History - Infectious Disease Hx of Infectious Diseases: None - Tetanus Immunizations Tetanus Immunization: Up to Date - Past Social History Smoking Status: Unknown If Ever Smoked - CARDIAC Hx Pacemaker: No - PULMONARY Hx Respiratory Disorders: Yes Hx Bronchitis: Yes Hx Pneumonia: Yes - NEUROLOGICAL Hx Neurological Disorder: Yes Hx Dizziness: Yes Hx Migraine: Yes Other/Comment: Lovell's Palsy , memory issues - HEENT Hx HEENT Problems: No - RENAL Hx Chronic Kidney Disease: No - ENDOCRINE/METABOLIC Hx Endocrine Disorders: Yes Hx Diabetes Mellitus Type 2: Yes Hx Hyperthyroidism: Yes (patient not sure) - HEMATOLOGICAL/ONCOLOGICAL Hx Cancer: No - INTEGUMENTARY Hx Dermatological Problems: No - MUSCULOSKELETAL/RHEUMATOLOGICAL Hx Musculoskeletal Disorders: Yes Hx Arthritis: Yes Hx Falls: No - GASTROINTESTINAL Hx Gastrointestinal Disorders: Yes Hx Gastroesophageal Reflux: Yes - GENITOURINARY/GYNECOLOGICAL Hx Genitourinary Disorders: Yes Other/Comment: yeast infections - PSYCHIATRIC Hx Psychophysiologic Disorder: Yes Hx Anxiety: Yes Hx Depression: Yes - SURGICAL HISTORY Hx Mastectomy: No - ANESTHESIA Hx Anesthesia: No Meds Allergies/Adverse Reactions: Allergies Allergy/AdvReac Type Severity Reaction Status Date / Time Penicillins Allergy RASH Verified 02/27/19 20:53 - Medications Medications: Current Medications Acetaminophen (Tylenol 325mg Tab) 650 mg PO Q6H PRN PRN Reason: fever > 100.1F / Headache Amlodipine Besylate (Norvasc) 10 mg PO DAILY [facility] Last Admin: 03/01/19 10:02 Dose: 10 mg Arformoterol Tartrate (Brovana) 15 mcg IH [id number] [facility] Last Admin: 03/01/19 08:29 Dose: 15 mcg Aspirin (Ecotrin) 81 mg PO DAILY [facility] Last Admin: 03/01/19 10:02 Dose: 81 mg Budesonide (Pulmicort Respules) 0.5 mg IH [id number] [facility] Last Admin: 03/01/19 08:29 Dose: 0.5 mg Docusate Sodium (Colace) 100 mg PO BID [facility] Last Admin: 03/01/19 10:01 Dose: 100 mg Doxycycline Hyclate (Doryx) 100 mg PO Q12 [facility]; Protocol Stop: 03/06/19 10:01 Last Admin: 03/01/19 10:02 Dose: 100 mg Ergocalciferol (Drisdol 50,000 Intl Units Cap) 1 cap PO SUN [facility] Last Admin: 03/01/19 10:02 Dose: 1 cap Famotidine (Pepcid) 40 mg PO DAILY [facility] Last Admin: 03/01/19 10:02 Dose: 40 mg Meropenem (Merrem Iv 1 Gm Premix) 1 gm in 50 mls @ 100 mls/hr IVPB Q8 [facility]; Protocol Stop: 03/09/19 14:01 Last Admin: 03/01/19 13:01 Dose: 100 mls/hr Sodium Chloride (Sodium Chloride 0.9%) 1,000 mls @ 50 mls/hr IV .Q20H [facility] Insulin Detemir (Levemir) 30 unit SC DAILY [facility] Last Admin: 03/01/19 10:00 Dose: 30 units Insulin Human Regular (Humulin R Low) 0 units SC ACHS [facility]; Protocol Last Admin: 03/01/19 16:45 Dose: Not Given Metformin HCl (Glucophage) 1,000 mg PO DAILY [facility] Last Admin: 03/01/19 10:01 Dose: 1,000 mg Metoprolol Tartrate (Lopressor) 50 mg PO DAILY [facility] Last Admin: 03/01/19 10:01 Dose: 50 mg Trazodone HCl (Desyrel) 50 mg PO DAILY [facility] Last Admin: 03/01/19 10:02 Dose: 50 mg Results - Vital Signs Recent Vital Signs: Last Vital Signs Temp 98 F 03/01/19 12:00 Pulse 82 03/01/19 12:00 Resp 20 03/01/19 12:00 BP 146/81 03/01/19 12:00 Pulse Ox 97 03/01/19 06:00 - Labs Result Diagrams: 02/27/19 21:33 02/27/19 21:33 Labs: Laboratory Results - last 24 hr 02/28/19 02/28/19 02/28/19 01:20 16:20 21:17 POC Glucose (mg/dL) 148 H Procalcitonin 0.08 L Ur L.pneumophila Ag Negative 03/01/19 03/01/19 03/01/19 07:16 11:37 16:14 POC Glucose (mg/dL) 145 H 127 H 102 Procalcitonin Ur L.pneumophila Ag Attending/Attestation - Attestation I have personally seen and examined this patient.: Yes I have fully participated in the care of the patient.: Yes I have reviewed all pertinent clinical information: Yes Notes (Text): This patient was seen and evaluated along with the GI fellow earlier. She was recently in the hospital with a right-sided colitis/diverticulitis. More in favor of colitis. Patient was septic and requiring intravenous antibiotics. Patient was due to have an elective colonoscopy as an outpatient to evaluate the right-sided colitis. Patient noticed 4 days ago recurrence of the abdominal johnny n mainly on the right side. Patient was febrile in the ER initial temperature was more than 101. Patient was also found to have an acute kidney injury with a creatinine was 1.3. Physical exam there is a mild tenderness in the right side of the abdomen otherwise unremarkable would recommend 1 recommend 1 he is continue IV hydration #2 continue the antibiotics [address] scan with p.o. contrast to further evaluate to the right colon.. The CT done this admission was reviewed but limited with no IV or p.o. contrast. Would avoid IV contrast in view of his acute kidney injury 03/01/19 17:13
--- NOTE | 2019-03-01 19:36 | CP.PCM.PN ---
Subjective - Date & Time of Evaluation Date of Evaluation: 03/01/19 Time of Evaluation: 19:32 - Subjective Subjective: Patient was seen at bedside. She was seen because she was ordered to have tylenol for headache in the morning. I was asked to co-sign order for tylenol. She has no headache now , although she received tylenol again for headache and temp of 100.1*F. She did not have associated symptoms like dizziness, weakness, paraesthesia, blurry vision, nausea. Medical record was reviewed. This 58 year old AA woman was admitted with chills of 3 days duration, cough, right sided abdominal pain,hypokalemia, PNA, mesentric adenitis. Has PMH of diverticulitis, HTN, HLD, DM. Objective - Vital Signs/Intake and Output Vital Signs (last 24 hours): Temp Pulse Resp BP Pulse Ox 100.1 F H 80 20 148/75 100 03/01/19 18:00 03/01/19 18:00 03/01/19 18:00 03/01/19 18:00 03/01/19 18:00 Intake and Output: 03/01/19 03/02/19 18:59 06:59 Intake Total 1020 Balance 1020 - Medications Medications: Current Medications Acetaminophen (Tylenol 325mg Tab) 650 mg PO Q6H PRN PRN Reason: fever > 100.1F / Headache Last Admin: 03/01/19 17:42 Dose: 650 mg Amlodipine Besylate (Norvasc) 10 mg PO DAILY [facility] Last Admin: 03/01/19 10:02 Dose: 10 mg Arformoterol Tartrate (Brovana) 15 mcg IH [id number] [facility] Last Admin: 03/01/19 08:29 Dose: 15 mcg Aspirin (Ecotrin) 81 mg PO DAILY [facility] Last Admin: 03/01/19 10:02 Dose: 81 mg Budesonide (Pulmicort Respules) 0.5 mg IH [id number] [facility] Last Admin: 03/01/19 08:29 Dose: 0.5 mg Docusate Sodium (Colace) 100 mg PO BID [facility] Last Admin: 03/01/19 17:42 Dose: 100 mg Doxycycline Hyclate (Doryx) 100 mg PO Q12 [facility]; Protocol Stop: 03/06/19 10:01 Last Admin: 03/01/19 10:02 Dose: 100 mg Ergocalciferol (Drisdol 50,000 Intl Units Cap) 1 cap PO SUN [facility] Last Admin: 03/01/19 10:02 Dose: 1 cap Famotidine (Pepcid) 40 mg PO DAILY [facility] Last Admin: 03/01/19 10:02 Dose: 40 mg Meropenem (Merrem Iv 1 Gm Premix) 1 gm in 50 mls @ 100 mls/hr IVPB Q8 [facility]; Protocol Stop: 03/09/19 14:01 Last Admin: 03/01/19 13:01 Dose: 100 mls/hr Sodium Chloride (Sodium Chloride 0.9%) 1,000 mls @ 50 mls/hr IV .Q20H [facility] Last Admin: 03/01/19 17:52 Dose: 50 mls/hr Insulin Detemir (Levemir) 30 unit SC DAILY [facility] Last Admin: 03/01/19 10:00 Dose: 30 units Insulin Human Regular (Humulin R Low) 0 units SC ACHS [facility]; Protocol Last Admin: 03/01/19 16:45 Dose: Not Given Metformin HCl (Glucophage) 1,000 mg PO DAILY [facility] Last Admin: 03/01/19 10:01 Dose: 1,000 mg Metoprolol Tartrate (Lopressor) 50 mg PO DAILY [facility] Last Admin: 03/01/19 10:01 Dose: 50 mg Trazodone HCl (Desyrel) 50 mg PO DAILY [facility] Last Admin: 03/01/19 10:02 Dose: 50 mg - Labs Labs: 02/27/19 21:33 02/27/19 21:33 PT 12.5 SECONDS (9.4-12.5) 02/27/19 22:28 INR 1.13 02/27/19 22:28 APTT 28.7 Seconds (26.9-38.3) 02/27/19 22:28 - Constitutional Appears: Well, No Acute Distress - Head Exam Head Exam: ATRAUMATIC, NORMAL INSPECTION, NORMOCEPHALIC - Eye Exam Eye Exam: Normal appearance - ENT Exam ENT Exam: Normal External Ear Exam - Neck Exam Neck Exam: Normal Inspection - Respiratory Exam Respiratory Exam: NORMAL BREATHING PATTERN - Cardiovascular Exam Cardiovascular Exam: absent: JVD - GI/Abdominal Exam GI & Abdominal Exam: absent: Distended - Rectal Exam Rectal Exam: absent: Deferred - Exam Additional comments: Deferred. - Extremities Exam Extremities Exam: Normal Inspection - Back Exam Back Exam: NORMAL INSPECTION - Neurological Exam Neurological Exam: Alert, Awake, Oriented x3 - Psychiatric Exam Psychiatric exam: Normal Affect, Normal Mood - Skin Skin Exam: Normal Color Assessment and Plan - Assessment and Plan (Free Text) Assessment: Headache resolved. Low grade fever. PNA. Mesentric adenitis. HTN HLD DM Plan: Tylenol 650 mg PO X 1. given. Continue present management.
--- NOTE | 2019-03-01 22:47 | PN ---
DATE: 03/01/2019 PULMONARY PROGRESS NOTE REFERRING PHYSICIAN: Jose Antonio Armstrong MD SUBJECTIVE: The patient is lying in the bed, head at 45 degrees. Family is at bedside. Night was unremarkable. Does not like CPAP. No nausea. No Diarrhea. No leg pain or leg swelling. OBJECTIVE: GENERAL: No acute distress. VITAL SIGNS: Temperature is 98, heart rate is 82, respiratory rate is 20, blood pressure 146/81, pulse 97% room air. HEENT: Moist mucous membranes. No ulcer or thrush. NECK: Supple. No JVD. LUNGS: Have fair airflow with rhonchi. HEART: S1 and S2. ABDOMEN: Soft, nontender. No organomegaly. EXTREMITIES: No edema. NEUROLOGIC: Awake, alert. Follows simple command. MEDICATIONS: She is on Brovana 15 mcg inhaled twice a day, Colace 100 mg twice a day, trazodone 50 mg daily, doxycycline 100 mg twice a day, vitamin D 50,000 units weekly, Ecotrin 81 mg daily, metformin 1000 mg daily, insulin coverage Levemir 30 units subcu daily, metoprolol tartrate 50 mg daily, meropenem 1g IV every 8 hours, Norvasc 10 mg daily, Pepcid 40 mg daily, Pulmicort inhaled twice a day, IV fluid normal saline 50 mL per hour, Tylenol p.r.n. basis. LABORATORY DATA: Shows hemoglobin 13.6, hematocrit 40.4, WBC 7.6, platelet is 283. Microbiology so far, blood culture and sputum culture, there is no growth. ASSESSMENT AND PLAN: Admitted with fever. Has a history of bacteremia, diverticulitis, sleep apnea syndrome, insomnia, hypertension. Suspected sleep apnea syndrome. Pulmonary point of view, keep head 45 degrees, bronchodilator, encourage continuous positive airway pressure use, avoid nocturnal sedation. Being followed by Infectious Disease. Thank you and we will follow with you. Cami Downing MD
[2019-03-02] MEDS: Meropenem IV 1 gm in NS 1 GM/50 ML BAG IVPB SCH ×3 (05:16→22:01)
[2019-03-02] MEDS: Arformoterol 15 mcg/2 ml Inh Sol IH SCH ×2 (07:50→19:50)
[2019-03-02] MEDS: Budesonide 0.5 mg/2 ml Inhal Susp UD IH SCH ×2 (07:50→19:56)
[2019-03-02] MEDS: Insulin Reg-LOW-Coverage SC SCH ×4 (08:13→23:46)
--- NOTE | 2019-03-02 09:07 | CON ---
DATE: 02/28/2019 PULMONARY CONSULTATION REFERRING PHYSICIAN: Jose Antonio Armstrong MD REASON FOR CONSULTATION: Cough, shortness of breath, pneumonia. HISTORY OF PRESENT ILLNESS: This is a 58-year-old female, known to me from previous admission, noncompliant with followup, had cough and shortness of breath from the last few days, presented to the emergency room yesterday with symptoms and found to have pneumonia. She has history of hypertension, hyperlipidemia, diabetes, diverticulitis, suspected sleep apnea syndrome. No hemoptysis, no hematemesis, hematuria, or diarrhea reported. PAST MEDICAL HISTORY: As per history of present illness. History of Lovell's palsy, diabetes, hypothyroid, questionable arthritis, and GERD. FAMILY HISTORY: Significant cardiopulmonary disease reported. SOCIAL HISTORY: Former smoker. Denying any alcohol use. ALLERGIES: TO PENICILLIN, GETS RASH. MEDICATIONS: She is on insulin coverage and IV fluid. Home medications are metronidazole, metformin, amlodipine, trazodone, Zocor, Protonix, metoprolol tartrate, insulin coverage, Pepcid, vitamin D, enalapril, Colace, and aspirin. REVIEW OF SYSTEMS: No headache. Not much rhinitis, cough, shortness of breath. No chest pain. No nausea, no diarrhea. No leg pain or leg swelling. PHYSICAL EXAMINATION: GENERAL: Lying on the bed, no acute distress. VITAL SIGNS: Temperature 98, heart rate 75, respiratory rate 18, blood pressure 144/82, pulse ox 98%, and T-max 101.4. HEENT: Moist mucous membranes. Crowded. Mallampati stage IV. NECK: Supple. No JVD. LUNGS: Has scattered rhonchi. HEART: S1 and S2. ABDOMEN: Soft and nontender. No organomegaly. EXTREMITIES: No edema. NEUROLOGIC: Awake, alert, and follows simple commands. LABORATORY DATA: Shows hemoglobin of 13.6, hematocrit 40.4, WBC of 7.6, platelets are 283. INR of 1.13, and PTT of 29. VBG showed pH of 7.44, pCO2 of 43, pO2 of 51. Sodium 136, potassium 3.2, chloride 97, bicarbonate 28, BUN 15, creatinine 1.3, glucose 127, calcium is 9.5, phosphorous 3.4, magnesium 1.8, total bilirubin 0.7, AST of 64, ALT of 62, alk phos is 101, troponin is 0.03, albumin is 4.2, lipase is 192. Influenza A and B is negative. Group A beta Strep antigen is negative. He had a chest x-ray done in the ER yesterday which showed no active disease. He had a CT of the abdomen and pelvis done, report is pending. IMPRESSION AND PLAN: Sepsis with fever up to 101, pneumonia or chronic bronchitis, last time had bacteremia with diverticulitis, suspected sleep apnea syndrome, hypertension. Need to start on antibiotics, bronchodilators, keep head at 45 degrees and CPAP while sleeping, IV Cami Downing MD
[2019-03-02] MEDS ORDERED: Barium Sulfate Susp 2.1% w/v, 2.0% w/w 450 mL Bottle PO ONE (09:13)
[2019-03-02 09:16] LABS: HEMOGLOBIN 12.7 g/dL (12.0-16.0); MEAN CELL VOLUME 80.7 fl (80.0-105.0); MEAN CORPUSCULAR HEMOGLOBIN 27.2 pg (25.0-35.0); MEAN CORPUSCULAR HGB CONC 33.7 g/dl (31.0-37.0); MEAN PLATELET VOLUME 10.4 fl (7.0-11.0); RBC 4.67 10^6/uL (3.5-6.1); RED CELL DISTRIBUTION WIDTH 15.5 % (11.5-14.5); WHITE BLOOD COUNT 5.9 10^3/uL (4.5-11.0)
[2019-03-02 09:29] LABS: BLOOD UREA NITROGEN 10 mg/dL (7-21); CALCIUM 9.4 mg/dL (8.4-10.5); GFR NON-AFRICAN AMERICAN 57
[2019-03-02] MEDS: Insulin Detemir 100 units/ml Vial (Levemir) SC SCH (09:38)
--- NOTE | 2019-03-02 09:51 | CP.PCM.PN ---
<Jm Soto - Last Filed: 03/02/19 16:47> Subjective - Date & Time of Evaluation Date of Evaluation: 03/02/19 Time of Evaluation: 08:00 - Subjective Subjective: PGY6 GI Fellow Consult Note Patient seen and examined bedside this morning. The patient states abdominal pain has improved significantly since admission. Passing solid, formed stool. No nausea, vomiting, fever, chills. 12 system ROS performed and negative except where stated Objective - Vital Signs/Intake and Output Vital Signs (last 24 hours): Temp Pulse Resp BP Pulse Ox 98.6 F 109 H 18 137/77 100 03/02/19 06:00 03/02/19 09:38 03/02/19 06:00 03/02/19 09:38 03/02/19 06:00 Intake and Output: 03/02/19 03/02/19 06:59 18:59 Intake Total 1600 Balance 1600 - Medications Medications: Current Medications Acetaminophen (Tylenol 325mg Tab) 650 mg PO Q6H PRN PRN Reason: fever > 100.1F / Headache Last Admin: 03/01/19 17:42 Dose: 650 mg Amlodipine Besylate (Norvasc) 10 mg PO DAILY [facility] Last Admin: 03/02/19 09:37 Dose: 10 mg Arformoterol Tartrate (Brovana) 15 mcg IH [id number] [facility] Last Admin: 03/02/19 07:50 Dose: 15 mcg Aspirin (Ecotrin) 81 mg PO DAILY [facility] Last Admin: 03/02/19 09:37 Dose: 81 mg Budesonide (Pulmicort Respules) 0.5 mg IH [id number] [facility] Last Admin: 03/02/19 07:50 Dose: 0.5 mg Docusate Sodium (Colace) 100 mg PO BID [facility] Last Admin: 03/02/19 09:37 Dose: 100 mg Doxycycline Hyclate (Doryx) 100 mg PO Q12 [facility]; Protocol Stop: 03/06/19 10:01 Last Admin: 03/02/19 09:37 Dose: 100 mg Ergocalciferol (Drisdol 50,000 Intl Units Cap) 1 cap PO SUN [facility] Last Admin: 03/01/19 10:02 Dose: 1 cap Famotidine (Pepcid) 40 mg PO DAILY [facility] Last Admin: 03/02/19 09:37 Dose: 40 mg Meropenem (Merrem Iv 1 Gm Premix) 1 gm in 50 mls @ 100 mls/hr IVPB Q8 [facility]; Protocol Stop: 03/09/19 14:01 Last Admin: 03/02/19 05:16 Dose: 100 mls/hr Sodium Chloride (Sodium Chloride 0.9%) 1,000 mls @ 50 mls/hr IV .Q20H [facility] Last Admin: 03/01/19 17:52 Dose: 50 mls/hr Insulin Detemir (Levemir) 30 unit SC DAILY [facility] Last Admin: 03/02/19 09:38 Dose: 30 units Insulin Human Regular (Humulin R Low) 0 units SC ACHS [facility]; Protocol Last Admin: 03/02/19 08:13 Dose: 1 unit Metformin HCl (Glucophage) 1,000 mg PO DAILY [facility] Last Admin: 03/02/19 09:40 Dose: 1,000 mg Metoprolol Tartrate (Lopressor) 50 mg PO DAILY [facility] Last Admin: 03/02/19 09:38 Dose: 50 mg Trazodone HCl (Desyrel) 50 mg PO DAILY [facility] Last Admin: 03/02/19 09:37 Dose: 50 mg - Labs Labs: 03/02/19 09:00 03/02/19 09:00 PT 12.5 SECONDS (9.4-12.5) 02/27/19 22:28 INR 1.13 02/27/19 22:28 APTT 28.7 Seconds (26.9-38.3) 02/27/19 22:28 - Constitutional Appears: Non-toxic, No Acute Distress - Eye Exam Eye Exam: EOMI, PERRL - ENT Exam ENT Exam: Mucous Membranes Moist - Respiratory Exam Respiratory Exam: Clear to Ausculation Bilateral. absent: Rales, Rhonchi, Wheezes - Cardiovascular Exam Cardiovascular Exam: RRR, +S1, +S2 - GI/Abdominal Exam GI & Abdominal Exam: Soft, Normal Bowel Sounds. absent: Distended, Firm, Guarding, Rigid, Tenderness, Organomegaly - Extremities Exam Extremities Exam: Normal Inspection. absent: Pedal Edema - Neurological Exam Neurological Exam: Alert, Awake, Oriented x3 - Psychiatric Exam Psychiatric exam: Normal Affect, Normal Mood - Skin Skin Exam: Dry, Warm Assessment and Plan - Assessment and Plan (Free Text) Assessment: Patient is a 56yo female with PMHx significant for diverticulitis, GERD, anxiety, diabetes who presented with chills and abdominal pain -Right sided colitis vs diverticulitis Plan: -Repeat CT with oral contrast reviewed - concern for right sided colitis and possible distal ileal thickening -Maintain liquid diet -Continue antibiotic regimen -ID following -Encourage appropriate follow up as an outpatient as patient will require colo noscopy 6-8 weeks following resolution of symptoms; patient follows with a provider in [place] and intends to follow up outpatient with this provider <Hemalatha Yao V - Last Filed: 03/02/19 20:18> Objective - Vital Signs/Intake and Output Vital Signs (last 24 hours): Temp Pulse Resp BP Pulse Ox 98.1 F 87 20 133/82 100 03/02/19 18:00 03/02/19 18:00 03/02/19 18:00 03/02/19 18:00 03/02/19 06:00 Intake and Output: 03/02/19 03/03/19 18:59 06:59 Intake Total 700 Balance 700 - Medications Medications: Current Medications Acetaminophen (Tylenol 325mg Tab) 650 mg PO Q6H PRN PRN Reason: fever > 100.1F / Headache Last Admin: 03/01/19 17:42 Dose: 650 mg Amlodipine Besylate (Norvasc) 10 mg PO DAILY [facility] Last Admin: 03/02/19 09:37 Dose: 10 mg Arformoterol Tartrate (Brovana) 15 mcg IH [id number] [facility] Last Admin: 03/02/19 19:50 Dose: 15 mcg Aspirin (Ecotrin) 81 mg PO DAILY [facility] Last Admin: 03/02/19 09:37 Dose: 81 mg Budesonide (Pulmicort Respules) 0.5 mg IH [id number] [facility] Last Admin: 03/02/19 19:56 Dose: 0.5 mg Docusate Sodium (Colace) 100 mg PO BID [facility] Last Admin: 03/02/19 17:31 Dose: 100 mg Doxycycline Hyclate (Doryx) 100 mg PO Q12 [facility]; Protocol Stop: 03/06/19 10:01 Last Admin: 03/02/19 09:37 Dose: 100 mg Enoxaparin Sodium (Lovenox) 40 mg SC DAILY [facility]; Protocol Ergocalciferol (Drisdol 50,000 Intl Units Cap) 1 cap PO SUN [facility] Last Admin: 03/01/19 10:02 Dose: 1 cap Famotidine (Pepcid) 40 mg PO DAILY [facility] Last Admin: 03/02/19 09:37 Dose: 40 mg Meropenem (Merrem Iv 1 Gm Premix) 1 gm in 50 mls @ 100 mls/hr IVPB Q8 [facility]; Protocol Stop: 03/09/19 14:01 Last Admin: 03/02/19 16:18 Dose: 100 mls/hr Sodium Chloride (Sodium Chloride 0.9%) 1,000 mls @ 50 mls/hr IV .Q20H [facility] Last Admin: 03/02/19 12:30 Dose: 50 mls/hr Insulin Detemir (Levemir) 30 unit SC DAILY [facility] Last Admin: 03/02/19 09:38 Dose: 30 units Insulin Human Regular (Humulin R Low) 0 units SC ACHS [facility]; Protocol Last Admin: 03/02/19 16:23 Dose: Not Given Metformin HCl (Glucophage) 1,000 mg PO DAILY [facility] Last Admin: 03/02/19 09:40 Dose: 1,000 mg Metoprolol Tartrate (Lopressor) 50 mg PO DAILY [facility] Last Admin: 03/02/19 09:38 Dose: 50 mg Trazodone HCl (Desyrel) 50 mg PO DAILY [facility] Last Admin: 03/02/19 09:37 Dose: 50 mg - Labs Labs: 03/02/19 09:00 03/02/19 09:00 PT 12.5 SECONDS (9.4-12.5) 02/27/19 22:28 INR 1.13 02/27/19 22:28 APTT 28.7 Seconds (26.9-38.3) 02/27/19 22:28 Attending/Attestation - Attestation I have personally seen and examined this patient.: Yes I have fully participated in the care of the patient.: Yes I have reviewed all pertinent clinical information, including history, physical exam and plan: Yes Notes (Text): This patient was seen and evaluated here in ER. This is an addendum to the GI progress report dictated by the GI fellow. Patient has been feeling better. Patient is on clear liquid diet CT scan of the abdomen and pelvis was reviewed. It showed a mesenteric strandi ng and inflammatory changes in the right colon. Patient was admitted with a high fever abdominal pain inflammatory changes in the right colon. It is similar to the previous presentation now but on a lesser extent. Patient has acute kidney injury and hence IV contrast was avoided Continue IV antibiotics Slowly advance the diet Elective colonoscopy evaluation 03/02/19 20:15
[2019-03-02] MEDS: Sodium Chloride 0.9% 1,000 ML IV SCH (12:30)
--- NOTE | 2019-03-02 14:05 | PN ---
DATE: 03/02/2019 PULMONARY PROGRESS NOTE REFERRING PHYSICIAN: Jose Antonio Armstrong MD SUBJECTIVE: The patient is seen sitting in an armchair in room in no acute distress. No overnight events reported. Reports she did not wear CPAP machine last night. States she does have some productive cough, that is slightly improved. No shortness of breath. No headache, rhinitis, chest pain, abdominal pain, nausea, vomiting, diarrhea, leg pain, or leg swelling reported. OBJECTIVE: VITAL SIGNS: Blood pressure 118/78, pulse 73, temperature 98.9, and oxygen saturation 100% on room air. GENERAL: No acute distress. HEENT: Moist mucous membranes. NECK: Supple. No JVD. LUNGS: Fair air flow. Few rhonchi. CARDIOVASCULAR: S1 and S2. ABDOMEN: Soft and nontender. No distention. No organomegaly. EXTREMITIES: No bilateral lower extremity edema. NEUROLOGIC: Awake, alert and verbal. Following commands. MEDICATIONS: Reviewed. Tylenol 650 mg every 6 hours p.r.n. fever greater than 100.1, Norvasc 10 mg daily, Brovana 50 mcg inhalation every 12 hours, aspirin 81 mg daily, Pulmicort 0.5 mg inhalation every 12 hours, Colace 100 mg twice a day, doxycycline 100 mg every 12 hours, ergocalciferol 50,000 units weekly, Pepcid 40 mg daily, Levemir 30 units subcutaneous daily, Humulin R sliding scale a.c. and at bedtime, meropenem 1 g every 8 hours, metformin 1000 mg daily, metoprolol tartrate 50 mg daily, sodium chloride 0.9% a 1000 mL at 50 mL per hour, and trazodone 50 mg daily. LABORATORY DATA: Reviewed. WBC 5.9, RBC 4.67, hemoglobin 12.5, hematocrit 37.7, and platelets 355. Sodium 138, potassium 3.9, chloride 106, carbon dioxide 21, anion gap 15, BUN 10, creatinine 1, GFR greater than 60, POC glucose 157, random glucose 174 and calcium 9.4. Blood cultures pulmonary no growth after 48 hours. IMPRESSION AND PLAN: Left lower lobe infiltrate seen on CAT scan. The patient was admitted with fever, procalcitonin negative, past history of bacteremia, diverticulitis, suspected sleep apnea syndrome, insomnia and hypertension. Continue antibiotics as per Infectious Disease. Continued inhaled bronchodilators and gastric prophylaxis. We will place the patient on Lovenox for deep venous thrombosis prophylaxis. Continue to encourage continuous positive airway pressure use at bedtime. Sleep apnea precaution and head of bed elevated at 45 degrees. This patient was seen and examined with Dr. Downing. Discussed assessment and plan as described above. This patient was seen and examined with Damian Méndez, nurse practitioner. Discussed assessment and plan as described above. Thank you for this consult. We will follow with you, Damian Méndez APN Cami Downing MD
--- NOTE | 2019-03-02 14:31 | CP.PCM.CON ---
History of Present Illness - History of Present Illness History of Present Illness: Nephrology Consultation Note: Assessment: stable pneumonia JAY JAY likely due to pre-renal state: IMPROVED Hypokalemia DM, HTN obesity anxiety GERD moderate to severe LVH hx of GNR/bacteroides sepsis with acute diverticulitis Plan no need for renal replacement therapy at present. renal function improved and close to baseline/normal. Hypertension control with meds as ordered. pt on enalapril 20 mg bid at home, can resume. Monitor I/O, daily weights and renal function while in hospital supplement lytes as needed GI and ID following Dose meds/antibiotics for improved GFR >60 Glycemic control Further work up for as per primary team. Thanks for allowing me to participate in care of your patient. Please call if any Qs. had d/w team will sign off and follow up further on prn basis Dr José Miguel Moss Office: [phone] CC; chills reason for consult: JAY JAY HPI: Pt is a 58 F with hx of HTN (years), DM obesity anxiety GERD and recently admitted to hospital with GNR/bacteroides sepsis with acute diverticulitis presented to hospital with complaints of feeling cold/chills for last few days. also had pain RUQ and cough and renal consult for JAY JAY management. Denies chest pain, palpitation, no shortness of breath, urine complaints Denies OTC/herbal meds/NSAIDs No recent iodinated contrast exposure. feels better now ROS: denies CP/nausea/vomiting now. no SOB at present. no nausea denies pain abdomen. denies urine complaints rest other negative except as mentioned in HPI. Physical Examination: General Appearance: Comfortable, in no acute respiratory distress, co-operative. obese. Vitals reviewed and noted as below Head; Atraumatic, normocephalic ENT: no ulcers no thrush. Tongue is midline/dry and coated. Oropharynx: no rash or ulcers. EYES: b/l PERRLA. anicteric Neck; supple no lymphadenopathy, no thyromegaly or bruit Lungs: Normal respiratory rate/effort. Breath sounds b/l with equal clear Heart: Normal rate. s1s2 normal. No rub or gallop. Extremities: no edema. No varicose veins. Neurological: Patient is awake alert and follow commands no focal deficit. Skin: dry and warm. Normal turgor. No rash. Palpitation: Normal elasticity for age Abdomen: Abdomen is soft . Bowel sounds +. There is no abdominal tenderness no guarding/rigidity or organomegaly. Psych: normal insight. normal affect/mood MSK: no specific joint tenderness or swelling. Digits and nails normal, no deformity : kidney not palpable. exam limited due to obesity. has umblical hernia Labs/imaging/EKG reviewed. Past medical history, past surgical history, social history, allergy reviewed and noted as below Family hx; no hx of CKD. non contributory renal imaging WNL Past Patient History - Infectious Disease Hx of Infectious Diseases: None - Tetanus Immunizations Tetanus Immunization: Up to Date - Past Social History Smoking Status: Unknown If Ever Smoked - CARDIAC Hx Pacemaker: No - PULMONARY Hx Respiratory Disorders: Yes Hx Bronchitis: Yes Hx Pneumonia: Yes - NEUROLOGICAL Hx Neurological Disorder: Yes Hx Dizziness: Yes Hx Migraine: Yes Other/Comment: Lovell's Palsy , memory issues - HEENT Hx HEENT Problems: No - RENAL Hx Chronic Kidney Disease: No - ENDOCRINE/METABOLIC Hx Endocrine Disorders: Yes Hx Diabetes Mellitus Type 2: Yes Hx Hyperthyroidism: Yes (patient not sure) - HEMATOLOGICAL/ONCOLOGICAL Hx Cancer: No - INTEGUMENTARY Hx Dermatological Problems: No - MUSCULOSKELETAL/RHEUMATOLOGICAL Hx Musculoskeletal Disorders: Yes Hx Arthritis: Yes Hx Falls: No - GASTROINTESTINAL Hx Gastrointestinal Disorders: Yes Hx Gastroesophageal Reflux: Yes - GENITOURINARY/GYNECOLOGICAL Hx Genitourinary Disorders: Yes Other/Comment: yeast infections - PSYCHIATRIC Hx Psychophysiologic Disorder: Yes Hx Anxiety: Yes Hx Depression: Yes - SURGICAL HISTORY Hx Mastectomy: No - ANESTHESIA Hx Anesthesia: No Meds Allergies/Adverse Reactions: Allergies Allergy/AdvReac Type Severity Reaction Status Date / Time Penicillins Allergy RASH Verified 02/27/19 20:53 - Medications Medications: Current Medications Acetaminophen (Tylenol 325mg Tab) 650 mg PO Q6H PRN PRN Reason: fever > 100.1F / Headache Last Admin: 03/01/19 17:42 Dose: 650 mg Amlodipine Besylate (Norvasc) 10 mg PO DAILY [facility] Last Admin: 03/02/19 09:37 Dose: 10 mg Arformoterol Tartrate (Brovana) 15 mcg IH [id number] [facility] Last Admin: 03/02/19 07:50 Dose: 15 mcg Aspirin (Ecotrin) 81 mg PO DAILY [facility] Last Admin: 04/29/19 09:37 Dose: 81 mg Budesonide (Pulmicort Respules) 0.5 mg IH [id number] [facility] Last Admin: 03/02/19 07:50 Dose: 0.5 mg Docusate Sodium (Colace) 100 mg PO BID [facility] Last Admin: 03/02/19 09:37 Dose: 100 mg Doxycycline Hyclate (Doryx) 100 mg PO Q12 [facility]; Protocol Stop: 03/06/19 10:01 Last Admin: 03/02/19 09:37 Dose: 100 mg Enoxaparin Sodium (Lovenox) 40 mg SC DAILY [facility]; Protocol Ergocalciferol (Drisdol 50,000 Intl Units Cap) 1 cap PO SUN [facility] Last Admin: 03/01/19 10:02 Dose: 1 cap Famotidine (Pepcid) 40 mg PO DAILY [facility] Last Admin: 03/02/19 09:37 Dose: 40 mg Meropenem (Merrem Iv 1 Gm Premix) 1 gm in 50 mls @ 100 mls/hr IVPB Q8 [facility]; Protocol Stop: 03/09/19 14:01 Last Admin: 03/02/19 05:16 Dose: 100 mls/hr Sodium Chloride (Sodium Chloride 0.9%) 1,000 mls @ 50 mls/hr IV .Q20H [facility] Last Admin: 03/02/19 12:30 Dose: 50 mls/hr Insulin Detemir (Levemir) 30 unit SC DAILY [facility] Last Admin: 03/02/19 09:38 Dose: 30 units Insulin Human Regular (Humulin R Low) 0 units SC ACHS [facility]; Protocol Last Admin: 03/02/19 12:19 Dose: 2 unit Metformin HCl (Glucophage) 1,000 mg PO DAILY [facility] Last Admin: 03/02/19 09:40 Dose: 1,000 mg Metoprolol Tartrate (Lopressor) 50 mg PO DAILY [facility] Last Admin: 03/02/19 09:38 Dose: 50 mg Trazodone HCl (Desyrel) 50 mg PO DAILY [facility] Last Admin: 03/02/19 09:37 Dose: 50 mg Results - Vital Signs Recent Vital Signs: Last Vital Signs Temp 98.9 F 03/02/19 12:00 Pulse 73 03/02/19 12:00 Resp 20 03/02/19 12:00 BP 118/78 03/02/19 12:00 Pulse Ox 100 03/02/19 06:00 - Labs Result Diagrams: 03/02/19 09:00 03/02/19 09:00 Labs: Laboratory Results - last 24 hr 03/01/19 03/01/19 03/02/19 16:14 21:49 07:45 WBC RBC Hgb Hct MCV MCH MCHC RDW Plt Count MPV Sodium Potassium Chloride Carbon Dioxide Anion Gap BUN Creatinine Est GFR ( Amer) Est GFR (Non-Af Amer) POC Glucose (mg/dL) 102 115 H 157 H Random Glucose Calcium 03/02/19 03/02/19 09:00 09:00 WBC 5.9 D RBC 4.67 Hgb 12.7 Hct 37.7 MCV 80.7 MCH 27.2 MCHC 33.7 RDW 15.5 H Plt Count 255 MPV 10.4 Sodium 138 Potassium 3.9 Chloride 106 Carbon Dioxide 21 Anion Gap 15 BUN 10 Creatinine 1.0 Est GFR ( Amer) > 60 Est GFR (Non-Af Amer) 57 POC Glucose (mg/dL) Random Glucose 174 H Calcium 9.4
--- NOTE | 2019-03-02 15:21 | CT ---
Date of service: 03/02/2019 PROCEDURE: CT Abdomen and Pelvis without intravenous contrast HISTORY: abd pain; further eval right colon COMPARISON: None. TECHNIQUE: Without contrast.. Contrast dose: Radiation dose: Total exam DLP = 1082.66 mGy-cm. This CT exam was performed using one or more of the following dose reduction techniques: Automated exposure control, adjustment of the mA and/or kV according to patient size, and/or use of iterative reconstruction technique. FINDINGS: LOWER THORAX: Minimal bibasilar infiltrates LIVER: Unremarkable. No gross lesion or ductal dilatation. GALLBLADDER AND BILE DUCTS: Unremarkable. PANCREAS: Unremarkable. No gross lesion or ductal dilatation. SPLEEN: Unremarkable. ADRENALS: Unremarkable. No mass. KIDNEYS AND URETERS: Unremarkable. No hydronephrosis. No solid mass. VASCULATURE: Unremarkable. No aortic aneurysm. No aortic atherosclerotic calcification or mural plaque present. BOWEL: Unremarkable. No obstruction. No gross mural thickening. APPENDIX: Unremarkable. Normal appendix. PERITONEUM: Unremarkable. No free fluid. No free air. LYMPH NODES: Unremarkable. No enlarged lymph nodes. BLADDER: Unremarkable. REPRODUCTIVE: Unremarkable. BONES: No acute fracture. OTHER FINDINGS: None. IMPRESSION: No acute intra-abdominal findings
--- NOTE | 2019-03-02 18:55 | HP ---
DATE OF EXAM: 02/28/2019 CHIEF COMPLAINT: The patient was seen on 02/28/2019. Her main complaint is fever of 101, feeling sick, right-sided chest pain and upper abdominal discomfort. HISTORY OF PRESENT ILLNESS: This patient is a 58-year-old female with history of diabetes, hypertension, has history recent admission of right-sided colitis that was treated with IV antibiotics and repeated blood culture was positive and finally the patient did well and she was supposed to get a colonoscopy as outpatient next month in 03/2019; however, before that time, the patient developed a fever, chills, came to the ER for evaluation of her fever and right-sided pain. No short of breath. No nausea. No vomiting. No other complaint. ALLERGIES: PENICILLIN, NUTS, , NOT ANAPHYLACTIC. PAST MEDICAL HISTORY: She had diabetes, hypertension. She uses insulin. She has obesity, hypercholesteremia, back pain, facial palsy. PAST SURGICAL HISTORY: She had a history of surgical D and C in the past. FAMILY HISTORY: Noncontributory. SOCIAL HISTORY: No smoking. No drinking. Lives by herself. PHYSICAL EXAMINATION VITAL SIGNS: On 02/28/2019; temperature 98, heart rate 81, blood pressure 131/74, respirations 18, and sat 100% on room air. HEAD AND NECK: Normal. No JVD. No thyromegaly. CHEST: Clear bilaterally. CARDIAC: First sound and second sound normal. No murmur, rub, or gallop. ABDOMEN: Soft, obese, tenderness in the right upper quadrant area, mild. Bowel sounds intact. EXTREMITIES: No edema. NEUROLOGIC: Normal. LABORATORY DATA: White count 7.6, hemoglobin 13.6, hematocrit 40.4, platelet is 283. Chemistry; sodium 136, potassium 3.2, chloride 97, bicarb 15, creatinine 1.3. Liver function test is normal. Blood sugar 145. Her AST is 64, her ALT is 62, and troponin is 0.03. Procalcitonin done was negative, was low. IMPRESSION AND PLAN: Fever of 101, right-sided pain, tenderness, right-sided pleuritic chest pain. We will admit the patient with; 1. Sepsis and possible healthcare associated right-sided pneumonia based on the CT of the abdomen and pelvis. We will put the patient on antibiotic, already started on Levaquin and vancomycin. We will get an Infectious Disease consult with Dr. Riojas. We will follow up clinically. 2. Diabetes, hypertension, hypercholesteremia. We will resume on the insulin coverage, resume all other medications and followup clinically. We are also going to get a Gastroenterology consult, Infectious Disease consult, and continue to follow up on that. Jose Antonio Armstrong MD
--- NOTE | 2019-03-02 23:00 | PN ---
DATE: 03/02/2019 SUBJECTIVE: The patient is in bed, in no acute distress, nontoxic. PHYSICAL EXAMINATION: VITAL SIGNS: On exam, temperature is 98, blood pressure is 118/70, respiratory rate 20, heart rate 70. HEENT: Unremarkable. NECK: Supple. LUNGS: Have decreased breath sounds. HEART: Normal S1, S2. ABDOMEN: Soft. LABORATORY DATA: Reveals the patient's white count is 5.9, hemoglobin of 12. Chemistries are noted. Creatinine is 1 and procalcitonin 0.08. Urinalysis is noted and serology is noted. Urine Legionella is negative. Influenza is negative. Group B strep is negative. Blood cultures are negative. Sputum is negative. MRSA screen is negative. Urine cultures are negative. Review of systems reveals the patient to be on meropenem IV. The patient had a CAT scan of the abdomen and pelvis. No acute findings. Dr. Stover the patient is on p.o. doxycycline and meropenem. The patient had a chest x-ray which was also negative. ASSESSMENT AND PLAN: A 58-year-old female with anxiety, hypertension, hyperlipidemia, diabetes, gastroesophageal reflux disease, bronchitis, migraine, Lovell's palsy, arthritis, recently diagnosed with right-sided diverticulitis who was admitted with fevers and chills, right-sided pleuritic chest pain and questionable abdominal pain, sepsis with left-sided healthcare-associated pneumonia, mesenteritis, acute kidney injury, on meropenem and doxycycline. The patient is much improved this morning. Today is day #3 of 4-7 days. May be able to complete with p.o. doxycycline upon discharge. We will follow with you. Campos Riojas MD
[2019-03-03] MEDS: Meropenem IV 1 gm in NS 1 GM/50 ML BAG IVPB SCH ×2 (05:37→14:42)
[2019-03-03 07:30] LABS: BLOOD UREA NITROGEN 8 mg/dL (7-21); CALCIUM 9.3 mg/dL (8.4-10.5); GFR NON-AFRICAN AMERICAN > 60
[2019-03-03] MEDS: Budesonide 0.5 mg/2 ml Inhal Susp UD IH SCH ×2 (07:52→19:15)
[2019-03-03] MEDS: Arformoterol 15 mcg/2 ml Inh Sol IH SCH ×2 (07:52→19:15)
[2019-03-03] MEDS: Insulin Reg-LOW-Coverage SC SCH ×4 (08:17→21:31)
[2019-03-03] MEDS: Sodium Chloride 0.9% 1,000 ML IV SCH (08:19)
[2019-03-03] MEDS: Insulin Detemir 100 units/ml Vial (Levemir) SC SCH (09:20)
[2019-03-03] MEDS: Enoxaparin 40 mg Syringe SC SCH (09:20)
--- NOTE | 2019-03-03 10:33 | CP.PCM.PN ---
<Jm Soto - Last Filed: 03/03/19 10:30> Subjective - Date & Time of Evaluation Date of Evaluation: 03/03/19 Time of Evaluation: 08:00 - Subjective Subjective: PGY6 GI Fellow Progress Note Patient seen and examined bedside this morning. The patient states that she is feeling well today and denies any abdominal pain. Advanced diet for breakfast was tolerated without adverse event. 12 system ROS performed and negative except where stated Objective - Vital Signs/Intake and Output Vital Signs (last 24 hours): Temp Pulse Resp BP Pulse Ox 98.0 F 98 H 19 147/87 99 03/03/19 06:00 03/03/19 09:19 03/03/19 06:00 03/03/19 09:19 03/02/19 23:34 Intake and Output: 03/03/19 03/03/19 06:59 18:59 Intake Total 1080 Balance 1080 - Medications Medications: Current Medications Acetaminophen (Tylenol 325mg Tab) 650 mg PO Q6H PRN PRN Reason: fever > 100.1F / Headache Last Admin: 03/01/19 17:42 Dose: 650 mg Amlodipine Besylate (Norvasc) 10 mg PO DAILY [facility] Last Admin: 03/03/19 09:19 Dose: 10 mg Arformoterol Tartrate (Brovana) 15 mcg IH [id number] [facility] Last Admin: 03/03/19 07:52 Dose: 15 mcg Aspirin (Ecotrin) 81 mg PO DAILY [facility] Last Admin: 03/03/19 09:19 Dose: 81 mg Budesonide (Pulmicort Respules) 0.5 mg IH [id number] [facility] Last Admin: 03/03/19 07:52 Dose: 0.5 mg Docusate Sodium (Colace) 100 mg PO BID [facility] Last Admin: 03/03/19 09:20 Dose: 100 mg Doxycycline Hyclate (Doryx) 100 mg PO Q12 [facility]; Protocol Stop: 03/06/19 10:01 Last Admin: 03/03/19 09:20 Dose: 100 mg Enoxaparin Sodium (Lovenox) 40 mg SC DAILY [facility]; Protocol Last Admin: 03/03/19 09:20 Dose: 40 mg Ergocalciferol (Drisdol 50,000 Intl Units Cap) 1 cap PO SUN [facility] Last Admin: 03/01/19 10:02 Dose: 1 cap Famotidine (Pepcid) 40 mg PO DAILY [facility] Last Admin: 03/03/19 09:19 Dose: 40 mg Meropenem (Merrem Iv 1 Gm Premix) 1 gm in 50 mls @ 100 mls/hr IVPB Q8 [facility]; Protocol Stop: 03/09/19 14:01 Last Admin: 03/03/19 05:37 Dose: 100 mls/hr Insulin Detemir (Levemir) 30 unit SC DAILY [facility] Last Admin: 03/03/19 09:20 Dose: 30 units Insulin Human Regular (Humulin R Low) 0 units SC ACHS [facility]; Protocol Last Admin: 03/03/19 08:17 Dose: 1 unit Metformin HCl (Glucophage) 1,000 mg PO DAILY [facility] Last Admin: 03/03/19 09:19 Dose: 1,000 mg Metoprolol Tartrate (Lopressor) 50 mg PO DAILY [facility] Last Admin: 03/03/19 09:19 Dose: 50 mg Trazodone HCl (Desyrel) 50 mg PO DAILY [facility] Last Admin: 03/03/19 09:19 Dose: 50 mg - Labs Labs: 03/02/19 09:00 03/03/19 07:00 PT 12.5 SECONDS (9.4-12.5) 02/27/19 22:28 INR 1.13 02/27/19 22:28 APTT 28.7 Seconds (26.9-38.3) 02/27/19 22:28 - Constitutional Appears: Non-toxic, No Acute Distress - Eye Exam Eye Exam: EOMI, PERRL - ENT Exam ENT Exam: Mucous Membranes Moist - Respiratory Exam Respiratory Exam: Clear to Ausculation Bilateral. absent: Rales, Rhonchi, Wheezes - Cardiovascular Exam Cardiovascular Exam: RRR, +S1, +S2 - GI/Abdominal Exam GI & Abdominal Exam: Soft, Normal Bowel Sounds. absent: Distended, Firm, Guarding, Rigid, Tenderness, Organomegaly - Extremities Exam Extremities Exam: Normal Inspection. absent: Pedal Edema - Neurological Exam Neurological Exam: Alert, Awake, Oriented x3 - Psychiatric Exam Psychiatric exam: Normal Affect, Normal Mood - Skin Skin Exam: Dry, Warm Assessment and Plan - Assessment and Plan (Free Text) Assessment: Patient is a 56yo female with PMHx significant for diverticulitis, GERD, anxie ty, diabetes who presented with chills and abdominal pain -Right sided colitis vs diverticulitis Plan: -Tolerating advancement in diet without issue -Continue antibiotic regimen -ID following, will write for outpatient antibiotic regimen -Patient scheduled to follow up with her primary meter reader chief, Dr Garcia at [facility] [place] in the coming week - encourage outpatient colonoscopy once acute inflammation has resolved (~6-8 weeks) <Hemalatha Yao V - Last Filed: 03/05/19 00:06> Objective - Vital Signs/Intake and Output Vital Signs (last 24 hours): Temp Pulse Resp BP Pulse Ox 98.4 F 86 20 147/77 99 03/03/19 23:37 03/03/19 23:37 03/03/19 23:37 03/03/19 23:37 03/03/19 23:37 Intake and Output: 03/03/19 03/04/19 18:59 06:59 Intake Total 100 Balance 100 - Medications Medications: Current Medications Acetaminophen (Tylenol 325mg Tab) 650 mg PO Q6H PRN PRN Reason: fever > 100.1F / Headache Last Admin: 03/01/19 17:42 Dose: 650 mg Amlodipine Besylate (Norvasc) 10 mg PO DAILY [facility] Last Admin: 03/03/19 09:19 Dose: 10 mg Arformoterol Tartrate (Brovana) 15 mcg IH [id number] [facility] Last Admin: 03/03/19 19:15 Dose: 15 mcg Aspirin (Ecotrin) 81 mg PO DAILY [facility] Last Admin: 03/03/19 09:19 Dose: 81 mg Budesonide (Pulmicort Respules) 0.5 mg IH [id number] [facility] Last Admin: 03/03/19 19:15 Dose: 0.5 mg Docusate Sodium (Colace) 100 mg PO BID [facility] Last Admin: 03/03/19 17:43 Dose: 100 mg Doxycycline Hyclate (Doryx) 100 mg PO Q12 [facility]; Protocol Stop: 03/06/19 10:01 Last Admin: 03/03/19 21:30 Dose: 100 mg Enoxaparin Sodium (Lovenox) 40 mg SC DAILY [facility]; Protocol Last Admin: 03/03/19 09:20 Dose: 40 mg Ergocalciferol (Drisdol 50,000 Intl Units Cap) 1 cap PO SUN [facility] Last Admin: 03/01/19 10:02 Dose: 1 cap Famotidine (Pepcid) 40 mg PO DAILY [facility] Last Admin: 03/03/19 09:19 Dose: 40 mg Insulin Detemir (Levemir) 30 unit SC DAILY [facility] Last Admin: 03/03/19 09:20 Dose: 30 units Insulin Human Regular (Humulin R Low) [address] [facility]; Protocol Last Admin: 03/03/19 21:31 Dose: Not Given Metformin HCl (Glucophage) 1,000 mg PO DAILY [facility] Last Admin: 03/03/19 09:19 Dose: 1,000 mg Metoprolol Tartrate (Lopressor) 50 mg PO DAILY [facility] Last Admin: 03/03/19 09:19 Dose: 50 mg Trazodone HCl (Desyrel) 50 mg PO DAILY [facility] Last Admin: 03/03/19 09:19 Dose: 50 mg - Labs Labs: 03/02/19 09:00 03/03/19 07:00 PT 12.5 SECONDS (9.4-12.5) 02/27/19 22:28 INR 1.13 02/27/19 22:28 APTT 28.7 Seconds (26.9-38.3) 02/27/19 22:28 Attending/Attestation - Attestation I have personally seen and examined this patient.: Yes I have fully participated in the care of the patient.: Yes I have reviewed all pertinent clinical information, including history, physical exam and plan: Yes Notes (Text): This patient was seen and evaluated along with the GI fellow earlier. Patient has been doing well abdominal pain has decreased significantly. Will advance the diet.. Discussed with the patient regarding yearly Urological Follow-Up for Colonoscopy. Patient Was Seen by Dr. Escobar Gastroneurologist in the past. Advised to Follow-Up with him regarding Colonoscopy Evaluation 03/03/19 23:56 03/05/19 00:05
--- NOTE | 2019-03-03 11:26 | PN ---
DATE: 03/03/2019 PULMONARY PROGRESS NOTE REFERRING PHYSICIAN: Jose Antonio Armstrong MD SUBJECTIVE: The patient is seen sitting in armchair in room. No acute distress. No overnight events reported. States she did not wear CPAP machine last night. Denies shortness of breath. Does have productive cough which has improved some. No headache, rhinitis, chest pain, abdominal pain, nausea, vomiting, diarrhea, leg pain, or leg swelling reported. OBJECTIVE: VITAL SIGNS: Blood pressure 138/81, pulse 71, temperature 98, and oxygen saturation 99% on room air. GENERAL: No acute distress. HEENT: Moist mucous membranes. Mallampati score of 4. NECK: Supple. No JVD. LUNGS: Fair air flow bilaterally. CARDIOVASCULAR: S1 and S2. ABDOMEN: Soft and nontender. No distention. No organomegaly. EXTREMITIES: No bilateral lower extremity edema. NEUROLOGIC: Awake, alert and verbal. Following commands. MEDICATIONS: Reviewed. Tylenol 650 mg every 6 hours p.r.n., Norvasc 10 mg daily, Brovana 15 mcg inhalation every 12 hours, aspirin 81 mg daily, Pulmicort 0.5 mg inhalation every 12 hours, Colace 100 mg twice a day, doxycycline 100 mg every 12 hours, Lovenox 40 mg subcutaneous daily, ergocalciferol 50,000 units weekly, Pepcid 40 mg daily, Levemir 30 units subcutaneous daily, Humulin R sliding scale a.c. and at bedtime, meropenem 1 g every 8 hours, metformin 1000 mg daily, metoprolol tartrate 50 mg daily and trazodone 50 mg daily. LABORATORY DATA: Reviewed. Sodium 139, potassium 3.7, chloride 108, carbon dioxide 23, anion gap of 12, BUN 8, creatinine 0.9, GFR is greater than 60, POC glucose 164, random glucose 148 and calcium 9.3. Blood cultures preliminary no growth after [address] and pelvis [address] shows no acute intraabdominal findings. There is minimal bibasilar infiltrates in the lower thorax. IMPRESSION AND PLAN: Believe may have acute bronchitis, procalcitonin was negative. Has a history of bacteremia, diverticulitis, suspected sleep apnea syndrome, insomnia, hypertension, anxiety, hyperlipidemia, gastroesophageal reflux disease, Lovell's palsy, recently diagnosed with right-sided diverticulitis. The patient is currently on antibiotic therapy. Continue antibiotic therapy as per Infectious Disease. Continued inhaled bronchodilators, gastric prophylaxis and deep venous thrombosis prophylaxis. Continue to encourage continuous positive airway pressure use at bedtime. Sleep apnea precaution and head of bed elevated at 45 degrees. Recommend the patient have full pulmonary function test and sleep study as outpatient. This patient was seen and examined with Dr. Downing. Discussed assessment and plan as described above. This patient was seen and examined with Damian Méndez, nurse practitioner. Discussed assessment and plan as described above. Thank you for this consult. We will follow with you, Damian Méndez APN Cami Downing MD
--- NOTE | 2019-03-03 12:00 | CP.PCM.PN ---
Subjective - Date & Time of Evaluation Date of Evaluation: 03/03/19 Time of Evaluation: 11:59 - Subjective Subjective: Nephrology Consultation Note: Assessment: stable pneumonia JAY JAY likely due to pre-renal state: IMPROVED Hypokalemia DM, HTN obesity anxiety GERD moderate to severe LVH hx of GNR/bacteroides sepsis with acute diverticulitis Plan no need for renal replacement therapy at present. renal function improved and close to baseline/normal. Hypertension control with meds as ordered. pt on enalapril 20 mg bid at home, can resume. Monitor I/O, daily weights and renal function while in hospital supplement lytes as needed d/c IVF GI and ID following Dose meds/antibiotics for improved GFR >60 Glycemic control Further work up for as per primary team. Thanks for allowing me to participate in care of your patient. Please call if any Qs. had d/w team will sign off and follow up further on prn basis Dr José Miguel Moss Office: [phone] CC; chills reason for consult: JAY JAY HPI: Pt is a 58 F with hx of HTN (years), DM obesity anxiety GERD and recently admitted to hospital with GNR/bacteroides sepsis with acute diverticulitis presented to hospital with complaints of feeling cold/chills for last few days. also had pain RUQ and cough and renal consult for JAY JAY management. Denies chest pain, palpitation, no shortness of breath, urine complaints Denies OTC/herbal meds/NSAIDs No recent iodinated contrast exposure. feels better now ROS: denies CP/nausea/vomiting now. no SOB at present. no nausea denies pain abdomen. denies urine complaints rest other negative except as mentioned in HPI. Physical Examination: General Appearance: Comfortable, in no acute respiratory distress, co-operative. obese. Vitals reviewed and noted as below Head; Atraumatic, normocephalic ENT: no ulcers no thrush. Tongue is midline/dry and coated. Oropharynx: no rash or ulcers. EYES: b/l PERRLA. anicteric Neck; supple no lymphadenopathy, no thyromegaly or bruit Lungs: Normal respiratory rate/effort. Breath sounds b/l + with occasional basal crackle Heart: Normal rate. s1s2 normal. No rub or gallop. Extremities: no edema. No varicose veins. ankle appears puffy Neurological: Patient is awake alert and follow commands no focal deficit. Skin: dry and warm. Normal turgor. No rash. Palpitation: Normal elasticity for age Abdomen: Abdomen is soft . Bowel sounds +. There is no abdominal tenderness no guarding/rigidity or organomegaly. Psych: normal insight. normal affect/mood MSK: no specific joint tenderness or swelling. Digits and nails normal, no deformity : kidney not palpable. exam limited due to obesity. has umblical hernia Labs/imaging/EKG reviewed. Past medical history, past surgical history, social history, allergy reviewed and noted as below Family hx; no hx of CKD. non contributory renal imaging WNL Objective - Vital Signs/Intake and Output Vital Signs (last 24 hours): Temp Pulse Resp BP Pulse Ox 98.0 F 98 H 19 147/87 99 03/03/19 06:00 03/03/19 09:19 03/03/19 06:00 03/03/19 09:19 03/02/19 23:34 Intake and Output: 03/03/19 03/03/19 06:59 18:59 Intake Total 1080 Balance 1080 - Medications Medications: Current Medications Acetaminophen (Tylenol 325mg Tab) 650 mg PO Q6H PRN PRN Reason: fever > 100.1F / Headache Last Admin: 03/01/19 17:42 Dose: 650 mg Amlodipine Besylate (Norvasc) 10 mg PO DAILY [facility] Last Admin: 03/03/19 09:19 Dose: 10 mg Arformoterol Tartrate (Brovana) 15 mcg IH [id number] [facility] Last Admin: 03/03/19 07:52 Dose: 15 mcg Aspirin (Ecotrin) 81 mg PO DAILY [facility] Last Admin: 03/03/19 09:19 Dose: 81 mg Budesonide (Pulmicort Respules) 0.5 mg IH [id number] [facility] Last Admin: 03/03/19 07:52 Dose: 0.5 mg Docusate Sodium (Colace) 100 mg PO BID [facility] Last Admin: 03/03/19 09:20 Dose: 100 mg Doxycycline Hyclate (Doryx) 100 mg PO Q12 [facility]; Protocol Stop: 03/06/19 10:01 Last Admin: 03/03/19 09:20 Dose: 100 mg Enoxaparin Sodium (Lovenox) 40 mg SC DAILY [facility]; Protocol Last Admin: 03/03/19 09:20 Dose: 40 mg Ergocalciferol (Drisdol 50,000 Intl Units Cap) 1 cap PO SUN [facility] Last Admin: 03/01/19 10:02 Dose: 1 cap Famotidine (Pepcid) 40 mg PO DAILY [facility] Last Admin: 03/03/19 09:19 Dose: 40 mg Meropenem (Merrem Iv 1 Gm Premix) 1 gm in 50 mls @ 100 mls/hr IVPB Q8 [facility]; Protocol Stop: 03/09/19 14:01 Last Admin: 03/03/19 05:37 Dose: 100 mls/hr Insulin Detemir (Levemir) 30 unit SC DAILY [facility] Last Admin: 03/03/19 09:20 Dose: 30 units Insulin Human Regular (Humulin R Low) 0 units SC ACHS [facility]; Protocol Last Admin: 03/03/19 08:17 Dose: 1 unit Metformin HCl (Glucophage) 1,000 mg PO DAILY [facility] Last Admin: 03/03/19 09:19 Dose: 1,000 mg Metoprolol Tartrate (Lopressor) 50 mg PO DAILY [facility] Last Admin: 03/03/19 09:19 Dose: 50 mg Trazodone HCl (Desyrel) 50 mg PO DAILY [facility] Last Admin: 03/03/19 09:19 Dose: 50 mg - Labs Labs: 03/02/19 09:00 03/03/19 07:00 PT 12.5 SECONDS (9.4-12.5) 02/27/19 22:28 INR 1.13 02/27/19 22:28 APTT 28.7 Seconds (26.9-38.3) 02/27/19 22:28
--- NOTE | 2019-03-03 16:43 | PN ---
DATE: 03/02/2019 SUBJECTIVE: Tracey Krishnan is a 58-year-old female, sitting on a chair, no distress, feeling better. No fever, no nausea, no vomiting. Going for repeat CT. PHYSICAL EXAMINATION: VITAL SIGNS: Temperature 97.4, heart rate 60, blood pressure 156/85, respirations 18 and sats 99%. HEENT: Head and neck normal. No JVD. No thyromegaly. CHEST: Clear bilateral. CARDIAC: First sound and second sound normal. No murmur, rub or gallop. ABDOMEN: Soft, obese and nontender. EXTREMITIES: No edema. NEUROLOGIC: Normal. LABORATORY STUDIES: White count 5.9, hemoglobin 12.7, hematocrit 37.7 and platelets 255. Chemistry; sodium 138, potassium 3.9, chloride 106, bicarb 21, BUN 10, creatinine 1, blood sugar 174 and calcium 9.4. IMPRESSION AND PLAN: 1. Bibasilar pneumonia, infiltrates on the CT. We will continue current intravenous antibiotic. The patient is getting doxycycline and Merrem for now as per Infectious Disease. We will follow their recommendations. Continue inhaled bronchodilators. She is stable. She does not seem to be in any respiratory distress at this time. 2. Hypertension. Continue Norvasc 10 mg and metoprolol 50 mg. 3. History of insomnia. She seems doing okay with trazodone 50 mg daily. 4. Diabetes, insulin independent. Continue Levemir 3 units subcu daily plus metformin 1000 p.o. daily and coverage. 5. History of colitis. It looks like she is okay now, she does not much of tenderness, the only tenderness she has is some mild discomfort in the upper quadrant and otherwise stable. We will continue current therapy, we will follow up clinically. The patient seems more stable, afebrile, and we will discuss this with the specification consultant. Jose Antonio Armstrong MD
--- NOTE | 2019-03-04 | PN ---
DATE: 03/03/2019 SUBJECTIVE: The patient is in bed, in no acute distress, nontoxic. She was seen earlier this morning. No fevers and chills. PHYSICAL EXAMINATION: VITAL SIGNS: Temperature is 98, blood pressure is 140/80, respiratory rate of 18. HEENT: Unremarkable. NECK: Supple. LUNGS: Have decreased breath sounds. HEART: Normal S1, S2. ABDOMEN: Soft. LABORATORY DATA: Reveals the patient has a white count of 5.9, hemoglobin of 12. BUN of 8, creatinine of 0.9. Urinalysis is noted. Serology is noted. ASSESSMENT AND PLAN: A 58-year-old female with anxiety, hypertension, hyperlipidemia, diabetes, gastroesophageal reflux disease, bronchitis, migraine, Lovell's palsy, left sided healthcare-associated pneumonia, mesenteritis, acute kidney injury, on meropenem day #4, doxycycline day . Workup thus far with a negative procalcitonin, negative cultures. We will discontinue the meropenem. Today is day #4 of doxycycline. We will follow with you. Campos Riojas MD
[2019-03-04] MEDS: Insulin Reg-LOW-Coverage SC SCH ×3 (08:00→17:38)
[2019-03-04] MEDS: Budesonide 0.5 mg/2 ml Inhal Susp UD IH SCH (08:58)
[2019-03-04] MEDS: Arformoterol 15 mcg/2 ml Inh Sol IH SCH (08:58)
[2019-03-04] MEDS: Insulin Detemir 100 units/ml Vial (Levemir) SC SCH (10:24)
[2019-03-04] MEDS: Enoxaparin 40 mg Syringe SC SCH (10:28)
--- NOTE | 2019-03-04 10:41 | CP.PCM.PN ---
<BrittanyJm - Last Filed: 03/04/19 16:09> Subjective - Date & Time of Evaluation Date of Evaluation: 03/04/19 Time of Evaluation: 08:15 - Subjective Subjective: PGY6 GI Fellow Progress Note Patient seen and examined bedside this morning. The patient denies any complaints at this time. She denies any abdominal discomfort, nausea, vomiting and is passing regular stool. Tolerating diet without issue. 12 system ROS performed and negative except where stated Objective - Vital Signs/Intake and Output Vital Signs (last 24 hours): Temp Pulse Resp BP Pulse Ox 98.1 F 70 21 159/94 H 98 03/04/19 05:47 03/04/19 10:30 03/04/19 05:47 03/04/19 10:30 03/04/19 05:47 Intake and Output: 03/04/19 03/04/19 06:59 18:59 Intake Total 540 Output Total 4 Balance 536 - Medications Medications: Current Medications Acetaminophen (Tylenol 325mg Tab) 650 mg PO Q6H PRN PRN Reason: fever > 100.1F / Headache Last Admin: 03/01/19 17:42 Dose: 650 mg Amlodipine Besylate (Norvasc) 10 mg PO DAILY [facility] Last Admin: 03/04/19 10:29 Dose: 10 mg Arformoterol Tartrate (Brovana) 15 mcg IH [id number] [facility] Last Admin: 03/04/19 08:58 Dose: 15 mcg Aspirin (Ecotrin) 81 mg PO DAILY [facility] Last Admin: 03/04/19 10:30 Dose: 81 mg Budesonide (Pulmicort Respules) 0.5 mg IH [id number] [facility] Last Admin: 03/04/19 08:58 Dose: 0.5 mg Docusate Sodium (Colace) 100 mg PO BID [facility] Last Admin: 03/04/19 10:29 Dose: 100 mg Doxycycline Hyclate (Doryx) 100 mg PO Q12 [facility]; Protocol Stop: 03/06/19 10:01 Last Admin: 03/04/19 10:29 Dose: 100 mg Enoxaparin Sodium (Lovenox) 40 mg SC DAILY [facility]; Protocol Last Admin: 03/04/19 10:28 Dose: 40 mg Ergocalciferol (Drisdol 50,000 Intl Units Cap) 1 cap PO SUN [facility] Last Admin: 03/01/19 10:02 Dose: 1 cap Famotidine (Pepcid) 40 mg PO DAILY [facility] Last Admin: 03/04/19 10:30 Dose: 40 mg Insulin Detemir (Levemir) 30 unit SC DAILY [facility] Last Admin: 03/04/19 10:24 Dose: Not Given Insulin Human Regular (Humulin R Low) 0 units SC [facility]; Protocol Last Admin: 03/04/19 08:00 Dose: Not Given Metformin HCl (Glucophage) 1,000 mg PO DAILY [facility] Last Admin: 03/04/19 10:30 Dose: 1,000 mg Metoprolol Tartrate (Lopressor) 50 mg PO DAILY [facility] Last Admin: 03/04/19 10:30 Dose: 50 mg Trazodone HCl (Desyrel) 50 mg PO DAILY [facility] Last Admin: 03/04/19 10:25 Dose: Not Given - Labs Labs: 03/02/19 09:00 03/03/19 07:00 PT 12.5 SECONDS (9.4-12.5) 02/27/19 22:28 INR 1.13 02/27/19 22:28 APTT 28.7 Seconds (26.9-38.3) 02/27/19 22:28 - Constitutional Appears: Non-toxic, No Acute Distress - Eye Exam Eye Exam: EOMI, PERRL - ENT Exam ENT Exam: Mucous Membranes Moist - Respiratory Exam Respiratory Exam: Clear to Ausculation Bilateral. absent: Rales, Rhonchi, Wheezes - Cardiovascular Exam Cardiovascular Exam: RRR, +S1, +S2 - GI/Abdominal Exam GI & Abdominal Exam: Soft, Normal Bowel Sounds. absent: Distended, Firm, Guarding, Rigid, Tenderness, Organomegaly - Extremities Exam Extremities Exam: Normal Inspection. absent: Pedal Edema - Neurological Exam Neurological Exam: Alert, Awake, Oriented x3 - Psychiatric Exam Psychiatric exam: Normal Affect, Normal Mood - Skin Skin Exam: Dry, Warm Assessment and Plan - Assessment and Plan (Free Text) Assessment: Patient is a 56yo female with PMHx significant for diverticulitis, GERD, anxiety, diabetes who presented with chills and abdominal pain -Right sided colitis vs diverticulitis Plan: -No ongoing discomfort or bowel alteration -Would continue antibiotic regimen, OK to switch to PO from GI standpoint -ID following, will write for outpatient antibiotic regimen -Diet as tolerated -Patient scheduled to follow up with her primary demand generator manager, Dr Garcia at [facility] in the coming week - encourage outpatient colonoscopy once acute inflammation has resolved (~6-8 weeks) -No further recommendations at this time <Hemalatha Yao V - Last Filed: 03/05/19 00:02> Objective - Vital Signs/Intake and Output Vital Signs (last 24 hours): Temp Pulse Resp BP Pulse Ox 98.7 F 58 L 18 136/87 97 03/04/19 18:00 03/04/19 18:00 03/04/19 18:00 03/04/19 18:00 03/04/19 09:00 - Labs Labs: 03/02/19 09:00 03/03/19 07:00 PT 12.5 SECONDS (9.4-12.5) 02/27/19 22:28 INR 1.13 02/27/19 22:28 APTT 28.7 Seconds (26.9-38.3) 02/27/19 22:28 Attending/Attestation - Attestation I have personally seen and examined this patient.: No I have fully participated in the care of the patient.: Yes I have reviewed all pertinent clinical information, including history, physical exam and plan: Yes Notes (Text): this is an addendum to the GI progress report dictated by the GI fellow. Complete the antibiotic course. Patient will need yearly elective colonoscopy evaluation. Patient has been followed by Dr. Escobar demand generator manager for long time patient was advised to follow-up with him regarding this yearly colonoscopy evaluation. Patient also was advised to make a copies of the recent admission records and also the CT scan for gastroenterology review. Advised to come to the ER if there is any worsening of his symptoms 03/04/19 23:59
[2019-03-04 14:30] VITALS: O2SAT 97
--- NOTE | 2019-03-04 15:08 | PN ---
DATE: 03/04/2019 PULMONARY PROGRESS NOTE REFERRING PHYSICIAN: Jose Antonio Armstrong MD SUBJECTIVE: The patient is seen sitting in armchair in room. No acute distress. No overnight events reported. The patient reports feeling okay today. Has cough which is slightly improved. No headache, rhinitis, shortness of breath, chest pain, abdominal pain, nausea, vomiting, diarrhea, leg pain, or leg swelling reported. OBJECTIVE: VITAL SIGNS: Blood pressure 146/82, pulse 63, temperature 98.2, and oxygen saturation 98% on room air. GENERAL: No acute distress. HEENT: Moist mucous membranes. Mallampati score of 4. NECK: Supple. No JVD. LUNGS: Fair air flow bilaterally, few rhonchi. CARDIOVASCULAR: S1 and S2. ABDOMEN: Soft and nontender. No distention. No organomegaly. EXTREMITIES: No bilateral lower extremity edema. NEUROLOGIC: Awake, alert and verbal. Following commands. MEDICATIONS: Reviewed. Tylenol 650 mg every 6 hours p.r.n. fever, Norvasc 10 mg daily, Brovana 15 mcg every 12 hours, aspirin 81 mg daily, Pulmicort 0.5 mg solution every 12 hours, Colace 100 mg twice a day, doxycycline 100 mg every 12 hours, Lovenox 40 mg subcutaneous daily, ergocalciferol 50,000 units weekly, Pepcid 40 mg daily, Levemir 30 units subcutaneous daily, Humulin R sliding scale a.c. and at bedtime, metformin 1000 mg daily, metoprolol tartrate 50 mg daily and trazodone 50 mg daily. LABORATORY DATA: Reviewed. POC glucose 105. Blood cultures preliminary no growth after 48 hours. IMPRESSION AND PLAN: Pulmonary infiltrate, acute bronchitis, procalcitonin negative, bacteremia, diverticulitis, suspected sleep apnea syndrome, insomnia, hypertension, anxiety, hyperlipidemia, gastroesophageal reflux disease, Lovell's palsy. Continue antibiotic therapy per Infectious Disease. Continue inhaled bronchodilators, gastric prophylaxis and deep venous thrombosis prophylaxis. Continue to encourage continuous positive airway pressure use at bedtime. Sleep apnea precaution, head of bed elevated 45 degrees. Recommend patient have full pulmonary function test and sleep study as outpatient. This patient was seen and examined with Dr. Downing. Discussed assessment and plan as described above. This patient was seen and examined by Damian Méndez, nurse practitioner. Discussed assessment and plan as described above. Thank you for this consult. We will follow with you, Damian Méndez APN Cami Downing MD [facility] # [id number]
--- NOTE | 2019-03-04 15:33 | CP.PCM.PN ---
Subjective - Date & Time of Evaluation Date of Evaluation: 03/04/19 Time of Evaluation: 15:32 - Subjective Subjective: Nephrology Consultation Note: Assessment: stable pneumonia JAY JAY likely due to pre-renal state: IMPROVED Hypokalemia DM, HTN obesity anxiety GERD moderate to severe LVH hx of GNR/bacteroides sepsis with acute diverticulitis Plan no need for renal replacement therapy at present. renal function improved and close to baseline/normal. Hypertension control with meds as ordered. pt on enalapril 20 mg bid at home, can resume. Monitor I/O, daily weights and renal function while in hospital supplement lytes as needed d/c IVF GI and ID following Dose meds/antibiotics for improved GFR >60 Glycemic control Further work up for as per primary team. Thanks for allowing me to participate in care of your patient. Please call if any Qs. had d/w team will sign off and follow up further on prn basis Dr José Miguel Moss Office: [phone] CC; chills reason for consult: JAY JAY HPI: Pt is a 58 F with hx of HTN (years), DM obesity anxiety GERD and recently admitted to hospital with GNR/bacteroides sepsis with acute diverticulitis presented to hospital with complaints of feeling cold/chills for last few days. also had pain RUQ and cough and renal consult for JAY JAY management. Denies chest pain, palpitation, no shortness of breath, urine complaints Denies OTC/herbal meds/NSAIDs No recent iodinated contrast exposure. feels better now ROS: denies CP/nausea/vomiting now. no SOB at present. no nausea denies pain abdomen. denies urine complaints rest other negative except as mentioned in HPI. Physical Examination: General Appearance: Comfortable, in no acute respiratory distress, co-operative. obese. Vitals reviewed and noted as below Head; Atraumatic, normocephalic ENT: no ulcers no thrush. Tongue is midline/dry and coated. Oropharynx: no rash or ulcers. EYES: b/l PERRLA. anicteric Neck; supple no lymphadenopathy, no thyromegaly or bruit Lungs: Normal respiratory rate/effort. Breath sounds b/l + with occasional basal crackle Heart: Normal rate. s1s2 normal. No rub or gallop. Extremities: no edema. No varicose veins. ankle appears puffy Neurological: Patient is awake alert and follow commands no focal deficit. Skin: dry and warm. Normal turgor. No rash. Palpitation: Normal elasticity for age Abdomen: Abdomen is soft . Bowel sounds +. There is no abdominal tenderness no guarding/rigidity or organomegaly. Psych: normal insight. normal affect/mood MSK: no specific joint tenderness or swelling. Digits and nails normal, no deformity : kidney not palpable. exam limited due to obesity. has umblical hernia Labs/imaging/EKG reviewed. Past medical history, past surgical history, social history, allergy reviewed and noted as below Family hx; no hx of CKD. non contributory renal imaging WNL Objective - Vital Signs/Intake and Output Vital Signs (last 24 hours): Temp Pulse Resp BP Pulse Ox 98.2 F 65 19 146/82 97 03/04/19 12:00 03/04/19 14:00 03/04/19 12:00 03/04/19 12:00 03/04/19 09:00 Intake and Output: 03/04/19 03/04/19 06:59 18:59 Intake Total 540 Output Total 4 Balance 536 - Medications Medications: Current Medications Acetaminophen (Tylenol 325mg Tab) 650 mg PO Q6H PRN PRN Reason: fever > 100.1F / Headache Last Admin: 03/01/19 17:42 Dose: 650 mg Amlodipine Besylate (Norvasc) 10 mg PO DAILY [facility] Last Admin: 03/04/19 10:29 Dose: 10 mg Arformoterol Tartrate (Brovana) 15 mcg IH [id number] [facility] Last Admin: 03/04/19 08:58 Dose: 15 mcg Aspirin (Ecotrin) 81 mg PO DAILY [facility] Last Admin: 03/04/19 10:30 Dose: 81 mg Budesonide (Pulmicort Respules) 0.5 mg IH [id number] [facility] Last Admin: 03/04/19 08:58 Dose: 0.5 mg Docusate Sodium (Colace) 100 mg PO BID [facility] Last Admin: 03/04/19 10:29 Dose: 100 mg Doxycycline Hyclate (Doryx) 100 mg PO Q12 [facility]; Protocol Stop: 03/06/19 10:01 Last Admin: 03/04/19 10:29 Dose: 100 mg Enoxaparin Sodium (Lovenox) 40 mg SC DAILY [facility]; Protocol Last Admin: 03/04/19 10:28 Dose: 40 mg Ergocalciferol (Drisdol 50,000 Intl Units Cap) 1 cap PO SUN [facility] Last Admin: 03/01/19 10:02 Dose: 1 cap Famotidine (Pepcid) 40 mg PO DAILY [facility] Last Admin: 03/04/19 10:30 Dose: 40 mg Insulin Detemir (Levemir) 30 unit SC DAILY [facility] Last Admin: 03/04/19 10:24 Dose: Not Given Insulin Human Regular (Humulin R Low) 0 units SC [facility]; Protocol Last Admin: 03/04/19 12:21 Dose: 2 units Metformin HCl (Glucophage) 1,000 mg PO DAILY [facility] Last Admin: 03/04/19 10:30 Dose: 1,000 mg Metoprolol Tartrate (Lopressor) 50 mg PO DAILY [facility] Last Admin: 03/04/19 10:30 Dose: 50 mg Trazodone HCl (Desyrel) 50 mg PO DAILY [facility] Last Admin: 03/04/19 10:25 Dose: Not Given - Labs Labs: 03/02/19 09:00 03/03/19 07:00 PT 12.5 SECONDS (9.4-12.5) 02/27/19 22:28 INR 1.13 02/27/19 22:28 APTT 28.7 Seconds (26.9-38.3) 02/27/19 22:28
[2019-03-04 18:32] VITALS: BP 136/87; PULSE 58; RESP 18; TEMP 98.7
--- NOTE | 2019-03-04 22:19 | PN ---
DATE: 03/03/2019 SUBJECTIVE: She seems comfortable, no distress. She is on IV Merrem. No chest pain. No abdominal pain. No nausea. No vomiting. PHYSICAL EXAMINATION: VITAL SIGNS: Temperature is 98.4, heart rate 86, blood pressure 147/77, respiration 20, sat 99%. HEAD AND NECK: Normal. No JVD. No thyromegaly. CHEST: Clear. Few basilar rales bilaterally. CARDIAC: First sound, second sound normal. ABDOMEN: Soft, nontender, obese. EXTREMITIES: No edema. NEUROLOGIC: Normal. LABORATORY STUDY: White count 5.9, hemoglobin 12.7, hematocrit 37.7, platelets 255. Chemistry noted for blood sugar between 150 to 200, sodium 139, potassium 3.7, chloride 108, bicarb 23, BUN 8, creatinine 0.5, and blood sugar 148, calcium 9.3. IMPRESSION AND PLAN: 1. Community-acquired pneumonia, looks like bilateral basilar infiltrate. We will continue Merrem and doxycycline. Follow up with Infectious Disease consult and Pulmonary consult. 2. History of gastroenteritis, acid reflux disease. We will continue current medication, had no evidence of diverticulitis at this time. 3. Hypertension, continue Norvasc and metoprolol. 4. History of insomnia. She seems doing okay with trazodone. 5. Diabetes, insulin dependent, continue current medication, Levemir 20 units subcu daily plus metformin 1000 p.o. daily, plus coverage on regular basis. Plan is to continue current therapy. Clinically, she is improving. We will follow up. She does have appointment for colonoscopy as outpatient with Matthew Garcia. Jose Antonio Armstrong MD
--- NOTE | 2019-03-05 01:24 | PN ---
DATE: 03/04/2019 SUBJECTIVE: The patient is in bed, in no acute distress, nontoxic. She was seen early this morning in room 266, bed 1. PHYSICAL EXAMINATION: VITAL SIGNS: Temperature of 98, blood pressure is 130/80, respiratory rate of 18, heart rate of 58. HEENT: Unremarkable. NECK: Supple. LUNGS: Have decreased breath sounds. HEART: Normal S1, S2. ABDOMEN: Soft. LABORATORY DATA: Reviewed. ASSESSMENT AND PLAN: This is a 58-year-old female who was seen early this morning in room 266, bed 1, doing much better, who is with hypertension, anxiety, hyperlipidemia, diabetes, gastroesophageal reflux disease, bronchitis, migraine, Lovell's palsy, left-sided healthcare-associated pneumonia, acute kidney injury, and the patient to follow up with primary medical doctor. Campos Riojas MD
--- NOTE | 2019-03-05 05:24 | DS ---
HOSPITAL COURSE: Patient is clinically stable. No acute pain. Not short of breath. She is off IV Merrem today and she seems to be feeling better, walking around in no distress. No nausea. No vomiting. PHYSICAL EXAMINATION: VITAL SIGNS: Temperature is 98.2, heart rate 63, blood pressure 146/82, and respirations 19. HEAD AND NECK: Normal. No JVD. No thyromegaly. CHEST: Clear bilaterally. CARDIAC: First sound and second sound normal. No murmur, rub, or gallop. ABDOMEN: Soft, nontender, and obese. EXTREMITIES: No edema. NEUROLOGIC: Normal. LABORATORY DATA: Patient had multiple workup including CT abdomen and pelvis which was negative. Had a blood culture, sputum culture, urine culture which was negative. Patient also was seen by ID consult, Pulmonary consult, and GI consult by Dr. Yao. Patient seems stable. She will be discharged home. DISCHARGE DIAGNOSES: 1. Bilateral basilar pneumonia, community-acquired pneumonia. 2. Insulin dependent diabetes. 3. Hypertension. 4. Morbid obesity. 6. History of colitis and acid reflux. DISCHARGE PLAN: Continue current medications. Continue doxycycline for 1 week. Jose Antonio Armstrong MD
== END 2019-03-04 19:37 | disposition home or self-care (01) | DRG 584 ==
LOC: ED 20:35 → ERH 02-28 00:39 → 2RNO 02-28 02:42
PROVIDERS: ADMIT Internal Medicine; ATTEND Internal Medicine
DX: A41.9 Sepsis, unspecified organism (principal); J18.9 Pneumonia, unspecified organism; N17.9 Acute kidney failure, unspecified; E87.6 Hypokalemia; R65.20 Severe sepsis without septic shock; I88.0 Nonspecific mesenteric lymphadenitis; I10 Essential (primary) hypertension; E11.9 Type 2 diabetes mellitus without complications; G51.0 Bell's palsy; E03.9 Hypothyroidism, unspecified; K21.9 Gastro-esophageal reflux disease without esophagitis; G43.909 Migraine, unspecified, not intractable, without status migrainosus; E78.00 Pure hypercholesterolemia, unspecified; E78.5 Hyperlipidemia, unspecified; F41.9 Anxiety disorder, unspecified; E66.01 Morbid (severe) obesity due to excess calories; G47.30 Sleep apnea, unspecified; M19.90 Unspecified osteoarthritis, unspecified site; Z87.891 Personal history of nicotine dependence; Z79.4 Long term (current) use of insulin; Z79.82 Long term (current) use of aspirin; Z68.33 Body mass index [BMI] 33.0-33.9, adult; Z88.0 Allergy status to penicillin

== ENCOUNTER 2019-03-17 14:48 | Outpatient (CLI) | payer MEDICAID | END 2019-03-17 14:49 | disposition home or self-care (01) | LOC: RAD 14:48 ==